=== PATIENT | male | born 1955 | race Hispanic/Latino ===

== ENCOUNTER 2017-05-06 11:52 | Inpatient (IN) | payer MEDICARE, BC ==
[2017-05-06 13:05] LABS: ALT (SGPT) 29 U/L (8-55); AST (SGOT) 22 U/L (5-34); Albumin 3.6 g/dL (3.4-4.8); Alkaline Phosphatase 80 U/L (40-150); Anion Gap 25 mmol/L (10-20); BUN (Urea Nitrogen) 91 mg/dL (8.4-25.7); Bilirubin, Total 0.7 mg/dL (0.2-1.2); CK (CPK) 204 U/L (30-200); Calc. Creatinine Clearance 0 mL/min (70-130); Calcium 9.1 mg/dL (7.8-10.44); Carbon Dioxide 21 mmol/L (23-31); Chloride 95 mmol/L (98-107); Estimated GFR-MDRD 3; Globulin 4.3 g/dL (2.4-3.5); Glucose 96 mg/dL (80-115); Potassium 3.6 mmol/L (3.5-5.1); Protein, Total 7.9 g/dL (5.8-8.1); Sodium 137 mmol/L (136-145)
[2017-05-06 13:09] LABS: CKMB 2.8 ng/mL (0-6.6); Troponin I 0.036 ng/mL (< 0.028)
--- NOTE | 2017-05-06 13:19 | ULT ---
VENOUS DOPPLER ULTRASOUND OF THE RIGHT LOWER EXTREMITY: HISTORY: Right leg pain. TECHNIQUE: Batista scale ultrasound with color flow and spectral Doppler imaging of the deep venous system of the r ight lower extremity is performed. FINDINGS: There is good flow, compression, and augmentation of the right common femoral, femoral, deep femoral, popliteal, posterior tibial, and greater saphenous veins. IMPRESSION: No evidence of deep vein thrombosis in the right lower extremity. POS: RAMONE
[2017-05-06 13:24] LABS: #Eosinphils 0.1 thou/uL (0.0-0.7); #Monocytes 0.8 thou/uL (0.11-0.59); #Neutrophils 6.3 thou/uL (1.40-6.50); %Basophils 0.5 % (0.0-1.0); %Eosinophils 1.2 % (0.0-10.0); %Lymphocytes 12.7 % (21.0-51.0); %Monocytes 9.6 % (0.0-10.0); Hemoglobin 11.8 g/dL (14.0-18.0); Mean Corpuscular HGB CONC 32.9 g/dL (32.0-36.0); Mean Corpuscular Hemoglobin 35.7 pg (27.0-31.0); Mean Platelet Volume 6.8 fL (7.4-10.4); Platelet Count 179 thou/uL (130-400); RBC Distribution Width 12.6 % (11.5-14.5); Red Blood Cell (RBC) Count 3.29 mill/uL (4.70-6.10); White Blood Cell (WBC) Count 8.2 thou/uL (4.8-10.8)
[2017-05-06 13:25] LABS: MDiff Complete? YES; Macrocytosis SLIGHT = 6-15 cells (100X) (0-5/hpf); PLT Morphology Comment Appears Adequate; Polychromasia SLIGHT = 2-3 cells (100X) (0-2/hpf)
[2017-05-06] MEDS ORDERED: Acetaminophen 325 MG TAB PO PRN ×2 (15:55→17:01)
[2017-05-06] MEDS ORDERED: Calcitriol 0.25 MCG CAP PO SCH (16:00)
[2017-05-06] MEDS ORDERED: Fentanyl 100 MCG/2 ML VIAL SLOW IVP PRN (16:18)
[2017-05-06] MEDS ORDERED: FERRIC CITRATE PO SCH (17:00)
[2017-05-06] MEDS ORDERED: Bisacodyl 5 MG TAB PO PRN (17:01)
[2017-05-06 17:49] VITALS: BMI 50.2
[2017-05-06] MEDS: Sevelamer Carbonate 800 MG TAB PO SCH (18:06)
[2017-05-06] MEDS: Lanthanum Carbonate 500 mg Tablet PO SCH (18:06)
[2017-05-06] MEDS: Piperacillin/Tazobactam 2.25 GM in Sodium Chloride 0.9% 100 ML IVPB SCH (18:55)
--- NOTE | 2017-05-06 20:54 | ULT ---
ULTRASOUND SOFT TISSUES OF THE RIGHT FORELEG: Indication: Concern for abscess involving the lateral ankle of the right ankle. Technique: Grayscale and color doppler images were obtained of the region of interest. FINDINGS: There is prominent edema seen within the soft tissues. There is a 1.7 x 1.6 cm heterogeneous collecti on within the region of interest overlying the lateral leg which may reflect complex hematoma or absc ess. There is surrounding edema within the subcutaneous tissues. IMPRESSION: Complex fluid collection within the subcutaneous tissues overlying the region of interest of the late ral right foreleg. Findings may reflect a hematoma or small abscess measuring up to 1.7 cm. If clinic ally indicated, further evaluation with an MRI examination with and without contrast may be helpful f or improved delineation. POS: DIRK
[2017-05-06] MEDS ORDERED: Sodium Chloride 0.9% 10 ML ONE (21:00)
[2017-05-06] MEDS: Docusate 100 MG CAP PO SCH (21:30)
[2017-05-06] MEDS: Famotidine/PF 20 mg/2ml Vial SLOW IVP SCH (21:31)
--- NOTE | 2017-05-06 22:50 | HP ---
CHIEF COMPLAINT: 1. Right leg cellulitis. 2. Right leg pain. HISTORY OF PRESENT ILLNESS: This is a 62-year-old morbidly obese male with a known history of end-stage renal disease, on peritoneal dialysis which he does at home every day. The patient was in his usual state of health until few days ago he started noticing worsening right lower leg extremi ty pain associated with some redness. He initially went to his primary care physician who started susan llanos on amoxicillin. As the pain was getting worse and with more swelling and increased redness, the suhas marcelo came to the ER for further evaluation. The patient was noted to have marked swelling of his ri ght lower extremity compared to the left lower extremity. Had a DVT ultrasound, which was negative. The suspicion for worsening cellulitis, the patient is being admitted. On examination, the patient was noted to have marked swelling and has very soft and tender spot on his right lower leg right abov e the lateral malleolus. Pain is 9/10 intensity and is excruciating when you press on it. He denies having any trauma prior to this. Did not shave his leg or had any penetrating injury. The patient had a previous history of abscess on the same leg on the backside and had to be drained a nd went for wound care. PAST MEDICAL HISTORY: 1. End-stage renal disease. 2. Hypothyroidism. 3. Morbid obesity. 4. Anemia of chronic disease. PAST SURGICAL HISTORY: The patient has peritoneal dialysis catheter placed. Otherwise, no other kno wn past surgical history the patient is able to tell. SOCIAL HISTORY: The patient is a nonsmoker. No history of alcohol. No history of illicit drug use. FAMILY HISTORY: No significant family history of coronary artery disease, but has a family history o f type 2 diabetes mellitus and kidney problems. REVIEW OF SYSTEMS: All 12 systems are reviewed with the patient thoroughly and found to be negative except the positives said in the HPI. The following complete review of systems was negative, unless otherwise mentioned in the HPI or below : Constitutional: Weight loss or gain, sense of well-being, ability to conduct usual activities, exerc ise tolerance. Skin/Breast: Rash, itching, changes in hair growth or loss, nail changes, breast lumps, tenderness, swelling, nipple discharge. Eyes: Vision, double vision, tearing, blind spots, pain. ENT/Mouth: Headaches (location, time of onset, duration, precipitating factors), vertigo, lightheade dness, injury. Vision, double vision, tearing, blind spots, pain, nose bleeding, colds, obstruction, discharge, dental difficulties, gingival bleeding, dentures, neck stiffness, pain, tenderness, masses in thyroid or other areas. Cardiovascular: Precordial pain, substernal distress, palpitations, syncope, dyspnea on exertion, or thopnea, nocturnal paroxysmal dyspnea, edema, cyanosis, hypertension, heart murmurs, varicosities, ph lebitis, claudication. Respiratory: Pain, shortness of breath, wheezing, stridor, cough, hemoptysis, fever or night sweats. Gastrointestinal: Poor appetite, dysphagia, indigestion, abdominal pain, heartburn, eructation, naus ea, vomiting, hematemesis, jaundice, constipation, or diarrhea, abnormal stools (kim-colored, tarry, bloody, greasy, foul smelling), flatulence, hemorrhoids, recent changes in bowel habits. Genitourinary: Urgency, frequency, dysuria, nocturia, hematuria, polyuria, oliguria, unusual (or ruben nge in) color of urine, stones, hesitancy, change in size of stream, dribbling, acute retention or in continence, libido, potency. Musculoskeletal: Pain, swelling, redness or heat of muscles or joints, limitation, of motion, muscul ar weakness, atrophy, cramps. Neurologic/Psychiatric: Convulsions, paralyses, tremor, incoordination, parasthesias, difficulties w ith memory of speech, sensory or motor disturbances, or muscular coordination (ataxia, tremor), emoti onal problems, anxiety, depression, previous psychiatric care, unusual perceptions, hallucinations. Allergy/Immunologic: Skin rash, anemia, bleeding tendency, polydipsia, polyuria, intolerance to heat or cold. HOME MEDICATIONS: 1. Amoxicillin 875 mg q.12 hours. 2. Aspirin 81 mg p.o. daily. 3. Levofloxacin 250 mg 1 tablet as directed. 4. Methoxy polyethylene glycol-epoetin beta 75 mcg per syringe. 5. Calcitriol 0.25 mcg daily. 6. Cholecalciferol 2000 units capsule vitamin D3 daily. 7. Ferric citrate 210 mg of iron tablet daily. 8. Lanthanum carbonate/ Fosrenol 1000 mg two tablets p.o. as directed. 9. Levothyroxine 200 mcg tablet daily 50 mcg tablets daily. 10. Sevelamer 3 tablets p.o. t.i.d. ALLERGIES: 1. FLUCONAZOLE. 2. HYDROCODONE and OPIOIDS and MORPHINE ANALOGS. PHYSICAL EXAMINATION: VITAL SIGNS: Blood pressure 98/60, pulse is 88, respirations 18, saturation is 98% on 2 liters. GENERAL: The patient is morbidly obese. He is seen lying in the bed supine, does not appear to be i n acute distress. HEENT: Atraumatic, normocephalic. PERRLA. Extraocular movements are intact. Oral mucosa is pink an d moist. CARDIOVASCULAR: S1 and S2 normal. No murmurs, rubs, or gallops. LUNGS: Bilateral air entry was equal. No wheezing, no crackles. ABDOMEN: Soft, nontender. No guarding, no rebound tenderness. Bowel sounds normal. MUSCULOSKELETAL: The patient has right lower extremity swelling and has a tender spot which is soft in consistency on the right above the right lateral malleolus and erythema seen around the margin. N o calf tenderness, no joint tenderness, no joint swelling. SKIN: As detailed above as erythema around the wound area. LYMPHADENOPATHY: No evidence of any lymph nodes were noted, but the patient does complain of right i nguinal area tenderness. PSYCHIATRIC: No signs of suicidal ideation. No signs of satinder. No signs of agitation. LABORATORY DATA. WBC 8.2, hemoglobin is 11.8, hematocrit 35.7, platelets are 179. Sodium is 137, po tassium 3.6, chloride is 95, BUN is 91, creatinine is 18.12. Lactic acid 2.7. Troponin 0.036. BNP is 22.9. ASSESSMENT: 1. Possible right lower extremity abscess. 2. Early sepsis. 3. End-stage renal disease, on peritoneal dialysis. 4. History of hypothyroidism. 5. Morbid obesity. PLAN: 1. Closely monitor this patient. We will get a stat ultrasound to rule out abscess. We will start the patient on aggressive IV antibiotics with Zosyn 3.375 grams q.6 hours. We will consult General Solo rgery for possible abscess drainage. 2. Patient has signs of early sepsis with elevated lactic acid at 2.7. The patient has end-stage re nal disease, on peritoneal dialysis. The patient with very high risk for volume overload for giving any IV fluids at this time. We will closely monitor and consult Nephrology Dr. Gipson to follow up with this patient. 3. The patient has end-stage renal disease, on peritoneal dialysis. We will continue with his perit stoddard dialysis while he is in the hospital. The patient has elevated BUN and creatinine markedly simon vated. 4. The patient has mild troponin elevation, most likely this could be secondary to end-stage renal d isease, poor clearance of the troponins. We will closely monitor. The patient denies having any inna st pain. 5. History of hypothyroidism. We will continue the patient on home dose of levothyroxine. 6. The patient has multiple allergies for pain medications. At this time, we will use Tylenol and w ould use fentanyl if needed for pain control. 7. DVT prophylaxis, sequential compression devices at this time. I spent 70 minutes on this patient.
[2017-05-07 05:43] LABS: #Eosinphils 0.1 thou/uL (0.0-0.7); #Lymphocytes 1.3 thou/uL (1.20-3.40); #Neutrophils 5.3 thou/uL (1.40-6.50); %Basophils 0.2 % (0.0-1.0); %Eosinophils 1.1 % (0.0-10.0); %Lymphocytes 16.4 % (21.0-51.0); %Monocytes 12.5 % (0.0-10.0); %Neutrophils 69.8 % (42.0-75.0); Hemoglobin 11.1 g/dL (14.0-18.0); Mean Corpuscular HGB CONC 32.1 g/dL (32.0-36.0); Mean Corpuscular Hemoglobin 35.8 pg (27.0-31.0); Platelet Count 169 thou/uL (130-400); RBC Distribution Width 12.8 % (11.5-14.5); White Blood Cell (WBC) Count 7.6 thou/uL (4.8-10.8)
[2017-05-07] MEDS ORDERED: Sodium Chloride 0.9% 10 ML ONE ×3 (05:56→19:34)
[2017-05-07 06:07] LABS: Anion Gap 23 mmol/L (10-20); BUN (Urea Nitrogen) 87 mg/dL (8.4-25.7); Calc. Creatinine Clearance 8 mL/min (70-130); Calcium 8.7 mg/dL (7.8-10.44); Carbon Dioxide 19 mmol/L (23-31); Chloride 97 mmol/L (98-107); Estimated GFR-MDRD 3; Glucose 101 mg/dL (80-115); Potassium 3.5 mmol/L (3.5-5.1); Sodium 135 mmol/L (136-145)
[2017-05-07] MEDS: Levothyroxine Sodium 125 MCG TAB PO SCH (06:31)
[2017-05-07] MEDS: Piperacillin/Tazobactam 2.25 GM in Sodium Chloride 0.9% 100 ML IVPB SCH ×2 (06:33→18:25)
[2017-05-07] MEDS: Docusate 100 MG CAP PO SCH ×2 (08:39→21:00)
[2017-05-07] MEDS: Lanthanum Carbonate 500 mg Tablet PO SCH ×3 (08:39→14:32)
[2017-05-07] MEDS: Sevelamer Carbonate 800 MG TAB PO SCH ×3 (08:42→14:31)
[2017-05-07] MEDS ORDERED: Non-Formulary Item 1 EACH (Levothyroxine Sodium [Tirosint] 50 MCG) PO SCH (09:00)
--- NOTE | 2017-05-07 09:33 | CON ---
DATE OF CONSULTATION: 05/07/2017 HISTORY OF PRESENT ILLNESS: Mr. Boyer is a 62-year-old male with ESRD - currently on CC PD/nocturnal peritoneal dialysis and admitted due to right leg abscess. He was empirically treated w ith p.o. antibiotics without improvement and for this reason patient was further evaluated. It was f elt that he needed IV antibiotics. We are being consulted for his maintenance peritoneal dialysis. REVIEW OF SYSTEMS: Positive for low grade fever, positive for right leg abscess. No nausea, no vomi ting, no diarrhea, no syncopal episode, no productive cough, no dysuria, no urinary frequency, occasi onal constipation. No headache, no hematochezia, no melena, no hematemesis, no abdominal pain. PAST MEDICAL HISTORY: 1. ESRD, currently on peritoneal dialysis - secondary from chronic GN. 2. History of chronic lymphedema. 3. Hypertension. 4. Hypothyroidism. 5. History of fatty liver. PAST SURGICAL HISTORY: 1. Status post cuffed hemodialysis catheter placement. 2. Status post PD catheter placement. SOCIAL HISTORY: The patient lives in [place]. 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 No childre n. No history of smoking, no alcohol intake. Status post blood transfusion. Education: Some colle [employer] courses. Originally from [place]. No IV drug use. Sedentary lifestyle. FAMILY HISTORY: No family history of ESRD. ALLERGIES:? DIFLUCAN. TRAUMA: None. IMMUNIZATIONS: Up to date. HOSPITALIZATIONS: Please see past medical history. PHYSICAL EXAMINATION: VITAL SIGNS: Blood pressure is 89/54, heart rate 58, respiratory rate 22, temperature 97.9, pulse ox imetry 95%. GENERAL: Noted to be awake, alert, supine, in mild pain, morbidly obese. SKIN: Adequate turgor. HEENT: He has pinkish conjunctivae, anicteric sclerae. NECK: No neck mass, no carotid bruits, no JVD. CHEST: No deformities. LUNGS: Clear breath sounds. No wheezing, no crackles. HEART: Normal sinus rhythm. No murmur, no gallops, no rubs. ABDOMEN: Globular, soft, nontender, no masses. EXTREMITIES: Chronic leg edema. Positive for right leg abscess. Lesion noted to be fluctuant and t stephanie. MEDICATIONS: Medications of 05/07/2017; Tylenol 650 mg q.6 p.r.n., calcitriol 0.25 mcg 5 times a wee k, vitamin D3 2000 international units every 7 days, Colace 100 mg p.o. b.i.d., fentanyl 25 mcg IV q. 2 p.r.n., Fosrenol 1000 mg p.o. t.i.d., Synthroid 250 mcg every day, Auryxia 3 tablets t.i.d. with me als, Zosyn 2.25 grams IV q.12 hours, Renvela 800 mg 3 tabs t.i.d. with meals. ASSESSMENT AND PLAN: 1. End-stage renal disease, stable. We will continue current CCPD regimen. We will use 1.5% PD herson ution due to the low blood pressure. No changes to be made with the dialysis regimen. We will jake nue 11.5 hours peritoneal dialysis - nocturnal. 2. Right leg abscess - IV antibiotics. Surgical consult has been done for possible I&D of the lesio n. 3. Secondary hyperparathyroidism. Continue calcitriol. 4. Hyperphosphatemia - currently on Renvela and Fosrenol. Continue current meds. 5. Recheck base met and CBC in a.m.
[2017-05-07] MEDS ORDERED: VANCOMYCIN IVPB PRN (10:28)
--- NOTE | 2017-05-07 11:58 | CON ---
DATE OF CONSULTATION: 05/07/2017 REQUESTING PHYSICIAN: Dr. Randolph. HISTORY OF PRESENT ILLNESS: A 62-year-old obese man with a history of chronic renal disease. The patient has a history of chronic right leg lymphedema. He presented with worsening right leg pain over the last 2-3 days, associated now with low grade fever. The patient presented to the emergency department. He was evaluated, at the time complaining of 9 out of 10 right leg pain. Workup included ultrasound of the right leg, which reveals a 2 cm subcutaneous fluid collection. At the time of my evaluation, the patient is awake and alert. Reports being hypotensive, which is unusual for him. Admits to low grade fever. Denies any chills. PAST MEDICAL HISTORY: Significant for end-stage renal disease, on renal dialysis. Other past medical history includes morbid obesity, chronic anemia, and hypothyroidism. SURGICAL HISTORY: Pertinent for peritoneal dialysis catheter placement. He also has had incision and drainage of right leg abscess in the past associated with lymphedema. SOCIAL HISTORY: The patient is and lives at home with his . He denies any cigarette smoking, ethanol or illicit drug abuse. FAMILY HISTORY: Noncontributory for this patient's age. ALLERGIES: FLUCONAZOLE, OPIOIDS. MEDICATIONS: Prehospitalization medication has been reviewed. REVIEW OF SYSTEMS: Ten point review of systems essentially unremarkable except for as stated in past medical history and chief complaint. PHYSICAL EXAMINATION: GENERAL: This reveals a 62-year-old morbidly obese man who is otherwise coherent and interactive and appears stated age. The patient is alert and oriented x3, appears to be in no significant acute distress at the time of my evaluation. VITAL SIGNS: Currently includes blood pressure 89/54, pulse 58, respiratory rate 22. Maximum temperature in the last 24 hours is 99.3 degrees Fahrenheit and oxygen saturation is 95% on room air. HEENT: Reveals normocephalic and atraumatic. He has no jugular venous distention noted. HEART: Reveals regular rate and rhythm. No murmurs or gallops auscultated. LUNGS: Clear to auscultation bilaterally. Breathing is regular and unlabored. ABDOMEN: Soft and obese. He has no tenderness to palpation. EXTREMITIES: Reveals markedly edematous right leg. Distal right leg is exquisitely tender to palpation especially with palpable flocculence in the anteromedial aspect of the distal right leg. Skin itself red around the flocculence. Otherwise, the patient has 2+ radial and pedal pulses bilaterally. PERTINENT LABORATORY FINDINGS: Includes a CBC with 7600 white blood cells, hemoglobin 11.1, hematocrit is 34.5, platelet count is 169,000. Metabolic profile: Sodium 135, potassium 3.5, chloride 97, bicarbonate 19, BUN 87, creatinine 17.89, glucose is 101. IMPRESSION: 1. Chronic right leg lymphedema. 2. Two cm lymphocele, rule out abscess given the patient's current clinical presentation. PLAN: 1. Incision and drainage of the right leg, abnormal fluid collection with cultures. 2. Both findings and plan have been discussed with the patient and his at bedside. I have advised the patient that this is likely to recur as this is a complication of his chronic lymphedema. 3. Abnormal scarring may also arise from this incision and drainage. 4. The patient indicates understanding of information given. I answered his questions. The patient has given consent for this intervention. MARY
[2017-05-07] MEDS ORDERED: Vancomycin HCl 750 MG in Sodium Chloride 0.9% 250 ML 250 ML IVPB SCH (13:00)
[2017-05-07] MEDS ORDERED: Vancomycin HCl 1.25 GM in Sodium Chloride 0.9% 250 ML 250 ML IVPB SCH (13:00)
[2017-05-07] MEDS ORDERED: Vancomycin HCl 1 GM in Premix Bag 1 BAG IVPB SCH (13:00)
[2017-05-07] MEDS ORDERED: Vancomycin HCl 500 MG in Sodium Chloride 0.9% 100 ML IVPB SCH (13:00)
[2017-05-07] MEDS ORDERED: HOLD VANCOMYCIN FOR LEVEL >20 FS SCH (13:00)
--- NOTE | 2017-05-07 14:23 | PQF ---
CLINICAL DOCUMENTATION IMPROVEMENT CLARIFICATION FORM: ICD-10 Updated PLEASE DO AN ADDENDUM TO THE PROGRESS NOTE WITH ANY DOCUMENTATION UPDATES OR ADDITIONS AND CARRY THROUGH TO DC SUMMARY. THANK YOU. DATE: 05/07/17 ATTN: DR. GRUBER Please exercise your independent, professional judgment in responding to the clarification form. Clinical indicators are provided on the bottom of this form for your review Please check appropriate box(s) to clarify if the following diagnosis has been ruled in our ruled out: "SEPSIS" [ x ] Ruled in diagnosis [ x ] Continue to treat [ ] Resolved [ ] Ruled out diagnosis [ ] Cannot rule out diagnosis [ ] Other diagnosis [ ] Unable to determine In addition, please specify: Present on Admission (POA): [ x ] Yes [ ] No [ ] Unable to determine For continuity of documentation, please document condition throughout progress notes and discharge summary. Thank You. CLINICAL INDICATORS - SIGNS / SYMPTOMS / LABS H&P 05/06: "EARLY SEPSIS" BP 89/54 RR 28 LACTIC ACID: 2.7 RISKS: RIGHT LEG CELLULITIS TREATMENT: GENERAL SURGERY CONSULT I&D IV VANCOMYCIN (ER-PRESENT) IV ZOSYN (05/06-PRESENT) BLOOD CULTURES (This form is maintained as a part of the permanent medical record) 2014 [employer]. All Rights Reserved [email or web address] Office: [phone] [facility]
--- NOTE | 2017-05-07 14:41 | PDOC.PN ---
- Subjective Encounter Start Date: 05/07/17 Encounter Start Time: 08:30 Patient is seen this morning, Alert and oriented, patient is Complaing of Severe Right leg pain, Explained Discussed with Surgeon , planned to do I&D today. - Objective Resuscitation Status: Resuscitation Status FULL:Full Resuscitation MAR Reviewed: Yes Vital Signs & Weight: Vital Signs (12 hours) Temp Pulse Resp BP Pulse Ox 05/07/17 11:58 98.5 F 56 L 24 H 105/52 L 05/07/17 08:40 97.9 F 58 L 22 H 95 05/07/17 08:00 97.9 F 58 L 22 H 89/54 L 95 I&O: 05/06/17 05/07/17 05/08/17 06:59 06:59 06:59 Intake Total 110 Output Total 0 Balance 110 Result Diagrams: 05/07/17 05:07 05/07/17 05:07 Radiology Reviewed by me: Yes Phys Exam - Physical Examination HEENT: PERRLA, moist MMs Neck: no nodes, no JVD Respiratory: no wheezing, no rales Cardiovascular: RRR, no significant murmur Gastrointestinal: soft, non-tender Musculoskeletal: edema present (Right Leg pain with severe tenderness) Neurological: non-focal, normal sensation Lymphatic: no nodes Psychiatric: normal affect, A&O x 3 Dx/Plan - Plan cont current plan of care, continue antibiotics, PT/OT, respiratory therapy, DVT proph w/heparin * . Plan: Patient Will be getting his I&D today, discussd with general surgery today, Pt i scovered with Zosyn and Vancomycin. discussed with pharmacy to Dose the vancomycin to keep Troughs 10-15. Pt has pertinoneal Dialysis everyday, Renal fucntions are same, improving with Dialysis at night. Avoid nephrotoxic meds HTn well controlled, Continue Home meds. Will continue with Omeprazole for GERD. Pain mangement with IV Fentanyl as pt has multiple allergies to Morphine analouges. DVT prophylaxis: heparin Encourgaed pt to use Lymphedema stockings or Compression bandages, discussed about it. - Discharge Day Encounter end time: 09:00 Review of Systems - Review of Systems Constitutional: fever, chills Eyes: negative: Pain, Vision Change, Conjunctivae Inflammation, Eyelid Inflammation, Redness, Other ENT: negative: Ear Pain, Ear Discharge, Nose Pain, Nose Discharge, Nose Congestion, Mouth Pain, Mouth Swelling, Throat Pain, Throat Swelling, Other Respiratory: negative: Cough, Dry, Shortness of Breath, Hemoptysis, SOB with Excertion, Pleuritic Pain, Sputum, Wheezing Cardiovascular: negative: chest pain, palpitations, orthopnea, paroxysmal nocturnal dyspnea, edema, light headedness, other Gastrointestinal: negative: Nausea, Vomiting, Abdominal Pain, Diarrhea, Constipation, Melena, Hematochezia, Other Genitourinary: negative: Dysuria, Frequency, Incontinence, Hematuria, Retention , Other Musculoskeletal: Leg Pain. negative: Neck Pain, Shoulder Pain, Arm Pain, Back Pain, Hand Pain, Foot Pain, Other Neurological: negative: Weakness, Numbness, Incoordination, Change in Speech, Confusion, Seizures, Other - Medications/Allergies Allergies/Adverse Reactions: Allergies Allergy/AdvReac Type Severity Reaction Status Date / Time fluconazole Allergy Intermediate Verified 05/06/17 17:42 hydrocodone Allergy Intermediate Verified 05/06/17 17:42 Opioids - Morphine Analogues Allergy Intermediate Verified 05/06/17 17:42 Medications: Current Medications Acetaminophen (Tylenol) 650 mg PO Q4H PRN PRN Reason: Headache/Fever or Pain Bisacodyl (Dulcolax) 10 mg PO DAILYPRN PRN PRN Reason: Constipation Calcitriol (Rocaltrol) 0.25 mcg PO .5X's/WK [facility] Cholecalciferol (Vitamin D3) 2,000 units PO Q7D@0900 [facility] Docusate Sodium (Colace) 100 mg PO BID [facility] Last Admin: 05/07/17 08:39 Dose: 100 mg Famotidine (Pepcid) 20 mg SLOW IVP QPM [facility] Last Admin: 05/06/17 21:31 Dose: 20 mg Fentanyl (Sublimaze) 25 mcg SLOW IVP Q2H PRN PRN Reason: Breakthrough Pain Piperacillin Sod/Tazobactam (Sod 2.25 gm/ Sodium Chloride) 100 mls @ 200 mls/ hr IVPB 0600,1800 [facility] Last Admin: 05/07/17 06:33 Dose: 100 mls Vancomycin HCl 1.25 gm/ Sodium (Chloride) 250 mls @ 166.667 mls/hr IVPB [place] [facility] Vancomycin HCl 1 gm/ Device 200 mls @ 200 mls/hr IVPB [place] [facility] Vancomycin HCl 750 mg/ Sodium (Chloride) 250 mls @ 250 mls/hr IVPB [place] [facility] Vancomycin HCl 500 mg/ Sodium (Chloride) 100 mls @ 100 mls/hr IVPB [place] [facility] Lanthanum Carbonate (Fosrenol) 1,000 mg PO TID-WM [facility] Last Admin: 05/07/17 14:32 Dose: 1,000 mg Levothyroxine Sodium (Synthroid) 250 mcg PO 0600 [facility] Last Admin: 05/07/17 06:31 Dose: 250 mcg Miscellaneous Medication (Pharmacy To Dose) 1 each IVPB PRN PRN PRN Reason: Pharmacy to dose (Ferric Citrate [ (Auryxia] 1 Tab)) 3 tab PO TID-WM [facility] Hold Vancomycin For (Level >20) 0 each FS .AT DIALYSIS [facility] Sevelamer Carbonate (Renvela) 2,400 mg PO TID-WM [facility] Last Admin: 05/07/17 14:31 Dose: 2,400 mg
[2017-05-07] MEDS ORDERED: Sodium Chloride 0.9% 20 ML ONE (21:05)
[2017-05-07] MEDS: Famotidine/PF 20 mg/2ml Vial SLOW IVP SCH (21:43)
--- NOTE | 2017-05-07 23:25 | PRG ---
DATE OF SERVICE: 05/07/2017 SUBJECTIVE: Merrick Boyer is a 62-year-old male who was a General Surgery consult for right lower e xtremity abscess. The patient is to be taken to the OR in a.m. for I and D. He vocalized no additio nal complaints tonight. Currently, receiving IV antibiotics. OBJECTIVE: VITAL SIGNS: Reviewed and stable. The patient is afebrile. GENERAL: The patient resting in bed in no acute distress. RESPIRATORY: Breathing is nonlabored. EXTREMITIES: Right lower extremity abscess noted. ASSESSMENT: Right lower extremity abscess. PLAN: To OR in a.m. with Dr. Smiley.
[2017-05-08] MEDS ORDERED: Sodium Chloride 0.9% 20 ML ONE (06:11)
[2017-05-08] MEDS: Piperacillin/Tazobactam 2.25 GM in Sodium Chloride 0.9% 100 ML IVPB SCH (06:31)
[2017-05-08 06:34] LABS: #Eosinphils 0.1 thou/uL (0.0-0.7); #Monocytes 0.9 thou/uL (0.11-0.59); #Neutrophils 5.7 thou/uL (1.40-6.50); %Basophils 0.3 % (0.0-1.0); %Eosinophils 1.7 % (0.0-10.0); %Lymphocytes 22.9 % (21.0-51.0); %Monocytes 10.5 % (0.0-10.0); %Neutrophils 64.6 % (42.0-75.0); Mean Corpuscular HGB CONC 33.7 g/dL (32.0-36.0); Mean Corpuscular Hemoglobin 36.4 pg (27.0-31.0); Mean Platelet Volume 6.5 fL (7.4-10.4); Platelet Count 186 thou/uL (130-400); RBC Distribution Width 12.5 % (11.5-14.5); Red Blood Cell (RBC) Count 3.02 mill/uL (4.70-6.10); White Blood Cell (WBC) Count 8.7 thou/uL (4.8-10.8)
[2017-05-08 06:46] LABS: Anion Gap 25 mmol/L (10-20); BUN (Urea Nitrogen) 85 mg/dL (8.4-25.7); Calc. Creatinine Clearance 9 mL/min (70-130); Calcium 8.6 mg/dL (7.8-10.44); Carbon Dioxide 19 mmol/L (23-31); Chloride 96 mmol/L (98-107); Estimated GFR-MDRD 3; Glucose 105 mg/dL (80-115); Potassium 3.5 mmol/L (3.5-5.1); Sodium 136 mmol/L (136-145)
[2017-05-08] MEDS: Levothyroxine Sodium 125 MCG TAB PO SCH (07:35)
[2017-05-08] MEDS ORDERED: Midazolam HCl 2 mg/2 ml Vial ONE ×2 (08:59→11:07)
[2017-05-08] MEDS ORDERED: Fentanyl 100 MCG/2 ML VIAL ONE (11:07)
[2017-05-08] MEDS ORDERED: Bupivacaine/Epinephrine 0.25% 30 ML VIAL ONE ×2 (11:10→11:11)
[2017-05-08] MEDS ORDERED: Lidocaine 2% PF 5 ML VIAL ONE (11:10)
[2017-05-08] MEDS ORDERED: Propofol 200 MG/20 ML VIAL ONE (11:49)
[2017-05-08] MEDS ORDERED: Promethazine HCl 25 MG/ML VIAL SLOW IVP PRN (12:19)
[2017-05-08] MEDS ORDERED: Promethazine HCl 25 MG/ML VIAL IM PRN (12:19)
[2017-05-08] MEDS ORDERED: Ondansetron HCl/PF 4 MG/2 ML Vial IVP PRN (12:19)
[2017-05-08] MEDS: Lanthanum Carbonate 500 mg Tablet PO SCH ×2 (13:19→13:24)
[2017-05-08] MEDS: Sevelamer Carbonate 800 MG TAB PO SCH ×2 (13:20→13:24)
[2017-05-08] MEDS: Docusate 100 MG CAP PO SCH (13:24)
[2017-05-08] MEDS ORDERED: traMADol HCl 50 MG TAB PO PRN ×2 (15:08)
[2017-05-08] MEDS ORDERED: Acetaminophen 325 MG TAB PO SCH (15:15)
--- NOTE | 2017-05-08 16:21 | OP ---
DATE OF OPERATION: 05/08/2017 PREOPERATIVE DIAGNOSIS: Right leg abscess. POSTOPERATIVE DIAGNOSIS: Right leg abscess. PROCEDURES PERFORMED: Incision and drainage of right leg abscess. SURGEON: Dr. Smiley. ANESTHESIA: Conscious sedation. INDICATIONS FOR PROCEDURE: This is a 62-year-old morbidly obese man with history of right leg lymphedema who presented with a flocculent tender distal right leg mass. Clinical and radiographic examination was consistent with distal right leg abscess. The patient was brought to the operating room for incision and drainage. DESCRIPTION OF PROCEDURE: Informed consent obtained from the patient who was brought to the operating room and placed in supine position. Following conscious anesthesia provided by Anesthesia Department, the right leg was sterilely prepped and draped in the usual fashion Crucifix incision was made above the dome of the abscess; large amount of purulent pus was evacuated. Necrotic tissues were sharply debrided using Metzenbaum scissors. The wound bed was then packed with saline saturated sterile gauze. Kerlix and Pramod was then used to wrap the distal leg. The patient tolerated the procedure without any apparent complication and was returned to the recovery room in satisfactory condition. MARY
[2017-05-08 16:45] VITALS: BP 111/56; TEMP 98.4
--- NOTE | 2017-05-08 17:22 | PRG ---
DATE OF SERVICE: 05/08/2017 SUBJECTIVE: Mr. Boyer is a 62-year-old male with ESRD, currently on peritoneal dialysis . This morning, he underwent incision and drainage of his right leg abscess. Since that time, he is doing well. He will be discharged today. He voices no new complaints. OBJECTIVE: VITAL SIGNS: Blood pressure is 111/56, heart rate 79, respiratory rate 22, temperature 98.4. GENERAL: Awake, alert, comfortable, not in distress. SKIN: Adequate turgor. HEENT: Pinkish conjuctivae. Anicteric sclera. NECK: No neck mass. No carotid bruits. No JVD. CHEST: No deformities. LUNGS: Clear breath sounds. HEART: Normal sinus rhythm. No murmur, no gallops, no rubs. ABDOMEN: Globular, soft, nontender. Positive for PD catheter. EXTREMITIES: Positive for edema. Positive for right leg dressing. Left leg positive for edema. MEDICATIONS: Of 05/08/2017 reviewed. LABORATORY: On 05/08/2017, white count 8.7, hemoglobin 11, sodium 136, potassium 2.5, chloride 96, c arbon dioxide 29, BUN 85, creatinine 17, glucose 115, calcium 8.6. ASSESSMENT AND PLAN: 1. End-stage renal disease, stable. Tolerating continuous cycling peritoneal dialysis last night. Continue current continuous cycling peritoneal dialysis regimen. No changes to be made. 2. Right leg abscess, status post incision and drainage. Doing well. Okay for discharge.
--- NOTE | 2017-05-08 22:58 | DIS ---
DATE OF ADMISSION: 05/06/2017 DATE OF DISCHARGE: 05/08/2017 ADMITTING DIAGNOSIS: Right leg abscess. DISCHARGE DIAGNOSES: Right leg abscess incision and drainage. SECONDARY DIAGNOSES: 1. Sepsis. 2. End-stage renal disease. 3. Hypothyroidism. 4. Morbid obesity. 5. Anemia of chronic disease. CONSULTANTS: Involved in the care is Dr. Morrison, General Surgery. HISTORY OF PRESENT ILLNESS AND HOSPITAL COURSE: In brief, this is a 62-year- old morbidly obese man with a known history of end-stage renal disease , on peritoneal dialysis. He presented to the ER complaining of worsening right leg pain, which initially was treated with outpatient oral antibiotic for cellulitis, but the pain was getting worse and was having worsening swelling. The patient decided to come to the ER for further evaluation. When the patient came to the ER, he had a severe pain and ultrasound was done showing an evidence of sign suspicious for abscess. General Surgery was consulted for incision and drainage, and the patient was initially started on vancomycin and Zosyn. Following this, the patient was still having worsening pain, so incision and drainage was carried out and there was serosanguineous fluid was taken and sent for cultures. The patient wanted to go home. The patient was instructed how to do wound care as his is very familiar with it. The patient was discharged home in stable condition. PHYSICAL EXAMINATION: On date of discharge, VITAL SIGNS: Blood pressure 117/68, heart rate is 76, respiration rate is 20, saturation is 96%. GENERAL: The patient is moderately built and moderately nourished, does not appears to be in acute distress. CARDIOVASCULAR: S1, S2 normal. No murmurs, rubs or gallops. LUNGS: Bilateral air entry was equal. No wheezing, no crackles. ABDOMEN: Soft, nontender, no guarding, no rebound tenderness. Bowel sounds normal. MUSCULOSKELETAL: No calf tenderness. No pedal edema, no joint tenderness, no joint swelling. SKIN: No cyanosis, no erythema, no rash, no pallor. NEUROLOGIC: Cranial nerve examination II-XII intact. No focal deficits were noted. HOME MEDICATIONS: 1. Tylenol. 2. Aspirin 81 mg. 3. Calcitriol. 4. Docusate 100 mg twice a daily. 5. Lanthanum carbonate. 6. Levofloxacin 250 mg p.o. as directed. 7. Levothyroxine. 8. Sevelamer carbonate. 9. Doxycycline 100 mg twice daily. DISCHARGE INSTRUCTIONS: 1. Continue activity as tolerated. 2. Advised to follow up with primary care physician in 1-2 weeks. 3. Advised to follow up with General Surgery has he recommended. 4. Advised activity as tolerated and avoid wetting the wound. I spent 35 minutes of this patient on day of discharge. MTDD
== END 2017-05-08 17:21 | disposition home or self-care (01) | DRG 853 ==
LOC: ERS 11:52 → ERHOLD 15:05 → 3SE 17:00
PROVIDERS: ADMIT Family Medicine; ATTEND Family Medicine
PROC: 3E1M39Z Irrigation of Peritoneal Cavity using Dialysate, Percutaneous Approach (ICD-10-PCS; 2017-05-06)
PROC: 0J9N0ZZ Drainage of Right Lower Leg Subcutaneous Tissue and Fascia, Open Approach (ICD-10-PCS; principal; 2017-05-08)
DX: A41.9 Sepsis, unspecified organism (principal); N18.6 End stage renal disease; I96 Gangrene, not elsewhere classified; N25.81 Secondary hyperparathyroidism of renal origin; L02.415 Cutaneous abscess of right lower limb; E66.01 Morbid (severe) obesity due to excess calories; E83.39 Other disorders of phosphorus metabolism; L03.115 Cellulitis of right lower limb; Z68.43 Body mass index [BMI] 50.0-59.9, adult; N03.9 Chronic nephritic syndrome with unspecified morphologic changes; I10 Essential (primary) hypertension; E03.9 Hypothyroidism, unspecified; D63.8 Anemia in other chronic diseases classified elsewhere; Z99.2 Dependence on renal dialysis; I89.0 Lymphedema, not elsewhere classified; K21.9 Gastro-esophageal reflux disease without esophagitis
CPT/HCPCS: 36415; 76999; 80048; 80053; 80202; 82550; 82553; 83605; 83880; 84484; 85025; 87040; 87070; 87077; 87186; 87205; 90945; 96365; A4216; G0257; G8978-GP-CM; G8979-GP-CK; J0131; J2001; J2250; J2543; J2704; J3010; J3370; J7050; S0028

== ENCOUNTER 2018-02-08 22:23 | Inpatient (IN) | payer MEDICARE, BC ==
[2018-02-08 23:22] LABS: #Lymphocytes 0.9 thou/uL (1.20-3.40); #Monocytes 0.8 thou/uL (0.11-0.59); #Neutrophils 12.4 thou/uL (1.40-6.50); %Basophils 0.1 % (0.0-1.0); %Eosinophils 0.3 % (0.0-10.0); %Lymphocytes 6.5 % (21.0-51.0); %Monocytes 5.6 % (0.0-10.0); %Neutrophils 87.6 % (42.0-75.0); MDiff Complete? YES; Macrocytosis SLIGHT = 6-15 cells (100X) (0-5/hpf); Mean Corpuscular HGB CONC 33.6 g/dL (32.0-36.0); Mean Corpuscular Hemoglobin 35.5 pg (27.0-31.0); Mean Platelet Volume 6.9 fL (7.4-10.4); Platelet Count 198 thou/uL (130-400); RBC Distribution Width 15.5 % (11.5-14.5); Red Blood Cell (RBC) Count 3.68 mill/uL (4.70-6.10); White Blood Cell (WBC) Count 14.1 thou/uL (4.8-10.8)
[2018-02-08 23:24] LABS: ALT (SGPT) 50 U/L (8-55); AST (SGOT) 29 U/L (5-34); Albumin 3.6 g/dL (3.4-4.8); Alkaline Phosphatase 106 U/L (40-150); Anion Gap 22 mmol/L (10-20); BUN (Urea Nitrogen) 67 mg/dL (8.4-25.7); Bilirubin, Total 0.8 mg/dL (0.2-1.2); Calc. Creatinine Clearance 0 mL/min (70-130); Calcium 9.7 mg/dL (7.8-10.44); Carbon Dioxide 18 mmol/L (23-31); Chloride 98 mmol/L (98-107); Estimated GFR-MDRD 3; Globulin 4.2 g/dL (2.4-3.5); Glucose 129 mg/dL (80-115); Potassium 3.3 mmol/L (3.5-5.1); Protein, Total 7.8 g/dL (5.8-8.1); Sodium 135 mmol/L (136-145)
[2018-02-08] MEDS ORDERED: Gentamicin 80 MG/2 ML VIAL ONE (23:30)
--- NOTE | 2018-02-08 23:41 | CT ---
CT OF THE ABDOMEN AND PELVIS 02/08/18 COMPARISON: 02/06/11 HISTORY: Abdominal pain, increased temperature, peritoneal dialysis. TECHNIQUE: Serial axial CT imaging at 5 mm intervals from lung bases through pubic symphysis without contrast. C oronal reformatted imaging obtained. FINDINGS: The lack of contrast limits assessment of the viscera, bowel, vascular structures and for lymphadenop athy. There is mild increased linear interstitial density noted within bilateral lung bases. There is no free intraperitoneal air noted. The catheter tubing curls in the pelvis, consistent with the patient's history of peritoneal dialysis. There is small volume free fluid in the pelvis, primari ly adjacent to the dialysis catheter. Limited assessment of the liver, gallbladder, spleen, pancreas, and adrenal glands is unremarkable. The kidneys are markedly atrophic. There are numerous calcifications noted within the renal hilum pallavi aterally suggesting a combination of numerous nonobstructing renal stones as well as numerous vascula r calcifications. No evidence for hydronephrosis is noted on either side. Limited assessment of the bowel demonstrates no evidence for obstruction. There is small volume free fluid in the inferior aspect of bilateral pericolic gutters. There is scattered atherosclerotic calcification of the abdominal aorta and its branches. Review of the osseous structures demonstrates degenerative change involving bilateral hips and bilate ral sacroiliac joints. There is multilevel thoracic spine and lumbar spine degenerative changes inclu ding multilevel disc space narrowing and osteophyte formation as well as multilevel vacuum disc forma tion and multifocal facet hypertrophic change. Renal calculi on the right measure up to 7-8 mm and re nal calculi on the left include a stone within the renal pelvis measuring up to 1 cm. IMPRESSION: 1. No free intraperitoneal air. 2. Numerous subcentimeter nonobstructing renal calculi bilaterally. POS: [facility]
[2018-02-08] MEDS ORDERED: Gentamicin Sulfate 80 MG in Premix Bag 1 BAG IVPB SCH (23:45)
[2018-02-09] MEDS ORDERED: Ondansetron ODT 4 MG TAB PO PRN (00:11)
[2018-02-09] MEDS ORDERED: Ondansetron HCl/PF 4 MG/2 ML Vial IVP PRN (00:11)
[2018-02-09] MEDS ORDERED: Acetaminophen 1,000 MG in Premix Bag 1 BAG IVPB PRN (00:16)
[2018-02-09 00:21] LABS: BF Color Colorless; Body Fluid Source PERITONEAL FLUID; Clarity Hazy (Clear); RBC Background Count 0.004; Tube # EDTA; WBC/NonHematic-Auto 1690 /cumm
[2018-02-09 00:32] LABS: BF RBC Count - Manual 75 /cumm
[2018-02-09] MEDS ORDERED: Vancomycin HCl 1.5 GM in Sodium Chloride 0.9% 250 ML 300 ML IVPB PRN (01:08)
[2018-02-09] MEDS ORDERED: Vancomycin HCl 1.25 GM in Sodium Chloride 0.9% 250 ML 250 ML IVPB PRN (01:09)
[2018-02-09] MEDS ORDERED: Vancomycin HCl 1 GM in Premix Bag 1 BAG IVPB PRN (01:10)
[2018-02-09] MEDS ORDERED: Vancomycin HCl 750 MG in Sodium Chloride 0.9% 250 ML 250 ML IVPB PRN (01:11)
[2018-02-09] MEDS ORDERED: HOLD VANCOMYCIN FOR LEVEL >20 FS PRN (01:12)
[2018-02-09 01:34] LABS: BF Segmented Neutrophils 90 %; Cell Count Non Hematic 10 %
[2018-02-09] MEDS ORDERED: Sodium Chloride 0.9% 500 ML IVPB SCH (02:30)
[2018-02-09 03:08] LABS: #Lymphocytes 0.9 thou/uL (1.20-3.40); #Monocytes 0.8 thou/uL (0.11-0.59); #Neutrophils 12.1 thou/uL (1.40-6.50); %Basophils 0.1 % (0.0-1.0); %Eosinophils 0.2 % (0.0-10.0); %Lymphocytes 6.4 % (21.0-51.0); %Monocytes 5.9 % (0.0-10.0); %Neutrophils 87.4 % (42.0-75.0); Hemoglobin 10.9 g/dL (14.0-18.0); Mean Corpuscular HGB CONC 33.5 g/dL (32.0-36.0); Mean Corpuscular Hemoglobin 35.4 pg (27.0-31.0); Mean Platelet Volume 6.9 fL (7.4-10.4); Platelet Count 159 thou/uL (130-400); RBC Distribution Width 15.5 % (11.5-14.5); Red Blood Cell (RBC) Count 3.07 mill/uL (4.70-6.10); White Blood Cell (WBC) Count 13.9 thou/uL (4.8-10.8)
[2018-02-09] MEDS ORDERED: Sodium Chloride 0.9% 500 ML IVPB PRN (03:30)
[2018-02-09 03:41] LABS: Lactic Acid 2.1 mmol/L (0.5-2.2)
[2018-02-09 03:44] LABS: ALT (SGPT) 39 U/L (8-55); AST (SGOT) 24 U/L (5-34); Albumin 2.9 g/dL (3.4-4.8); Alkaline Phosphatase 90 U/L (40-150); Anion Gap 17 mmol/L (10-20); BUN (Urea Nitrogen) 68 mg/dL (8.4-25.7); Bilirubin, Total 0.8 mg/dL (0.2-1.2); Calc. Creatinine Clearance 0 mL/min (70-130); Calcium 8.9 mg/dL (7.8-10.44); Carbon Dioxide 21 mmol/L (23-31); Chloride 102 mmol/L (98-107); Estimated GFR-MDRD 3; Globulin 3.4 g/dL (2.4-3.5); Glucose 117 mg/dL (80-115); Potassium 3.1 mmol/L (3.5-5.1); Protein, Total 6.3 g/dL (5.8-8.1); Sodium 137 mmol/L (136-145)
--- NOTE | 2018-02-09 03:50 | HP ---
CHIEF COMPLAINT: Abdominal pain. HISTORY OF PRESENT ILLNESS: This is a 62-year-old male with past medical history of end-stage renal disease, on peritoneal dialysis; CHF; hypothyroidism; hypertension; obesity presenting with abdominal pain, which started this morning. Per the patient, he has been doing peritoneal dialysis for years and this morning around lunchtime, the patient started feeling severe abdominal pain, which was 10/10 , localized around the umbilicus. The patient states that he did manual dialysis and the fluid was c loudy, and the patient then contacted Dr. Gipson, who is his primary flatcar whacker. Per Dr. Gipson, the pat harjeet was supposed to come to the ED to be evaluated for possible peritonitis. The patient at this po int denies any headaches, nausea, vomiting, chest pain, palpitations, shortness of breath; however, t he patient endorses 10/10 abdominal pain. REVIEW OF SYSTEMS: Positive for abdominal pain and low blood pressure, otherwise as documented in th e HPI. All other systems were reviewed and are negative. FAMILY HISTORY: Reviewed and noncontributory. PAST MEDICAL HISTORY: CHF; end-stage renal disease, on peritoneal dialysis; hypothyroidism; hyperten micaela; obesity. PAST SURGICAL HISTORY: The patient has peritoneal dialysis in place. PSYCHIATRIC HISTORY: The patient does not have any psych history. SOCIAL HISTORY: The patient denies any illicit drug use. The patient denies any ethanol abuse. The patient denies any smoking history. KNOWN ALLERGIES: The patient is allergic to DIFLUCAN, FLUCONAZOLE, HYDROCODONE, OPIOIDS, TRAMADOL. CURRENT MEDICATIONS: The patient is on Synthroid 300 mcg, aspirin 81 mg, Renvela 800 mg t.i.d. PHYSICAL EXAMINATION: VITAL SIGNS: Blood pressure is 94/44, heart rate is 94, respiratory rate of 26, temperature of 98.8, O2 saturation of 97. GENERAL APPEARANCE: The patient is lying in bed, appeared to be in a lot of pain, slightly in distre ss. Speaking in full sentences. Alert and oriented x3. HEENT: Normocephalic, atraumatic. Pupils are equally round and reactive to light. Extraocular move ments are intact. No scleral icterus. Mucous membranes are moist. NECK: Supple. No JVDs. Full range of motion. No tracheal deviation. LUNGS: Clear to auscultation bilaterally at anterior and posterior lung mejia. No wheeze, no rales , no rhonchi is appreciated. CARDIAC: The patient is tachycardic. No murmurs can be appreciated. ABDOMEN: Obese abdomen with diffuse tenderness with light palpation. Positive bowel sounds in all q uadrants. No palpable masses. There is a catheter in place at the abdomen. There is no erythema no miguel ángel. EXTREMITIES: 5/5 upper extremity strength and 5/5 lower extremity strength. Good pulses bilaterally at the upper and lower extremities. SKIN: Warm, dry, and intact. No rashes noted. There is a catheter inserted at the abdomen that can be seen. EKG shows sinus tachycardia with a rate of 101, complete right bundle branch block. EMERGENCY DEPARTMENT COURSE: The patient was given gentamicin, vancomycin, and normal saline. LABORATORY DATA: WBC is 14.1, hemoglobin is 13, hematocrit is 38.8, MCV is 106, RDW is 15.5, platele t is 198. Sodium of 135, potassium of 3.8, chloride of 98, carbon dioxide of 18, anion gap of 22. B UN is 67, creatinine is 15.51. GFR is 3. Lactic acid is 0.4, AST 29, ALT 50. Peritoneal fluid is c olorless, hazy in color; wbc is 1690; percentage of is 90. IMAGING: CT of the abdomen and pelvis showed no free intraperitoneal air, numerous subcentimeter non obstructing renal calculi bilaterally. ASSESSMENT AND PLAN: 1. This is a 62-year-old male being admitted for abdominal pain, likely due to abdominal peritonitis . At this point, the patient has been started on antibiotics, vancomycin and cefepime. We will cont inue the patient on these antibiotics. The patient sees Dr. Gipson, flatcar whacker. Therefore, we have c onsulted Dr. Gipson, flatcar whacker in terms of patient's renal issues. We will follow up with Nephrology 's recommendations. We will give the patient Tylenol IV for pain since the patient has multiple cornelia rgies to multiple pain medications. 2. Hypotension. The patient does have history of hypotension. Per the patient, he normally runs in the 80s. Dr. Gipson, who is the patient's flatcar whacker, is aware of this. Per his recommendation, the patient is supposed to receive 1 liter of fluids and the patient will undergo peritoneal dialysis in the a.m. We will follow up with the patient. We will admit the patient to the [facility] to be monitored closely. 3. Electrolyte abnormalities. We will replete patient's electrolytes. 4. End-stage renal disease, on peritoneal dialysis. The patient is said to have dialysis in the a.m . 5. History of obesity, currently stable at this time. We will continue treating the patient on his home medications. 6. History of hypothyroidism. We will start the patient on his home medications, after home medicat ions have been verified. 7. History of hypertension. Currently, the patient is hypotensive. We will monitor the patient chuckie sely. 8. Deep venous thrombosis and gastrointestinal prophylaxis. We will do heparin b.i.d. and we will m onitor the patient closely.
[2018-02-09 04:57] VITALS: BMI 46.0
[2018-02-09 05:51] LABS: HBSAg Index 0.21 S/CO (0-0.99); Hep B Surf Ag Non-Reactive S/CO (NonReactive)
[2018-02-09] MEDS: Cefepime 1 GM in Sodium Chloride 0.9% 100 ML IVPB SCH (06:08)
[2018-02-09] MEDS ORDERED: Potassium Chloride 20 MEQ TAB PO SCH (07:15)
[2018-02-09] MEDS: Heparin 5,000 UNITS/ML VIAL SC SCH ×2 (08:58→20:00)
[2018-02-09] MEDS ORDERED: [UNRECOGNIZED DRUG - REMARK] FS SCH (09:00)
[2018-02-09] MEDS ORDERED: Heparin 10,000 UNITS/ 10 ML VIAL ONE ×2 (09:00→10:00)
--- NOTE | 2018-02-09 11:32 | PDOC.PN ---
- Subjective Encounter Start Date: 02/09/18 Encounter Start Time: 11:50 Subjective: abd pain is better, no nausea, had breakfast this am -: sbp around 90 and says its normal for him -: at bedside - Objective Resuscitation Status: Resuscitation Status FULL:Full Resuscitation MAR Reviewed: Yes Vital Signs & Weight: Vital Signs (12 hours) Temp Pulse Resp BP Pulse Ox 02/09/18 08:00 97.7 F 61 22 H 114/49 L 96 02/09/18 07:55 99 02/09/18 04:06 76 20 78/42 L 100 02/09/18 02:22 86/44 L 02/09/18 02:15 99 02/09/18 02:06 82/43 L 02/09/18 02:01 78/43 L 02/09/18 01:47 82/42 L 02/09/18 01:16 90/53 L 02/09/18 00:58 100.0 F H 94 23 H 101/67 99 Weight Weight 285 lb 4.8 oz I&O: 02/08/18 02/09/18 02/10/18 06:59 06:59 06:59 Intake Total 1062 Output Total 95 Balance 967 Result Diagrams: 02/09/18 02:50 02/09/18 02:51 Phys Exam - Physical Examination HEENT: PERRLA, sclera anicteric Neck: no JVD, supple Respiratory: no wheezing, no rales Cardiovascular: RRR, no significant murmur Gastrointestinal: soft, no distention, positive bowel sounds PD cath Musculoskeletal: no edema, pulses present Neurological: non-focal, moves all 4 limbs Psychiatric: normal affect, A&O x 3 Dx/Plan (1) Peritonitis associated with peritoneal dialysis Status: Acute Qualifiers: Encounter type: subsequent encounter Qualified Code(s): T85.71XD - Infection and inflammatory reaction due to peritoneal dialysis catheter, subsequent encounter (2) ESRD (end stage renal disease) on dialysis Code(s): N18.6 - END STAGE RENAL DISEASE; Z99.2 - DEPENDENCE ON RENAL DIALYSIS Status: Chronic Comment: on PD (3) Hypotension Status: Chronic (4) Obesity Code(s): E66.9 - OBESITY, UNSPECIFIED Status: Chronic Qualifiers: Obesity classification: adult class 3 (BMI >= 40) Body mass index: BMI 45.0 -49.9 (5) Hypothyroidism Code(s): E03.9 - HYPOTHYROIDISM, UNSPECIFIED Status: Chronic Qualifiers: Hypothyroidism type: unspecified Qualified Code(s): E03.9 - Hypothyroidism , unspecified - Plan on cefepime and vanc -: peritoneal fluid gm stain was -ve -: had his dialysis overnight and ate breakfast this am, pain is easing -: to ambulate in hallway as tolerated, has chronic hypotension -: will add midodrine if he gets symptomatic, tx to telemetry * . Review of Systems - Medications/Allergies Allergies/Adverse Reactions: Allergies Allergy/AdvReac Type Severity Reaction Status Date / Time fluconazole Allergy Intermediate Verified 05/06/17 17:42 hydrocodone Allergy Intermediate Verified 05/06/17 17:42 Opioids - Morphine Analogues Allergy Intermediate Verified 05/06/17 17:42 Medications: Current Medications Acetaminophen (Tylenol) 650 mg PO Q4H PRN PRN Reason: Headache/Fever/Mild Pain (1-3) Heparin Sodium (Porcine) (Heparin) 5,000 units SC BID [facility] Last Admin: 02/09/18 08:58 Dose: 5,000 units Cefepime HCl 1 gm/ Sodium (Chloride) 100 mls @ 200 mls/hr IVPB Q48H ASIA Last Admin: 02/09/18 06:08 Dose: 100 mls Vancomycin HCl 1.5 gm/ Sodium (Chloride) 300 mls @ 200 mls/hr IVPB WILLCALL PRN PRN Reason: AFTER PD IF VANC LEVEL <= 5.0 Vancomycin HCl 1.25 gm/ Sodium (Chloride) 250 mls @ 166.667 mls/hr IVPB WILLCALL PRN PRN Reason: AFTERIF VANC LEVEL >5 AND <=10 Vancomycin HCl 1 gm/ Device 200 mls @ 200 mls/hr IVPB WILLCALL PRN PRN Reason: PD IF VANC LEVEL >10 AND <=15 Vancomycin HCl 750 mg/ Sodium (Chloride) 250 mls @ 250 mls/hr IVPB WILLCALL PRN PRN Reason: IF VANC LEVEL >15 AND <= 20 Miscellaneous Medication (Pharmacy To Dose) 0 each IVPB PRN PRN PRN Reason: VANC/CEFEPIME Pharmacy to Dose Miscellaneous Medication (Vancomycin Sliding Scale) 0 each FS .AFTER PD [facility] Hold Vancomycin For (Level >20) 0 each FS .AFTER PD PRN PRN Reason: HOLD VANCOMYCIN IF LEVEL > 20 Ondansetron HCl (Zofran Odt) 4 mg PO Q6H PRN PRN Reason: Nausea/Vomiting Ondansetron HCl (Zofran) 4 mg IVP Q6H PRN PRN Reason: Nausea/Vomiting Sevelamer Carbonate (Renvela) 1,600 mg PO TID-[facility] Sodium Chloride (Flush - Normal Saline) 10 ml IVF Q12HR PRN PRN Reason: Saline Flush Sodium Chloride (Flush - Normal Saline) 10 ml IVF PRN PRN PRN Reason: Saline Flush
[2018-02-09 11:58] LABS: #Eosinphils 0.2 thou/uL (0.0-0.7); #Lymphocytes 1.2 thou/uL (1.20-3.40); #Monocytes 0.8 thou/uL (0.11-0.59); #Neutrophils 9.9 thou/uL (1.40-6.50); %Basophils 0.2 % (0.0-1.0); %Eosinophils 1.3 % (0.0-10.0); %Lymphocytes 10.3 % (21.0-51.0); %Monocytes 6.4 % (0.0-10.0); %Neutrophils 81.8 % (42.0-75.0); Hemoglobin 12.4 g/dL (14.0-18.0); Mean Corpuscular HGB CONC 33.1 g/dL (32.0-36.0); Mean Corpuscular Hemoglobin 34.9 pg (27.0-31.0); Mean Platelet Volume 7.3 fL (7.4-10.4); Platelet Count 135 thou/uL (130-400); RBC Distribution Width 15.4 % (11.5-14.5); Red Blood Cell (RBC) Count 3.55 mill/uL (4.70-6.10); White Blood Cell (WBC) Count 12.1 thou/uL (4.8-10.8)
[2018-02-09] MEDS: Sevelamer Carbonate 800 MG TAB PO SCH ×2 (12:24→16:29)
--- NOTE | 2018-02-09 15:55 | CON ---
DATE OF CONSULTATION: 02/09/2018 HISTORY OF PRESENT ILLNESS: Mr. Boyer is a 62-year-old male with end-stage renal diseas e and currently on peritoneal dialysis and was admitted for abdominal pain. He was admitted for pres umptive diagnosis of peritonitis. His PD fluid was slightly cloudy and in addition, he has leukocyto sis on the PD fluid. He is being empirically treated with IV vancomycin and IV cefepime. We are mauro henrietta consulted for his maintenance peritoneal dialysis. The patient is undergoing peritoneal dialysis at the present time. He has received cefepime and vancomycin. His abdominal pain is a little better . We did a quick exchange with heparinized PD solution and this relieved the abdominal pain. REVIEW OF SYSTEMS: Positive for abdominal pain. Denies any fever, no nausea, no vomiting, no diarrh ea, no constipation, chronic leg edema. No hematochezia, no melena, no hematemesis, no headache, no diplopia, no sore throat, no joint pains. Positive for abdominal pain. MEDICATIONS: Cefepime 1 gram IV q.48 hours, heparin 5000 units subcu b.i.d., vancomycin, sliding sca le, Zofran 4 mg IV q.6 hours p.r.n. PAST MEDICAL HISTORY: 1. 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 2. Chronic lymphedema. 3. Hypertension. 4. Hypothyroidism. 5. History of fatty liver. PAST SURGICAL HISTORY: 1. Status post PD catheter placement. 2. Status post cuffed hemodialysis catheter placement. SOCIAL HISTORY: Patient lives in [place]. 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 No children. No hi story of smoking, no alcohol intake. Status post multiple blood transfusions. Education: Some [employer] courses. No IV drug abuse. Sedentary lifestyle. FAMILY HISTORY: No family history of end-stage renal disease. ALLERGIES: ? Diflucan. TRAUMA: None. IMMUNIZATIONS: Up to date. HOSPITALIZATIONS: Please see past medical history. PHYSICAL EXAMINATION: VITAL SIGNS: Blood pressure is 114/49, heart rate 61, respiratory rate 22, temperature 97.7, pulse o x 96%. GENERAL: Awake, alert, comfortable, obese, not in distress. SKIN: Adequate turgor. HEENT: Slightly pale conjunctivae, anicteric sclerae. NECK: No neck mass, no carotid bruits, no JVD. CHEST: No deformities. LUNGS: Clear breath sounds, no wheezing, no crackles. HEART: Normal sinus rhythm. No murmur, no gallops, no rubs. ABDOMEN: Globular, soft, nontender, no masses. EXTREMITIES: Positive for edema. NEUROLOGIC: Moving all extremities. No tremors, no asterixis. Oriented to 3 spheres. LABORATORY DATA AND IMAGING: Of 02/09/2018, white count 13.9, hemoglobin 10.9, hematocrit 32.4. Sod ium 137, potassium 3.1, chloride 102, carbon dioxide 21, BUN 68, creatinine 14.92, glucose 107, calci um 8.9, albumin is 2.9. PD fluid showed a white count of 1690. Gram stain were negative. C&S is pe nding. On 02/08/2018, CT scan of the abdomen and pelvis, no free intraperitoneal fluid, numerous non obstructing renal calculi bilaterally. ASSESSMENT AND PLAN: 1. Presumptive peritonitis - on IV cefepime and IV vancomycin. Continue current management. Awajazmyn shrestha for the C&S. He does have a suggestion of peritonitis as evidenced by elevated white count in the PD fluid. 2. End-stage renal disease. We will continue current peritoneal dialysis regimen. PD fluid removal only as tolerated. Review of the last Kt/V suggests he is adequately dialyzed with the current dial ysis regimen. 3. Hyperphosphatemia, start Renvela with this patient at 800 mg p.o. t.i.d. with meals. Recheck base met and CBC in a.m.
[2018-02-09] MEDS: Acetaminophen 325 MG TAB PO PRN ×2 (17:12→21:51)
--- NOTE | 2018-02-09 17:49 | CON ---
DATE OF CONSULTATION: 02/09/2018 CONSULTING PHYSICIAN: [facility] REASON FOR CONSULTATION: Peritonitis. HISTORY OF PRESENT ILLNESS: The patient is a 62-year-old male who presented to the hospital last nig ht with abdominal pain of 1 day induration. He is a peritoneal dialysis patient. It is assumed that he is probably having peritonitis from infection of his dialysate. He says he feels better today. He is currently undergoing an exchange of his peritoneal dialysate as talked to him. PAST MEDICAL HISTORY: 1. End-stage renal disease. 2. Hypothyroidism. 3. Hypertension. 4. Congestive heart failure. PAST SURGICAL HISTORY: Peritoneal dialysis catheter placement. SOCIAL HISTORY: Nonsmoker, does not consume alcohol. ALLERGIES: DIFLUCAN, HYDROCODONE, TRAMADOL. MEDICATIONS PRIOR TO ADMISSION: Synthroid, aspirin, Renvela. REVIEW OF SYSTEMS: Twelve point review of system is otherwise negative. PHYSICAL EXAMINATION: VITAL SIGNS: Temperature 98.3, pulse 61, respirations 20, O2 sat 98% on room air, blood pressure 101 /49. GENERAL: He is awake and alert and in no acute distress. HEENT: Unremarkable. NECK: No JVD. LUNGS: Clear. CARDIOVASCULAR: S1, S2 regular, without murmur. ABDOMEN: Distended, mild diffuse tenderness. EXTREMITIES: No edema. He has a peritoneal dialysis catheter located in the right lower quadrant of his abdomen. LABORATORY DATA: White blood cell count 12.1, hematocrit 37.5, platelet count 135. Sodium 137, pota ssium 3.1, chloride 102, CO2 of 21, BUN 60, creatinine 14.9, glucose 117. Peritoneal dialysis fluid showed a high white blood cell count, but apparently negative gram stain. Abdominal pelvic CT demons trated a nonobstructing renal calculi. ASSESSMENT: 1. Peritonitis. 2. End-stage renal disease requiring peritoneal dialysis. RECOMMENDATIONS: Vancomycin, cefepime as you are doing. He looks stable enough to where he can be t ransferred out to the floor at any time. Pulmonary will be available for help as needed.
[2018-02-09] MEDS ORDERED: Ibuprofen 200 MG TAB PO SCH (19:30)
[2018-02-10 04:38] LABS: Anion Gap 16 mmol/L (10-20); BUN (Urea Nitrogen) 59 mg/dL (8.4-25.7); Calc. Creatinine Clearance 11 mL/min (70-130); Calcium 8.6 mg/dL (7.8-10.44); Carbon Dioxide 26 mmol/L (23-31); Chloride 97 mmol/L (98-107); Estimated GFR-MDRD 4; Glucose 98 mg/dL (80-115); Sodium 136 mmol/L (136-145)
[2018-02-10 04:50] LABS: Potassium 2.8 mmol/L (3.5-5.1)
[2018-02-10] MEDS ORDERED: Potassium Chloride 20 MEQ TAB PO SCH (05:15)
[2018-02-10] MEDS: Acetaminophen 325 MG TAB PO PRN (06:03)
[2018-02-10 08:33] LABS: Vancomycin, Random 10.5 ug/mL (See Comment)
--- NOTE | 2018-02-10 09:07 | PRG ---
DATE OF SERVICE: 02/10/2018 The patient seems to be doing well, had no acute complaints. PHYSICAL EXAMINATION: VITAL SIGNS: Temperature is 97.9, pulse 50, respirations 20, O2 sat 99%, blood pressure 133/54. HEENT: Unremarkable. NECK: No JVD. LUNGS: Clear without wheezing. CARDIOVASCULAR: S1, S2 regular. ABDOMEN: Softer, nontender. EXTREMITIES: No edema. LABORATORY AND X-RAY FINDINGS: Peritoneal fluid is growing gram positive rods. His chemistry demons trates sodium 136, potassium 2.8, chloride 97, CO2 26, BUN 59, creatinine 13, platelet count 98. ASSESSMENT: 1. Peritonitis. 2. End-stage renal disease requiring peritoneal dialysis. PLAN: He is continuing antibiotics. He is stable for transfer out to the medical floor. Pulmonary will sign off. Please recall if further assistance needed.
--- NOTE | 2018-02-10 09:47 | PRG ---
DATE OF SERVICE: 02/10/2018 SUBJECTIVE: Mr. Boyer is a 62-year-old man with ESRD - on peritoneal dialysis and admit miguel ángel for peritonitis. His Gram stain shows gram positive rm - future identification pending. He is being empirically treated with vancomycin and cefepime. He is undergoing peritoneal dialysis and trinh erating said treatment. His abdominal pain is actually improved. PHYSICAL EXAMINATION: VITAL SIGNS: Blood pressure 103/54, heart rate, 97.9, respiratory rate 20, pulse ox 99%. GENERAL: Awake, alert, comfortable, not in distress SKIN: Adequate turgor. HEENT: He has pinkish conjunctivae, anicteric sclerae. NECK: No neck mass, no carotid bruits, no JVD. CHEST: No deformities. LUNGS: Clear breath sounds, no wheezing, no crackles. HEART: Normal sinus rhythm. No murmur, no gallops or rubs. ABDOMEN: Globular, soft, nontender. No masses. EXTREMITIES: Positive for edema. MEDICATIONS: 02/10/2018 - Reviewed. LABORATORY: 02/09/2018 - White count 12.1, hemoglobin 12.4. Vancomycin level is 10.5. Sodium 136, potassium 2.8, chloride 97, carbon dioxide 26, BUN 59, creatinine 13.32, glucose 898, calcium 8.6. ASSESSMENT AND PLAN: 1. Peritonitis - empiric IV cefepime and vancomycin. Awaiting final results 2. End-stage renal disease, stable. Continue current CCPD regimen, tolerating said treatment. 3. Hypokalemia, KCl 40 mEq 1 tab now. 4. Chronic hypotension; start midodrine 5 mg tab q.a.m.
[2018-02-10] MEDS ORDERED: Midodrine HCl 5 MG TAB PO SCH (10:00)
[2018-02-10] MEDS: Ibuprofen 200 MG TAB PO SCH ×3 (10:03→21:24)
[2018-02-10] MEDS: Heparin 5,000 UNITS/ML VIAL SC SCH ×2 (10:03→21:23)
[2018-02-10] MEDS: Sevelamer Carbonate 800 MG TAB PO SCH ×3 (10:03→15:09)
--- NOTE | 2018-02-10 12:52 | PDOC.PN ---
- Subjective Encounter Start Date: 02/10/18 Encounter Start Time: 12:00 Subjective: feels better -: had bm this am, no nausea, tolerating oral diet -: had PD last evening - Objective Resuscitation Status: Resuscitation Status FULL:Full Resuscitation MAR Reviewed: Yes Vital Signs & Weight: Vital Signs (12 hours) Temp Pulse Resp BP Pulse Ox 02/10/18 10:57 97.1 F L 16 87/45 L 02/10/18 08:43 99 02/10/18 07:32 97.9 F 20 103/54 L 99 02/10/18 03:52 98 F 52 L 16 104/60 100 Weight Weight 277 lb 12.8 oz I&O: 02/09/18 02/10/18 02/11/18 06:59 06:59 06:59 Intake Total 1062 1350 Output Total 95 Balance 967 1350 Result Diagrams: 02/09/18 11:46 02/10/18 03:35 Phys Exam - Physical Examination HEENT: PERRLA, moist MMs Neck: no JVD, supple Respiratory: no wheezing, no rales Cardiovascular: RRR, no significant murmur Gastrointestinal: soft, positive bowel sounds Musculoskeletal: no edema, pulses present Neurological: non-focal, moves all 4 limbs Psychiatric: normal affect, A&O x 3 Dx/Plan (1) Peritonitis associated with peritoneal dialysis Status: Acute Qualifiers: Encounter type: subsequent encounter Qualified Code(s): T85.71XD - Infection and inflammatory reaction due to peritoneal dialysis catheter, subsequent encounter (2) ESRD (end stage renal disease) on dialysis Code(s): N18.6 - END STAGE RENAL DISEASE; Z99.2 - DEPENDENCE ON RENAL DIALYSIS Status: Chronic Comment: on PD (3) Hypotension Status: Chronic (4) Obesity Code(s): E66.9 - OBESITY, UNSPECIFIED Status: Chronic Qualifiers: Obesity classification: adult class 3 (BMI >= 40) Body mass index: BMI 45.0 -49.9 (5) Hypothyroidism Code(s): E03.9 - HYPOTHYROIDISM, UNSPECIFIED Status: Chronic Qualifiers: Hypothyroidism type: unspecified Qualified Code(s): E03.9 - Hypothyroidism , unspecified - Plan is on cefepime and vanc -: culture is growing gm+ve rm, await full sensitivities and identification -: september tx to med floor -: d/w , will start midodrine -: random cortisol level from am is pending * . Per he has had prior w/u for adrenal glands and was -ve. mentions that he lost nearly 80lbs after starting PD and came off all antihtn meds. Review of Systems - Medications/Allergies Allergies/Adverse Reactions: Allergies Allergy/AdvReac Type Severity Reaction Status Date / Time fluconazole Allergy Intermediate Verified 05/06/17 17:42 hydrocodone Allergy Intermediate Verified 05/06/17 17:42 Opioids - Morphine Analogues Allergy Intermediate Verified 05/06/17 17:42 Medications: Current Medications Acetaminophen (Tylenol) 650 mg PO Q4H PRN PRN Reason: Headache/Fever/Mild Pain (1-3) Last Admin: 02/10/18 06:03 Dose: 650 mg Heparin Sodium (Porcine) (Heparin) 5,000 units SC BID [facility] Last Admin: 02/10/18 10:03 Dose: 5,000 units Cefepime HCl 1 gm/ Sodium (Chloride) 100 mls @ 200 mls/hr IVPB Q48H [facility] Last Admin: 02/09/18 06:08 Dose: 100 mls Vancomycin HCl 1.5 gm/ Sodium (Chloride) 300 mls @ 200 mls/hr IVPB WILLCALL PRN PRN Reason: AFTER PD IF VANC LEVEL <= 5.0 Vancomycin HCl 1.25 gm/ Sodium (Chloride) 250 mls @ 166.667 mls/hr IVPB WILLCALL PRN PRN Reason: AFTERIF VANC LEVEL >5 AND <=10 Vancomycin HCl 1 gm/ Device 200 mls @ 200 mls/hr IVPB WILLCALL PRN PRN Reason: PD IF VANC LEVEL >10 AND <=15 Vancomycin HCl 750 mg/ Sodium (Chloride) 250 mls @ 250 mls/hr IVPB WILLCALL PRN PRN Reason: IF VANC LEVEL >15 AND <= 20 Ibuprofen (Motrin) 400 mg PO TID [facility] Last Admin: 02/10/18 10:03 Dose: 400 mg Midodrine (Proamatine) 5 mg PO DAILY [facility] Miscellaneous Medication (Pharmacy To Dose) 0 each IVPB PRN PRN PRN Reason: VANC/CEFEPIME Pharmacy to Dose Miscellaneous Medication (Vancomycin Sliding Scale) 0 each FS .AFTER PD [facility] Hold Vancomycin For (Level >20) 0 each FS .AFTER PD PRN PRN Reason: HOLD VANCOMYCIN IF LEVEL > 20 Ondansetron HCl (Zofran Odt) 4 mg PO Q6H PRN PRN Reason: Nausea/Vomiting Ondansetron HCl (Zofran) 4 mg IVP Q6H PRN PRN Reason: Nausea/Vomiting Sevelamer Carbonate (Renvela) 1,600 mg PO TID-[facility] Last Admin: 02/10/18 10:03 Dose: 1,600 mg Sodium Chloride (Flush - Normal Saline) 10 ml IVF Q12HR PRN PRN Reason: Saline Flush Sodium Chloride (Flush - Normal Saline) 10 ml IVF PRN PRN PRN Reason: Saline Flush
[2018-02-11] MEDS: Cefepime 1 GM in Sodium Chloride 0.9% 100 ML IVPB SCH (05:17)
[2018-02-11 05:54] LABS: #Eosinphils 0.2 thou/uL (0.0-0.7); #Lymphocytes 1.2 thou/uL (1.20-3.40); #Monocytes 0.4 thou/uL (0.11-0.59); %Basophils 0.2 % (0.0-1.0); %Eosinophils 4.2 % (0.0-10.0); %Lymphocytes 20.1 % (21.0-51.0); %Neutrophils 68.5 % (42.0-75.0); Hemoglobin 12.3 g/dL (14.0-18.0); Mean Corpuscular HGB CONC 32.8 g/dL (32.0-36.0); Mean Corpuscular Hemoglobin 34.9 pg (27.0-31.0); Platelet Count 164 thou/uL (130-400); RBC Distribution Width 15.3 % (11.5-14.5); Red Blood Cell (RBC) Count 3.53 mill/uL (4.70-6.10); White Blood Cell (WBC) Count 5.8 thou/uL (4.8-10.8)
[2018-02-11 06:12] LABS: Anion Gap 16 mmol/L (10-20); BUN (Urea Nitrogen) 55 mg/dL (8.4-25.7); BUN/Creatinine Ratio 4.69; Calc. Creatinine Clearance 12 mL/min (70-130); Calcium 8.9 mg/dL (7.8-10.44); Carbon Dioxide 24 mmol/L (23-31); Chloride 96 mmol/L (98-107); Estimated GFR-MDRD 4; Glucose 98 mg/dL (80-115); Phosphorus 4.2 mg/dL (2.3-4.7); Sodium 133 mmol/L (136-145)
[2018-02-11 06:16] LABS: Potassium 2.8 mmol/L (3.5-5.1)
[2018-02-11] MEDS ORDERED: Heparin 10,000 UNITS/ 10 ML VIAL ONE ×2 (07:55→12:00)
[2018-02-11] MEDS: Sevelamer Carbonate 800 MG TAB PO SCH ×3 (08:44→17:53)
[2018-02-11] MEDS: Midodrine HCl 5 MG TAB PO SCH (08:46)
[2018-02-11] MEDS: Ibuprofen 200 MG TAB PO SCH ×3 (08:46→20:03)
[2018-02-11] MEDS: Heparin 5,000 UNITS/ML VIAL SC SCH ×2 (08:46→20:02)
--- NOTE | 2018-02-11 10:23 | PRG ---
DATE OF SERVICE: 02/11/2018 SERVICE: Renal Medicine. SUBJECTIVE: Mr. Boyer is a 62-year-old male with ESRD - on maintenance peritoneal dialy sis and admitted for peritonitis. He has been empirically treated with cefepime and vancomycin. His abdominal pain is much improved. The PD fluid culture showed a presumptive corynebacterium. My con cern is he did have a mild leukocytosis in the PD. My bias is to simply finish a course of antibioti cs targeting gram-positive cocci. No other complaints today. He is also noted to be hypokalemic, and for that reason, I have started h im on K-Dur 40 mEq once a day. The patient denies any chest pain or shortness of breath. OBJECTIVE: VITAL SIGNS: Blood pressure 103/53, heart rate 51, temperature 96.9, pulse ox 99% - room air. GENERAL EXAM: Awake, alert, obese, comfortable, not in distress SKIN: Adequate turgor. HEENT: He has pinkish conjunctivae, anicteric sclerae. NECK: No neck mass, no carotid bruits, no JVD. LUNGS: Clear breath sounds, no wheezing, no crackles. HEART: Normal sinus rhythm. No murmur, no gallops, no rubs. ABDOMEN: Globular, soft, nontender. No masses. Positive for PD catheter. EXTREMITIES: No edema, no deformities. Medications of 02/11/2018 were reviewed. LABORATORY DATA: Laboratories of 02/11/2018, white count 5.8, hemoglobin 12.3. Sodium 133, potassiu m 2.8, chloride 96, carbon dioxide 24, BUN 55, creatinine 11.7, glucose 98, calcium 8.9, phosphorus 4 .2, albumin 3.0. ASSESSMENT AND PLAN: 1. End-stage renal disease - stable. Continue current CCPD regimen. Tolerating peritoneal dialysis . 2. Peritonitis - patient receiving IV vancomycin and cefepime. I would recommend that we convert hi m to Cipro at 250 b.i.d. for the next 10 days. Doing well overall. 3. Hypokalemia. K-Dur 40 mEq 1 tab q.a.m. We will recheck base met and CBC in a.m.
[2018-02-11] MEDS ORDERED: Potassium Chloride 20 MEQ TAB PO SCH (11:30)
--- NOTE | 2018-02-11 11:39 | PQF ---
DATE: 02-11-18 ATTN : DR. JIGNA PABON Please exercise your independent, professional judgment in responding to the clarification form. Clinical indicators are provided on the bottom of this form for your review Please check appropriate box(es): [ X ] Sepsis due to: (PERITONITIS, , etc.) Due to: [ ] Device (please specify) [ ] Implant [ ] Graft [ ] Infusion [ ] Severe sepsis with acute organ dysfunction of: (Examples: ESRD, other) [ ] Localized infection without sepsis [ ] Other diagnosis [ ] Unable to determine In addition, please specify: Present on Admission (POA): [ X] Yes [ ] No [ ] Unable to determine For continuity of documentation, please document condition throughout progress notes and discharge summary. Thank You. CLINICAL INDICATORS - SIGNS / SYMPTOMS / LABS ER DX: PERITONITIS, LACTIC ACID, SEPSIS H&P: ABD PAIN LIKELY DUE TO ABDOMINAL PERITONITIS, HYPOTENSION, ELECTROLYTE ABNORMALITIES, ESRD WBC: -10-21: 14.1 10: 13.9, 12.1 02-11-18: 5.8 LACTIC ACID: 02-08-18: 3.4 TEMP: 02-09-18: 100.0 BP: ER: 73/41, 94/44 10-18: 90/53, 82/42, 78/43, 82/43, 78/42 10-18: 87/45, 92/45 RR: ER: 26, 30, 24 RISK FACTORS: ER DX: PERITONITIS, LACTIC ACID, SEPSIS H&P: ABD PAIN LIKELY DUE TO ABDOMINAL PERITONITIS , HYPOTENSION, ELECTROLYTE ABNORMALITIES, ESRD TREATMENTS: ER: GENTAMYCIN IV, VANCOMYCIN IV, IVF MAR: MAXIPIME (This form is maintained as a part of the permanent medical record) 2014 [employer]. All Rights Reserved [email or web address] Office: [phone] MARY
[2018-02-11] MEDS ORDERED: Saccharomyces boulardii 250 MG CAP PO SCH (12:15)
--- NOTE | 2018-02-11 15:00 | PDOC.PN ---
- Subjective Encounter Start Date: 02/11/18 Encounter Start Time: 14:59 Subjective: still has some abd pain and loose stools. - Objective Resuscitation Status: Resuscitation Status FULL:Full Resuscitation MAR Reviewed: Yes Vital Signs & Weight: Vital Signs (12 hours) Temp Pulse Resp BP Pulse Ox 02/11/18 11:36 96.6 F L 109/75 02/11/18 08:00 51 L 16 103/53 L 95 02/11/18 07:39 98 02/11/18 07:28 96.9 F L 51 L 103/53 L 99 02/11/18 04:00 97.0 F L 50 L 17 102/61 95 Weight Weight 275 lb I&O: 02/10/18 02/11/18 02/12/18 06:59 06:59 06:59 Intake Total 1350 1300 Output Total 350 Balance 1350 950 Result Diagrams: 02/11/18 05:33 02/11/18 05:33 Additional Labs: Microbiology 02/08/18 23:36 Peritoneal Fluid Culture - Pending Body Fluid Culture - Preliminary Presumptive Corynebacterium sp 02/08/18 22:47 Venous blood - Right Hand Blood Culture - Preliminary Specimen has been received and culture in progress. No Growth to date. 02/08/18 22:47 Venous blood - Left Arm Blood Culture - Preliminary Specimen has been received and culture in progress. No Growth to date. Phys Exam - Physical Examination Constitutional: NAD HEENT: PERRLA, moist MMs, sclera anicteric, oral pharynx no lesions Neck: no nodes, no JVD, supple, full ROM Respiratory: no wheezing, no rales, no rhonchi, clear to auscultation bilateral Cardiovascular: RRR, no significant murmur, no rub Gastrointestinal: soft, non-tender, no distention, positive bowel sounds Musculoskeletal: no edema, pulses present Neurological: non-focal, normal sensation, moves all 4 limbs Psychiatric: normal affect, A&O x 3 Skin: no rash Dx/Plan (1) Sepsis Code(s): A41.9 - SEPSIS, UNSPECIFIED ORGANISM Status: Acute (2) Peritonitis associated with peritoneal dialysis Status: Acute Qualifiers: Encounter type: subsequent encounter Qualified Code(s): T85.71XD - Infection and inflammatory reaction due to peritoneal dialysis catheter, subsequent encounter (3) Hypokalemia Code(s): E87.6 - HYPOKALEMIA Status: Acute (4) ESRD (end stage renal disease) on dialysis Code(s): N18.6 - END STAGE RENAL DISEASE; Z99.2 - DEPENDENCE ON RENAL DIALYSIS Status: Chronic Comment: on PD (5) Hypotension Status: Chronic (6) Hypothyroidism Code(s): E03.9 - HYPOTHYROIDISM, UNSPECIFIED Status: Chronic Qualifiers: Hypothyroidism type: unspecified Qualified Code(s): E03.9 - Hypothyroidism , unspecified (7) Obesity Code(s): E66.9 - OBESITY, UNSPECIFIED Status: Chronic Qualifiers: Obesity classification: adult class 3 (BMI >= 40) Body mass index: BMI 45.0 -49.9 - Plan continue antibiotics, out of bed/ambulate, DVT proph w/SCDs cont empiric IV Abx. Fluid Cx w Corynebacterium. -: clinically better and hemodynamically stable. -: replace and recheck potassium -: HD per nephrology. -: BP at baseline.am labs * . Review of Systems - Review of Systems Constitutional: weakness, malaise. negative: fever, chills, sweats, other ENT: negative: Ear Pain, Ear Discharge, Nose Pain, Nose Discharge, Nose Congestion, Mouth Pain, Mouth Swelling, Throat Pain, Throat Swelling, Other Respiratory: negative: Cough, Dry, Shortness of Breath, Hemoptysis, SOB with Excertion, Pleuritic Pain, Sputum, Wheezing Cardiovascular: negative: chest pain, palpitations, orthopnea, paroxysmal nocturnal dyspnea, edema, light headedness, other Gastrointestinal: Abdominal Pain. negative: Nausea, Vomiting, Diarrhea, Constipation, Melena, Hematochezia, Other Genitourinary: negative: Dysuria, Frequency, Incontinence, Hematuria, Retention , Other Musculoskeletal: negative: Neck Pain, Shoulder Pain, Arm Pain, Back Pain, Hand Pain, Leg Pain, Foot Pain, Other Neurological: negative: Weakness, Numbness, Incoordination, Change in Speech, Confusion, Seizures, Other - Medications/Allergies Allergies/Adverse Reactions: Allergies Allergy/AdvReac Type Severity Reaction Status Date / Time fluconazole Allergy Intermediate Verified 05/06/17 17:42 hydrocodone Allergy Intermediate Verified 05/06/17 17:42 Opioids - Morphine Analogues Allergy Intermediate Verified 05/06/17 17:42 Medications: Current Medications Acetaminophen (Tylenol) 650 mg PO Q4H PRN PRN Reason: Headache/Fever/Mild Pain (1-3) Last Admin: 02/10/18 06:03 Dose: 650 mg Heparin Sodium (Porcine) (Heparin) 5,000 units SC BID [facility] Last Admin: 02/11/18 08:46 Dose: 5,000 units Cefepime HCl 1 gm/ Sodium (Chloride) 100 mls @ 200 mls/hr IVPB Q48H [facility] Last Admin: 02/11/18 05:17 Dose: 100 mls Vancomycin HCl 1.5 gm/ Sodium (Chloride) 300 mls @ 200 mls/hr IVPB WILLCALL PRN PRN Reason: AFTER PD IF VANC LEVEL <= 5.0 Vancomycin HCl 1.25 gm/ Sodium (Chloride) 250 mls @ 166.667 mls/hr IVPB WILLCALL PRN PRN Reason: AFTERIF VANC LEVEL >5 AND <=10 Vancomycin HCl 1 gm/ Device 200 mls @ 200 mls/hr IVPB WILLCALL PRN PRN Reason: PD IF VANC LEVEL >10 AND <=15 Last Admin: 02/10/18 15:00 Dose: 200 mls Vancomycin HCl 750 mg/ Sodium (Chloride) 250 mls @ 250 mls/hr IVPB WILLCALL PRN PRN Reason: IF VANC LEVEL >15 AND <= 20 Ibuprofen (Motrin) 400 mg PO TID [facility] Last Admin: 02/11/18 14:33 Dose: 400 mg Midodrine (Proamatine) 5 mg PO DAILY [facility] Last Admin: 02/11/18 08:46 Dose: 5 mg Miscellaneous Medication (Pharmacy To Dose) 0 each IVPB PRN PRN PRN Reason: VANC/CEFEPIME Pharmacy to Dose Miscellaneous Medication (Vancomycin Sliding Scale) 0 each FS .AFTER PD [facility] Hold Vancomycin For (Level >20) 0 each FS .AFTER PD PRN PRN Reason: HOLD VANCOMYCIN IF LEVEL > 20 Ondansetron HCl (Zofran Odt) 4 mg PO Q6H PRN PRN Reason: Nausea/Vomiting Ondansetron HCl (Zofran) 4 mg IVP Q6H PRN PRN Reason: Nausea/Vomiting Potassium Chloride (K-Dur) 40 meq PO QAM-[facility] Saccharomyces Boulardii (Florastor) 250 mg PO DAILY [facility] Sevelamer Carbonate (Renvela) 1,600 mg PO TID-[facility] Last Admin: 02/11/18 11:30 Dose: 800 mg Sodium Chloride (Flush - Normal Saline) 10 ml IVF Q12HR PRN PRN Reason: Saline Flush Sodium Chloride (Flush - Normal Saline) 10 ml IVF PRN PRN PRN Reason: Saline Flush
[2018-02-11] MEDS: Acetaminophen 325 MG TAB PO PRN (20:03)
[2018-02-12 05:54] LABS: #Eosinphils 0.3 thou/uL (0.0-0.7); #Monocytes 0.4 thou/uL (0.11-0.59); #Neutrophils 3.2 thou/uL (1.40-6.50); %Basophils 0.8 % (0.0-1.0); %Eosinophils 5.8 % (0.0-10.0); %Lymphocytes 20.4 % (21.0-51.0); %Monocytes 8.1 % (0.0-10.0); %Neutrophils 64.9 % (42.0-75.0); Hemoglobin 12.3 g/dL (14.0-18.0); Mean Corpuscular HGB CONC 32.5 g/dL (32.0-36.0); Mean Corpuscular Hemoglobin 34.4 pg (27.0-31.0); Mean Platelet Volume 6.9 fL (7.4-10.4); Platelet Count 177 thou/uL (130-400); RBC Distribution Width 15.5 % (11.5-14.5); Red Blood Cell (RBC) Count 3.57 mill/uL (4.70-6.10); White Blood Cell (WBC) Count 4.9 thou/uL (4.8-10.8)
[2018-02-12 06:09] LABS: Anion Gap 15 mmol/L (10-20); BUN (Urea Nitrogen) 54 mg/dL (8.4-25.7); Calc. Creatinine Clearance 12 mL/min (70-130); Calcium 8.9 mg/dL (7.8-10.44); Carbon Dioxide 25 mmol/L (23-31); Chloride 97 mmol/L (98-107); Estimated GFR-MDRD 5; Glucose 85 mg/dL (80-115); Sodium 134 mmol/L (136-145)
[2018-02-12 06:12] LABS: Potassium 2.7 mmol/L (3.5-5.1)
[2018-02-12] MEDS: Midodrine HCl 5 MG TAB PO SCH (06:45)
[2018-02-12] MEDS: Potassium Chloride 20 MEQ TAB PO SCH (06:45)
[2018-02-12] MEDS ORDERED: Potassium Chloride 20 MEQ TAB PO SCH (07:00)
[2018-02-12] MEDS: Heparin 5,000 UNITS/ML VIAL SC SCH ×2 (07:57→20:47)
[2018-02-12] MEDS: Sevelamer Carbonate 800 MG TAB PO SCH ×3 (07:57→16:16)
[2018-02-12] MEDS: Ibuprofen 200 MG TAB PO SCH ×3 (07:57→20:47)
[2018-02-12] MEDS: Saccharomyces boulardii 250 MG CAP PO SCH (07:58)
[2018-02-12 08:55] LABS: Vancomycin, Random 16.8 ug/mL (See Comment)
--- NOTE | 2018-02-12 09:54 | PRG ---
DATE OF SERVICE: 02/12/2018 SUBJECTIVE: Mr. Boyer is a 62-year-old male with ESRD - on peritoneal dialysis and admi tted for peritonitis. Empiric antibiotics has been given. Clinically, he is improving with regard t o his peritonitis. Recommendations to shift him to p.o. antibiotic. No other complaints, no chest p ain or shortness of breath. PHYSICAL EXAMINATION: VITAL SIGNS: Blood pressure is 92/58, heart rate 47, respiratory rate 20, temperature 97.6, pulse ox 97%. GENERAL: Noted to be awake, alert, comfortable, not in distress, obese. SKIN: Adequate turgor. HEENT: He has pinkish conjunctivae, anicteric sclerae. NECK: No neck mass, no carotid bruits, no JVD. CHEST: No deformities. LUNGS: Clear breath sounds. HEART: Normal sinus rhythm. No murmur, no gallops, no rubs. ABDOMEN: Globular, soft, nontender, no masses He has a PD catheter in the abdomen. EXTREMITIES: Positive for edema, no deformities. MEDICATIONS: 02/12/2018 - Reviewed. LABORATORY DATA: 02/12/2018 - White count 4.9, hemoglobin 12.3, sodium 134, potassium 2.7, chloride 97, carbon dioxide 25, BUN 54, creatinine 11.24, glucose 85, calcium 8.9. ASSESSMENT AND PLAN: 1. Hypokalemia. Continue KCl 40 mEq once a day. We will give an extra dose of 40 mEq of K-Dur toda y. 2. Peritonitis - continue antibiotics. Consider shifting to p.o. antibiotics - ? Cipro 250 b.i.d. 3. Anemia, no indication for any Epogen today. 4. End-stage renal disease, stable. Tolerating current CCPD regimen. Continue such regimen. From a renal point of view, this patient can be discharged any time.
--- NOTE | 2018-02-12 14:44 | PDOC.PN ---
- Subjective Encounter Start Date: 02/12/18 Encounter Start Time: 14:43 Subjective: multiple small issues.c/o feeling weak but refuses PT -: no N/V/D.mild abd pain. -: no CP/SOB.care discussed w at bedside - Objective Resuscitation Status: Resuscitation Status FULL:Full Resuscitation MAR Reviewed: Yes Vital Signs & Weight: Vital Signs (12 hours) Temp Pulse Resp BP BP Pulse Ox 02/12/18 11:29 97.7 F 80 20 88/53 L 95 02/12/18 07:57 97 02/12/18 07:27 97.6 F 47 L 20 92/58 L 97 02/12/18 04:00 97.7 F 52 L 16 85/48 L 94 L Weight Weight 276 lb 8 oz I&O: 02/11/18 02/12/18 02/13/18 06:59 06:59 06:59 Intake Total 1300 120 Output Total 350 Balance 950 120 Result Diagrams: 02/12/18 04:15 02/12/18 04:15 Additional Labs: Microbiology 02/08/18 23:36 Peritoneal Fluid Culture - Pending Body Fluid Culture - Final Presumptive Corynebacterium sp 02/08/18 22:47 Venous blood - Right Hand Blood Culture - Preliminary NO GROWTH AT 48 HOURS 02/08/18 22:47 Venous blood - Left Arm Blood Culture - Preliminary NO GROWTH AT 48 HOURS Phys Exam - Physical Examination Constitutional: NAD HEENT: PERRLA, moist MMs, sclera anicteric, oral pharynx no lesions Neck: no nodes, no JVD, supple, full ROM Respiratory: no wheezing, no rales, no rhonchi, clear to auscultation bilateral Cardiovascular: RRR, no significant murmur, no rub Gastrointestinal: soft, non-tender, no distention, positive bowel sounds Musculoskeletal: no edema, pulses present Neurological: non-focal, normal sensation, moves all 4 limbs Psychiatric: normal affect, A&O x 3 Dx/Plan (1) Sepsis Code(s): A41.9 - SEPSIS, UNSPECIFIED ORGANISM Status: Acute (2) Peritonitis associated with peritoneal dialysis Status: Acute Qualifiers: Encounter type: subsequent encounter Qualified Code(s): T85.71XD - Infection and inflammatory reaction due to peritoneal dialysis catheter, subsequent encounter (3) Hypokalemia Code(s): E87.6 - HYPOKALEMIA Status: Acute (4) ESRD (end stage renal disease) on dialysis Code(s): N18.6 - END STAGE RENAL DISEASE; Z99.2 - DEPENDENCE ON RENAL DIALYSIS Status: Chronic Comment: on PD (5) Hypotension Status: Chronic (6) Hypothyroidism Code(s): E03.9 - HYPOTHYROIDISM, UNSPECIFIED Status: Chronic Qualifiers: Hypothyroidism type: unspecified Qualified Code(s): E03.9 - Hypothyroidism , unspecified (7) Obesity Code(s): E66.9 - OBESITY, UNSPECIFIED Status: Chronic Qualifiers: Obesity classification: adult class 3 (BMI >= 40) Body mass index: BMI 45.0 -49.9 - Plan continue antibiotics, PT/OT, respiratory therapy, incentive spirometry, out of bed/ambulate, DVT proph w/SCDs Cont empiric ABx. Corynebacterium form peritoneal fluid-? contaminate -: Change ABx to PO. -: replace and recheck potassium -: filiberto REAVES home tomorrow. pt refuses HH or OP rehab today -: am labs * . Review of Systems - Review of Systems Constitutional: weakness, malaise. negative: fever, chills, sweats, other ENT: negative: Ear Pain, Ear Discharge, Nose Pain, Nose Discharge, Nose Congestion, Mouth Pain, Mouth Swelling, Throat Pain, Throat Swelling, Other Respiratory: negative: Cough, Dry, Shortness of Breath, Hemoptysis, SOB with Excertion, Pleuritic Pain, Sputum, Wheezing Cardiovascular: negative: chest pain, palpitations, orthopnea, paroxysmal nocturnal dyspnea, edema, light headedness, other Gastrointestinal: Abdominal Pain. negative: Nausea, Vomiting, Diarrhea, Constipation, Melena, Hematochezia, Other Genitourinary: negative: Dysuria, Frequency, Incontinence, Hematuria, Retention , Other Musculoskeletal: negative: Neck Pain, Shoulder Pain, Arm Pain, Back Pain, Hand Pain, Leg Pain, Foot Pain, Other Neurological: negative: Weakness, Numbness, Incoordination, Change in Speech, Confusion, Seizures, Other - Medications/Allergies Allergies/Adverse Reactions: Allergies Allergy/AdvReac Type Severity Reaction Status Date / Time fluconazole Allergy Intermediate Verified 05/06/17 17:42 hydrocodone Allergy Intermediate Verified 05/06/17 17:42 Opioids - Morphine Analogues Allergy Intermediate Verified 05/06/17 17:42 Medications: Current Medications Acetaminophen (Tylenol) 650 mg PO Q4H PRN PRN Reason: Headache/Fever/Mild Pain (1-3) Last Admin: 02/11/18 20:03 Dose: 650 mg Heparin Sodium (Porcine) (Heparin) 5,000 units SC BID [facility] Last Admin: 02/12/18 07:57 Dose: 5,000 units Cefepime HCl 1 gm/ Sodium (Chloride) 100 mls @ 200 mls/hr IVPB Q48H [facility] Last Admin: 02/11/18 05:17 Dose: 100 mls Vancomycin HCl 1.5 gm/ Sodium (Chloride) 300 mls @ 200 mls/hr IVPB WILLCALL PRN PRN Reason: AFTER PD IF VANC LEVEL <= 5.0 Vancomycin HCl 1.25 gm/ Sodium (Chloride) 250 mls @ 166.667 mls/hr IVPB WILLCALL PRN PRN Reason: AFTERIF VANC LEVEL >5 AND <=10 Vancomycin HCl 1 gm/ Device 200 mls @ 200 mls/hr IVPB WILLCALL PRN PRN Reason: PD IF VANC LEVEL >10 AND <=15 Last Admin: 02/10/18 15:00 Dose: 200 mls Vancomycin HCl 750 mg/ Sodium (Chloride) 250 mls @ 250 mls/hr IVPB WILLCALL PRN PRN Reason: IF VANC LEVEL >15 AND <= 20 Last Admin: 02/12/18 09:56 Dose: 250 mls Ibuprofen (Motrin) 400 mg PO TID [facility] Last Admin: 02/12/18 07:57 Dose: 400 mg Midodrine (Proamatine) 5 mg PO DAILY [facility] Last Admin: 02/12/18 06:45 Dose: 5 mg Miscellaneous Medication (Pharmacy To Dose) 0 each IVPB PRN PRN PRN Reason: VANC/CEFEPIME Pharmacy to Dose Miscellaneous Medication (Vancomycin Sliding Scale) 0 each FS .AFTER PD [facility] Hold Vancomycin For (Level >20) 0 each FS .AFTER PD PRN PRN Reason: HOLD VANCOMYCIN IF LEVEL > 20 Ondansetron HCl (Zofran Odt) 4 mg PO Q6H PRN PRN Reason: Nausea/Vomiting Ondansetron HCl (Zofran) 4 mg IVP Q6H PRN PRN Reason: Nausea/Vomiting Potassium Chloride (K-Dur) 40 meq PO QAM-[facility] Last Admin: 02/12/18 06:45 Dose: 40 meq Saccharomyces Boulardii (Florastor) 250 mg PO DAILY [facility] Last Admin: 02/12/18 07:58 Dose: 250 mg Sevelamer Carbonate (Renvela) 1,600 mg PO TID-[facility] Last Admin: 02/12/18 12:09 Dose: 1,600 mg Sodium Chloride (Flush - Normal Saline) 10 ml IVF Q12HR PRN PRN Reason: Saline Flush Sodium Chloride (Flush - Normal Saline) 10 ml IVF PRN PRN PRN Reason: Saline Flush
[2018-02-12] MEDS: Acetaminophen 325 MG TAB PO PRN (20:47)
[2018-02-13] MEDS: Cefepime 1 GM in Sodium Chloride 0.9% 100 ML IVPB SCH (05:28)
[2018-02-13 05:32] LABS: Anion Gap 17 mmol/L (10-20); BUN (Urea Nitrogen) 49 mg/dL (8.4-25.7); Calc. Creatinine Clearance 13 mL/min (70-130); Calcium 8.9 mg/dL (7.8-10.44); Carbon Dioxide 23 mmol/L (23-31); Chloride 99 mmol/L (98-107); Estimated GFR-MDRD 5; Glucose 91 mg/dL (80-115); Potassium 3.2 mmol/L (3.5-5.1); Sodium 136 mmol/L (136-145)
[2018-02-13] MEDS: Potassium Chloride 20 MEQ TAB PO SCH (08:31)
[2018-02-13] MEDS: Sevelamer Carbonate 800 MG TAB PO SCH (08:31)
[2018-02-13] MEDS: Saccharomyces boulardii 250 MG CAP PO SCH (08:31)
[2018-02-13] MEDS: Midodrine HCl 5 MG TAB PO SCH (08:31)
[2018-02-13] MEDS: Ibuprofen 200 MG TAB PO SCH (08:31)
[2018-02-13] MEDS: Heparin 5,000 UNITS/ML VIAL SC SCH (08:32)
[2018-02-13] MEDS ORDERED: Potassium Chloride 20 MEQ TAB PO SCH (08:45)
--- NOTE | 2018-02-13 09:05 | PRG ---
DATE OF SERVICE: 02/13/2018 SUBJECTIVE: Mr. Boyer is a 62-year-old male being followed up for his maintenance martha toneal dialysis. He is doing well with the CCPD. He tolerated the peritoneal dialysis last night. He was initially admitted for peritonitis. Empiric antibiotic has been given to this patient. Consi dering for p.o. antibiotics on discharge. No other complaints. No chest pain, shortness of breath. The PD fluid grew a presumptive Corynebact erium. PHYSICAL EXAMINATION: VITAL SIGNS: Blood pressure is 92/42, heart rate 52, respiratory rate 20, temperature 97.2, pulse ox 96%. GENERAL: Awake, alert, comfortable, not in distress, morbidly obese. SKIN: Adequate turgor. HEENT: He has pinkish conjunctivae, anicteric sclerae. NECK: No neck mass, no carotid bruits, no JVD. CHEST: No deformities. LUNGS: Clear breath sounds. No wheezing, no crackles. HEART: Normal sinus rhythm. No murmur, no gallops or rubs. ABDOMEN: Globular, soft, nontender, no masses. Positive for PD catheter. EXTREMITIES: Positive for edema. MEDICATIONS: 02/13/2018 - Reviewed. LABORATORY: 02/12/2018 - White count 4.9, hemoglobin 12.3. 02/13/2018 - Sodium 136, potassium 3.2, chloride 99, carbon dioxide 23, BUN 49, creatinine 10.57. ASSESSMENT AND PLAN: 1. Mild hypokalemia. We will give extra dose of K-Dur. Continue K-Dur 40 mEq 1 tab every day. 2. End-stage renal disease, stable. Continue current CCPD regimen, tolerating said treatment. 3. Peritonitis - status post antibiotics. Consider p.o. Cipro 250 b.i.d. for a total of 2 weeks. I agree with current management. Agree with planned discharge.
[2018-02-13 09:39] VITALS: BP 89/52; TEMP 97.4
--- NOTE | 2018-02-13 22:26 | DIS ---
DATE OF ADMISSION: 02/09/2018 DATE OF DISCHARGE: 02/13/2018 DISCHARGE DISPOSITION: Home. CONDITION AT THE TIME OF DISCHARGE: Stable and improved. DISCHARGE DIAGNOSES: 1. Sepsis. 2. PD catheter associated peritonitis. 3. Abdominal pain secondary to #1. 4. Hypokalemia. 5. End-stage renal disease, on peritoneal dialysis. 6. Morbid obesity with a body mass index of 44.6. 7. Hypotension, chronic. 8. Hypothyroidism. DISCHARGE MEDICATIONS: New medications as follows, midodrine 5 mg daily, metronidazole 500 mg p.o. b .i.d., levofloxacin 250 mg p.o. daily, antibiotics totally for 7 more days, and Florastor 250 mg eduard y. Resume home medication as follows: Levothyroxine, Renvela 3 tablets p.o. daily, aspirin 81 mg da hai, Rocaltrol 0.25 as needed, ferric citrate one tablet as needed, lanthanum carbonate 2 tablets wit h meals. INHOUSE CONSULTATIONS: Nephrology, Dr. Gipson and Pulmonary Medicine, Dr. Parada. PROCEDURES DONE IN THE HOSPITAL: CT scan of the abdomen and pelvis upon presentation, which is negat juan for any free intraperitoneal air after numerous subcentimeter nonobstructing renal calculi are se en. HISTORY OF PRESENTING ILLNESS: Mr. Boyer is a 62-year-old obese male with history of end-stage r enal disease on peritoneal dialysis, presented to the emergency room with complaints of abdominal ashwin n of few hours' duration, which was 10/10 and localized around the umbilicus. He also reported cloud y peritoneal dialysate. He was admitted with a presumptive diagnosis of peritonitis on empiric antib iotics. CT scan done in the emergency room was unremarkable. He had some hypotension on presentatio n, but he reported that this is chronic for him. He was admitted with a presumptive diagnosis of sep sis due to peritonitis as well. Please see admission history and physical for further details. He h as hypokalemia on presentation with a potassium of 3.8. Please see admission history and physical fo r further details. Nephrology was consulted. HOSPITAL COURSE: Mr. Boyer was started on empiric antibiotics and blood culture, peritoneal flui d cultures were sent. Peritoneal fluid culture had Corynebacterium possibly a contaminant. Blood cu ltures were negative. He had clinical improvement over the course of his hospitalization and was con tinued on dialysis while in the hospital under the care of Dr. Gipson. He was found to be severely hypo kalemic throughout his hospitalization and required daily supplementation. With regard to his low blood pressure, he reported that he always has low blood pressure in the 80s-9 0s systolic. He was, however, started on midodrine with some improvement. We will continue that ord er by the care of Dr. Gipson. As of this morning, he has been cleared for discharge by Nephrology and Pulmonary Medicine who saw susan llanos briefly while he was admitted to [facility]. He is walking in the hallways, eating a regular diet a nd has no abdominal pain. He will be discharged on levofloxacin and metronidazole empirically. He w ill get his blood work done in 2-3 days and follow up with Dr. Gipson on Saturday of this coming week. He was seen and examined prior to discharge. PHYSICAL EXAMINATION: VITAL SIGNS: This morning, temperature 97.4, pulse of 55, respirations 20, saturating 96% on room ai r, blood pressure 89/52, in no acute distress. CHEST: Clear to auscultation bilaterally. HEART: Rate and rhythm is regular. LABORATORY EXAMINATION: CBC shows WBCs of 4.9, which was 14.1 upon presentation with a neutrophil co unt of 64% which was 87% on presentation. Potassium on the day of discharge was 3.2. The patient bazan s received 40 mEq of potassium chloride after that. Total time spent 32 minutes.
== END 2018-02-13 11:03 | disposition home or self-care (01) | DRG 871 ==
LOC: ERS 22:23 → IMCU/EMU 02-09 00:56 → T4-A 02-11 16:27
PROVIDERS: ADMIT Internal Medicine; ATTEND Internal Medicine
PROC: 5A1D70Z Performance of Urinary Filtration, Intermittent, Less than 6 Hours Per Day (ICD-10-PCS; principal; 2018-02-11)
DX: A41.9 Sepsis, unspecified organism (principal); K65.9 Peritonitis, unspecified; N18.6 End stage renal disease; I13.2 Hypertensive heart and chronic kidney disease with heart failure and with stage 5 chronic kidney disease, or end stage renal disease; E87.2 Acidosis; Z68.41 Body mass index [BMI] 40.0-44.9, adult; E87.6 Hypokalemia; I95.9 Hypotension, unspecified; E03.9 Hypothyroidism, unspecified; E66.9 Obesity, unspecified; T85.71XD Infection and inflammatory reaction due to peritoneal dialysis catheter, subsequent encounter; I50.9 Heart failure, unspecified; E87.8 Other disorders of electrolyte and fluid balance, not elsewhere classified; J44.9 Chronic obstructive pulmonary disease, unspecified; Z99.2 Dependence on renal dialysis; D63.1 Anemia in chronic kidney disease; E83.39 Other disorders of phosphorus metabolism
CPT/HCPCS: 36415; 74176; 80048; 80053; 80069; 80202; 83605; 85025; 85060; 87040; 87070; 87205; 87340; 89051; 90945; 93005; 96361; 96365; 96375; G0257; J0131; J0692; J1580; J1644; J3370; J7050

== ENCOUNTER 2018-03-07 14:07 | Inpatient (IN) | payer MEDICARE, BC ==
[2018-03-07 14:47] LABS: #Basophils 0.1 thou/uL (0.0-0.2); #Eosinphils 0.4 thou/uL (0.0-0.7); #Lymphocytes 2.3 thou/uL (1.20-3.40); #Monocytes 0.8 thou/uL (0.11-0.59); %Basophils 0.7 % (0.0-1.0); %Eosinophils 4.2 % (0.0-10.0); %Lymphocytes 21.8 % (21.0-51.0); %Monocytes 7.7 % (0.0-10.0); %Neutrophils 65.7 % (42.0-75.0); Hemoglobin 13.5 g/dL (14.0-18.0); Mean Corpuscular Hemoglobin 33.6 pg (27.0-31.0); Mean Platelet Volume 8.3 fL (7.4-10.4); Platelet Count 258 thou/uL (130-400); RBC Distribution Width 18.4 % (11.5-14.5); Red Blood Cell (RBC) Count 4.01 mill/uL (4.70-6.10); White Blood Cell (WBC) Count 10.6 thou/uL (4.8-10.8)
[2018-03-07 15:10] LABS: INR-International Normal Ratio 1.3; PTT 31.6 SEC (22.9-36.1)
[2018-03-07 15:11] LABS: CKMB 2.9 ng/mL (0-6.6); Troponin I 0.027 ng/mL (< 0.028)
--- NOTE | 2018-03-07 15:46 | RAD ---
SINGLE VIEW OF THE CHEST: Comparison: 01-05-15 History: Weakness, cough. FINDINGS: Single view of the chest shows a normal sized cardiomediastinal silhouette. There is no evidence of c onsolidation, mass, or pleural effusion. The bones are unremarkable. IMPRESSION: No evidence of acute cardiopulmonary disease. POS: CET
[2018-03-07 16:26] LABS: Albumin 3.1 g/dL (3.4-4.8)
[2018-03-07 16:28] LABS: Calcium 8.2 mg/dL (7.8-10.44); Chloride 102 mmol/L (98-107); Sodium 140 mmol/L (136-145)
[2018-03-07 16:29] LABS: Glucose 110 mg/dL (80-115); Protein, Total 6.1 g/dL (5.8-8.1)
[2018-03-07 16:31] LABS: Anion Gap 21 mmol/L (10-20); Bilirubin, Total 0.5 mg/dL (0.2-1.2); Carbon Dioxide 20 mmol/L (23-31); Potassium 2.9 mmol/L (3.5-5.1)
[2018-03-07 16:32] LABS: Alkaline Phosphatase 75 U/L (40-150); Calc. Creatinine Clearance 0 mL/min (70-130); Estimated GFR-MDRD 3
[2018-03-07 16:33] LABS: BUN (Urea Nitrogen) 44 mg/dL (8.4-25.7)
[2018-03-07 16:34] LABS: AST (SGOT) 62 U/L (5-34)
[2018-03-07 16:35] LABS: ALT (SGPT) 43 U/L (8-55)
[2018-03-07] MEDS ORDERED: Potassium Chloride 20 MEQ TAB PO SCH (17:30)
[2018-03-07] MEDS ORDERED: Ondansetron PF 4 MG/2 ML Vial IVP PRN (17:34)
[2018-03-07] MEDS ORDERED: Bisacodyl 10 MG SUPP PR PRN (17:34)
[2018-03-07] MEDS ORDERED: Acetaminophen 325 MG TAB PO PRN (17:34)
[2018-03-07] MEDS ORDERED: Ondansetron ODT 4 MG TAB PO PRN (17:34)
[2018-03-07] MEDS ORDERED: Nitroglycerin 0.4 MG TAB (25 Tab Bottle) PO PRN (17:34)
[2018-03-07] MEDS ORDERED: Vancomycin HCl 1 GM in Premix Bag 1 BAG IVPB SCH ×2 (17:45→19:15)
[2018-03-07] MEDS ORDERED: Fluticasone Propionate Nasal Spray 16 gm Bottle NASAL SCH (18:00)
[2018-03-07 18:02] VITALS: BMI 42.8
[2018-03-07] MEDS: Sodium Chloride 0.9% 1,000 ML IV SCH (18:06)
[2018-03-07] MEDS ORDERED: Vancomycin HCl 750 MG in Sodium Chloride 0.9% 250 ML 250 ML IVPB SCH (19:15)
[2018-03-07] MEDS ORDERED: HOLD VANCOMYCIN FOR LEVEL >20 FS SCH ×2 (19:15→22:00)
[2018-03-07] MEDS ORDERED: Vancomycin Sliding Scale 1 EACH FS ONE (19:15)
[2018-03-07] MEDS ORDERED: Vancomycin HCl 250 MG in Sodium Chloride 0.9% 100 ML IVPB SCH (19:15)
[2018-03-07] MEDS ORDERED: Vancomycin HCl 500 MG in Sodium Chloride 0.9% 100 ML IVPB SCH (19:15)
[2018-03-07 20:03] LABS: Lactic Acid 1.8 mmol/L (0.5-2.2)
[2018-03-07 20:24] LABS: BF Color Colorless; Body Fluid Source PERITONEAL FLUID; Clarity Clear (Clear); Tube # 1
[2018-03-07 20:25] LABS: BF RBC Count - Manual 1 /cumm; BF WBC/Nonhematics Ct. - Manua 4 /cumm
[2018-03-07] MEDS: Cefepime 1 GM in Sodium Chloride 0.9% 100 ML IVPB SCH (20:59)
[2018-03-07] MEDS: Senokot S 8.6-50 MG TAB PO SCH (21:00)
[2018-03-07] MEDS: Midodrine HCl 5 MG TAB PO SCH (21:00)
[2018-03-07] MEDS: Fluticasone Propionate Nasal Spray 16 gm Bottle NASAL SCH (21:00)
[2018-03-07] MEDS: Famotidine 20 MG TAB PO SCH (21:01)
[2018-03-07] MEDS: Heparin 5,000 UNITS/ML VIAL SC SCH (21:03)
[2018-03-07] MEDS ORDERED: Hydrocortisone 2.5%/Pramoxine 1% CRM 30 GM TUBE PR PRN (23:12)
--- NOTE | 2018-03-07 23:34 | HP ---
DATE OF ADMISSION: 03/07/2018 PRIMARY CARE PHYSICIAN: Dr. Ca. PRIMARY SEMICONDUCTOR TESTING GROUP LEADER: Dr. Gipson. CHIEF COMPLAINT: Generalized weakness. HISTORY OF PRESENT ILLNESS: The patient is a 62-year-old male with end-stage renal disease on perito franchesca dialysis, chronic hypotension on midodrine with recent peritoneal dialysis associated peritoniti s, presented to the emergency room from his PCP's office with generalized weakness. Over the past 3-4 days, patient has not been eating or drinking well. He has been generally weak and fatigued. He has cough with mild production. He also has shortness of breath on minimal exertion. He had a temperature of 100 degrees 2 days ago. While driving to Dr. Ca' office today, he had a syncopal episode in the car that was transient. The patient was evaluated by Dr. Ca and was sent to the emergency room for evaluation. In the emergency room, initial vital signs showed temperature 97.6, respirations 32, pulse rate of 95 , blood pressure of 70/45 with O2 saturation of 91% on room air. He received 3 liters of IV fluid in the emergency room. His EKG showed sinus rhythm with nonspecific ST-T wave changes. Chest x-ray wa s negative for infiltrate. Blood cultures were drawn. PAST MEDICAL HISTORY: 1. Recent hospitalization for peritoneal dialysis associated peritonitis. 2. End-stage renal disease on peritoneal dialysis. 3. Morbid obesity with BMI 42.8 with around 10-15 pound weight loss in the last month or so. 4. Chronic hypotension, on midodrine. 5. Hypothyroidism. PAST SURGICAL HISTORY: Peritoneal dialysis catheter. ALLERGIES: The patient is allergic to HYDROCODONE and other OPIOIDS and FLUCONAZOLE. CURRENT HOME MEDICATIONS: Midodrine 10 mg daily, levothyroxine 300 mcg daily, Fosrenol 1000 mg 3 rhonda es a day, ferric citrate three tablets 3 times a day, vitamin D3 as directed, calcitriol 0.25 mg eduard y, aspirin 81 mg daily, Renvela 3 tablets t.i.d., Florastor 250 mg daily. SOCIAL HISTORY: Patient currently lives at home with his family. He is FULL CODE. Denies any alcoh ol, tobacco or drug use. FAMILY HISTORY: Negative for heart disease or diabetes. REVIEW OF SYSTEMS: The following complete review of systems was negative, unless otherwise mentioned in the HPI or below: Constitutional: Weight loss or gain, ability to conduct usual activities. Skin: Rash, itching. Eyes: Double vision, pain. ENT/Mouth: Nose bleeding, neck stiffness, pain, tenderness. Cardiovascular: Palpitations, dyspnea on exertion, orthopnea. Respiratory: Shortness of breath, wheezing, cough, hemoptysis, fever or night sweats. Gastrointestinal: Poor appetite, abdominal pain, heartburn, nausea, vomiting, constipation, or diarr hea. Genitourinary: Urgency, frequency, dysuria, nocturia. Musculoskeletal: Pain, swelling. Neurologic/Psychiatric: Anxiety, depression. Allergy/Immunologic: Skin rash, bleeding tendency. PHYSICAL EXAMINATION: VITAL SIGNS: As discussed above. GENERAL: A 62-year-old male in no apparent distress. HEENT: Head is atraumatic, normocephalic. Sclerae are anicteric. Moist mucous membrane, no oral le micaela. NECK: Supple, no JVD, no carotid bruit. LUNGS: Clear to auscultation bilaterally, no wheezing, rales or rhonchi. HEART: S1, S2 present. Regular rate and rhythm. No murmur, rubs, or gallops appreciated. ABDOMEN: Soft, obese, bowel sounds present. EXTREMITIES: There is bilateral lower extremity calf tenderness with edema. SKIN: Warm and dry. LYMPH NODES: No palpable lymph nodes in the neck. PERIPHERAL VASCULAR: Radial pulses palpable bilaterally. MUSCULOSKELETAL: No joint swelling or tenderness. NEUROLOGIC: Grossly nonfocal, moves all four extremities. PSYCHIATRY: Alert, awake, oriented x3. SKIN: Warm and dry. LYMPH NODES: No palpable lymph nodes in the neck. LABORATORY DATA AND IMAGING DATA: Cortisol level 14.6, troponin negative. Potassium 2.9, lactic aci d 2.9 and repeat lactic acid 1.8. CBC showed WBC 10.6 without any left shift, hemoglobin 13.5. Radha toneal fluid was colorless with 4 WBCs. EKG by my review showed nonspecific ST-T wave changes, sinus rhythm. Chest x-ray by my review as discussed above. IMPRESSION: 1. Generalized weakness with syncope, probably secondary to hypotension. 2. Recent peritoneal dialysis associated peritonitis, completed antibiotics. 3. Morbid obesity with a BMI 42.8. 4. Chronic hypotension. 5. Hypothyroidism. 6. Chronic hypokalemia. 7. Lactic acidosis, probably secondary to hypotension. 8. Anemia secondary to renal insufficiency. PLAN: 1. The patient will be monitored in the intermediate care unit due to hypotension. We will change m idodrine to 5 mg 3 times a day. Replace potassium. Resume selected home medications. Due to some n onspecific abdominal discomfort as well as chronic constipation, we will get a KUB. Echocardiogram w ill be obtained to rule out pericardial effusion. Due to lower extremity weakness, we will also get bilateral lower extremity Doppler. A.m. labs. Nephrology consult for dialysis management. 2. Fall precautions. Plan of care was discussed with the patient in detail. He stated understanding.
[2018-03-08 04:13] LABS: #Eosinphils 0.6 thou/uL (0.0-0.7); #Lymphocytes 1.3 thou/uL (1.20-3.40); #Monocytes 0.6 thou/uL (0.11-0.59); #Neutrophils 2.7 thou/uL (1.40-6.50); %Basophils 0.4 % (0.0-1.0); %Eosinophils 11.6 % (0.0-10.0); %Lymphocytes 25.9 % (21.0-51.0); %Monocytes 10.6 % (0.0-10.0); %Neutrophils 51.4 % (42.0-75.0); Hemoglobin 11.2 g/dL (14.0-18.0); Mean Corpuscular HGB CONC 32.6 g/dL (32.0-36.0); Mean Corpuscular Hemoglobin 34.5 pg (27.0-31.0); Mean Platelet Volume 8.6 fL (7.4-10.4); Platelet Count 180 thou/uL (130-400); RBC Distribution Width 17.9 % (11.5-14.5); Red Blood Cell (RBC) Count 3.24 mill/uL (4.70-6.10); White Blood Cell (WBC) Count 5.2 thou/uL (4.8-10.8)
[2018-03-08 04:36] LABS: Anion Gap 19 mmol/L (10-20); BUN (Urea Nitrogen) 54 mg/dL (8.4-25.7); Calc. Creatinine Clearance 10 mL/min (70-130); Calcium 8.4 mg/dL (7.8-10.44); Carbon Dioxide 21 mmol/L (23-31); Chloride 102 mmol/L (98-107); Estimated GFR-MDRD 4; Glucose 98 mg/dL (80-115); Sodium 139 mmol/L (136-145)
[2018-03-08 04:40] LABS: Potassium 2.9 mmol/L (3.5-5.1)
[2018-03-08] MEDS ORDERED: Potassium Chloride 20 MEQ TAB PO SCH (05:15)
[2018-03-08] MEDS: Levothyroxine 150 MCG TAB PO SCH (05:24)
[2018-03-08] MEDS: Sodium Chloride 0.9% 1,000 ML IV SCH ×2 (05:24→17:06)
[2018-03-08] MEDS ORDERED: Magnesium 2 GM/50 ML 2 GM in Premix Bag 1 BAG IVPB SCH (06:00)
[2018-03-08] MEDS: Polyethylene Glycol 3350 17 GM Packet PO SCH (07:50)
[2018-03-08] MEDS: Senokot S 8.6-50 MG TAB PO SCH ×2 (07:51→20:16)
[2018-03-08] MEDS: Calcitriol 0.25 MCG CAP PO SCH (07:51)
[2018-03-08] MEDS: Heparin 5,000 UNITS/ML VIAL SC SCH ×3 (07:52→20:12)
[2018-03-08] MEDS: Loratadine 10 MG TAB PO SCH (07:52)
[2018-03-08] MEDS ORDERED: Diabetic Tussin 200 MG/10 ML UDCUP PO PRN (08:18)
[2018-03-08] MEDS ORDERED: Eucerin (Mineral Oil/Petrolatum,White) 30 gm Jar TOP PRN (08:18)
[2018-03-08] MEDS ORDERED: Sodium Chloride 0.65% Nasal 44 ML BOT EA NARE PRN (08:18)
[2018-03-08] MEDS ORDERED: Loperamide HCl 2 MG CAP PO PRN (08:18)
[2018-03-08] MEDS ORDERED: Calcium Carbonate 500 MG ChewTAB PO PRN (08:18)
[2018-03-08] MEDS ORDERED: Artificial Tears 18 DROP/0.9 ML EA EYE PRN (08:18)
[2018-03-08] MEDS ORDERED: Zolpidem Tartrate 5 MG TAB PO PRN (08:18)
[2018-03-08] MEDS ORDERED: Cepastat Lozenges 1 LOZ PO PRN (08:18)
[2018-03-08] MEDS: Saccharomyces boulardii 250 MG CAP PO SCH (08:38)
[2018-03-08] MEDS: Midodrine HCl 5 MG TAB PO SCH ×3 (08:40→20:11)
[2018-03-08] MEDS: Cyanocobalamin (Vitamin B-12) 1,000 MCG TAB PO SCH (08:40)
[2018-03-08] MEDS: Folic Acid 1 MG TAB PO SCH (08:40)
[2018-03-08] MEDS: Nystatin Powder 15 GM BOT TOP SCH ×2 (08:43→20:13)
[2018-03-08] MEDS ORDERED: Saccharomyces boulardii 250 MG CAP PO SCH (09:00)
[2018-03-08] MEDS ORDERED: Sevelamer Carbonate 800 MG TAB PO SCH (09:00)
[2018-03-08] MEDS ORDERED: Vancomycin HCl 1.25 GM in Sodium Chloride 0.9% 250 ML 250 ML IVPB SCH (10:30)
[2018-03-08] MEDS ORDERED: Vancomycin HCl 1 GM in Premix Bag 1 BAG IVPB SCH (10:30)
[2018-03-08] MEDS ORDERED: Vancomycin HCl 750 MG in Sodium Chloride 0.9% 250 ML 250 ML IVPB SCH (10:30)
[2018-03-08] MEDS ORDERED: Vancomycin HCl 1.5 GM in Sodium Chloride 0.9% 250 ML 300 ML IVPB SCH (10:30)
--- NOTE | 2018-03-08 11:21 | PDOC.PN ---
- Subjective Encounter Start Date: 03/08/18 Encounter Start Time: 08:45 -: old records requested/rev Patient seen and examined. No overnight events pt is very weak, his bp is low but he does not feel any dizziness immediately but after while he feels dizzi - Objective Resuscitation Status: Resuscitation Status FULL:Full Resuscitation MAR Reviewed: Yes Vital Signs & Weight: Vital Signs (12 hours) Temp Pulse Resp BP BP BP Pulse Ox 03/08/18 11:11 97.9 F 57 L 16 80/41 L 96 03/08/18 08:01 99 03/08/18 07:49 79/51 L 64/27 L 76/48 L 03/08/18 07:28 96.9 F L 54 L 20 85/47 L 100 03/08/18 07:08 96 03/08/18 04:00 98.1 F 59 L 19 90/47 L 96 03/08/18 00:00 98.8 F 65 17 79/47 L 96 Weight Weight 267 lb I&O: 03/07/18 03/08/18 03/09/18 06:59 06:59 05:59 Intake Total 1700 360 Balance 1700 360 Result Diagrams: 03/08/18 03:36 03/08/18 03:36 EKG Reviewed by me: Yes (nsr) Phys Exam - Physical Examination Constitutional: NAD HEENT: PERRLA, moist MMs, sclera anicteric Neck: no JVD, supple Respiratory: no wheezing, no rales, no rhonchi Cardiovascular: RRR, no significant murmur, no rub Gastrointestinal: soft, non-tender, no distention, positive bowel sounds Musculoskeletal: no edema, pulses present Neurological: non-focal, normal sensation Lymphatic: no nodes Psychiatric: normal affect Skin: no rash, normal turgor Dx/Plan (1) Weakness generalized Code(s): R53.1 - WEAKNESS Status: Acute (2) Hypokalemia Code(s): E87.6 - HYPOKALEMIA Status: Acute (3) ESRD on peritoneal dialysis Code(s): N18.6 - END STAGE RENAL DISEASE; Z99.2 - DEPENDENCE ON RENAL DIALYSIS Status: Chronic (4) Hypotension Status: Chronic (5) Hypothyroidism Code(s): E03.9 - HYPOTHYROIDISM, UNSPECIFIED Status: Chronic Qualifiers: Hypothyroidism type: unspecified Qualified Code(s): E03.9 - Hypothyroidism , unspecified (6) Macrocytic anemia Code(s): D53.9 - NUTRITIONAL ANEMIA, UNSPECIFIED Status: Chronic - Plan cont current plan of care, plan discussed w/ family, PT/OT * I think main issue here is his physical weakness, for that he needs more rehabilitation and therapy, he does not have any focal deficits * doubt he has any infection, he is on empiric vancomycin and cefepime, will follow culture and if negative, will DC antibiotics * nephrology and pulmonary on case * medication reviewed as below * symptomatic treatment * discussed with family. * will check CK, phos, TSH level Review of Systems - Review of Systems Eyes: negative: Pain, Vision Change, Conjunctivae Inflammation, Eyelid Inflammation, Redness, Other ENT: negative: Ear Pain, Ear Discharge, Nose Pain, Nose Discharge, Nose Congestion, Mouth Pain, Mouth Swelling, Throat Pain, Throat Swelling, Other Respiratory: negative: Cough, Dry, Shortness of Breath, Hemoptysis, SOB with Excertion, Pleuritic Pain, Sputum, Wheezing Cardiovascular: negative: chest pain, palpitations, orthopnea, paroxysmal nocturnal dyspnea, edema, light headedness, other Gastrointestinal: negative: Nausea, Vomiting, Abdominal Pain, Diarrhea, Constipation, Melena, Hematochezia, Other Genitourinary: negative: Dysuria, Frequency, Incontinence, Hematuria, Retention , Other Musculoskeletal: negative: Neck Pain, Shoulder Pain, Arm Pain, Back Pain, Hand Pain, Leg Pain, Foot Pain, Other Skin: negative: Rash, Lesions, Lawrence, Bruising, Other Neurological: Weakness. negative: Numbness, Incoordination, Change in Speech, Confusion, Seizures, Other - Medications/Allergies Allergies/Adverse Reactions: Allergies Allergy/AdvReac Type Severity Reaction Status Date / Time fluconazole Allergy Intermediate Verified 05/06/17 17:42 hydrocodone Allergy Intermediate Verified 05/06/17 17:42 Opioids - Morphine Analogues Allergy Intermediate Verified 05/06/17 17:42 Medications: Current Medications Acetaminophen (Tylenol) 650 mg PO Q4H PRN PRN Reason: Headache/Fever/Mild Pain (1-3) Artificial Tears (Tears Naturale) 2 drop EA EYE PRN PRN PRN Reason: Dry Eyes Aspirin (Aspirin Chewable) 81 mg PO DAILY [facility] Last Admin: 03/08/18 07:52 Dose: 81 mg Bisacodyl (Dulcolax) 10 mg GA DAILYPRN PRN PRN Reason: Constipation Calcitriol (Rocaltrol) 0.25 mcg PO DAILY [facility] Last Admin: 03/08/18 07:51 Dose: 0.25 mcg Calcium Carbonate (Tums) 1,000 mg PO Q4H PRN PRN Reason: Heartburn or Indigestion Cyanocobalamin (Vitamin B-12) 1,000 mcg PO DAILY [facility] Last Admin: 03/08/18 08:40 Dose: 1,000 mcg Famotidine (Pepcid) 20 mg PO 2100 [facility] Last Admin: 03/07/18 21:01 Dose: 20 mg Fluticasone Propionate (Flonase Nasal [place]) 0 gm NASAL 2100 [facility] Last Admin: 03/07/18 21:00 Dose: 2 spr Folic Acid (Folvite) 1 mg PO DAILY [facility] Last Admin: 03/08/18 08:40 Dose: 1 mg Guaifenesin (Robitussin Sf) 200 mg PO Q4H PRN PRN Reason: Cough Heparin Sodium (Porcine) (Heparin) 5,000 units SC TID [facility] Last Admin: 03/08/18 07:52 Dose: 5,000 units Hydrocortisone/Pramoxine (Analpram Hc) 0 gm GA TIDPRN PRN PRN Reason: Hemorrhoids Sodium Chloride (Normal Saline 0.9%) 1,000 mls @ 100 mls/hr IV .Q10H [facility] Last Admin: 03/08/18 05:24 Dose: 1,000 mls Cefepime HCl 1 gm/ Sodium (Chloride) 100 mls @ 200 mls/hr IVPB 2000 [facility] Last Admin: 03/07/18 20:59 Dose: 100 mls Vancomycin HCl 1.5 gm/ Sodium (Chloride) 300 mls @ 200 mls/hr IVPB WILLCALL [facility] Vancomycin HCl 1.25 gm/ Sodium (Chloride) 250 mls @ 166.667 mls/hr IVPB [facility] Vancomycin HCl 1 gm/ Device 200 mls @ 200 mls/hr IVPB [facility] Vancomycin HCl 750 mg/ Sodium (Chloride) 250 mls @ 250 mls/hr IVPB WILLCALL [facility] Lanthanum Carbonate (Fosrenol) 500 mg PO TID-[facility] Last Admin: 03/08/18 11:25 Dose: 500 mg Levothyroxine Sodium (Synthroid) 300 mcg PO 0600 [facility] Last Admin: 03/08/18 05:24 Dose: 300 mcg Loperamide HCl (Imodium) 2 mg PO PRN PRN PRN Reason: Diarrhea/Loose Stools Loratadine (Claritin) 10 mg PO DAILY [facility] Last Admin: 03/08/18 07:52 Dose: 10 mg Midodrine (Proamatine) 5 mg PO TID [facility] Last Admin: 03/08/18 08:40 Dose: 5 mg Mineral Oil/White Petrolatum (Eucerin Cream) 0 gm TOP BIDPRN PRN PRN Reason: Dry Skin Miscellaneous Medication (Pharmacy To Dose) 1 each IVPB ONE PRN PRN Reason: Pharmacy to dose Stop: 04/06/18 17:41 Nitroglycerin (Nitrostat) 0.4 mg PO Q5MIN PRN PRN Reason: Chest Pain Hold Vancomycin For (Level >20) 0 each FS .ASDIRECTED [facility] Nystatin (Mycostatin Powder) 1 gm TOP BID [facility] Last Admin: 03/08/18 08:43 Dose: Not Given Ondansetron HCl (Zofran Odt) 4 mg PO Q6H PRN PRN Reason: Nausea/Vomiting Ondansetron HCl (Zofran) 4 mg IVP Q6H PRN PRN Reason: Nausea/Vomiting Pneumococcal Polyvalent Vaccine (Pneumovax 23) 0.5 ml IM .ONCE ONE Stop: 03/09/18 09:01 Polyethylene Glycol (Miralax) 17 gm PO DAILY [facility] Last Admin: 03/08/18 07:50 Dose: 17 gm Potassium Chloride (K-Dur) 40 meq [facility] Saccharomyces Boulardii (Florastor) 250 mg PO DAILY [facility] Last Admin: 03/08/18 08:38 Dose: Not Given Senna/Docusate Sodium (Senokot S) 2 tab PO BID [facility] Last Admin: 03/08/18 07:51 Dose: 2 tab Sevelamer Carbonate (Renvela) 2,400 mg PO TID-[facility] Last Admin: 03/08/18 11:25 Dose: 2,400 mg Sodium Chloride ([place] Nasal [place] 0.65%) 0 ml EA NARE QIDPRN PRN PRN Reason: Nasal Congestion Throat Lozenges (Cepastat Lozenges) 1 mary ellen PO Q2H PRN PRN Reason: Sore Throat Zolpidem Tartrate (Ambien) 5 mg PO HSPRN PRN PRN Reason: Insomnia
[2018-03-08] MEDS: Sevelamer Carbonate 800 MG TAB PO SCH ×2 (11:25→17:06)
[2018-03-08] MEDS: Lanthanum Carbonate 500 mg Tablet PO SCH ×2 (11:25→17:06)
[2018-03-08] MEDS ORDERED: LANTHANUM CARBONATE PO SCH (12:00)
--- NOTE | 2018-03-08 12:03 | CON ---
DATE OF CONSULTATION: 03/08/2018 HISTORY OF PRESENT ILLNESS: Mr. Boyer is a 62-year-old male with ESRD -- currently on p eritoneal dialysis and was admitted due to hypotension. The patient has been having decreased p.o. i ntake, has been having diarrhea. He was seen by his PCP and at that time his blood pressure at offic e was noted in the 50 systolic. He was feeling tired and weak. We are now being consulted for his [facility] peritoneal dialysis. I did dialyze the patient last night. He did well with the dialysis . We are using a 1.5% PD solution to minimize ultrafiltration due to the weight loss and hypotension . REVIEW OF SYSTEMS: Positive for generalized malaise. Positive for diarrhea, no nausea, no vomiting. Decreased appetite, no syncopal episode, no fever or chills, no productive cough, no abdominal pain , no hematochezia, no melena, no hematemesis, no dysuria, no headache, no chest pain, no shortness of breath. MEDICATIONS: Aspirin 81 mg every day, calcitriol 0.25 mcg tab daily, cefepime 1 gram IV daily, Pepci d 20 mg every day, Folvite 1 mg daily, Fosrenol 500 mg t.i.d. with meals, loratadine 10 mg daily p.r. n., midodrine 5 mg p.o. t.i.d., Zofran p.r.n., normal saline at 100 mL per hour, vancomycin. PAST MEDICAL HISTORY: 1. Recently status post peritonitis -- status post treatment. 2. 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 3. Chronic lymphedema. 4. Hypertension. 5. Hypothyroidism. 6. History of fatty liver. PAST SURGICAL HISTORY: 1. Status post cuffed hemodialysis catheter placement. 2. Status post PD catheter placement. 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 No children. No hi story of smoking, no alcohol. Sedentary lifestyle. No IV drug abuse. Education: Some college cour ses. Status post blood transfusion. FAMILY HISTORY: No family history of ESRD. ALLERGIES: ?Diflucan. TRAUMA: None. IMMUNIZATIONS: Up to date. HOSPITALIZATIONS: Please see past medical history. PHYSICAL EXAMINATION: VITAL SIGNS: Blood pressure is 80/40 with a heart rate of 70, respiratory rate 12. GENERAL: Awake, alert, supine, comfortable, morbidly obese. SKIN: Adequate turgor. HEENT: Slightly pale conjunctivae, anicteric sclerae. NECK: No neck mass, no JVD, no carotid bruits. LUNGS: Clear breath sounds, no wheezing, no crackles. HEART: Normal sinus rhythm. No murmur, no gallops, no rubs. ABDOMEN: Globular, soft, nontender, no masses. Positive for PD catheter. EXTREMITIES: +4 edema. NEUROLOGIC: Oriented to 3 spheres. Moving all extremities. No tremors, no asterixis. LABORATORY: Of 03/08/2018: White count 5.2, hemoglobin 11.2, hematocrit 34.4. Sodium 139, potassiu m 2.9, chloride 102, carbon dioxide 21, BUN 54, creatinine 13.49, calcium 8.4, white count 5.2, hemog lobin 11.2. 03/08/2018 KUB currently pending. 03/07/2018 chest x-ray shows no evidence of acute cardiopulmonary disease. ASSESSMENT AND PLAN: 1. End-stage renal disease, stable. We will continue current CCPD regimen. We are using 1.5% PD so lution to minimize ultrafiltration due to the hypotension. 2. Hypotension -- secondary to volume depletion. Continue normal saline 100 mL per hour. 3. Anemia -- currently most recent hemoglobin 11.2. No indication for any Epogen at the present rhonda e. 4. Hypokalemia, p.r.n. correction. We will maintain this patient on KCl 40 mEq tab once a day since he does have a history of chronic hypokalemia.
[2018-03-08 12:46] LABS: Phosphorus 6.4 mg/dL (2.3-4.7)
--- NOTE | 2018-03-08 12:52 | RAD ---
KUB AND UPRIGHT: HISTORY: Abdominal pain and constipation. FINDINGS: The bowel gas pattern appears nonobstructed. There is what appears to be a dialysis catheter present within the pelvis. No free air or radiopaque calculi. There are arthritis changes of the spine. IMPRESSION: No acute findings. POS: RAMONE
--- NOTE | 2018-03-08 14:02 | ULT ---
BILATERAL LOWER EXTREMITY VENOUS DUPLEX EXAM: HISTORY: Lower leg pain. Edema. Real-time color Doppler evaluation of the right and left lower extremities was performed from groin t o calf. This includes evaluation of the common femoral, superficial, and profunda femoral, saphenous , popliteal, and posterior tibial veins. His shows patent deep venous systems bilaterally. There is normal compressibility and augmentation. There is no evidence of DVT. IMPRESSION: No evidence of deep vein thrombosis of either lower extremity. POS: DIRK
[2018-03-08] MEDS: Cefepime 1 GM in Sodium Chloride 0.9% 100 ML IVPB SCH (20:09)
[2018-03-08] MEDS: Fluticasone Propionate Nasal Spray 16 gm Bottle NASAL SCH (20:11)
[2018-03-08] MEDS: Famotidine 20 MG TAB PO SCH (20:11)
[2018-03-09] MEDS: Sodium Chloride 0.9% 1,000 ML IV SCH (04:14)
[2018-03-09] MEDS: Levothyroxine 150 MCG TAB PO SCH (06:00)
[2018-03-09 08:33] LABS: #Eosinphils 0.4 thou/uL (0.0-0.7); #Lymphocytes 1.2 thou/uL (1.20-3.40); #Monocytes 0.4 thou/uL (0.11-0.59); #Neutrophils 2.6 thou/uL (1.40-6.50); %Basophils 0.4 % (0.0-1.0); %Eosinophils 7.8 % (0.0-10.0); %Lymphocytes 26.6 % (21.0-51.0); %Monocytes 9.6 % (0.0-10.0); %Neutrophils 55.6 % (42.0-75.0); Hemoglobin 11.6 g/dL (14.0-18.0); Mean Corpuscular HGB CONC 33.4 g/dL (32.0-36.0); Mean Corpuscular Hemoglobin 35.6 pg (27.0-31.0); Mean Platelet Volume 7.2 fL (7.4-10.4); Platelet Count 199 thou/uL (130-400); RBC Distribution Width 18.1 % (11.5-14.5); Red Blood Cell (RBC) Count 3.26 mill/uL (4.70-6.10); White Blood Cell (WBC) Count 4.6 thou/uL (4.8-10.8)
[2018-03-09 08:44] LABS: ALT (SGPT) 45 U/L (8-55); AST (SGOT) 58 U/L (5-34); Albumin 3.2 g/dL (3.4-4.8); Alkaline Phosphatase 64 U/L (40-150); Anion Gap 19 mmol/L (10-20); BUN (Urea Nitrogen) 48 mg/dL (8.4-25.7); Bilirubin, Total 0.4 mg/dL (0.2-1.2); Calc. Creatinine Clearance 10 mL/min (70-130); Calcium 8.9 mg/dL (7.8-10.44); Carbon Dioxide 19 mmol/L (23-31); Chloride 106 mmol/L (98-107); Estimated GFR-MDRD 4; Globulin 3.6 g/dL (2.4-3.5); Glucose 99 mg/dL (80-115); Potassium 3.2 mmol/L (3.5-5.1); Protein, Total 6.8 g/dL (5.8-8.1); Sodium 141 mmol/L (136-145)
[2018-03-09] MEDS: Potassium Chloride 20 MEQ TAB PO SCH (09:25)
[2018-03-09] MEDS: Calcitriol 0.25 MCG CAP PO SCH (09:25)
--- NOTE | 2018-03-09 09:25 | PRG ---
DATE OF SERVICE: 03/09/2018 SERVICE: Renal Medicine. SUBJECTIVE: Mr. Boyer is a 62-year-old male with known history of end-stage renal disea se and was admitted for hypotension. He was felt to be volume depleted. He has been having diarrhea for the last few days. He was also noted to be hypokalemic and currently on potassium supplementati on. He feels better. Blood pressure slowly improved with IV hydration. No complaints of chest pain or shortness of breath. PHYSICAL EXAMINATION: VITAL SIGNS: Blood pressure is 85/52, heart rate 73, respiratory rate 18, temperature 98.1, pulse ox 93%. GENERAL: Noted to be awake, alert, comfortable, not in distress. SKIN: Adequate turgor. HEENT: Pinkish conjunctivae, anicteric sclerae. NECK: No neck mass, no carotid bruits, no JVD. CHEST: No deformities. LUNGS: Clear breath sounds. No wheezing, no crackles. HEART: Normal sinus rhythm. No murmur, no gallops or rubs. ABDOMEN: Globular, soft, nontender, no masses. Positive for PD catheter. EXTREMITIES: Trace edema. MEDICATIONS: Of 03/09/2018 was reviewed. LABORATORY DATA: Of 03/09/2018, sodium 141, potassium 3.2, chloride 106, carbon dioxide 19, BUN 48, creatinine 12.78, calcium is 8.9, AST 58, ALT 45, albumin 3.2. White count 4.6, hemoglobin 11.6. IMAGING: Cardiac echo showed an EF of 55%-60% - left atrium is mildly dilated. ASSESSMENT AND PLAN: 1. Hypotension secondary to volume depletion. Continue gentle volume repletion. Adjust normal sali ne from 100 mL per hour to 75 mL per hour. He is tolerating said IV hydration. 2. End-stage renal disease, stable. We will continue current peritoneal dialysis. We are using 1.5 % PD solution to minimize fluid removal. Please note, the patient is also on midodrine for blood pre ssure support. Overall, agree with current management.
[2018-03-09] MEDS: Folic Acid 1 MG TAB PO SCH (09:26)
[2018-03-09] MEDS: Sevelamer Carbonate 800 MG TAB PO SCH ×4 (09:26→17:09)
[2018-03-09] MEDS: Cyanocobalamin (Vitamin B-12) 1,000 MCG TAB PO SCH (09:27)
[2018-03-09] MEDS: Loratadine 10 MG TAB PO SCH (09:27)
[2018-03-09] MEDS: Saccharomyces boulardii 250 MG CAP PO SCH (09:28)
[2018-03-09] MEDS: Senokot S 8.6-50 MG TAB PO SCH ×2 (09:28→20:12)
[2018-03-09] MEDS: Lanthanum Carbonate 500 mg Tablet PO SCH ×4 (09:29→17:10)
[2018-03-09] MEDS: Heparin 5,000 UNITS/ML VIAL SC SCH ×3 (09:30→20:13)
[2018-03-09] MEDS: Polyethylene Glycol 3350 17 GM Packet PO SCH (09:30)
[2018-03-09] MEDS: Nystatin Powder 15 GM BOT TOP SCH ×2 (09:34→20:09)
--- NOTE | 2018-03-09 10:40 | PDOC.PN ---
- Subjective Encounter Start Date: 03/09/18 Encounter Start Time: 08:45 Patient seen and examined. No new complaints. No overnight events - Objective Resuscitation Status: Resuscitation Status FULL:Full Resuscitation MAR Reviewed: Yes Vital Signs & Weight: Vital Signs (12 hours) Temp Pulse Resp BP BP Pulse Ox 03/09/18 07:35 93 L 03/09/18 07:31 98.1 F 73 18 85/52 L 93 L 03/09/18 03:50 97.4 F L 60 19 115/45 L 97 03/09/18 00:00 98.2 F 62 15 80/44 L 96 Weight Weight 267 lb I&O: 03/08/18 03/09/18 03/10/18 07:59 06:59 06:59 Intake Total Balance Result Diagrams: 03/09/18 08:12 03/09/18 08:12 Radiology Reviewed by me: Yes (echo normal) EKG Reviewed by me: Yes (nsr) Phys Exam - Physical Examination Constitutional: NAD HEENT: PERRLA, moist MMs, sclera anicteric Neck: no JVD, supple Respiratory: no wheezing, no rales, no rhonchi Cardiovascular: RRR, no significant murmur, no rub Gastrointestinal: soft, non-tender, no distention, positive bowel sounds PD catheter+ Musculoskeletal: no edema, pulses present Neurological: non-focal, normal sensation Lymphatic: no nodes Psychiatric: normal affect, A&O x 3 Skin: no rash, normal turgor Dx/Plan (1) Weakness generalized Code(s): R53.1 - WEAKNESS Status: Acute (2) Hypokalemia Code(s): E87.6 - HYPOKALEMIA Status: Acute (3) ESRD on peritoneal dialysis Code(s): N18.6 - END STAGE RENAL DISEASE; Z99.2 - DEPENDENCE ON RENAL DIALYSIS Status: Chronic (4) Hypotension Status: Chronic (5) Hypothyroidism Code(s): E03.9 - HYPOTHYROIDISM, UNSPECIFIED Status: Chronic Qualifiers: Hypothyroidism type: unspecified Qualified Code(s): E03.9 - Hypothyroidism , unspecified (6) Macrocytic anemia Code(s): D53.9 - NUTRITIONAL ANEMIA, UNSPECIFIED Status: Chronic - Plan cont current plan of care, plan discussed w/ family, PT/OT * DC IV amtibiotics * reduce IVF * he is baseline * he will benefit from rehab placement if pt agrees * medication reviewed as below * symptomatic treatment * discussed with * replace potassium. Review of Systems - Review of Systems ENT: negative: Ear Pain, Ear Discharge, Nose Pain, Nose Discharge, Nose Congestion, Mouth Pain, Mouth Swelling, Throat Pain, Throat Swelling, Other Respiratory: negative: Cough, Dry, Shortness of Breath, Hemoptysis, SOB with Excertion, Pleuritic Pain, Sputum, Wheezing Cardiovascular: negative: chest pain, palpitations, orthopnea, paroxysmal nocturnal dyspnea, edema, light headedness, other Gastrointestinal: negative: Nausea, Vomiting, Abdominal Pain, Diarrhea, Constipation, Melena, Hematochezia, Other Genitourinary: negative: Dysuria, Frequency, Incontinence, Hematuria, Retention , Other Musculoskeletal: negative: Neck Pain, Shoulder Pain, Arm Pain, Back Pain, Hand Pain, Leg Pain, Foot Pain, Other Skin: negative: Rash, Lesions, Lawrence, Bruising, Other - Medications/Allergies Allergies/Adverse Reactions: Allergies Allergy/AdvReac Type Severity Reaction Status Date / Time fluconazole Allergy Intermediate Verified 05/06/17 17:42 hydrocodone Allergy Intermediate Verified 05/06/17 17:42 Opioids - Morphine Analogues Allergy Intermediate Verified 05/06/17 17:42 Medications: Current Medications Acetaminophen (Tylenol) 650 mg PO Q4H PRN PRN Reason: Headache/Fever/Mild Pain (1-3) Artificial Tears (Tears Naturale) 2 drop EA EYE PRN PRN PRN Reason: Dry Eyes Aspirin (Aspirin Chewable) 81 mg PO DAILY [facility] Last Admin: 03/09/18 09:29 Dose: 81 mg Bisacodyl (Dulcolax) 10 mg NM DAILYPRN PRN PRN Reason: Constipation Calcitriol (Rocaltrol) 0.25 mcg PO DAILY [facility] Last Admin: 03/09/18 09:25 Dose: 0.25 mcg Calcium Carbonate (Tums) 1,000 mg PO Q4H PRN PRN Reason: Heartburn or Indigestion Cyanocobalamin (Vitamin B-12) 1,000 mcg PO DAILY [facility] Last Admin: 03/09/18 09:27 Dose: 1,000 mcg Famotidine (Pepcid) 20 mg PO 2100 [facility] Last Admin: 03/08/18 20:11 Dose: 20 mg Fluticasone Propionate (Flonase Nasal [place]) 0 gm NASAL 2100 [facility] Last Admin: 03/08/18 20:11 Dose: 2 spr Folic Acid (Folvite) 1 mg PO DAILY [facility] Last Admin: 03/09/18 09:26 Dose: 1 mg Guaifenesin (Robitussin Sf) 200 mg PO Q4H PRN PRN Reason: Cough Heparin Sodium (Porcine) (Heparin) 5,000 units SC TID [facility] Last Admin: 03/09/18 09:30 Dose: 5,000 units Hydrocortisone/Pramoxine (Analpram Hc) 0 gm NM TIDPRN PRN PRN Reason: Hemorrhoids Lanthanum Carbonate (Fosrenol) 500 mg PO TID-[facility] Last Admin: 03/09/18 09:29 Dose: 500 mg Levothyroxine Sodium (Synthroid) 300 mcg PO 0600 [facility] Last Admin: 03/09/18 06:00 Dose: 300 mcg Loperamide HCl (Imodium) 2 mg PO PRN PRN PRN Reason: Diarrhea/Loose Stools Loratadine (Claritin) 10 mg PO DAILY [facility] Last Admin: 03/09/18 09:27 Dose: 10 mg Midodrine (Proamatine) 5 mg PO TID [facility] Last Admin: 03/08/18 20:11 Dose: 5 mg Mineral Oil/White Petrolatum (Eucerin Cream) 0 gm TOP BIDPRN PRN PRN Reason: Dry Skin Nitroglycerin (Nitrostat) 0.4 mg PO Q5MIN PRN PRN Reason: Chest Pain Hold Vancomycin For (Level >20) 0 each FS .ASDIRECTED [facility] Nystatin (Mycostatin Powder) 1 gm TOP BID [facility] Last Admin: 03/09/18 09:34 Dose: 1 applic Ondansetron HCl (Zofran Odt) 4 mg PO Q6H PRN PRN Reason: Nausea/Vomiting Ondansetron HCl (Zofran) 4 mg IVP Q6H PRN PRN Reason: Nausea/Vomiting Polyethylene Glycol (Miralax) 17 gm PO DAILY [facility] Last Admin: 03/09/18 09:30 Dose: 17 gm Potassium Chloride (K-Dur) 40 meq PO QAM-[facility] Last Admin: 03/09/18 09:25 Dose: 40 meq Saccharomyces Boulardii (Florastor) 250 mg PO DAILY [facility] Last Admin: 03/09/18 09:28 Dose: 250 mg Senna/Docusate Sodium (Senokot S) 2 tab PO BID [facility] Last Admin: 03/09/18 09:28 Dose: 2 tab Sevelamer Carbonate (Renvela) 2,400 mg PO TID-WM [facility] Last Admin: 03/09/18 09:26 Dose: 2,400 mg Sodium Chloride ([place] Nasal [place] 0.65%) 0 ml EA NARE QIDPRN PRN PRN Reason: Nasal Congestion Sodium Chloride (Flush - Normal Saline) 10 ml IVF Q12HR [facility] Last Admin: 03/09/18 09:30 Dose: 10 ml Sodium Chloride (Flush - Normal Saline) 10 ml IVF PRN PRN PRN Reason: Saline Flush Throat Lozenges (Cepastat Lozenges) 1 mary ellen PO Q2H PRN PRN Reason: Sore Throat Zolpidem Tartrate (Ambien) 5 mg PO HSPRN PRN PRN Reason: Insomnia
[2018-03-09] MEDS: Midodrine HCl 5 MG TAB PO SCH ×3 (14:43→20:07)
[2018-03-09] MEDS: Famotidine 20 MG TAB PO SCH (20:08)
[2018-03-09] MEDS: Fluticasone Propionate Nasal Spray 16 gm Bottle NASAL SCH (20:08)
[2018-03-10] MEDS: Levothyroxine 150 MCG TAB PO SCH (06:18)
[2018-03-10] MEDS: Loratadine 10 MG TAB PO SCH (09:25)
[2018-03-10] MEDS: Saccharomyces boulardii 250 MG CAP PO SCH (09:25)
[2018-03-10] MEDS: Heparin 5,000 UNITS/ML VIAL SC SCH ×3 (09:25→21:04)
[2018-03-10] MEDS: Folic Acid 1 MG TAB PO SCH (09:25)
[2018-03-10] MEDS: Potassium Chloride 20 MEQ TAB PO SCH (09:25)
[2018-03-10] MEDS: Calcitriol 0.25 MCG CAP PO SCH (09:26)
[2018-03-10] MEDS: Senokot S 8.6-50 MG TAB PO SCH ×2 (09:26→21:04)
[2018-03-10] MEDS: Polyethylene Glycol 3350 17 GM Packet PO SCH (09:26)
[2018-03-10] MEDS: Midodrine HCl 5 MG TAB PO SCH ×3 (09:26→21:04)
[2018-03-10] MEDS: Cyanocobalamin (Vitamin B-12) 1,000 MCG TAB PO SCH (09:26)
[2018-03-10] MEDS: Sevelamer Carbonate 800 MG TAB PO SCH ×3 (09:27→16:09)
[2018-03-10] MEDS: Nystatin Powder 15 GM BOT TOP SCH ×2 (09:27→21:05)
[2018-03-10] MEDS: Lanthanum Carbonate 500 mg Tablet PO SCH ×3 (09:27→16:09)
--- NOTE | 2018-03-10 09:50 | PDOC.PN ---
- Subjective Encounter Start Date: 03/10/18 Encounter Start Time: 08:30 Patient seen and examined. No new complaints. No overnight events pt's BP runs low - Objective Resuscitation Status: Resuscitation Status FULL:Full Resuscitation MAR Reviewed: Yes Vital Signs & Weight: Vital Signs (12 hours) Temp Pulse Resp BP BP BP Pulse Ox 03/10/18 08:53 67/42 L 70/42 L 03/10/18 07:47 96 03/10/18 04:00 97.5 F L 66 20 84/51 L 94 L 03/10/18 00:00 98 F 83 17 97/59 L 98 Weight Weight 266 lb 8 oz I&O: 03/09/18 03/10/18 03/11/18 06:59 06:59 06:59 Intake Total 2520 Balance 2520 Result Diagrams: 03/09/18 08:12 03/09/18 08:12 EKG Reviewed by me: Yes (nsr) Phys Exam - Physical Examination Constitutional: NAD HEENT: PERRLA, moist MMs, sclera anicteric Neck: no JVD, supple Respiratory: no wheezing, no rales, no rhonchi Cardiovascular: RRR, no significant murmur, no rub Gastrointestinal: soft, non-tender, no distention, positive bowel sounds obesity+, PD catheter+ Musculoskeletal: no edema, pulses present chronic skin changes leg Neurological: non-focal, normal sensation, moves all 4 limbs Lymphatic: no nodes Psychiatric: normal affect, A&O x 3 Skin: no rash, normal turgor Dx/Plan (1) Weakness generalized Code(s): R53.1 - WEAKNESS Status: Acute (2) Hypokalemia Code(s): E87.6 - HYPOKALEMIA Status: Acute (3) ESRD on peritoneal dialysis Code(s): N18.6 - END STAGE RENAL DISEASE; Z99.2 - DEPENDENCE ON RENAL DIALYSIS Status: Chronic (4) Hypotension Status: Chronic (5) Hypothyroidism Code(s): E03.9 - HYPOTHYROIDISM, UNSPECIFIED Status: Chronic Qualifiers: Hypothyroidism type: unspecified Qualified Code(s): E03.9 - Hypothyroidism , unspecified (6) Macrocytic anemia Code(s): D53.9 - NUTRITIONAL ANEMIA, UNSPECIFIED Status: Chronic - Plan cont current plan of care, PT/OT, social work assistant * rehab screen * transfer to tele * continue PT/OT * medication reviewed as below * symptomatic treatment. * continue PD as per nephrology Review of Systems - Review of Systems ENT: negative: Ear Pain, Ear Discharge, Nose Pain, Nose Discharge, Nose Congestion, Mouth Pain, Mouth Swelling, Throat Pain, Throat Swelling, Other Respiratory: negative: Cough, Dry, Shortness of Breath, Hemoptysis, SOB with Excertion, Pleuritic Pain, Sputum, Wheezing Cardiovascular: negative: chest pain, palpitations, orthopnea, paroxysmal nocturnal dyspnea, edema, light headedness, other Gastrointestinal: negative: Nausea, Vomiting, Abdominal Pain, Diarrhea, Constipation, Melena, Hematochezia, Other Genitourinary: negative: Dysuria, Frequency, Incontinence, Hematuria, Retention , Other Musculoskeletal: negative: Neck Pain, Shoulder Pain, Arm Pain, Back Pain, Hand Pain, Leg Pain, Foot Pain, Other Skin: negative: Rash, Lesions, Lawrence, Bruising, Other - Medications/Allergies Allergies/Adverse Reactions: Allergies Allergy/AdvReac Type Severity Reaction Status Date / Time fluconazole Allergy Intermediate Verified 05/06/17 17:42 hydrocodone Allergy Intermediate Verified 05/06/17 17:42 Opioids - Morphine Analogues Allergy Intermediate Verified 05/06/17 17:42 Medications: Current Medications Acetaminophen (Tylenol) 650 mg PO Q4H PRN PRN Reason: Headache/Fever/Mild Pain (1-3) Artificial Tears (Tears Naturale) 2 drop EA EYE PRN PRN PRN Reason: Dry Eyes Aspirin (Aspirin Chewable) 81 mg PO DAILY [facility] Last Admin: 03/10/18 09:25 Dose: 81 mg Bisacodyl (Dulcolax) 10 mg MD DAILYPRN PRN PRN Reason: Constipation Calcitriol (Rocaltrol) 0.25 mcg PO DAILY [facility] Last Admin: 03/10/18 09:26 Dose: 0.25 mcg Calcium Carbonate (Tums) 1,000 mg PO Q4H PRN PRN Reason: Heartburn or Indigestion Cyanocobalamin (Vitamin B-12) 1,000 mcg PO DAILY [facility] Last Admin: 03/10/18 09:26 Dose: 1,000 mcg Famotidine (Pepcid) 20 mg PO 2100 [facility] Last Admin: 03/09/18 20:08 Dose: 20 mg Fluticasone Propionate (Flonase Nasal [place]) 0 gm NASAL 2100 [facility] Last Admin: 03/09/18 20:08 Dose: 2 spr Folic Acid (Folvite) 1 mg PO DAILY [facility] Last Admin: 03/10/18 09:25 Dose: 1 mg Guaifenesin (Robitussin Sf) 200 mg PO Q4H PRN PRN Reason: Cough Last Admin: 03/09/18 20:09 Dose: 200 mg Heparin Sodium (Porcine) (Heparin) 5,000 units SC TID [facility] Last Admin: 03/10/18 09:25 Dose: 5,000 units Hydrocortisone/Pramoxine (Analpram Hc) 0 gm MD TIDPRN PRN PRN Reason: Hemorrhoids Last Admin: 03/09/18 20:10 Dose: 1 applic Lanthanum Carbonate (Fosrenol) 500 mg PO TID-[facility] Last Admin: 03/10/18 09:27 Dose: 500 mg Levothyroxine Sodium (Synthroid) 300 mcg PO 0600 [facility] Last Admin: 03/10/18 06:18 Dose: 300 mcg Loperamide HCl (Imodium) 2 mg PO PRN PRN PRN Reason: Diarrhea/Loose Stools Loratadine (Claritin) 10 mg PO DAILY [facility] Last Admin: 03/10/18 09:25 Dose: 10 mg Midodrine (Proamatine) 5 mg PO TID [facility] Last Admin: 03/10/18 09:26 Dose: 5 mg Mineral Oil/White Petrolatum (Eucerin Cream) 0 gm TOP BIDPRN PRN PRN Reason: Dry Skin Nitroglycerin (Nitrostat) 0.4 mg PO Q5MIN PRN PRN Reason: Chest Pain Hold Vancomycin For (Level >20) 0 each FS .ASDIRECTED [facility] Nystatin (Mycostatin Powder) 1 gm TOP BID [facility] Last Admin: 03/10/18 09:27 Dose: 1 applic Ondansetron HCl (Zofran Odt) 4 mg PO Q6H PRN PRN Reason: Nausea/Vomiting Ondansetron HCl (Zofran) 4 mg IVP Q6H PRN PRN Reason: Nausea/Vomiting Polyethylene Glycol (Miralax) 17 gm PO DAILY [facility] Last Admin: 03/10/18 09:26 Dose: 17 gm Potassium Chloride (K-Dur) 40 meq PO QAM-[facility] Last Admin: 03/10/18 09:25 Dose: 40 meq Saccharomyces Boulardii (Florastor) 250 mg PO DAILY [facility] Last Admin: 03/10/18 09:25 Dose: 250 mg Senna/Docusate Sodium (Senokot S) 2 tab PO BID [facility] Last Admin: 03/10/18 09:26 Dose: 2 tab Sevelamer Carbonate (Renvela) 2,400 mg PO TID-WM [facility] Last Admin: 03/10/18 09:27 Dose: 2,400 mg Sodium Chloride ([place] Nasal [place] 0.65%) 0 ml EA NARE QIDPRN PRN PRN Reason: Nasal Congestion Sodium Chloride (Flush - Normal Saline) 10 ml IVF Q12HR [facility] Last Admin: 03/10/18 09:31 Dose: 10 ml Sodium Chloride (Flush - Normal Saline) 10 ml IVF PRN PRN PRN Reason: Saline Flush Throat Lozenges (Cepastat Lozenges) 1 mary ellen PO Q2H PRN PRN Reason: Sore Throat Zolpidem Tartrate (Ambien) 5 mg PO HSPRN PRN PRN Reason: Insomnia
--- NOTE | 2018-03-10 10:37 | PRG ---
DATE OF SERVICE: 03/10/2018 SUBJECTIVE: Mr. Boyer is a 62-year-old male with ESRD and being followed up by the [facility] for his maintenance peritoneal dialysis, doing well with the dialysis. He was initially ad mitted for hypertension. . He is also on midodrine support at the present time. We are using 1.5% PD solution to minimize ultrafiltration. No other complaints today. OBJECTIVE: VITAL SIGNS: Blood pressure 84/51, heart rate 68, respiratory rate 20, temperature 97.5, pulse ox 94 %. GENERAL: Awake, sitting comfortable, obese, not in distress. SKIN: Adequate turgor. HEENT: He has pinkish conjunctivae, anicteric sclerae. NECK: No neck mass, no carotid bruits, no JVD. CHEST: No deformities. LUNGS: Clear breath sounds. HEART: Normal sinus rhythm. No murmur, no gallops, no rubs. ABDOMEN: Globular, soft, nontender, no masses. EXTREMITIES: Trace edema, no deformities. MEDICATIONS: Medications of 03/10/2018 was reviewed. LABORATORY DATA: Laboratories of 03/09/2018, sodium 141, potassium 3.2, chloride 106, carbon dioxide 19, BUN 48, creatinine 12.78, calcium 8.9, AST 58, ALT 45. White count 4.6, hemoglobin 11.6. ASSESSMENT AND PLAN: 1. End-stage renal disease, stable. Continuing 1.5% PD solution to minimize ultrafiltration. Elif nue current CCPD regimen. 2. Hypokalemia, on potassium replacement. Recheck base met tomorrow. 3. Hypertension, improved. Continue midodrine. Continue minimal fluid removal with peritoneal dial ysis. Recheck base met and CBC in a.m.
[2018-03-10] MEDS: Famotidine 20 MG TAB PO SCH (21:04)
[2018-03-10] MEDS: Fluticasone Propionate Nasal Spray 16 gm Bottle NASAL SCH (21:05)
[2018-03-11] MEDS: Levothyroxine 150 MCG TAB PO SCH (05:52)
[2018-03-11 07:29] VITALS: TEMP 97.7
--- NOTE | 2018-03-11 09:15 | PRG ---
DATE OF SERVICE: 03/11/2018 SUBJECTIVE: Mr. Boyer is a 62-year-old male with a history of end-stage renal disease o n peritoneal dialysis. He was initially admitted for hypotension from volume depletion. He is still having some difficulty in full ambulation. A consideration for rehab placement is being made. Bloo d pressure is slightly improved. No complaints of chest pain or shortness of breath. Diarrhea is al so improving. OBJECTIVE: VITAL SIGNS: Blood pressure is 86/58, heart rate 70, respiratory rate 16, temperature 97.7, pulse ox 96%. GENERAL: Noted to be awake, alert, comfortable, not in distress. SKIN: Adequate turgor. HEENT: He has pinkish conjunctivae, anicteric sclerae. NECK: No neck mass, no carotid bruits, no JVD. CHEST: No deformities. LUNGS: Clear breath sounds. No wheezing, no crackles. HEART: Normal sinus rhythm. No murmur, no gallops or rubs. ABDOMEN: Globular, soft, nontender, no masses. EXTREMITIES: Trace edema. MEDICATIONS: 03/11/2018 - Reviewed. LABORATORY: 03/09/2018 - Sodium 141, potassium 3.2, chloride 106, carbon dioxide 19, BUN 48, creatin ine 12.7, AST 58, ALT 45, albumin 3.2. Hemoglobin 11.6. ASSESSMENT AND PLAN: 1. End-stage renal disease, stable. We will continue current CCPD regimen, tolerating said treatmen t. We are only using 1.5% PD solution due to the relatively lower blood pressure. Continue supporti ve care. No indication for any conversion to hemodialysis. 2. Hypotension, chronic nature, stable. He is currently on midodrine 5 mg p.o. t.i.d. 3. Diarrhea, improving. Recheck base met and CBC in a.m.
[2018-03-11] MEDS: Potassium Chloride 20 MEQ TAB PO SCH (09:47)
[2018-03-11] MEDS: Sevelamer Carbonate 800 MG TAB PO SCH ×2 (09:48→12:08)
[2018-03-11] MEDS: Senokot S 8.6-50 MG TAB PO SCH (09:48)
[2018-03-11] MEDS: Lanthanum Carbonate 500 mg Tablet PO SCH ×2 (09:49→12:07)
[2018-03-11] MEDS: Loratadine 10 MG TAB PO SCH (09:49)
[2018-03-11] MEDS: Calcitriol 0.25 MCG CAP PO SCH (09:49)
[2018-03-11] MEDS: Midodrine HCl 5 MG TAB PO SCH ×2 (09:49→14:48)
[2018-03-11] MEDS: Heparin 5,000 UNITS/ML VIAL SC SCH ×2 (09:50→14:48)
[2018-03-11] MEDS: Folic Acid 1 MG TAB PO SCH (09:50)
[2018-03-11] MEDS: Saccharomyces boulardii 250 MG CAP PO SCH (09:50)
[2018-03-11] MEDS: Cyanocobalamin (Vitamin B-12) 1,000 MCG TAB PO SCH (09:50)
[2018-03-11] MEDS: Nystatin Powder 15 GM BOT TOP SCH (09:51)
[2018-03-11] MEDS: Polyethylene Glycol 3350 17 GM Packet PO SCH (09:51)
--- NOTE | 2018-03-11 10:02 | PDOC.PN ---
- Subjective Encounter Start Date: 03/11/18 Encounter Start Time: 09:00 Patient seen and examined. No new complaints. No overnight events - Objective Resuscitation Status: Resuscitation Status FULL:Full Resuscitation MAR Reviewed: Yes Vital Signs & Weight: Vital Signs (12 hours) Temp Pulse Resp BP Pulse Ox 03/11/18 08:00 96 03/11/18 07:28 97.7 F 70 16 86/58 L 96 03/11/18 04:00 98.2 F 67 16 85/50 L 96 03/11/18 00:00 98.6 F 68 15 91/56 L 96 Weight Weight 266 lb 8 oz I&O: 03/10/18 03/11/18 03/12/18 06:59 06:59 06:59 Intake Total 2520 720 Output Total 975 Balance 2520 -255 Result Diagrams: 03/09/18 08:12 03/09/18 08:12 EKG Reviewed by me: Yes (nsr) Phys Exam - Physical Examination Constitutional: NAD HEENT: PERRLA, moist MMs, sclera anicteric Neck: no JVD, supple Respiratory: no wheezing, no rales, no rhonchi Cardiovascular: RRR, no significant murmur, no rub Gastrointestinal: soft, non-tender, no distention, positive bowel sounds PD catheter+ Musculoskeletal: no edema, pulses present chronic skin changes Neurological: non-focal, normal sensation, moves all 4 limbs Psychiatric: normal affect, A&O x 3 Skin: no rash, normal turgor Dx/Plan (1) Weakness generalized Code(s): R53.1 - WEAKNESS Status: Acute (2) Hypokalemia Code(s): E87.6 - HYPOKALEMIA Status: Acute (3) ESRD on peritoneal dialysis Code(s): N18.6 - END STAGE RENAL DISEASE; Z99.2 - DEPENDENCE ON RENAL DIALYSIS Status: Chronic (4) Hypotension Status: Chronic (5) Hypothyroidism Code(s): E03.9 - HYPOTHYROIDISM, UNSPECIFIED Status: Chronic Qualifiers: Hypothyroidism type: unspecified Qualified Code(s): E03.9 - Hypothyroidism , unspecified (6) Macrocytic anemia Code(s): D53.9 - NUTRITIONAL ANEMIA, UNSPECIFIED Status: Chronic - Plan cont current plan of care, PT/OT, social welfare administrator * medication reviewed as below * symptomatic treatment * case picker to arrange rehab vs snu * PD as per nephrology. Review of Systems - Review of Systems Constitutional: weakness. negative: fever, chills, sweats, malaise, other ENT: negative: Ear Pain, Ear Discharge, Nose Pain, Nose Discharge, Nose Congestion, Mouth Pain, Mouth Swelling, Throat Pain, Throat Swelling, Other Respiratory: negative: Cough, Dry, Shortness of Breath, Hemoptysis, SOB with Excertion, Pleuritic Pain, Sputum, Wheezing Cardiovascular: negative: chest pain, palpitations, orthopnea, paroxysmal nocturnal dyspnea, edema, light headedness, other Genitourinary: negative: Dysuria, Frequency, Incontinence, Hematuria, Retention , Other Musculoskeletal: negative: Neck Pain, Shoulder Pain, Arm Pain, Back Pain, Hand Pain, Leg Pain, Foot Pain, Other - Medications/Allergies Allergies/Adverse Reactions: Allergies Allergy/AdvReac Type Severity Reaction Status Date / Time fluconazole Allergy Intermediate Verified 05/06/17 17:42 hydrocodone Allergy Intermediate Verified 05/06/17 17:42 Opioids - Morphine Analogues Allergy Intermediate Verified 05/06/17 17:42 Medications: Current Medications Acetaminophen (Tylenol) 650 mg PO Q4H PRN PRN Reason: Headache/Fever/Mild Pain (1-3) Artificial Tears (Tears Naturale) 2 drop EA EYE PRN PRN PRN Reason: Dry Eyes Aspirin (Aspirin Chewable) 81 mg PO DAILY [facility] Last Admin: 03/11/18 09:50 Dose: 81 mg Bisacodyl (Dulcolax) [address] DAILYPRN PRN PRN Reason: Constipation Calcitriol (Rocaltrol) 0.25 mcg PO DAILY [facility] Last Admin: 03/11/18 09:49 Dose: 0.25 mcg Calcium Carbonate (Tums) 1,000 mg PO Q4H PRN PRN Reason: Heartburn or Indigestion Cyanocobalamin (Vitamin B-12) 1,000 mcg PO DAILY [facility] Last Admin: 03/11/18 09:50 Dose: 1,000 mcg Famotidine (Pepcid) 20 mg PO 2100 [facility] Last Admin: 03/10/18 21:04 Dose: 20 mg Fluticasone Propionate (Flonase Nasal [place]) 0 gm NASAL 2100 [facility] Last Admin: 03/10/18 21:05 Dose: 1 spr Folic Acid (Folvite) 1 mg PO DAILY [facility] Last Admin: 03/11/18 09:50 Dose: 1 mg Guaifenesin (Robitussin Sf) 200 mg PO Q4H PRN PRN Reason: Cough Last Admin: 03/09/18 20:09 Dose: 200 mg Heparin Sodium (Porcine) (Heparin) 5,000 units SC TID [facility] Last Admin: 03/11/18 09:50 Dose: 5,000 units Hydrocortisone/Pramoxine (Analpram Hc) [address] TIDPRN PRN PRN Reason: Hemorrhoids Last Admin: 03/09/18 20:10 Dose: 1 applic Lanthanum Carbonate (Fosrenol) 500 mg PO TID-[facility] Last Admin: 03/11/18 09:49 Dose: 500 mg Levothyroxine Sodium (Synthroid) 300 mcg PO 0600 [facility] Last Admin: 03/11/18 05:52 Dose: 300 mcg Loperamide HCl (Imodium) 2 mg PO PRN PRN PRN Reason: Diarrhea/Loose Stools Loratadine (Claritin) 10 mg PO DAILY [facility] Last Admin: 03/11/18 09:49 Dose: 10 mg Midodrine (Proamatine) 5 mg PO TID [facility] Last Admin: 03/11/18 09:49 Dose: 5 mg Mineral Oil/White Petrolatum (Eucerin Cream) 0 gm TOP BIDPRN PRN PRN Reason: Dry Skin Nitroglycerin (Nitrostat) 0.4 mg PO Q5MIN PRN PRN Reason: Chest Pain Hold Vancomycin For (Level >20) 0 each FS .ASDIRECTED [facility] Nystatin (Mycostatin Powder) 1 gm TOP BID [facility] Last Admin: 03/11/18 09:51 Dose: Not Given Ondansetron HCl (Zofran Odt) 4 mg PO Q6H PRN PRN Reason: Nausea/Vomiting Ondansetron HCl (Zofran) 4 mg IVP Q6H PRN PRN Reason: Nausea/Vomiting Polyethylene Glycol (Miralax) 17 gm PO DAILY [facility] Last Admin: 03/11/18 09:51 Dose: 17 gm Potassium Chloride (K-Dur) 40 meq PO QAM-[facility] Last Admin: 03/11/18 09:47 Dose: 40 meq Saccharomyces Boulardii (Florastor) 250 mg PO DAILY [facility] Last Admin: 03/11/18 09:50 Dose: 250 mg Senna/Docusate Sodium (Senokot S) 2 tab PO BID [facility] Last Admin: 03/11/18 09:48 Dose: 2 tab Sevelamer Carbonate (Renvela) 2,400 mg PO TID-WM [facility] Last Admin: 03/11/18 09:48 Dose: 2,400 mg Sodium Chloride ([place] Nasal [place] 0.65%) 0 ml EA NARE QIDPRN PRN PRN Reason: Nasal Congestion Sodium Chloride (Flush - Normal Saline) 10 ml IVF Q12HR [facility] Last Admin: 03/11/18 09:52 Dose: 10 ml Sodium Chloride (Flush - Normal Saline) 10 ml IVF PRN PRN PRN Reason: Saline Flush Throat Lozenges (Cepastat Lozenges) 1 mary ellen PO Q2H PRN PRN Reason: Sore Throat Zolpidem Tartrate (Ambien) 5 mg PO HSPRN PRN PRN Reason: Insomnia
[2018-03-11 11:42] VITALS: BP 98/49
--- NOTE | 2018-03-11 15:05 | DIS ---
DATE OF ADMISSION: 03/07/2018 DATE OF DISCHARGE: 03/11/2018 PRIMARY CARE PHYSICIAN: Antonio Ca M.D. DISCHARGE DISPOSITION: Inpatient rehabilitation. PRIMARY DISCHARGE DIAGNOSES: Hypokalemia and generalized weakness. SECONDARY DISCHARGE DIAGNOSES: Macrocytic anemia, hypothyroidism, chronic hypotension, end-stage marielle al disease on peritoneal dialysis, morbid obesity with BMI 43, anemia of renal disease, secondary hyp erparathyroidism of renal origin. PRIMARY PROCEDURE/OPERATION: Peritoneal dialysis. RADIOLOGICAL INVESTIGATION: Chest x-ray was normal. Ultrasound was negative for any DVT. Abdomen x -ray was unremarkable. Echocardiography showed normal EF. DISCHARGE MEDICATIONS: Aspirin 81 mg p.o. daily, Rocaltrol 0.25 mcg p.o. daily, vitamin D3 2000 unit s p.o. daily, ferric citrate 3 tablets t.i.d., Fosrenol 1000 mg t.i.d., levothyroxine 300 mcg p.o. da hai, midodrine 5 mg t.i.d., Renvela 3 tablets t.i.d., Florastor 250 mg p.o. daily, vitamin B12 1000 m cg p.o. daily, folic acid 1 mg p.o. daily, Pepcid 20 mg p.o. daily. CONTRAINDICATIONS: None. CODE STATUS: Full code. INPATIENT CONSULTANTS: Dr. Gipson was following while in hospital. ALLERGIES: FLUCONAZOLE and HYDROCODONE. DISCHARGE PLAN: Post hospital, the patient is discharged to inpatient rehabilitation. SIGNIFICANT LABORATORY DATA: WBC 4.6, hemoglobin 11.6, platelet of 199,000. INR 1.3. Sodium 141, p otassium 3.2, BUN 48, creatinine 12.78, phosphorus 6.4, AST 58, ALT 45, albumin 3.2. Cortisol 14.60. Peritoneal fluid negative for any infection. Blood culture and peritoneal fluid negative. DISCHARGE PLAN: Post hospital, the patient discharged to inpatient rehabilitation. Subsequently, e patient will follow up with primary care physician. HOSPITAL COURSE: A 62-year-old male who was admitted by Dr. Jamal Mariee. Please see his H and P for further detail. This patient was recently admitted for peritonitis related with peritoneal dialysis , which he successfully treated. This time, the patient was admitted for hypotension and generalized weakness. The patient was started on empiric antibiotic therapy, but this time peritoneal fluid was negative for any infection. Within couple of days, we discontinued antibiotic therapy. He had hypo kalemia, which was replaced. He had macrocytosis and that is why folic acid and vitamin B12 therapy was started. The patient was physically weak and that is why he was [facility], which was arranged with help of manager case. This patient has chronic hypotension, but the patient is remaining mostly asymptomatic. The patient is seen and examined at bedside today. While in hospital, he was given IV fluid. Review of systems reviewed with him and negative. Please see my progress note from today for further [employer] work for discharge done. Discharge medication reconciliation done. Total time spent on discharge day, 31 minutes.
--- NOTE | 2018-03-13 16:19 | PQF ---
YRUIY WASHBURN MALIK MD [id number] [facility]- [id number] CLINICAL DOCUMENTATION CLARIFICATION FORM: POST DISCHARGE Addendum to original discharge summary date: ____ Late entry note date: __ DATE: 03/13/18 ATTN: Please exercise your independent, professional judgment in responding to the clarification form. Clinical indicators are provided on the bottom of this form for your review Please check appropriate box(s): [ x ] Hypotension [ ] Iatrogenic Hypotension [ ] Orthostatic Hypotension [ ] Hypotension due to dehydration [ ] Hypotension due to medication [ ] Hypotension due to hemodialysis [ ] Other diagnosis [ ] Unable to determine In addition, please specify: Present on Admission (POA): [x ] Yes [ ] No [ ] Unable to determine For continuity of documentation, please document condition throughout progress notes and discharge summary. Thank You. CLINICAL INDICATORS - SIGNS / SYMPTOMS / LABS Dizziness / diaphoresis /syncope Weakness RISK FACTORS Hypokalemia ESRD TREATMENTS: Monitoring of B/P IV Fluids (This form is maintained as a part of the permanent medical record) 2014 [employer]. All Rights Reserved [email or web address] [email or web address] [phone] MTDDebbie
== END 2018-03-11 16:18 | DRG 314 ==
LOC: ERS 14:07 → IMCU/EMU 16:28
PROVIDERS: ADMIT Internal Medicine; ATTEND Internal Medicine
DX: I95.9 Hypotension, unspecified (principal); N18.6 End stage renal disease; Z68.41 Body mass index [BMI] 40.0-44.9, adult; I12.0 Hypertensive chronic kidney disease with stage 5 chronic kidney disease or end stage renal disease; E87.2 Acidosis; E86.9 Volume depletion, unspecified; I95.3 Hypotension of hemodialysis; E87.6 Hypokalemia; Z99.2 Dependence on renal dialysis; E03.9 Hypothyroidism, unspecified; E66.01 Morbid (severe) obesity due to excess calories; Z88.5 Allergy status to narcotic agent; Z88.8 Allergy status to other drugs, medicaments and biological substances; Z79.899 Other long term (current) drug therapy; Z79.82 Long term (current) use of aspirin; D63.1 Anemia in chronic kidney disease; R19.7 Diarrhea, unspecified
CPT/HCPCS: 36415; 71045; 74019; 80048; 80053; 80202; 82533; 82550; 82553; 83519; 83605; 83735; 84100; 84484; 85025; 85610; 85730; 86850; 86900; 86901; 86922; 87040; 87070; 87205; 89051; 90945; 93005; 93306; 93970; 94760; 96360; 96361; G0257; G8978-GP-CJ; G8979-GP-CI; G8987-GO-CJ; G8988-GO-CH; J0692; J1644; J3370; J7050

== ENCOUNTER 2018-03-30 15:00 | Inpatient (IN) | payer MEDICARE, BC ==
[2018-03-30 15:52] LABS: Troponin I 0.019 ng/mL (< 0.028)
[2018-03-30] MEDS ORDERED: Piperacillin/Tazobactam 3.375 GM VIAL ONE (16:18)
[2018-03-30] MEDS ORDERED: Acetaminophen 325 MG TAB PO PRN (18:15)
[2018-03-30] MEDS ORDERED: Guaifenesin DM 100-10/5 ML UDCUP PO PRN (18:43)
[2018-03-30 19:03] LABS: Troponin I 0.013 ng/mL (< 0.028)
--- NOTE | 2018-03-30 19:04 | HP ---
PRIMARY CARE PHYSICIAN: Dr. Dumont. CHIEF COMPLAINT: Difficulty breathing. HISTORY OF PRESENT ILLNESS: This is a 62-year-old male with end-stage renal disease on peritoneal dialysis, hypotension, history of peritonitis last month, morbid obesity, hypothyroidism, who presents to the emergency room in [place] with the complaint of difficulty breathing. The patient reports onset around 2 months ago with coughing. States that it was a dry cough. It has since progressed with a change to a productive cough the beginning of this month and over the past few days it is associated with chest pain and back pain. He reports coughing to the point of having difficulty breathing that has not resolved. He states the onset is with a Pneumovax back in January, denies any prior history of cough, denies any precipitants or relieving factors. He has not tried any medication nor has he sought evaluation of this other than his last hospitalization here at the beginning of the month for generalized weakness and hypokalemia. In the emergency room in [place], patient's presentation was concerning for STEMI, he was transferred to the hospital here where that was ruled out both by EKG evaluation with Dr. Gasca in the emergency room as well as 2 negative troponins. In the emergency room here, patient received Zosyn 3.375 g IV and hospitalist called for admission. In [place], patient received 2 liters of normal saline IV and 324 mg of aspirin. REVIEW OF SYSTEMS: Positive for diarrhea over the past 2 days, 1-3 episodes of explosive liquid diarrhea that he reports was nonbloody, fevers that has been ongoing for a few weeks at night to a temperature of 101, cough that is productive of white or light green mucus. Negative for any change in his peritoneal dialysate, nausea, vomiting or abdominal pain. All remaining review of systems is reviewed and negative. PAST MEDICAL HISTORY: 1. End-stage renal disease on peritoneal dialysis. 2. Chronic hypotension. 3. Hospitalization in February for peritonitis and March 2018 for generalized weakness. 4. Morbid obesity. 5. Hypothyroidism. 6. Chronic anemia secondary to end-stage renal disease. 7. Secondary hyperparathyroidism. PAST SURGICAL HISTORY: Peritoneal dialysis catheter. ALLERGIES: CODEINE, FLUCONAZOLE, HYDROCODONE, MORPHINE, TRAMADOL. FAMILY HISTORY: Negative for heart disease or diabetes. SOCIAL HISTORY: The patient lives with his , Maday, phone number [phone]. He denies any alcohol, denies history of tobacco use, denies drug use. He is a FULL CODE. CURRENT MEDICATIONS: Reconciled with the patient's . 1. Aspirin 81 mg daily. 2. Calcitriol 0.25 mcg daily. 3. Vitamin D3 2000 units weekly. 4. Fosrenol 1000 mg t.i.d. with meals, holding it if he is not eating. 5. Levothyroxine 300 mcg daily. 6. Midodrine 10 mg daily. 7. Renvela 3 tablets 3 times daily with meals, holding if he does not have a meal. 8. Vitamin B12 1000 mcg daily. 9. Sensipar 30 mg daily. 10. Auryxia 3 tablets t.i.d. with meal. PHYSICAL EXAMINATION: VITAL SIGNS: Blood pressure 76/42, pulse 86, respirations 22, temperature 98.2 , sats 100% on 4 liters nasal cannula. GENERAL: Awake, alert, responsive. Appears uncomfortable, but not in apparent distress. HEENT: His oral mucosa is pink and moist. Pupils are equal and round. NECK: Supple, nontender. LYMPHATICS: No palpable cervical or supraclavicular lymphadenopathy. LUNGS: Bibasilar rales. Good air movement, no audible wheezing or rhonchi. HEART: Normal S1, S2, regular rate and rhythm, no audible murmurs. ABDOMEN: Soft with present bowel sounds. Nontender and nondistended. EXTREMITIES: He has hyperpigmentation of his lower extremities bilateral, trace pitting edema bilateral. SKIN: Hyperpigmented in his lower extremities, which appears chronic in nature. NEUROLOGIC: Moves arms and legs equally. No focal deficits. PSYCHIATRIC: Euthymic, alert and oriented x4. LABORATORY DATA: Reviewed today. 1. CBC; 14.8, 11.6, 35.6 with platelets of 260. 2. Chemistry: 139, 3.9, 95, 19, 51, 14 with a glucose of 118. 3. Calcium is 9.9, total bilirubin 0.6, AST 34, ALT 27, alkaline phosphatase 79. 4. Troponin is 0.019 and 0.023. IMAGING DATA: Chest x-ray is personally reviewed, which shows bilateral vascular congestion with patchy interstitial and alveolar nodular parenchymal changes primarily in the right lung, evidence for asymmetric pulmonary edema or possibly developing right apical pneumonia or pneumonitis which is new compared to 03/07/2018. No confluent lobar pneumonia or atherosclerosis of the aorta. EKG from [place] shows a rate of 94, a right axis deviation, a prolonged QTC of [address] elevation in V4, V5, EKG at 15:02 here shows a right axis deviation, a QT interval of 553, QTC with nonspecific T and ST wave changes , and a right bundle branch appearance. IMPRESSION: 1. Cough, chest pain with EKG changes, and presentation consistent with pulmonary edema. 2. Possible pneumonia. 3. End-stage renal disease on peritoneal dialysis. 4. Diarrhea. 5. Chronic hypotension, currently at baseline and asymptomatic. 6. Prolonged QT interval. 7. Hypothyroidism. 8. Chronic anemia of end-stage renal disease. 9. Secondary hyperparathyroidism. 10. Morbid obesity. PLAN: 1. Admission to the hospital. 2. Evaluate cough with sputum cultures, treat with inhaled budesonide, p.r.n. nebs, and we will request Pulmonology consultation. Reviewed with pharmacist and claudia dm can be used in dialysis patients. 3. Consult Nephrology to arrange peritoneal dialysis, discussed the delicate balance with removal of fluid as well as patient's chronically low blood pressure, which may be the source of his cough and shortness of breath ( pulmonary edema). 4. Continuing antibiotics with renal dosing of the Zosyn. 5. We will evaluate the diarrhea with stool culture, C. difficile testing and start Florastor. 6. Continuing his home medications with option of holding his renal medications if he is either not eating much or not eating. We will also request a dietary consultation. 7. Discussed diet with Dr. Gipson and we will write for a regular diet due to the patient's low appetite. 8. Continuing the low dose aspirin that he is currently on. Echocardiogram was obtained earlier this month. We will hold on repeating that for the EKG changes. We will request Cardiology consultation given the EKG changes between facilities and check a final troponin. 9. Hold medications that can prolong the QT interval. 10. Physical therapy evaluation. 11. Deep venous DVT prophylaxis with heparin. 12. Gastrointestinal prophylaxis not indicated. 13. Code status is FULL and surrogate decision maker is the patient's , Maday with her phone number listed above. 14. The patient is at high risk given age, comorbidities, and current presentation. 15. I reviewed the plan of care with the patient and his . No questions or further needs at end of evaluation. MTDD
[2018-03-30 20:01] LABS: Lactic Acid 2.1 mmol/L (0.5-2.2)
[2018-03-30] MEDS: Heparin 5,000 UNITS/ML VIAL SC SCH (20:34)
[2018-03-30 21:34] LABS: Troponin I 0.021 ng/mL (< 0.028)
--- NOTE | 2018-03-30 21:35 | CON ---
INDICATION FOR CONSULTATION: A 62-year-old patient with abnormal EKG changes complaining of chest di scomfort. We were asked to see him. He is transferred from [place] on the assumption the patie nt was having an acute myocardial infarction. HISTORY OF PRESENT ILLNESS: This very unfortunate 62-year-old gentleman, who has been on peritoneal dialysis for quite some time now and has been having difficulty breathing. He said he has pain when he coughs. He describes being pain on the right side. He does not have the pain, otherwise only whe n he coughs he has pain. This has been ongoing for 2-3 weeks. He was seen in the emergency room in [place]. EKG was obtained and was found to have a right bundle branch block with some nonspecif ic ST segment changes, was felt to be having an anterior myocardial infarction. Previous EKGs have s hown a right bundle branch block, which is intermittent. He has always had a right bundle. He has a lso did admit to one episode of syncope when he was coughing about 3 weeks ago. He was in the hospit al at that time, was evaluated. There was no cardiac workup that I can determine. He has had no pre vious stress test. He has had an echocardiogram performed, I believe that showed a normal ejection f raction according to Dr. Gipson. As we spoke with this patient, he does have peripheral vascular diseas e, and at this time, the blood pressure is very difficult to obtain and he says normally his blood pr essures in the 70s at home systolic and he denies any symptoms. If he gets too low 70s, when gets in to the 60 mmHg range, then he said he does notice some bright lights or feels kind of lightheaded, bu t at this time he did not have those issues today and blood pressure is still in the 70s-80s systolic ally. It sometimes drops down the 60s. His heart rate is in the 70s and 80s. At this time, he is c omfortable. He denies any chest pain except when he coughs. PAST MEDICAL HISTORY: History of end-stage renal disease. He is on peritoneal dialysis. He used to have hypertension, now has hypotension, uncertain whether or not this is a true blood pressure readi ng or not due to his history of vascular disease. We will discuss this with Dr. Gipson. SOCIAL HISTORY: He is . He has no children. He has no alcohol or tobacco abuse. Occupation : He is not working. 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 MEDICATIONS: Include levothyroxine, aspirin, vitamin D3, calcitriol, Auryxia, Renvela. He is on lac tulose, potassium, Sensipar and B12. REVIEW OF SYSTEMS: A 12-point review of systems, he complains of shortness of breath and he has had occasional diarrhea. He has syncope x1. He has history of peritonitis in the past. Otherwise, the 12-point review of systems is unremarkable. PHYSICAL EXAMINATION: GENERAL: Reveals a morbidly obese gentleman, who is in no acute distress at this time. He is very comfortable. VITAL SIGNS: Blood pressure 71/41, heart rate is 80 and shows a sinus rhythm. HEENT: Shows head to be normocephalic and atraumatic. Carotid pulses are present. I did not hear a ny bruits. CHEST: Clear to auscultation. There were no rales, rhonchi or wheezing noted. HEART: Heart sounds are distant. He has a normal S1, S2. I did not hear an S3 nor an S4. There we re no significant murmurs, heaves, thrills, bruits or rubs. ABDOMEN: Shows morbid obesity with positive bowel sounds. No organomegaly or masses were noted. Fe moral pulses are difficult to palpate due to a large pannus, but he does have a left femoral pulse, w hich is easily palpable, the left pulse is palpable. I cannot palpate a right pedal pulse, but on th e left side, he did have a dorsalis pedis pulse present. SKIN: Warm and dry at this time. He has evidence of chronic edema, but this time, he only has minim al lower extremity edema. LABORATORY DATA: EKG shows a right bundle branch block with nonspecific ST segment changes. Cardiac enzymes are negative. His troponin I was 0.023 with an MB of 1.7. Hemoglobin 11.6, WBC of 14.8. P otassium of 3.9, his creatinine is 14.03, BUN is 51, and blood sugars of 118. IMPRESSION: 1. Elderly gentleman with end-stage renal disease, who presented with chest discomfort after coughin g. This has been ongoing pain for the last 2-3 weeks and associated only with coughing. When he is at rest, he does not have any pain. His cardiac enzymes are negative and I suspect this is musculosk eletal pain. 2. Abnormal electrocardiogram. He does have EKG changes with a right bundle branch block which has been intermittent. We will continue to follow this. I would suggest that we continue to monitor his cardiac enzymes and eventually he may need to undergo some type of stress testing should he develop actually more significant EKG changes or have positive enzymes, so we could consider cardiac cathete rization in this gentleman. 3. End-stage renal disease. He will continue his peritoneal dialysis, will need to discuss with Dr. Gipson as to whether or not he should proceed with inpatient hemodialysis, this might actually improve his shortness of breath. 4. Hypertension, which has now become hypotensive, whether or not this is just due to his overall en d-stage renal disease or whether or not this is due to vascular problems, we were unable to give the correct blood pressure, is unclear. 5. History of peripheral vascular disease. I do not know if he had any workup in the past, but seng rodriguez we proceed with IV contrast, then we have to ask Dr. Gipson for his opinion whether or not he would n eed to have some perhaps extraperitoneal dialysis or hemodialysis on a short term basis. At this rhonda e, overall cardiac status despite the hypotension appears to be stable. The patient is asymptomatic with the hypotension and cardiac enzymes are negative.
--- NOTE | 2018-03-30 23:03 | PRG ---
DATE OF SERVICE: 03/30/2018 Renal Medicine Merrick Boyer was admitted due to some degree of shortness of breath. He also had persistent cough has causing him to have some musculoskeletal pain/chest pain. He has been using simple 1.5% PD solution and and minimal ultrafiltration with him. We are consulted for his peritoneal dialysis. Please note he is on nocturnal CCPD. His current peritoneal dialysis regimen is about 11 hours per night, using 2.7 L fill volume, using 1.5%. Due to the possibility of volume overload , we will be using a 2.5% PD solution alternating with 1.5%. No other complaints. PHYSICAL EXAMINATION: VITAL SIGNS: Blood pressure is noted at 80/50 with a heart rate of 75, respiratory rate 18, temperature 97.7, pulse ox is 96%. GENERAL: Noted to be awake, alert, supine, comfortable, morbidly obese. SKIN: Adequate turgor. HEENT: Pinkish conjunctivae, anicteric sclerae. NECK: No neck mass, no carotid bruits, no JVD. CHEST: No deformities. LUNGS: Decreased breath sounds. No wheezing. HEART: Normal sinus rhythm. No murmur, no gallops or rubs. ABDOMEN: Globular, soft, nontender, no masses. Positive for PD catheter. EXTREMITIES: Positive for edema. MEDICATIONS: Of 03/30/2018 was reviewed. LABORATORY DATA: Of 03/30/2018 white count 14.8, hemoglobin 11.6. Sodium 139, potassium 3.9, chloride 95, carbon dioxide 19, BUN 51, creatinine 14.03, glucose 118, calcium 9.9, AST 34, ALT 27. BNP is 44.1. Troponin I is 0.019. Of 03/30/2018, chest x-ray shows increased lung marking -- there may be an asymmetrical pulmonary edema or possibly developing right lung atypical pneumonia. ASSESSMENT AND PLAN: 1. Cough -- consider the possibility of developing pneumonia, on empiric IV antibiotics. We will also try to remove some fluid off him by using a 2.5% PD solution. 2. End-stage renal disease. We will continue current peritoneal dialysis regimen he does have at home except I will be changing the PD fluid to 1.5% PD solution alternating with 2.5% PD solution to enhance fluid removal. 3. Shortness of breath -- mild congestive heart failure, rule out pneumonia. Agree with current management. MTDD
[2018-03-30] MEDS: Piperacillin/Tazobactam 2.25 GM in Sodium Chloride 0.9% 100 ML IVPB SCH (23:53)
[2018-03-31] MEDS: Budesonide 0.5 MG/2 ML NEB INH SCH ×3 (00:08→20:41)
[2018-03-31 05:14] LABS: Anion Gap 22 mmol/L (10-20); BUN (Urea Nitrogen) 57 mg/dL (8.4-25.7); Calc. Creatinine Clearance 9 mL/min (70-130); Calcium 9.3 mg/dL (7.8-10.44); Carbon Dioxide 22 mmol/L (23-31); Chloride 99 mmol/L (98-107); Estimated GFR-MDRD 4; Glucose 89 mg/dL (80-115); Potassium 3.6 mmol/L (3.5-5.1); Sodium 139 mmol/L (136-145)
[2018-03-31] MEDS: Levothyroxine 150 MCG TAB PO SCH (05:24)
[2018-03-31 05:39] LABS: #Basophils 0.1 thou/uL (0.0-0.2); #Eosinphils 0.7 thou/uL (0.0-0.7); #Lymphocytes 1.7 thou/uL (1.20-3.40); #Monocytes 0.8 thou/uL (0.11-0.59); #Neutrophils 5.4 thou/uL (1.40-6.50); %Basophils 0.8 % (0.0-1.0); %Eosinophils 8.2 % (0.0-10.0); %Monocytes 8.8 % (0.0-10.0); %Neutrophils 62.2 % (42.0-75.0); Anisocytosis SLIGHT = 6-15 cells (100X) (0-5/hpf); Hemoglobin 10.7 g/dL (14.0-18.0); MDiff Complete? YES; Mean Corpuscular HGB CONC 32.3 g/dL (32.0-36.0); Mean Corpuscular Hemoglobin 35.1 pg (27.0-31.0); Mean Platelet Volume 7.5 fL (7.4-10.4); Platelet Count 234 thou/uL (130-400); Polychromasia SLIGHT = 2-3 cells (100X) (0-2/hpf); RBC Distribution Width 18.1 % (11.5-14.5); Red Blood Cell (RBC) Count 3.05 mill/uL (4.70-6.10); White Blood Cell (WBC) Count 8.7 thou/uL (4.8-10.8)
[2018-03-31] MEDS: Lanthanum Carbonate 500 mg Tablet PO SCH ×3 (08:29→17:53)
[2018-03-31] MEDS: Midodrine HCl 5 MG TAB PO SCH (08:29)
[2018-03-31] MEDS: Heparin 5,000 UNITS/ML VIAL SC SCH ×3 (08:30→21:25)
[2018-03-31] MEDS: Calcitriol 0.25 MCG CAP PO SCH (08:31)
[2018-03-31] MEDS: Cinacalcet HCl 30 MG TAB PO SCH (08:31)
[2018-03-31] MEDS: Sevelamer Carbonate 800 MG TAB PO SCH ×3 (08:31→17:56)
[2018-03-31] MEDS: Aspirin 81 mg Enteric Coated Tablet PO SCH (08:31)
[2018-03-31] MEDS: Saccharomyces boulardii 250 MG CAP PO SCH (08:31)
[2018-03-31] MEDS: Piperacillin/Tazobactam 2.25 GM in Sodium Chloride 0.9% 100 ML IVPB SCH (08:32)
[2018-03-31] MEDS ORDERED: Epoetin (ESRD) 20,000 UNITS/ML SC SCH (09:15)
--- NOTE | 2018-03-31 09:20 | PRG ---
DATE OF SERVICE: 03/31/2018 SUBJECTIVE: Mr. Boyer is a 62-year-old male with known history of ESRD, currently on pe ritoneal dialysis. He was initially admitted for cough and difficulty breathing. We started him on CCPD using a 2.5% peritoneal dialysis solution to enhance ultrafiltration. He has also been empirically treated with IV antibiotics for possible bronchitis/pneumonia. No other complaints today. PHYSICAL EXAMINATION: VITAL SIGNS: Blood pressure is 74/39, heart rate 66, respiratory rate 20, temperature 97.7, pulse ox 92%. GENERAL: Noted to be awake, supine, comfortable, morbidly obese. SKIN: Adequate turgor. HEENT: He has slightly pale conjunctivae, anicteric sclerae. NECK: No neck mass, no carotid bruits, no JVD. CHEST: No deformities. LUNGS: Decreased breath sounds. HEART: Normal sinus rhythm. No murmur, no gallops, no rubs. ABDOMEN: Globular, soft, nontender, no masses. Positive for PD catheter. EXTREMITIES: Positive edema. MEDICATIONS: 03/31/2018 - Reviewed. LABORATORY DATA: 03/31/2018 - White count 8.7, hemoglobin 10.7, sodium 139, potassium 3.6, chloride 99, carbon dioxide 22, BUN 57, creatinine 13.7, glucose 89, calcium 9.3, troponin I 0.021. ASSESSMENT AND PLAN: 1. End-stage renal disease, stable. We will continue current CCPD regimen. Using a 2.5% peritoneal dialysis solution to enhance ultrafiltration. He is tolerating the said fluid removal. 2. Chronic hypotension. Continue supportive care. My suggestion is to continue the patient's midod rine at 10 mg tab daily. 3. Anemia. Start Epogen 7500 units subcu every week. 4. Shortness of breath, clinically improved on DuoNeb.
--- NOTE | 2018-03-31 10:14 | CON ---
DATE OF CONSULTATION: 03/31/2018 CONSULTING PHYSICIAN: Hospitalist group. REASON FOR CONSULTATION: Cough. HISTORY OF PRESENT ILLNESS: The patient is a 62-year-old male, who has been seen by Dr. Jiang in our group in the past. I also saw him on one occasion. He was brought into the hospital yesterday with a several-day history of cough, congestion, and increasing shortness of breath. It was initially tho ught he could have an [place]. He was transferred here. He tells me he has been having fever, particular ly at night up to 101. He has been coughing up whitish-colored sputum. He has had some chest pain b oth in the front along the sternum and in the back. He says he has had peritonitis in the past, but this current episode does not feel like peritonitis. PAST MEDICAL HISTORY: 1. End-stage renal disease, requiring peritoneal dialysis. 2. Chronic hypotension. 3. Obesity. 4. Hypothyroidism. 5. Anemia, secondary to renal disease. 6. Secondary hyperparathyroidism. PAST SURGICAL HISTORY: PD catheter placement. ALLERGIES: CODEINE, FLUCONAZOLE, HYDROCODONE, MORPHINE, TRAMADOL. FAMILY MEDICAL HISTORY: Unremarkable. SOCIAL HISTORY: Nonsmoker. Does not consume alcohol. MEDICATIONS PRIOR TO ADMISSION: Aspirin, calcitriol, vitamin D3, Fosrenol, levothyroxine, midodrine, Renvela, vitamin B12, Sensipar and Auryxia. REVIEW OF SYSTEMS: Otherwise, negative. PHYSICAL EXAMINATION: VITAL SIGNS: Temperature 97.7, pulse 66, respirations 20, O2 sat 92% on 5 liters, blood pressure 74/ 39. GENERAL: He is a morbidly obese male, who does not appear to be in any acute distress. HEENT: Unremarkable. NECK: No JVD. LUNGS: He has inspiratory crackles at base bilaterally. CARDIOVASCULAR: S1 and S2 regular. ABDOMEN: Obese, nontender to palpation. EXTREMITIES: No clubbing, cyanosis, or edema. LABORATORY DATA: Sodium 139, potassium 3.6, chloride 99, CO2 of 22, BUN 57, creatinine 13, glucose 8 9. White blood cell count 8.7, hematocrit 33.2, platelet count 234. His chest x-ray shows diffuse f ine interstitial changes bilaterally. ASSESSMENT: 1. Possible pneumonia - patient gives a history of febrile illness with cough and white sputum being produced. 2. End-stage renal disease, requiring peritoneal dialysis. RECOMMENDATIONS: Agree with antibiotics. Additionally, I would add steroids and continue with his n ebulization treatments. I will follow with you.
[2018-03-31 12:17] VITALS: BMI 42.5
--- NOTE | 2018-03-31 13:09 | PDOC.PN ---
- Subjective Encounter Start Date: 03/31/18 Encounter Start Time: 10:10 -: old records requested/rev Pt seen and examined, chart reviewed in its entirety, this is my first visit with this patient Follow up for volume overload, possible PNA, ESRD on PD, SOB No F/C, no N/V/D/C, no CP , some SOB, but improved. asking about going home. discussed with Dr Parada, marinaay with discharge, but them BCX positive for strep species All systems reviewed and neg except as above - Objective Resuscitation Status: Resuscitation Status FULL:Full Resuscitation MAR Reviewed: Yes Vital Signs & Weight: Vital Signs (12 hours) Temp Pulse Resp BP Pulse Ox 03/31/18 11:20 97.8 F 62 20 86/48 L 99 03/31/18 07:48 97.7 F 66 20 74/39 L 92 L 03/31/18 07:18 95 03/31/18 07:17 63 20 03/31/18 04:00 97.7 F 76 19 74/36 L 93 L Weight Admit Weight 257 lb 1.6 oz Weight 255 lb 4.8 oz I&O: 03/30/18 03/31/18 04/01/18 06:59 06:59 06:59 Intake Total 660 Balance 660 Result Diagrams: 03/31/18 04:14 03/31/18 04:14 Radiology Reviewed by me: Yes EKG Reviewed by me: Yes Phys Exam - Physical Examination Constitutional: NAD HEENT: PERRLA, moist MMs, sclera anicteric, oral pharynx no lesions Neck: no nodes, no JVD, supple, full ROM Respiratory: no wheezing, no rales, no rhonchi, clear to auscultation bilateral Cardiovascular: RRR, no significant murmur, no rub Gastrointestinal: soft, non-tender, no distention, positive bowel sounds Musculoskeletal: no edema, pulses present Neurological: non-focal, normal sensation, moves all 4 limbs Lymphatic: no nodes Psychiatric: normal affect, A&O x 3 Skin: no rash, normal turgor, cap refill <2 seconds Dx/Plan (1) Volume overload Code(s): E87.70 - FLUID OVERLOAD, UNSPECIFIED Status: Acute Qualifiers: Hypervolemia type: other Qualified Code(s): E87.79 - Other fluid overload (2) CAP (community acquired pneumonia) Code(s): J18.9 - PNEUMONIA, UNSPECIFIED ORGANISM Status: Acute Qualifiers: Laterality: unspecified laterality Qualified Code(s): J18.9 - Pneumonia, unspecified organism (3) ESRD on peritoneal dialysis Code(s): N18.6 - END STAGE RENAL DISEASE; Z99.2 - DEPENDENCE ON RENAL DIALYSIS Status: Chronic (4) Hypotension Status: Chronic Qualifiers: Hypotension type: hypotension due to hypovolemia Qualified Code(s): I95.89 - Other hypotension; E86.1 - Hypovolemia Comment: related to PD (5) Hypothyroidism Code(s): E03.9 - HYPOTHYROIDISM, UNSPECIFIED Status: Chronic Qualifiers: Hypothyroidism type: unspecified (6) Weakness generalized Code(s): R53.1 - WEAKNESS Status: Acute - Plan cont current plan of care, continue antibiotics, PT/OT, out of bed/ambulate * . follow up on cultures and renal recommendations
--- NOTE | 2018-03-31 16:20 | PDOC.CTH ---
Cardiology Progress Note - Subjective No new events overnight. No chest pain or SOB.cardiac status is stable. - Objective Vital Signs Temp Pulse Pulse Resp BP BP BP 03/31/18 15:45 97.7 F 72 19 03/31/18 11:20 97.8 F 62 20 03/31/18 10:31 65 97/35 L 62/45 L 86/48 L 03/31/18 08:00 03/31/18 07:48 97.7 F 66 20 03/31/18 07:18 03/31/18 07:17 63 20 BP Pulse Ox Pulse Ox 03/31/18 15:45 86/35 L 94 L 03/31/18 11:20 86/48 L 99 03/31/18 10:31 100 03/31/18 08:00 92 L 03/31/18 07:48 74/39 L 92 L 03/31/18 07:18 95 03/31/18 07:17 Admit Weight 257 lb 1.6 oz Weight 255 lb 4.8 oz 03/30/18 03/31/18 04/01/18 06:59 06:59 06:59 Intake Total 660 Balance 660 - Physical Examination General/Neuro: alert & oriented x3 Neck: no JVD present Lungs: CTA Heart: RRR Abdomen: NT/ND, soft - Labs Result Diagrams: 03/31/18 04:14 03/31/18 04:14 Troponin/CKMB Troponin I 0.021 ng/mL (< 0.028) 03/30/18 20:59 - Assessment/Plan 1. Non-cardiac chest pain. This is likely due to his coughing.CIE's negative. Suggest stress testing at some point.Could be done as an outpt. 2. ESRD- on peritoneal dialysis. 3. Hypotension. Intravascular vol. depletion. 4. IVCD. stable. 5. PVDz. 6. Infective process-bronchitis.
[2018-04-01] MEDS: Levothyroxine 150 MCG TAB PO SCH (05:41)
[2018-04-01] MEDS: Budesonide 0.5 MG/2 ML NEB INH SCH ×2 (07:19→18:55)
[2018-04-01] MEDS: Lanthanum Carbonate 500 mg Tablet PO SCH ×3 (08:58→17:39)
[2018-04-01] MEDS: Cinacalcet HCl 30 MG TAB PO SCH (08:58)
[2018-04-01] MEDS: Sevelamer Carbonate 800 MG TAB PO SCH ×3 (08:58→17:38)
[2018-04-01] MEDS: Calcitriol 0.25 MCG CAP PO SCH (08:59)
[2018-04-01] MEDS: Doxycycline 100 MG CAP PO SCH ×2 (08:59→20:44)
[2018-04-01] MEDS: Aspirin 81 mg Enteric Coated Tablet PO SCH (08:59)
[2018-04-01] MEDS: Heparin 5,000 UNITS/ML VIAL SC SCH ×3 (08:59→20:44)
[2018-04-01] MEDS: Midodrine HCl 5 MG TAB PO SCH (09:00)
[2018-04-01] MEDS: Saccharomyces boulardii 250 MG CAP PO SCH (09:00)
--- NOTE | 2018-04-01 09:07 | PRG ---
DATE OF SERVICE: 04/01/2018 Merrick Boyer is a 62-year-old morbidly obese gentleman with chronic renal failure who presented wit h cough and chest pain. X-ray shows increased interstitial markings in the entire right lung consist ent with fluid overload. This morning his coughing is still persistent. His blood culture is growin g Streptococcus species. I do not see any sputum growth at this stage, though he did have moderate g isaura positive cocci in pairs and clusters. PHYSICAL EXAMINATION: VITAL SIGNS: Blood pressure is 90/60, sats 98 on 2 liters, respirations 15, temperature 97. CHEST: No wheezing or crackles. CARDIAC: Normal S1, normal S2, no gallops. ABDOMEN: Soft, no masses. IMPRESSION: 1. Cough, bronchitis. 2. Renal failure. 3. Coronary artery disease. 4. Morbid obesity. PLAN: Continue steroids, switch over to oral prednisone tomorrow. Empiric antibiotics, nebs treatme nt and supportive care. I will follow.
--- NOTE | 2018-04-01 10:54 | PDOC.CTH ---
Cardiology Progress Note - Subjective Pt. seen and eval. no new overnight events. No chest pain. - Objective Vital Signs Temp Pulse Resp BP Pulse Ox 04/01/18 08:00 95 04/01/18 07:52 96.7 F L 90 18 85/52 L 98 04/01/18 07:19 93 16 97 04/01/18 04:00 97.4 F L 79 22 H 94/51 L 95 04/01/18 00:00 97.8 F 104 H 24 H 85/50 L 95 Admit Weight 257 lb 1.6 oz Weight 255 lb 4.8 oz 03/31/18 04/01/18 04/02/18 06:59 06:59 06:59 Intake Total 660 1610 Output Total 0 Balance 660 1610 - Physical Examination General/Neuro: alert & oriented x3 Neck: no JVD present Lungs: CTA Heart: RRR Abdomen: NT/ND - Labs Result Diagrams: 03/31/18 04:14 03/31/18 04:14 Troponin/CKMB Troponin I 0.021 ng/mL (< 0.028) 03/30/18 20:59 - Assessment/Plan 1. Non-cardiac chest pain. This is likely due to his coughing.CIE's negative. Suggest stress testing at some point.Could be done as an outpt. 2. ESRD- on peritoneal dialysis. 3. Hypotension. Intravascular vol. depletion. 4. IVCD. stable. 5. PVDz. 6. Infective process-bronchitis. Echo: nl. EF. Tace MR,TR, I/III diastolic dysfunction. Mild AV sclerosis. cardiac status is stable. I will sign off.
--- NOTE | 2018-04-01 11:36 | PRG ---
DATE OF SERVICE: 04/01/2018 SUBJECTIVE: Mr. Boyer is a 62-year-old male with a known history of end-stage renal dis ease who was admitted for mild shortness of breath. He was treated with increased fluid removal with the peritoneal dialysis. He is also being treated with empiric antibiotics. His shortness of breat h is slightly improved. No new complaints today. We did a peritoneal dialysis last night with ultra filtration of . He has some fibrinous PD fluid. We will add heparin if needed. No other compl aints. PHYSICAL EXAMINATION: VITAL SIGNS: Blood pressure 85/52, heart rate 90, respiratory rate 18, temperature 96.7, pulse ox 98 %. GENERAL: Awake, sitting comfortable, obese, not in distress. SKIN: Adequate turgor. HEENT: Slightly pale conjunctivae, anicteric sclerae. NECK: No neck mass, no carotid bruits, no JVD. CHEST: No deformities. LUNGS: Decreased breath sounds, no wheezing. HEART: Normal sinus rhythm. No murmur, no gallops or rubs. ABDOMEN: Globular, soft, nontender. Positive for PD catheter. EXTREMITIES: Trace edema. MEDICATIONS: Of 04/01/2018 was reviewed. LABORATORY DATA: Of 03/31/2018, white count 8.7, hemoglobin 10.7, sodium 139, potassium 3.6, chlorid e 99, carbon dioxide 22, BUN 37, creatinine 13.7, calcium 9.3, glucose 89, troponin I 0.021. ASSESSMENT AND PLAN: 1. Mild shortness of breath - consider possibility of bronchitis/mild congestive heart failure. Con tinue IV antibiotics. Continue fluid removal with peritoneal dialysis. 2. Anemia, on weekly Epogen. 3. End-stage renal disease, stable. We will continue current CCPD regimen. We were using alternati ng 2.5% PD solution with a 1.5% PD solution. No changes will be made with the current peritoneal tone lysis regimen.
--- NOTE | 2018-04-01 14:36 | PDOC.PN ---
- Subjective Encounter Start Date: 04/01/18 Encounter Start Time: 10:00 follow up for SOB, PNA, hypotension No F/C, no N/V/d/C, no CP, no SOB, no cough or sputum breathing stable All systems reviewed and neg x as above - Objective 04/01/18 11:58 Resuscitation Status Routine Resuscitation Status: FULL: Full Resuscitation MAR Reviewed: Yes Vital Signs & Weight: Vital Signs (12 hours) Temp Pulse Pulse Pulse Pulse Pulse Resp 04/01/18 14:13 87 16 04/01/18 12:00 97.0 F L 97 04/01/18 09:54 95 88 96 100 04/01/18 08:00 04/01/18 07:52 96.7 F L 90 18 04/01/18 07:19 93 16 04/01/18 04:00 97.4 F L 79 22 H BP BP BP BP BP BP Pulse Ox 04/01/18 14:13 96 04/01/18 12:00 93/55 L 99 04/01/18 09:54 107/63 77/42 L 96/51 L 78/65 L 04/01/18 08:00 95 04/01/18 07:52 85/52 L 98 04/01/18 07:19 97 04/01/18 04:00 94/51 L 95 Pulse Ox Pulse Ox Pulse Ox Pulse Ox 04/01/18 14:13 04/01/18 12:00 04/01/18 09:54 93 L 93 L 96 100 04/01/18 08:00 04/01/18 07:52 04/01/18 07:19 04/01/18 04:00 Weight Admit Weight 257 lb 1.6 oz Weight 255 lb 4.8 oz I&O: 03/31/18 04/01/18 04/02/18 06:59 06:59 06:59 Intake Total 660 1610 Output Total 0 Balance 660 1610 Result Diagrams: 04/02/18 04:44 04/02/18 04:44 Phys Exam - Physical Examination Constitutional: NAD HEENT: PERRLA, moist MMs, sclera anicteric, oral pharynx no lesions Neck: no nodes, no JVD, supple, full ROM Cardiovascular: RRR, no significant murmur Gastrointestinal: non-tender, positive bowel sounds Musculoskeletal: edema present Neurological: non-focal, normal sensation, moves all 4 limbs Lymphatic: no nodes Psychiatric: normal affect, A&O x 3 Skin: no rash, normal turgor, cap refill <2 seconds Dx/Plan (1) Volume overload Code(s): E87.70 - FLUID OVERLOAD, UNSPECIFIED Status: Acute Qualifiers: Hypervolemia type: other Qualified Code(s): E87.79 - Other fluid overload (2) CAP (community acquired pneumonia) Code(s): J18.9 - PNEUMONIA, UNSPECIFIED ORGANISM Status: Acute Qualifiers: Laterality: unspecified laterality Qualified Code(s): J18.9 - Pneumonia, unspecified organism (3) ESRD on peritoneal dialysis Code(s): N18.6 - END STAGE RENAL DISEASE; Z99.2 - DEPENDENCE ON RENAL DIALYSIS Status: Chronic (4) Hypotension Status: Chronic Qualifiers: Hypotension type: hypotension due to hypovolemia Qualified Code(s): I95.89 - Other hypotension; E86.1 - Hypovolemia Comment: related to PD (5) Hypothyroidism Code(s): E03.9 - HYPOTHYROIDISM, UNSPECIFIED Status: Chronic Qualifiers: Hypothyroidism type: unspecified Qualified Code(s): E03.9 - Hypothyroidism , unspecified (6) Weakness generalized Code(s): R53.1 - WEAKNESS Status: Acute - Plan * .
[2018-04-02 05:24] LABS: Anion Gap 25 mmol/L (10-20); BUN (Urea Nitrogen) 63 mg/dL (8.4-25.7); Calc. Creatinine Clearance 9 mL/min (70-130); Calcium 9.9 mg/dL (7.8-10.44); Carbon Dioxide 19 mmol/L (23-31); Chloride 97 mmol/L (98-107); Estimated GFR-MDRD 4; Glucose 190 mg/dL (80-115); Potassium 4.1 mmol/L (3.5-5.1); Sodium 137 mmol/L (136-145)
[2018-04-02] MEDS: Levothyroxine 150 MCG TAB PO SCH (05:49)
[2018-04-02 05:50] LABS: Band 10 % (5-11); Hemoglobin 11.3 g/dL (14.0-18.0); Lymphocytes 3 % (21-51); MDiff Complete? YES; Mean Corpuscular HGB CONC 33.3 g/dL (32.0-36.0); Mean Corpuscular Hemoglobin 36.1 pg (27.0-31.0); Mean Platelet Volume 7.9 fL (7.4-10.4); Monocytes 2 % (0-10); Neutrophil 85 % (42-75); Platelet Count 273 thou/uL (130-400); RBC Distribution Width 18.9 % (11.5-14.5); Red Blood Cell (RBC) Count 3.12 mill/uL (4.70-6.10); White Blood Cell (WBC) Count 18.8 thou/uL (4.8-10.8)
[2018-04-02] MEDS: Budesonide 0.5 MG/2 ML NEB INH SCH ×2 (06:25→19:01)
[2018-04-02] MEDS: Saccharomyces boulardii 250 MG CAP PO SCH (09:59)
[2018-04-02] MEDS: Aspirin 81 mg Enteric Coated Tablet PO SCH (09:59)
[2018-04-02] MEDS: Cinacalcet HCl 30 MG TAB PO SCH (09:59)
[2018-04-02] MEDS: Heparin 5,000 UNITS/ML VIAL SC SCH ×3 (09:59→20:41)
[2018-04-02] MEDS: Calcitriol 0.25 MCG CAP PO SCH (09:59)
[2018-04-02] MEDS: Sevelamer Carbonate 800 MG TAB PO SCH ×3 (10:00→16:58)
[2018-04-02] MEDS: Midodrine HCl 5 MG TAB PO SCH (10:00)
[2018-04-02] MEDS: Lanthanum Carbonate 500 mg Tablet PO SCH ×3 (10:00→16:57)
--- NOTE | 2018-04-02 11:35 | PRG ---
DATE OF SERVICE: 04/02/2018 SUBJECTIVE: A 62-year-old gentleman, this morning awake, alert, and responsive , in no distress. OBJECTIVE: VITAL SIGNS: Saturations are 96% on 2 L, respiratory rate 22, temperature 97, blood pressure 91/60. CHEST: Decreased breath sounds. No wheezing. CARDIAC: Normal S1 and S2. No gallops. LABORATORY DATA: Creatinine 13, BUN is 63. White count 18,000, H and H 11 and 33, platelet count is normal. IMPRESSION: 1. Renal failure. 2. Possibly pneumonia. PLAN: He is on adequate antibiotic. Switch him over to oral prednisone. DISPOSITION: As per the primary care physician. Job ID: [id number] MTDD
--- NOTE | 2018-04-02 11:41 | PRG ---
DATE OF SERVICE: 04/02/2018 SUBJECTIVE: Mr. Boyer is a 62-year-old male with ESRD, currently on peritoneal dialysis. Mr. Boyer is currently feeling better this morning. He was admitted due to ? of shortness of breath. His dialysis was adjusted. He was also empirically treated with IV antibiotics for bronchitis. This morning, his shortness of breath is much improved, no other complaints. OBJECTIVE: VITAL SIGNS: Blood pressure is noted at 91/60, respiratory rate is 22, heart rate is 95, and pulse ox is 96%. GENERAL: Awake, sitting comfortable, morbidly obese. Not in distress. SKIN: Adequate turgor. HEENT: He has pinkish conjunctivae. Anicteric sclera. NECK: No neck mass. No carotid bruits. No JVD. CHEST: No deformities. LUNGS: Decreased breath sounds. No wheezing. HEART: Normal sinus rhythm. No murmur. No gallops. No rubs. ABDOMEN: Globular. Soft and nontender. No masses. Positive for PD catheter. EXTREMITIES: Trace edema. MEDICATIONS: Medications of 04/02/2018, was reviewed. LABORATORY DATA: Laboratories of 04/02/2018, white count 18.8 and hemoglobin 11.3. Sodium 137, potassium 4.1, chloride 97, carbon dioxide 19, BUN 63, creatinine 13.5, glucose 190, and calcium 9.9. ASSESSMENT AND PLAN: 1. End-stage renal disease, stable. Tolerating current peritoneal dialysis. No changes will be made with his current dialysis regimen. Please note, he is receiving alternating 2.5% PD solution with 1.5% PD solution. Overall, agree with current management. 2. Acute bronchitis, have been currently on Levaquin, have been adjusted renally. Overall agree with current management. Job ID: [id number]
[2018-04-03] MEDS: Levothyroxine 150 MCG TAB PO SCH (06:31)
[2018-04-03] MEDS: Budesonide 0.5 MG/2 ML NEB INH SCH (08:00)
[2018-04-03] MEDS ORDERED: predniSONE 20 MG TAB PO SCH (08:00)
[2018-04-03] MEDS: Sevelamer Carbonate 800 MG TAB PO SCH (08:07)
[2018-04-03] MEDS: Calcitriol 0.25 MCG CAP PO SCH (08:08)
[2018-04-03] MEDS: Aspirin 81 mg Enteric Coated Tablet PO SCH (08:08)
[2018-04-03] MEDS: Saccharomyces boulardii 250 MG CAP PO SCH (08:09)
[2018-04-03] MEDS: Cinacalcet HCl 30 MG TAB PO SCH (08:09)
[2018-04-03] MEDS: Heparin 5,000 UNITS/ML VIAL SC SCH (08:10)
[2018-04-03] MEDS: Lanthanum Carbonate 500 mg Tablet PO SCH (08:11)
[2018-04-03] MEDS: Midodrine HCl 5 MG TAB PO SCH (09:23)
--- NOTE | 2018-04-03 11:05 | PRG ---
DATE OF SERVICE: 04/03/2018 SUBJECTIVE: Mr. Boyer is a 63-year-old male with ESRD and followed by [facility] for his maintenance peritoneal dialysis. He was also admitted for a presumed acute bronchitis. He is tolerating his peritoneal dialysis. Blood pressure resolving. His shortness of breath is actually much improved. No other complaints today. He is feeling better. OBJECTIVE: VITAL SIGNS: Blood pressure is 91/41, heart rate 65, respiratory rate 18, temperature 97, and pulse ox 93% on room air. GENERAL: Awake, alert, comfortable, sitting, not in distress, morbidly obese. SKIN: Adequate turgor. HEENT: Pinkish conjunctivae. Anicteric sclera. NECK: No neck mass. No carotid bruits. No JVD. CHEST: No deformities. LUNGS: Decreased breath sounds. HEART: Normal sinus rhythm. No murmur. No gallops. No rubs. ABDOMEN: Globular. Soft and nontender. No masses. EXTREMITIES: Trace edema. DIAGNOSTIC STUDIES: April 01, 2018, cardiac echo showed EF of 60% to 65%. MEDICATIONS: Medications of April 03, 2018, was reviewed. LABORATORY DATA: Laboratories of April 02, 2018, showed a white count 18.8 and hemoglobin 11.3. Sodium 137, potassium 4.1, chloride 97, carbon dioxide 19, BUN 63, creatinine 13.52, glucose 190, and calcium 9.9. ASSESSMENT AND PLAN: 1. End-stage renal disease, stable, tolerating current CCPD regimen, no changes will be made with current peritoneal dialysis regimen. Please note, it is an alternating 1.5/2.5% PD solution. He is tolerating said treatment, ultrafiltration is adequate. 2. Acute bronchitis, again currently on antibiotics. 3. Chronic hypotension. Continue midodrine. Job ID: [id number]
[2018-04-03 11:18] VITALS: BP 96/46; TEMP 97.5
--- NOTE | 2018-04-04 12:40 | DIS ---
DATE OF ADMISSION: 03/30/2018 DATE OF DISCHARGE: 04/03/2018 PRIMARY CARE PHYSICIAN: Dr. Antonio Ca. DISCHARGE DIAGNOSES: 1. Volume overload. 2. Community-acquired pneumonia. 3. End-stage renal disease, on peritoneal dialysis. 4. Hypotension secondary related to peritoneal dialysis. 5. Hypothyroidism. 6. Generalized weakness. CONSULTATIONS: 1. Dr. Vikash Gipson with Nephrology. 2. Pulmonary Critical Care, Dr. Tuan Parada. 3. Cardiology, Dr. Abdi Gasca. PROCEDURES: Echocardiogram on 04/01/2018, which showed EF of 60% to 65%, diastolic dysfunction, and fairly normal valves. HISTORY AND PHYSICAL: Mr. Boyer is a 63-year-old gentleman who presented to the emergency department on day of admission, 03/30/2018 with complaints of difficulty breathing. He is on known peritoneal dialysis and was found to be volume overloaded. We were subsequently called for admission. HOSPITAL COURSE: The patient was seen and examined by Dr. Piper Mcqueen. The patient was found to have some respiratory symptoms consistent with cough and phlegm production, so cultures were obtained. Nephrology was consulted for peritoneal dialysis and the patient was renally dosed with Zosyn. The diarrhea had been going on for a few days that he presented with and subsequently C diff was sent, and the patient was started on Florastor. No other current complaints. Overnight 03/30 to 03/31, the patient was improving. I took the case over. He was seen by Dr. Tuan Parada due to being in the IMCU. Blood cultures returned positive for strep species, so discharge was initially held and the patient was feeling better overall. On 04/01/2018, echocardiogram was done with the above findings. The patient continued to feel better, was asking about going home, and the breathing was stable and he had no more episodes of hypotension. His blood culture was positive for Alpha strep, non pneumococcus, he was continued on levofloxacin and was otherwise stable for discharge. On 04/03, cultures were finalized. He was transitioned to p.o. levofloxacin q.48 hours and was discharged home in stable condition. PHYSICAL EXAMINATION: The patient was seen and examined on the day of discharge. Discharge plan and disposition were discussed with the patient and family [id number] at the bedside. DISCHARGE MEDICATIONS: Please see medicine reconciliation sheet. New medications include budesonide nebulizer treatments, DuoNeb q.6 hours, and the antibiotic. FOLLOWUP APPOINTMENTS: 1. Primary care physician within a week. 2. Nephrology as scheduled. DISCHARGE ACTIVITY: Per cardiopulmonary limits. DISCHARGE DIET: Heart-healthy diabetic diet recommended. DISCHARGE CONDITION: Stable. DISPOSITION: Discharged home via private vehicle for outpatient peritoneal dialysis. Job ID: [id number] MTDD
== END 2018-04-03 13:00 | disposition home or self-care (01) | DRG 193 ==
LOC: ERS 15:00 → IMCU/EMU 17:38
PROVIDERS: ADMIT Family Medicine; ATTEND Family Medicine
DX: J18.9 Pneumonia, unspecified organism (principal); N18.6 End stage renal disease; Z68.41 Body mass index [BMI] 40.0-44.9, adult; N25.81 Secondary hyperparathyroidism of renal origin; R07.89 Other chest pain; Z99.2 Dependence on renal dialysis; I73.9 Peripheral vascular disease, unspecified; E66.01 Morbid (severe) obesity due to excess calories; E03.9 Hypothyroidism, unspecified; D63.1 Anemia in chronic kidney disease; Z88.6 Allergy status to analgesic agent; Z79.82 Long term (current) use of aspirin; Z79.899 Other long term (current) drug therapy; Z79.890 Hormone replacement therapy; Z79.01 Long term (current) use of anticoagulants; Z79.84 Long term (current) use of oral hypoglycemic drugs; R19.7 Diarrhea, unspecified; I45.10 Unspecified right bundle-branch block; J20.9 Acute bronchitis, unspecified; I50.9 Heart failure, unspecified; I25.10 Atherosclerotic heart disease of native coronary artery without angina pectoris; E87.79 Other fluid overload; I95.89 Other hypotension; E86.1 Hypovolemia; I95.3 Hypotension of hemodialysis
CPT/HCPCS: 36415; 80048; 83605; 83630; 85025; 86850; 86900; 86901; 86922; 87040; 87045; 87046; 87070; 87149; 87205; 87324; 87449; 87899; 90945; 93005; 93306; 94640; 96365; G0257; G8978-GP-CK; G8979-GP-CI; J1644; J2543; J2920; J7050; J7506; J7620; J7626; Q4081

== ENCOUNTER 2018-04-13 11:53 | Inpatient (IN) | payer MEDICARE, BC ==
[2018-04-13] MEDS ORDERED: Acetaminophen 500 MG TAB ONE ×2 (12:44→13:03)
[2018-04-13 13:06] LABS: #Basophils 0.1 thou/uL (0.0-0.2); #Eosinphils 0.5 thou/uL (0.0-0.7); #Lymphocytes 3.4 thou/uL (1.20-3.40); #Monocytes 0.8 thou/uL (0.11-0.59); #Neutrophils 11.1 thou/uL (1.40-6.50); %Basophils 0.5 % (0.0-1.0); %Lymphocytes 21.5 % (21.0-51.0); %Monocytes 5.1 % (0.0-10.0); Hemoglobin 14.9 g/dL (14.0-18.0); Mean Corpuscular HGB CONC 32.6 g/dL (32.0-36.0); Mean Corpuscular Hemoglobin 35.4 pg (27.0-31.0); Mean Platelet Volume 8.5 fL (7.4-10.4); Platelet Count 199 thou/uL (130-400); RBC Distribution Width 17.6 % (11.5-14.5); Red Blood Cell (RBC) Count 4.22 mill/uL (4.70-6.10); White Blood Cell (WBC) Count 15.9 thou/uL (4.8-10.8)
[2018-04-13 13:26] LABS: ALT (SGPT) 33 U/L (8-55); AST (SGOT) 23 U/L (5-34); Albumin 3.5 g/dL (3.4-4.8); Alkaline Phosphatase 88 U/L (40-150); Anion Gap 29 mmol/L (10-20); BUN (Urea Nitrogen) 75 mg/dL (8.4-25.7); Bilirubin, Total 0.5 mg/dL (0.2-1.2); Calc. Creatinine Clearance 0 mL/min (70-130); Calcium 9.4 mg/dL (7.8-10.44); Carbon Dioxide 16 mmol/L (23-31); Chloride 94 mmol/L (98-107); Estimated GFR-MDRD 3; Globulin 3.7 g/dL (2.4-3.5); Glucose 164 mg/dL (80-115); Protein, Total 7.2 g/dL (5.8-8.1); Sodium 136 mmol/L (136-145)
[2018-04-13] MEDS ORDERED: Iopamidol 370 76% 50 ML VIAL FS ONE (13:41)
--- NOTE | 2018-04-13 13:49 | RAD ---
PORTABLE CHEST: DATE: 04/13/2018. PROVIDED CLINICAL HISTORY: Altered mental status. FINDINGS: Comparison 03/30/2018. The cardiac silhouette is within normal limits for portable technique. Vascu lar calcification involving the aortic arch is again noted. Prominence of the pulmonary interstitium appears similar to less conspicuous than on the prior study. There is no focal consolidation or pne umothorax apparent. No evidence for pleural fluid. IMPRESSION: No definite evidence for an acute cardiopulmonary process. POS: [facility]
[2018-04-13] MEDS ORDERED: Potassium Chloride 20 MEQ TAB ONE ×2 (14:18→14:36)
[2018-04-13 14:24] LABS: Lactic Acid 6.5 mmol/L (0.5-2.2)
[2018-04-13] MEDS ORDERED: Piperacillin/Tazobactam 4.5 GM VIAL ONE (14:36)
--- NOTE | 2018-04-13 14:45 | CT ---
CT BRAIN: DATE: 04/13/2018. PROVIDED CLINICAL HISTORY: Headache. FINDINGS: No comparisons. The ventricular system is normal in size and morphology. There is no evidence for i ntracranial hemorrhage or mass effect. There is focal loss of morin-white differentiation and sulcal effacement in the left occipital region, compatible with recent infarction. Chronic microvascular wh ite matter ischemic changes are also seen. The extracranial soft tissues and osseous structures demo nstrate an unremarkable CT appearance. 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 No evidence for intracranial hemor rhage. POS: [facility]
--- NOTE | 2018-04-13 14:47 | CT ---
CT CERVICAL SPINE: DATE: 04/13/2018. PROVIDED CLINICAL HISTORY: Neck pain status post fall. FINDINGS: There is no evidence for fracture or traumatic subluxation. Advanced cervical degenerative changes a re seen. NO prevertebral soft tissue swelling apparent. Vascular calcifications are noted. The vis ualized lung apices are free of significant opacity. IMPRESSION: No evidence for a fracture or traumatic subluxation. POS: [facility]
--- NOTE | 2018-04-13 15:24 | CT ---
CT OF THE ABDOMEN AND PELVIS: DATE: 04/13/2018. PROVIDED CLINICAL HISTORY: Abdominal pain and diarrhea. FINDINGS: Comparison 02/08/2018. Visualized lung bases demonstrate nonspecific multifocal patchy ground-glass o pacity. The solid abdominal organs are suboptimally evaluated in the absence of IV contrast material. Vascul ar calcifications are seen. The kidneys appear diminutive. The solid abdominal organs demonstrate a n otherwise unremarkable unenhanced CT appearance. There is free intraperitoneal fluid noted with a peritoneal dialysis catheter coiled in the pelvis. No evidence for bowel obstruction. There is focal fat stranding seen in the right upper quadrant adj acent to the hepatic flexure. There is questioned mural thickening involving the colon in this regio n. No additional fat stranding is evident. No evidence for pneumoperitoneum. The osseous structures demonstrate no concerning lytic or blastic lesions. Degenerative changes are seen involving the spine. IMPRESSION: Focal fat stranding in the right upper quadrant adjacent to questionable thickening involving the hep atic flexure. This may reflect changes of colitis. POS: [facility]
[2018-04-13 16:27] LABS: Troponin I 0.034 ng/mL (< 0.028)
[2018-04-13] MEDS ORDERED: Vancomycin HCl 25 MG/ML Oral PO SCH ×2 (18:00→21:00)
[2018-04-13 19:33] LABS: Troponin I 0.018 ng/mL (< 0.028)
[2018-04-13] MEDS ORDERED: hydrALAZINE 20 MG/ML VIAL SLOW IVP PRN (19:44)
[2018-04-13] MEDS ORDERED: Diabetic Tussin 200 MG/10 ML UDCUP PO PRN (19:44)
[2018-04-13] MEDS ORDERED: cloNIDine 0.1 MG TAB PO PRN (19:44)
[2018-04-13] MEDS ORDERED: Benzonatate 100 MG CAP PO PRN (19:44)
[2018-04-13] MEDS ORDERED: Acetaminophen 500 MG TAB PO PRN (19:44)
[2018-04-13] MEDS ORDERED: Nitroglycerin 0.4 MG TAB (25 Tab Bottle) SL PRN (19:44)
[2018-04-13] MEDS ORDERED: Senokot S 8.6-50 MG TAB PO PRN (19:44)
[2018-04-13] MEDS ORDERED: Bisacodyl 5 MG TAB PO PRN (19:44)
[2018-04-13] MEDS ORDERED: Ondansetron PF 4 MG/2 ML Vial IVP PRN (19:44)
[2018-04-13] MEDS ORDERED: Sodium Chloride 0.9% 1,000 ML IV SCH ×2 (21:00→22:00)
[2018-04-13] MEDS: Heparin 5,000 UNITS/ML VIAL SC SCH (21:54)
[2018-04-13] MEDS ORDERED: Potassium Chloride 40 MEQ in Premix Bag 1 BAG IVPB SCH (22:30)
--- NOTE | 2018-04-13 22:46 | PDOC.EVN ---
Event Note - Event Note Event Note: H and P dictated. Patient's BP is still very low, but his baseline during past two admissions here was SBP in the 70's. I initially avoided aggressive hydration because he does not make urine and PD dependent. In the ED, BP was variable with SBP from 60-150. SBP has been in the 50's since admission. Discussed with nurse. Dr. Chester recommended transfer to ICU for pressors, but Dr. Ramirez has recommended additional fluids first. Per her report, he is more awake and alert than he was before the liter of fluids. His most recent SBP is 70's. His repeat Lactic Acid did not get done as ordered and was re- ordered late. It is still 6.1. Dr. Ramirez had recommended a second liter if BP did not improve. Although the BP is closer to his baseline, it is still low. I asked to go ahead and give the second liter over a couple of hours and I will add some maintenance fluids. I will also add some Vanc IV to broaden the coverage. His po Vanc was DC'd in light of the negative C diff. I am also adding some Hydrocortisone as he was recently on Prednisone and stopped it a few days ago.
[2018-04-13] MEDS ORDERED: Vancomycin HCl 1 GM in Premix Bag 1 BAG IVPB SCH (23:00)
[2018-04-13] MEDS: Hydrocortisone Sod Succ/PF 100 mg/2 ml Vial IVP SCH (23:36)
[2018-04-13] MEDS ORDERED: Potassium Chloride 40 MEQ in Sodium Chloride 0.9% 250 ML 250 ML IVPB SCH (23:45)
[2018-04-14] MEDS: Sodium Chloride 0.9% 1,000 ML IV SCH ×3 (01:29→15:49)
[2018-04-14 02:18] LABS: #Eosinphils 0.3 thou/uL (0.0-0.7); #Lymphocytes 1.1 thou/uL (1.20-3.40); #Monocytes 0.7 thou/uL (0.11-0.59); #Neutrophils 9.8 thou/uL (1.40-6.50); %Basophils 0.2 % (0.0-1.0); %Eosinophils 2.6 % (0.0-10.0); %Lymphocytes 9.1 % (21.0-51.0); %Neutrophils 82.1 % (42.0-75.0); Hemoglobin 12.7 g/dL (14.0-18.0); Mean Corpuscular HGB CONC 33.7 g/dL (32.0-36.0); Mean Corpuscular Hemoglobin 36.6 pg (27.0-31.0); Mean Platelet Volume 8.1 fL (7.4-10.4); Platelet Count 154 thou/uL (130-400); RBC Distribution Width 17.4 % (11.5-14.5); Red Blood Cell (RBC) Count 3.46 mill/uL (4.70-6.10); White Blood Cell (WBC) Count 11.9 thou/uL (4.8-10.8)
[2018-04-14 02:37] LABS: Lactic Acid 2.2 mmol/L (0.5-2.2)
[2018-04-14] MEDS: Piperacillin/Tazobactam 2.25 GM in Sodium Chloride 0.9% 100 ML IVPB SCH ×2 (04:00→15:49)
--- NOTE | 2018-04-14 04:07 | HP ---
CHIEF COMPLAINT: Abdominal pain and diarrhea. HISTORY OF PRESENT ILLNESS: This patient is a 63-year-old male who has end-stage renal disease and is on peritoneal dialysis. He has been doing well on this for 6 years. The patient was admitted to the hospital in February with peritonitis and was admitted again just recently with evidence of bronchitis. He was treated with Levaquin and steroids and was discharged home. Since he got home, he continued to grow weaker and stopped eating as much. He stopped the Levaquin and prednisone 4 days ago. The subsequent day, he became increasingly weak, developed significant diarrhea, and had a bit of a frontal headache. This continued 2 days ago which was Saturday, and that night, the patient became so weak that he actually fell down to his knees when standing. He did not have any head injury that he was aware of, but he did have some associated frontal headache. Yesterday, the patient became even more weak and had more frequent diarrhea and realized he needed to present to the hospital with that. The patient reports he has been having some generalized cramping abdominal pain, nothing sharp. Also of note, the patient's reported the patient has severe problems with his blood pressure. It is very sporadic, drops very low at times. She has noticed him over the last several days having increasing episodes in which he becomes less responsive, is near syncopal and has some jerking sensation in his arms. He has some pain in his neck when he starts having the drops in his blood pressure and report these episodes were present previously, only not quite as severe. REVIEW OF SYSTEMS: The patient's appetite is poor. He has had no fevers or chills. He has no urine output since starting on the hemodialysis. He also reports some chronic discomfort in both lower extremities in the ankle and landry area. All other systems were reviewed and all pertinent positives and negatives mentioned in the history of present illness. PAST MEDICAL HISTORY: 1. End-stage renal disease, on peritoneal dialysis. 2. Severe autonomic dysfunction with orthostatic hypotension, morbid obesity, hypothyroidism, chronic anemia secondary to renal disease. 3. Secondary hyperparathyroidism. 4. Recent history of peritonitis. PAST SURGICAL HISTORY: Dialysis catheter placement. FAMILY HISTORY: Negative for heart disease and diabetes. SOCIAL HISTORY: The patient lives with his , Maday. He has no history of alcohol, tobacco, or drug use. He is full code and his , Maday, would be his surrogate decision maker. Her phone #[phone]. ALLERGIES: 1. CODEINE. 2. FLUCONAZOLE. 3. HYDROCODONE. 4. MORPHINE. 5. TRAMADOL. CURRENT MEDICATIONS: 1. Aspirin 81 mg daily. 2. Calcitriol 0.25 mcg daily. 3. Vitamin D3 2000 units every week. 4. Fosrenol 1000 mg p.o. t.i.d. with meals. 5. Levothyroxine 300 mcg daily. 6. Midodrine 10 mg daily. 7. Renvela 3 tablets 3 times a day with meals. 8. B12 1000 mcg daily. 9. Sensipar 30 mg daily. 10. Auryxia 3 tablets t.i.d. with meals. 11. Again, he recently discontinued the Levaquin and prednisone. PHYSICAL EXAMINATION: VITAL SIGNS: Temperature 97.4, pulse 88, respirations 18, O2 saturation 95% on 2 L nasal cannula, BP 59/49 up to 64/43. GENERAL APPEARANCE: Age-appropriate male. He is in no distress. He is awake and alert. He does appear to feel generally uncomfortable. HEENT: PERRL. No OP lesions. NECK: Supple and symmetric. He has no nuchal rigidity. HEART: Regular rate and rhythm without murmurs, gallops, or rubs. LUNGS: Clear to auscultation bilaterally with good chest wall expansion and air exchange. ABDOMEN: Soft, mildly diffusely tender, slightly more in the upper abdomen. Bowel sounds are present. Peritoneal dialysis catheter appears healthy. EXTREMITIES: Some chronic stasis dermatitis of both lower extremities with some mild tenderness to palpation, but no erythema or warmth. LABORATORY DATA: White count 15.9, hemoglobin 14.9, MCV 109, platelets 199. Sodium 136, potassium 3.0, chloride 94, CO2 of 16, BUN 75, creatinine 15.3, glucose 164, lactic acid 6.5, calcium 9.4, magnesium 1.8, AST 23, ALT is 33, alkaline phosphatase 88. Troponin 0.025. BNP 42. Albumin 3.5. Chest x-ray shows no active disease. CT of the brain shows findings compatible with recent left WOUND CARE TECHNICIAN distribution infarction. CT abdomen and pelvis shows focal fat stranding in the right upper quadrant adjacent to questionable thickening involving the hepatic flexure, potentially consistent with colitis. CT of the cervical spine is negative. IMPRESSION AND PLAN: 1. Abdominal pain. The patient appears to have some evidence of colitis on his CT scan. He has been on a fair amount of antibiotics and steroids. Certainly, very high risk for Clostridium difficile colitis. We will order Clostridium difficile stool studies and go ahead and empirically start him on vancomycin orally. We will also cover with Zosyn for colitis. We will need to send peritoneal fluid for analysis for possible peritonitis as well. Certainly concerning for infectious etiology. Given his white count and the lactic acid level, a time checker was obtaining repeat troponin as the followup lactic acid as well. 2. Possible recent cerebrovascular accident. The patient does not demonstrate significant symptoms associated with this. He has severe orthostasis, which is not responding well to the midodrine and I suspect that some hypotension causing hypoperfusion resulted in this cerebrovascular accident. We will consult Neurology and also see if Nephrology is going to give any further input as far as his orthostasis. 3. End-stage renal disease, on peritoneal dialysis. Consulted Nephrology to discuss with Dr. Gipson and Dr. Hewitt to help us continue with the dialysis. 4. Hypokalemia. The patient received a small dose of oral potassium in the emergency department and will need additional dosing. 5. The patient was recently on steroids, although it does not appears it was an extended period of time. We will go ahead and give him some hydrocortisone to see if his blood pressure may respond to that. Job ID: [id number]
[2018-04-14 04:43] LABS: Anion Gap 23 mmol/L (10-20); BUN (Urea Nitrogen) 74 mg/dL (8.4-25.7); Calc. Creatinine Clearance 8 mL/min (70-130); Calcium 8.4 mg/dL (7.8-10.44); Carbon Dioxide 19 mmol/L (23-31); Chloride 101 mmol/L (98-107); Estimated GFR-MDRD 3; Glucose 102 mg/dL (80-115); Potassium 3.3 mmol/L (3.5-5.1); Sodium 140 mmol/L (136-145)
[2018-04-14] MEDS: Hydrocortisone Sod Succ/PF 100 mg/2 ml Vial IVP SCH ×2 (05:33→15:46)
[2018-04-14 05:34] LABS: BF Color Yellow; BF RBC Count - Manual 1 /cumm; BF WBC/Nonhematics Ct. - Manua 4 /cumm; Body Fluid Source Dialysate Fluid; Clarity Clear (Clear); Tube # EDTA
[2018-04-14] MEDS: Heparin 5,000 UNITS/ML VIAL SC SCH ×3 (09:40→21:03)
--- NOTE | 2018-04-14 18:10 | ULT ---
CAROTID DOPPLER ULTRASOUND: HISTORY: CVA. Severe orthostasis. COMPARISON: None. TECHNIQUE: Real-time morin-scale color Doppler and spectral analysis of the extracranial carotid and vertebral ar teries was performed. FINDINGS: No elevated peak systolic velocities within the internal carotid arteries. Antegrade flow of both ve rtebral arteries. The right ICA/CCA ratio is 1.18, and the left ICA/CCA ratio is 0.73. IMPRESSION: No hemodynamically significant stenosis. POS: [facility]
--- NOTE | 2018-04-14 20:40 | PDOC.PN ---
- Subjective Encounter Start Date: 04/14/18 Encounter Start Time: 09:45 Feeling better in general. Less abdominal discomfort. No SOB. - Objective Resuscitation Status - Order Detail: 04/13/18 16:30 Resuscitation Status Routine Resuscitation Status: FULL: Full Resuscitation Discussed with: Patient and his Vital Signs & Weight: Vital Signs (12 hours) Temp Pulse Pulse Resp BP BP Pulse Ox 04/14/18 19:51 97.8 F 86 27 H 81/49 L 90 L 04/14/18 16:00 98.1 F 80 20 70/42 L 97 04/14/18 13:53 55 L 74/46 L 04/14/18 12:00 97.8 F 86 20 76/48 L 98 Weight Admit Weight 245 lb Weight 245 lb I&O: 04/13/18 04/14/18 04/15/18 06:59 06:59 06:59 Intake Total 3447.5 2440 Balance 3447.5 2440 Result Diagrams: 04/14/18 02:09 04/14/18 02:09 Phys Exam - Physical Examination Constitutional: NAD Looks much better. Respiratory: no wheezing, no rales, no rhonchi Cardiovascular: RRR, no significant murmur Gastrointestinal: soft, non-tender, no distention, positive bowel sounds Chronic stasis dermatitis both calves. Neurological: non-focal Psychiatric: normal affect, A&O x 3 Dx/Plan (1) Colitis Code(s): K52.9 - NONINFECTIVE GASTROENTERITIS AND COLITIS, UNSPECIFIED Status : Acute Comment: Evidence of Colitis on CT abd. Has loose stools and abd cramping. C diff negative. Continue Zosyn. (2) CVA (cerebral vascular accident) Code(s): I63.9 - CEREBRAL INFARCTION, UNSPECIFIED Status: Acute Comment: This was an incidental finding. He has severe orthostasis which is profoundly symptomatic. Suspect he infarcted with one of the severe drops in pressure. Neuro consult pending. Carotid dopplers, PT, OT. (3) ESRD on peritoneal dialysis Code(s): N18.6 - END STAGE RENAL DISEASE; Z99.2 - DEPENDENCE ON RENAL DIALYSIS Status: Chronic Comment: Nephrology consulted. Continue PD. (4) Hypotension Status: Chronic Qualifiers: Hypotension type: hypotension due to hypovolemia Qualified Code(s): I95.89 - Other hypotension; E86.1 - Hypovolemia Comment: Baseline BP has been 70's systolic over past two admissions over past two months. On midodrine. May be possible to give more. He understands the need to avoid dehydration. Was in the 50's last night. Back to baseline with fluids. (5) Sepsis Code(s): A41.9 - SEPSIS, UNSPECIFIED ORGANISM Status: Acute Comment: Source of infection appears to be colitis. His chronic hypotension makes the diagnosis challenging. He did have lactic acidosis that is now resolved. Continue Zosyn. Required some fluids, but cautious given his dialysis situation. - Plan * Continue abx today. PD tonight. Neuro consult pending. * May be able to move to neuro floor tomorrow if BP acceptable..
[2018-04-14] MEDS: Famotidine 20 MG TAB PO SCH (21:03)
[2018-04-14] MEDS: Midodrine HCl 5 MG TAB PO SCH (21:03)
--- NOTE | 2018-04-14 22:15 | PRG ---
DATE OF SERVICE: 04/14/2018 SUBJECTIVE: The patient is seen and examined with no new complaint. OBJECTIVE: VITAL SIGNS: Noted with the following vital signs; afebrile, temperature 98.1; pulse 80; respiratory rate of 20, O2 saturations 97%, and blood pressure 74/46 to 81/49. HEENT: Unremarkable. CARDIOVASCULAR SYSTEM: First and second heart sounds were heard. RESPIRATORY SYSTEM: Clear to auscultation. DIGESTIVE SYSTEM: Revealed an obese abdomen. EXTREMITIES: No peripheral edema. SKIN EXAMINATION: No new gross rash. LYMPHATICS: No peripheral lymphadenopathy. LABORATORY INVESTIGATION: Showed a white count of 11,900. Chemistry showed a potassium of 3.3, BUN of 74, creatinine of 14.62, and lactic acid of 6.0. IMPRESSION: 1. Labile hemodynamics. The patient does run very low as an operation and this has been a chronic problem, not new. In any case, the patient is on midodrine. 2. End-stage renal disease, on peritoneal dialysis. 3. Hypokalemia. PLAN: 1. Discontinue IV fluids. 2. Resume midodrine and increase the dose to 10 mg b.i.d. with a dose to be administered now. 3. The patient to resume peritoneal dialysis treatment with a lower dialysis concentration 1.5%. 4. The patient likely to benefit from pressure stockings as I do believe that this patient does have significant autonomic neuropathy. 5. Further management to be dependent on the clinical course. Job ID: [id number]
[2018-04-15] MEDS: Hydrocortisone Sod Succ/PF 100 mg/2 ml Vial IVP SCH ×4 (00:26→22:47)
[2018-04-15] MEDS: Piperacillin/Tazobactam 2.25 GM in Sodium Chloride 0.9% 100 ML IVPB SCH ×2 (03:39→15:00)
[2018-04-15] MEDS: Budesonide 0.5 MG/2 ML NEB NEB SCH ×2 (07:01→19:31)
[2018-04-15] MEDS: Midodrine HCl 5 MG TAB PO SCH ×2 (08:51→21:32)
[2018-04-15] MEDS: Heparin 5,000 UNITS/ML VIAL SC SCH ×2 (08:52→21:32)
[2018-04-15] MEDS: Calcitriol 0.25 MCG CAP PO SCH (08:52)
[2018-04-15] MEDS: Levothyroxine Sodium 100 MCG TAB PO SCH (08:52)
[2018-04-15] MEDS: Saccharomyces boulardii 250 MG CAP PO SCH (08:53)
[2018-04-15] MEDS: Sevelamer Carbonate 800 MG TAB PO SCH ×3 (08:53→17:40)
[2018-04-15] MEDS: Potassium Chloride 10 MEQ TAB PO SCH (08:53)
[2018-04-15] MEDS: Cyanocobalamin (Vitamin B-12) 1,000 MCG TAB PO SCH (08:54)
[2018-04-15] MEDS: Folic Acid 1 MG TAB PO SCH (08:54)
--- NOTE | 2018-04-15 14:52 | PQF ---
CLINICAL DOCUMENTATION IMPROVEMENT CLARIFICATION FORM: ICD-10 Updated PLEASE DO AN ADDENDUM TO THE PROGRESS NOTE WITH ANY DOCUMENTATION UPDATES OR ADDITIONS AND CARRY THROUGH TO DC SUMMARY. THANK YOU. DATE: 04/15/18 ATTN: DR. LOCO Please exercise your independent, professional judgment in responding to the clarification form. Clinical indicators are provided on the bottom of this form for your review Please check appropriate box(es): [ x ] Sepsis due to: (Pna, UTI, gangrenous gall bladder, etc.) Colitis Due to: [ ] Device (please specify) [ ] Implant [ ] Graft [ ] Infusion [ ] SIRS due to non-infectious process (please specify etiology) [ ] with organ dysfunction [ ] without organ dysfunction [ ] Severe sepsis with acute organ dysfunction of: (Examples: respiratory failure, encephalopathy, acute kidney failure, other) [ ] Septic Shock [ ] Localized infection without sepsis [ ] Other diagnosis [ ] Unable to determine In addition, please specify: Present on Admission (POA): [ x ] Yes [ ] No [ ] Unable to determine For continuity of documentation, please document condition throughout progress notes and discharge summary. Thank You. CLINICAL INDICATORS - SIGNS / SYMPTOMS / LABS BP 60/33 PULSE 120 (04/13) WBC 15.9 LACTIC ACID 6.5 RISKS: COLITIS RECENT BRONCHITIS PD CATHETER TREATMENT: STOOL, URINE AND PERITONEAL CULTURES SERIAL LABS IV FLUIDS (ER) IV ZOSYN (ER-PRESENT) [employer] Winform Viewer(This form is maintained as a part of the permanent medical record) 2014 [employer]. All Rights Reserved [email or web address] Office: [phone] [facility]
--- NOTE | 2018-04-15 20:31 | PDOC.PN ---
- Subjective Encounter Start Date: 04/15/18 Encounter Start Time: 10:20 Feeling better in general. Has some questions about all of the sequence of events. - Objective Resuscitation Status - Order Detail: 04/13/18 16:30 Resuscitation Status Routine Resuscitation Status: FULL: Full Resuscitation Discussed with: Patient and his Vital Signs & Weight: Vital Signs (12 hours) Temp Pulse Resp BP BP BP BP 04/15/18 19:49 97.9 F 75 24 H 81/47 L 04/15/18 19:31 64 16 04/15/18 15:05 97.3 F L 92/45 L 04/15/18 13:38 77/25 L 63/41 L 04/15/18 13:15 70 18 04/15/18 11:41 97.4 F L 64 20 101/49 L 04/15/18 11:26 80/62 L 86/57 L 83/58 L Pulse Ox 04/15/18 19:49 95 04/15/18 19:31 94 L 04/15/18 15:05 04/15/18 13:38 04/15/18 13:15 04/15/18 11:41 04/15/18 11:26 Weight Admit Weight 245 lb Weight 248 lb I&O: 04/14/18 04/15/18 04/16/18 06:59 06:59 06:59 Intake Total 3447.5 2960 1491 Output Total 825 Balance 3447.5 2960 666 Result Diagrams: 04/14/18 02:09 04/14/18 02:09 Phys Exam - Physical Examination Constitutional: NAD Respiratory: no wheezing, no rales Cardiovascular: RRR, no significant murmur Gastrointestinal: soft, non-tender, no distention Musculoskeletal: no edema Chronic stasis dermatitis. Psychiatric: normal affect, A&O x 3 Dx/Plan (1) Colitis Code(s): K52.9 - NONINFECTIVE GASTROENTERITIS AND COLITIS, UNSPECIFIED Status : Acute Comment: Evidence of Colitis on CT abd. Has loose stools and abd cramping. C diff negative. Continue Zosyn. Improved. (2) CVA (cerebral vascular accident) Code(s): I63.9 - CEREBRAL INFARCTION, UNSPECIFIED Status: Acute Comment: This was an incidental finding. He has severe orthostasis which is profoundly symptomatic. Suspect he infarcted with one of the severe drops in pressure. Neuro consult pending. Carotid dopplers negative, PT, OT. (3) ESRD on peritoneal dialysis Code(s): N18.6 - END STAGE RENAL DISEASE; Z99.2 - DEPENDENCE ON RENAL DIALYSIS Status: Chronic Comment: Nephrology consulted. Continue PD. (4) Hypotension Status: Chronic Qualifiers: Hypotension type: hypotension due to hypovolemia Qualified Code(s): I95.89 - Other hypotension; E86.1 - Hypovolemia Comment: Baseline BP has been 70's systolic over past two admissions over past two months. On midodrine. Nephrology stopped fluids and increased the midodrine to bid. Improved overall. (5) Sepsis Code(s): A41.9 - SEPSIS, UNSPECIFIED ORGANISM Status: Acute Comment: Source of infection appears to be colitis. His chronic hypotension makes the diagnosis challenging. He did have lactic acidosis that is now resolved. Continue Zosyn. Required some fluids, but cautious given his dialysis situation. - Plan * Neuro eval. Increase activity now that his BP is improved and he has had PD last night. Can likely move out to Stroke floor after seen by Dr. Conteh. * Once eval'd by neuro, can be DC'd on oral abx.
[2018-04-15] MEDS: Famotidine 20 MG TAB PO SCH (21:32)
--- NOTE | 2018-04-15 21:43 | PRG ---
DATE OF SERVICE: 04/15/2018 SUBJECTIVE: The patient is seen and examined, seems to be doing okay. OBJECTIVE: VITAL SIGNS: Noted with the following vital signs; afebrile, temperature 97.3, pulse 64, respiratory rate 16, O2 saturation 94%, blood pressure 92/45 to 63/41. HEENT EXAMINATION: Unremarkable. CARDIOVASCULAR SYSTEM: First and second heart sounds were heard. RESPIRATORY SYSTEM: Clear to auscultation. DIGESTIVE SYSTEM: Revealed a benign abdomen. EXTREMITIES: No peripheral edema. SKIN EXAMINATION: No new gross rash. LYMPHATICS: No peripheral lymphadenopathy. IMPRESSION: 1. End-stage renal disease, peritoneal dialysis dependent. 2. Labile hemodynamics likely in the context of significant autonomic neuropathy. I doubt that this has anything to do with infection. 3. Obesity. PLAN: 1. We will continue the patient with peritoneal dialysis. 2. The patient is to continue with midodrine. 3. Further management will be dependent on the clinical course. Job ID: [id number]
--- NOTE | 2018-04-16 00:33 | CON ---
DATE OF CONSULTATION: 04/15/2018 TYPE OF REPORT: Neurology consultation. CONSULTING PHYSICIAN: Hospitalist service. IMPRESSION: 1. Possible basilar transient ischemic attack versus stroke. 2. Chronic hypotension. 3. End-stage renal disease. PLAN: 1. MRI of the brain without contrast. 2. Continue aspirin. 3. Consider advancing stroke prevention plan depending on the findings. HISTORY OF PRESENT ILLNESS: Mr. Boyer is a 63-year-old man who was at home when he developed new onset of symptoms. He first experienced a headache which was followed by fairly extreme dizziness. He was dizzy to the point that he had trouble even sitting in a stable fashion. His helped him into a wheelchair and got him to the hospital. His CT scan of the brain showed an area of chronic cortical ischemia in the right parietal region. He noticed that after being admitted when he was looking at the television that half of the picture was missing. Since then, symptoms have improved. He has never had anything like this before. They took a blood pressure at home when his symptoms began and his said it was not that significantly lower than his baseline. He was taking aspirin daily prior to admission. PAST MEDICAL HISTORY: As listed above. ALLERGIES: NONE REPORTED. SOCIAL HISTORY: He is and does not abuse alcohol or drugs. FAMILY HISTORY: Noncontributory. MEDICATIONS: Medication list was reviewed. REVIEW OF SYSTEMS: No complaint of nausea, vomiting, chest pain, positive for shortness of breath. No lateralized weakness or numbness. PHYSICAL EXAMINATION: GENERAL: He is an overweight middle-aged man in no distress. VITAL SIGNS: Blood pressure is in the 90s over 40s. Pulses are sinus rhythm. HEENT: Pupils are equal. Conjunctivae clear. Oropharynx clear. NECK: Supple. No lymphadenopathy noted. EXTREMITIES: No cyanosis. NEUROLOGIC: Alert and appropriate. His speech is fluent and clear. Cranial nerves appear to be intact. Motor exam shows equal strength. There is no tremor or dysmetria present. Sensations intact to light touch. Gait was not tested. No abnormal movements were seen. LABORATORY DATA: Imaging was reviewed. SUMMARY: Given the constellation of symptoms, it is fairly concerning for basilar distribution TIA. His carotid ultrasound did not show any extracranial stenosis of concern. Consider advancing his treatment with addition of a statin and possibly Plavix for 6 months. Job ID: [id number]
[2018-04-16] MEDS: Piperacillin/Tazobactam 2.25 GM in Sodium Chloride 0.9% 100 ML IVPB SCH ×2 (03:52→14:31)
[2018-04-16] MEDS: Hydrocortisone Sod Succ/PF 100 mg/2 ml Vial IVP SCH (06:19)
[2018-04-16] MEDS: Budesonide 0.5 MG/2 ML NEB NEB SCH ×2 (07:06→22:18)
[2018-04-16] MEDS: Levothyroxine Sodium 100 MCG TAB PO SCH (09:01)
[2018-04-16] MEDS: Midodrine HCl 5 MG TAB PO SCH ×2 (09:01→21:57)
[2018-04-16] MEDS: Sevelamer Carbonate 800 MG TAB PO SCH ×3 (09:02→17:19)
[2018-04-16] MEDS: Potassium Chloride 10 MEQ TAB PO SCH (09:02)
[2018-04-16] MEDS: Folic Acid 1 MG TAB PO SCH (09:02)
[2018-04-16] MEDS: Heparin 5,000 UNITS/ML VIAL SC SCH ×2 (09:03→21:56)
[2018-04-16] MEDS: Calcitriol 0.25 MCG CAP PO SCH (09:03)
[2018-04-16] MEDS: Saccharomyces boulardii 250 MG CAP PO SCH (09:03)
[2018-04-16] MEDS: Cyanocobalamin (Vitamin B-12) 1,000 MCG TAB PO SCH (09:27)
--- NOTE | 2018-04-16 10:24 | MRI ---
BRAIN MRI WITHOUT CONTRAST: DATE: 04/16/2018. COMPARISON: None. HISTORY: Severe orthostasis, evaluate for acute infarction. Findings concerning for left KITCHEN MECHANIC infarction on 04/13/[address] TECHNIQUE: Multiplanar, multisequence MR imaging of the brain is obtained without contrast. FINDINGS: There is a punctate focus of restricted diffusion consistent with acute infarction within the left ce rebellar hemisphere centrally measuring 5 mm. There is multifocal restricted diffusion within the posterior left parietal and occipital lobe consis tent with extensive KITCHEN MECHANIC infarction on the left. In addition, there are foci of restricted diffusion involving the deep white matter on the right in the frontal lobe, suggesting a right MCA distribution infarction. Review of the gradient echo imaging demonstrates no associated hemorrhage. The T2 and FLAIR imaging demonstrates increased signal intensity in the areas of above-described acute infarction. No midline shift or mass effect. Regional bone marrow signal intensity appears within normal limits. IMPRESSION: Multifocal acute infarction as detailed above suggesting an embolic phenomenon. No associated intrac ranial hemorrhage is seen. POS: [facility]
--- NOTE | 2018-04-16 12:58 | PDOC.PN ---
- Subjective Encounter Start Date: 04/16/18 Encounter Start Time: 08:30 Subjective: is moving all extremities, no dizziness -: amb a bit in the room, sbp around 80's - Objective Resuscitation Status - Order Detail: 04/13/18 16:30 Resuscitation Status Routine Resuscitation Status: FULL: Full Resuscitation Discussed with: Patient and his CHACORTA Reviewed: Yes Vital Signs & Weight: Vital Signs (12 hours) Temp Pulse Pulse Pulse Pulse Resp BP 04/16/18 10:58 97.3 F L 72 18 04/16/18 10:15 94/43 L 04/16/18 09:07 47 L 48 L 58 L 81/31 L 04/16/18 07:46 04/16/18 07:19 97.5 F L 83 16 04/16/18 07:04 64 18 04/16/18 03:38 97.2 F L 70 16 BP BP BP Pulse Ox 04/16/18 10:58 93/47 L 95 04/16/18 10:15 83/54 L 04/16/18 09:07 78/33 L 81/77 L 04/16/18 07:46 97 04/16/18 07:19 90/38 L 04/16/18 07:04 97 04/16/18 03:38 85/43 L 100 Weight Admit Weight 245 lb Weight 242 lb 1.6 oz I&O: 04/15/18 04/16/18 04/17/18 06:59 06:59 06:59 Intake Total 2960 1491 580 Output Total 825 538 Balance 2960 666 42 Result Diagrams: 04/14/18 02:09 04/14/18 02:09 Phys Exam - Physical Examination HEENT: PERRLA, moist MMs Neck: no JVD, supple Respiratory: no wheezing, no rales Cardiovascular: RRR, no significant murmur Gastrointestinal: soft, non-tender, positive bowel sounds PD cath+ Musculoskeletal: no edema, pulses present Neurological: non-focal, moves all 4 limbs Psychiatric: A&O x 3 Dx/Plan (1) Acute CVA (cerebrovascular accident) Code(s): I63.9 - CEREBRAL INFARCTION, UNSPECIFIED Status: Acute (2) Colitis Code(s): K52.9 - NONINFECTIVE GASTROENTERITIS AND COLITIS, UNSPECIFIED Status : Acute Comment: Evidence of Colitis on CT abd. Has loose stools and abd cramping. C diff negative. Continue Zosyn. Improved. (3) ESRD on peritoneal dialysis Code(s): N18.6 - END STAGE RENAL DISEASE; Z99.2 - DEPENDENCE ON RENAL DIALYSIS Status: Chronic Comment: Nephrology consulted. Continue PD. (4) Hypotension Status: Chronic Qualifiers: Hypotension type: hypotension due to hypovolemia Qualified Code(s): I95.89 - Other hypotension; E86.1 - Hypovolemia Comment: (5) Hypothyroidism Code(s): E03.9 - HYPOTHYROIDISM, UNSPECIFIED Status: Chronic Qualifiers: Hypothyroidism type: unspecified Qualified Code(s): E03.9 - Hypothyroidism , unspecified (6) Macrocytic anemia Code(s): D53.9 - NUTRITIONAL ANEMIA, UNSPECIFIED Status: Chronic (7) Obesity (BMI 30-39.9) Code(s): E66.9 - OBESITY, UNSPECIFIED Status: Chronic - Plan will dc steroids and see if he holds up his BP -: continue midodrine -: mri shows ac cva ?embolic -: is on zosyn, cultures so far -ve -: prognosis guarded, may tx to stroke unit * . Review of Systems - Medications/Allergies Allergies/Adverse Reactions: Allergies Allergy/AdvReac Type Severity Reaction Status Date / Time fluconazole Allergy Intermediate Verified 05/06/17 17:42 hydrocodone Allergy Intermediate Verified 05/06/17 17:42 Opioids - Morphine Analogues Allergy Intermediate Verified 05/06/17 17:42 Medications: Current Medications Acetaminophen (Tylenol) 1,000 mg PO Q6H PRN PRN Reason: Mild Pain (1-3) Albuterol/Ipratropium (Duoneb) 3 ml NEB [id number] [facility] Last Admin: 04/16/18 07:04 Dose: 3 ml Aspirin (Aspirin Chewable) 81 mg PO DAILY [facility] Last Admin: 04/16/18 09:02 Dose: 81 mg Benzonatate (Tessalon) 100 mg PO Q6H PRN PRN Reason: Cough Bisacodyl (Dulcolax) 10 mg PO DAILYPRN PRN PRN Reason: Constipation Budesonide (Pulmicort Neb Solution) 0.5 mg NEB BID-RT [facility] Last Admin: 04/16/18 07:06 Dose: 0.5 mg Calcitriol (Rocaltrol) 0.25 mcg PO DAILY [facility] Last Admin: 04/16/18 09:03 Dose: 0.25 mcg Cyanocobalamin (Vitamin B-12) 1,000 mcg PO DAILY [facility] Last Admin: 04/16/18 09:27 Dose: 1,000 mcg Famotidine (Pepcid) 20 mg PO 2100 [facility] Last Admin: 04/15/18 21:32 Dose: 20 mg Folic Acid (Folvite) 1 mg PO DAILY [facility] Last Admin: 04/16/18 09:02 Dose: 1 mg Guaifenesin (Robitussin Sf) 200 mg PO Q4H PRN PRN Reason: Cough Heparin Sodium (Porcine) (Heparin) 5,000 units SC BID [facility] Last Admin: 04/16/18 09:03 Dose: 5,000 units Piperacillin Sod/Tazobactam (Sod 2.25 gm/ Sodium Chloride) 100 mls @ 200 mls/ hr IVPB 0300,1500 [facility] Last Admin: 04/16/18 03:52 Dose: 100 mls Levothyroxine Sodium (Synthroid) 300 mcg PO DAILY-[facility] Last Admin: 04/16/18 09:01 Dose: 300 mcg Midodrine (Proamatine) 10 mg PO BID [facility] Last Admin: 04/16/18 09:01 Dose: 10 mg Ondansetron HCl (Zofran) 4 mg IVP Q6H PRN PRN Reason: Nausea/Vomiting Potassium Chloride (Klor-Con 10) 30 meq PO QAM-[facility] Last Admin: 04/16/18 09:02 Dose: 30 meq Saccharomyces Boulardii (Florastor) 250 mg PO DAILY [facility] Last Admin: 04/16/18 09:03 Dose: 250 mg Senna/Docusate Sodium (Senokot S) 2 tab PO BID PRN PRN Reason: Constipation Sevelamer Carbonate (Renvela) 2,400 mg PO TID-[facility] Last Admin: 04/16/18 11:27 Dose: Not Given Sodium Chloride (Flush - Normal Saline) 10 ml IVF Q12HR [facility] Last Admin: 04/16/18 09:03 Dose: 10 ml Sodium Chloride (Flush - Normal Saline) 10 ml IVF PRN PRN PRN Reason: Saline Flush Last Admin: 04/13/18 22:01 Dose: 10 ml
--- NOTE | 2018-04-16 15:15 | EKG ---
Test Reason : Blood Pressure : / mmHG Vent. Rate : 108 BPM Atrial Rate : 108 BPM P-R Int : 152 ms QRS Dur : 124 ms QT Int : 380 ms P-R-T Axes : 090 102 000 degrees QTc Int : 509 ms Suspect arm lead reversal, interpretation assumes no reversal Sinus tachycardia with occasional Premature ventricular complexes Right bundle branch block T wave abnormality, consider inferior ischemia Abnormal ECG Confirmed by ELI COFFEY DO ([id number]), manuscript editor BRAYDEN WELLER ([id number]) on 04/16/2018 3:15:08 PM Referred By: Confirmed By:ELI COFFEY DO
--- NOTE | 2018-04-16 19:44 | PRG ---
DATE OF SERVICE: 04/16/2018 SUBJECTIVE: The patient was seen and examined. OBJECTIVE: VITAL SIGNS: Noted with the following vital signs; afebrile temperature 97.4, pulse 60, respirations 18, blood pressure 122/53. HEENT: Unremarkable. Moist oral mucosa. No conjunctivae injection or icterus NECK: Supple. CARDIOVASCULAR: First and second heart sounds were heard. RESPIRATORY: Clear to auscultation. DIGESTIVE: Revealed an obese abdomen. EXTREMITIES: No peripheral edema. SKIN: No new gross rash. LYMPHATICS: No peripheral lymphadenopathy. IMPRESSION: 1. End-stage renal disease, on peritoneal dialysis. 2. Labile hemodynamics. This is likely chronic neuropathy. PLAN: 1. The patient to continue with midodrine. 2. The patient to continue with peritoneal dialysis treatment. 3. Further management to be dependent on the clinical course. Job ID: [id number]
[2018-04-16] MEDS: Famotidine 20 MG TAB PO SCH (21:56)
[2018-04-17] MEDS: Piperacillin/Tazobactam 2.25 GM in Sodium Chloride 0.9% 100 ML IVPB SCH ×2 (03:52→17:22)
[2018-04-17] MEDS: Budesonide 0.5 MG/2 ML NEB NEB SCH ×2 (07:38→18:29)
[2018-04-17] MEDS: Levothyroxine Sodium 100 MCG TAB PO SCH (09:28)
[2018-04-17] MEDS: Potassium Chloride 10 MEQ TAB PO SCH (09:29)
[2018-04-17] MEDS: Sevelamer Carbonate 800 MG TAB PO SCH ×3 (09:29→17:51)
[2018-04-17] MEDS: Cyanocobalamin (Vitamin B-12) 1,000 MCG TAB PO SCH (09:30)
[2018-04-17] MEDS: Clopidogrel Bisulfate 75 MG TAB PO SCH (09:30)
[2018-04-17] MEDS: Folic Acid 1 MG TAB PO SCH (09:30)
[2018-04-17] MEDS: Calcitriol 0.25 MCG CAP PO SCH (09:30)
[2018-04-17] MEDS: Midodrine HCl 5 MG TAB PO SCH ×2 (09:31→22:22)
[2018-04-17] MEDS: Heparin 5,000 UNITS/ML VIAL SC SCH ×2 (09:31→22:23)
[2018-04-17] MEDS: Saccharomyces boulardii 250 MG CAP PO SCH (09:31)
[2018-04-17] MEDS ORDERED: LANTHANUM CARBONATE PO SCH (12:00)
[2018-04-17] MEDS ORDERED: FERRIC CITRATE PO SCH (12:00)
[2018-04-17] MEDS: Lanthanum Carbonate 500 mg Tablet PO SCH ×2 (12:09→17:39)
--- NOTE | 2018-04-17 12:37 | PDOC.PN ---
- Subjective Encounter Start Date: 04/17/18 Encounter Start Time: 08:45 Subjective: is sitting in chair, got momentariy dizzy this am when he tried to get up -: no weakness in any extremities, tolerating oral diet - Objective Resuscitation Status - Order Detail: 04/13/18 16:30 Resuscitation Status Routine Resuscitation Status: FULL: Full Resuscitation Discussed with: Patient and his CHACORTA Reviewed: Yes Vital Signs & Weight: Vital Signs (12 hours) Temp Pulse Resp BP Pulse Ox 04/17/18 11:42 97.2 F L 72 12 95/50 L 100 04/17/18 07:38 85 16 100 04/17/18 07:37 97.8 F 67 23 H 88/54 L 100 04/17/18 04:00 97.4 F L 82 20 92/51 L 92 L Weight Admit Weight 245 lb Weight 246 lb 6.4 oz I&O: 04/16/18 04/17/18 04/18/18 06:59 06:59 06:59 Intake Total 1491 920 580 Output Total 825 538 36 Balance 666 382 544 Result Diagrams: 04/14/18 02:09 04/14/18 02:09 Phys Exam - Physical Examination HEENT: PERRLA, moist MMs Neck: no JVD, supple Respiratory: no wheezing, no rales Cardiovascular: RRR, no significant murmur Gastrointestinal: soft, non-tender, positive bowel sounds pd cath+ Musculoskeletal: pulses present, edema present Neurological: non-focal, moves all 4 limbs Psychiatric: normal affect, A&O x 3 Dx/Plan (1) Acute CVA (cerebrovascular accident) Code(s): I63.9 - CEREBRAL INFARCTION, UNSPECIFIED Status: Acute (2) Colitis Code(s): K52.9 - NONINFECTIVE GASTROENTERITIS AND COLITIS, UNSPECIFIED Status : Acute Comment: Evidence of Colitis on CT abd. Has loose stools and abd cramping. C diff negative. Continue Zosyn. Improved. (3) ESRD on peritoneal dialysis Code(s): N18.6 - END STAGE RENAL DISEASE; Z99.2 - DEPENDENCE ON RENAL DIALYSIS Status: Chronic Comment: Nephrology consulted. Continue PD. (4) Hypotension Status: Chronic Qualifiers: Hypotension type: hypotension due to hypovolemia Qualified Code(s): I95.89 - Other hypotension; E86.1 - Hypovolemia Comment: (5) Hypothyroidism Code(s): E03.9 - HYPOTHYROIDISM, UNSPECIFIED Status: Chronic Qualifiers: Hypothyroidism type: unspecified Qualified Code(s): E03.9 - Hypothyroidism , unspecified (6) Macrocytic anemia Code(s): D53.9 - NUTRITIONAL ANEMIA, UNSPECIFIED Status: Chronic (7) Obesity (BMI 30-39.9) Code(s): E66.9 - OBESITY, UNSPECIFIED Status: Chronic - Plan sbp around 80-90's -: to ambulate more as tolerated -: is on zosyn, is off steroids -: continue midodrine -: will need outpt stress test in 2 months * . Review of Systems - Medications/Allergies Allergies/Adverse Reactions: Allergies Allergy/AdvReac Type Severity Reaction Status Date / Time fluconazole Allergy Intermediate Verified 05/06/17 17:42 hydrocodone Allergy Intermediate Verified 05/06/17 17:42 Opioids - Morphine Analogues Allergy Intermediate Verified 05/06/17 17:42 Medications: Current Medications Acetaminophen (Tylenol) 1,000 mg PO Q6H PRN PRN Reason: Mild Pain (1-3) Albuterol/Ipratropium (Duoneb) 3 ml NEB [id number] [facility] Last Admin: 04/17/18 07:40 Dose: 3 ml Aspirin (Aspirin Chewable) 81 mg PO DAILY [facility] Last Admin: 04/17/18 09:30 Dose: 81 mg Atorvastatin Calcium (Lipitor) 40 mg PO HS [facility] Benzonatate (Tessalon) 100 mg PO Q6H PRN PRN Reason: Cough Bisacodyl (Dulcolax) 10 mg PO DAILYPRN PRN PRN Reason: Constipation Budesonide (Pulmicort Neb Solution) 0.5 mg NEB BID-RT [facility] Last Admin: 04/17/18 07:38 Dose: 0.5 mg Calcitriol (Rocaltrol) 0.25 mcg PO DAILY [facility] Last Admin: 04/17/18 09:30 Dose: 0.25 mcg Clopidogrel Bisulfate (Plavix) 75 mg PO DAILY [facility] Last Admin: 04/17/18 09:30 Dose: 75 mg Cyanocobalamin (Vitamin B-12) 1,000 mcg PO DAILY [facility] Last Admin: 04/17/18 09:30 Dose: 1,000 mcg Famotidine (Pepcid) 20 mg PO 2100 [facility] Last Admin: 04/16/18 21:56 Dose: 20 mg Folic Acid (Folvite) 1 mg PO DAILY [facility] Last Admin: 04/17/18 09:30 Dose: 1 mg Guaifenesin (Robitussin Sf) 200 mg PO Q4H PRN PRN Reason: Cough Heparin Sodium (Porcine) (Heparin) 5,000 units SC BID [facility] Last Admin: 04/17/18 09:31 Dose: 5,000 units Piperacillin Sod/Tazobactam (Sod 2.25 gm/ Sodium Chloride) 100 mls @ 200 mls/ hr IVPB 0300,1500 [facility] Last Admin: 04/17/18 03:52 Dose: 100 mls Lanthanum Carbonate (Fosrenol) 1,000 mg PO TID-[facility] Last Admin: 04/17/18 12:09 Dose: Not Given Levothyroxine Sodium (Synthroid) 300 mcg PO DAILY-[facility] Last Admin: 04/17/18 09:28 Dose: 300 mcg Midodrine (Proamatine) 10 mg PO BID [facility] Last Admin: 04/17/18 09:31 Dose: 10 mg Ondansetron HCl (Zofran) 4 mg IVP Q6H PRN PRN Reason: Nausea/Vomiting (Ferric Citrate [ Auryxia] 1 Tab) Hm Med 0 each PO TID-[facility] Potassium Chloride (Klor-Con 10) 30 meq PO QAM-[facility] Last Admin: 04/17/18 09:29 Dose: 30 meq Saccharomyces Boulardii (Florastor) 250 mg PO DAILY [facility] Last Admin: 04/17/18 09:31 Dose: 250 mg Senna/Docusate Sodium (Senokot S) 2 tab PO BID PRN PRN Reason: Constipation Sevelamer Carbonate (Renvela) 2,400 mg PO TID-[facility] Last Admin: 04/17/18 12:09 Dose: Not Given Sodium Chloride (Flush - Normal Saline) 10 ml IVF Q12HR [facility] Last Admin: 04/17/18 09:31 Dose: 10 ml Sodium Chloride (Flush - Normal Saline) 10 ml IVF PRN PRN PRN Reason: Saline Flush Last Admin: 04/13/18 22:01 Dose: 10 ml
[2018-04-17 13:07] VITALS: BMI 38.5
--- NOTE | 2018-04-17 16:11 | PRG ---
DATE OF SERVICE: 04/17/2018 SUBJECTIVE: The patient was seen and examined with no new complaint, noted with the following vital signs. OBJECTIVE: VITAL SIGNS: Afebrile, temperature 97.2, pulse 72, respiratory rate of 12, O2 saturation 100%, and blood pressure 89/57. HEENT: Unremarkable. CARDIOVASCULAR: : First and second heart sounds were heard. RESPIRATORY: Clear to auscultation. DIGESTIVE: Reviewed a benign abdomen. EXTREMITIES: No peripheral edema. SKIN: No new gross rash. LYMPHATICS: No peripheral lymphadenopathy. IMPRESSION: 1. End-stage renal disease, on peritoneal dialysis. We will continue peritoneal dialysis. 2. Labile hemodynamics. This is likely the patient's chronic baseline in the context of autonomic neuropathy. I doubt that this patient has any infectious process; therefore, we will likely recommend discontinuation of antimicrobials in this patient. Job ID: [id number]
[2018-04-17] MEDS: Atorvastatin Calcium 40 MG TAB PO SCH (22:22)
[2018-04-17] MEDS: Famotidine 20 MG TAB PO SCH (22:23)
[2018-04-18] MEDS ORDERED: diphenhydrAMINE 2% CREAM 28.4 GM TUBE TOP PRN (04:48)
[2018-04-18] MEDS: Levothyroxine Sodium 100 MCG TAB PO SCH (09:27)
[2018-04-18] MEDS: Potassium Chloride 10 MEQ TAB PO SCH (09:28)
[2018-04-18] MEDS: Saccharomyces boulardii 250 MG CAP PO SCH (09:28)
[2018-04-18] MEDS: Sevelamer Carbonate 800 MG TAB PO SCH ×3 (09:28→16:43)
[2018-04-18] MEDS: Calcitriol 0.25 MCG CAP PO SCH (09:28)
[2018-04-18] MEDS: Cyanocobalamin (Vitamin B-12) 1,000 MCG TAB PO SCH (09:29)
[2018-04-18] MEDS: Clopidogrel Bisulfate 75 MG TAB PO SCH (09:29)
[2018-04-18] MEDS: Folic Acid 1 MG TAB PO SCH (09:29)
[2018-04-18] MEDS: Heparin 5,000 UNITS/ML VIAL SC SCH ×2 (09:30→21:29)
[2018-04-18] MEDS: Lanthanum Carbonate 500 mg Tablet PO SCH ×3 (09:35→16:37)
[2018-04-18] MEDS: Midodrine HCl 5 MG TAB PO SCH ×2 (09:36→23:32)
[2018-04-18] MEDS: Budesonide 0.5 MG/2 ML NEB NEB SCH ×3 (10:41→19:30)
--- NOTE | 2018-04-18 15:53 | PDOC.PN ---
- Subjective Encounter Start Date: 04/18/18 Encounter Start Time: 10:15 Subjective: says he is ambulating in room -: no trouble swallowing or dizzines or chest pain -: is moving all extremities, no fever or diarrhea now - Objective Resuscitation Status - Order Detail: 04/13/18 16:30 Resuscitation Status Routine Resuscitation Status: FULL: Full Resuscitation Discussed with: Patient and his CHACORTA Reviewed: Yes Vital Signs & Weight: Vital Signs (12 hours) Temp Pulse Pulse Resp BP BP Pulse Ox 04/18/18 13:53 70 82/52 L 04/18/18 12:00 97.4 F L 78 20 97/47 L 94 L 04/18/18 10:59 92 L 04/18/18 10:56 78 12 04/18/18 08:00 97.3 F L 72 18 80/52 L 91 L Weight Admit Weight 245 lb Weight 257 lb 0.944 oz I&O: 04/17/18 04/18/18 04/19/18 06:59 06:59 06:59 Intake Total 920 1080 480 Output Total 538 36 Balance 382 1044 480 Result Diagrams: 04/14/18 02:09 04/14/18 02:09 Phys Exam - Physical Examination HEENT: PERRLA, moist MMs Neck: no JVD, supple Respiratory: no wheezing, no rales Cardiovascular: RRR, no significant murmur Gastrointestinal: soft, non-tender, positive bowel sounds Musculoskeletal: pulses present, edema present Neurological: non-focal, moves all 4 limbs Psychiatric: A&O x 3 Dx/Plan (1) Acute CVA (cerebrovascular accident) Code(s): I63.9 - CEREBRAL INFARCTION, UNSPECIFIED Status: Acute (2) Colitis Code(s): K52.9 - NONINFECTIVE GASTROENTERITIS AND COLITIS, UNSPECIFIED Status : Resolved Comment: Improved. (3) ESRD on peritoneal dialysis Code(s): N18.6 - END STAGE RENAL DISEASE; Z99.2 - DEPENDENCE ON RENAL DIALYSIS Status: Chronic Comment: Continue PD. (4) Hypotension Status: Chronic Qualifiers: Hypotension type: hypotension due to hypovolemia Qualified Code(s): I95.89 - Other hypotension; E86.1 - Hypovolemia Comment: (5) Hypothyroidism Code(s): E03.9 - HYPOTHYROIDISM, UNSPECIFIED Status: Chronic Qualifiers: Hypothyroidism type: unspecified Qualified Code(s): E03.9 - Hypothyroidism , unspecified (6) Macrocytic anemia Code(s): D53.9 - NUTRITIONAL ANEMIA, UNSPECIFIED Status: Chronic (7) Obesity (BMI 30-39.9) Code(s): E66.9 - OBESITY, UNSPECIFIED Status: Chronic - Plan sbp around baseline 80-90's -: continue midodrine, is off steroids and zosyn -: prefers to go home and likely outpt rehab, he will d/w his ex- -: continue asp, plavix and lipitor -: will need outpt stress test in 2 months, dc plan in am * . Review of Systems - Medications/Allergies Allergies/Adverse Reactions: Allergies Allergy/AdvReac Type Severity Reaction Status Date / Time fluconazole Allergy Intermediate Verified 05/06/17 17:42 hydrocodone Allergy Intermediate Verified 05/06/17 17:42 Opioids - Morphine Analogues Allergy Intermediate Verified 05/06/17 17:42 Medications: Current Medications Acetaminophen (Tylenol) 1,000 mg PO Q6H PRN PRN Reason: Mild Pain (1-3) Albuterol/Ipratropium (Duoneb) 3 ml NEB [id number] [facility] Last Admin: 04/18/18 10:56 Dose: 3 ml Aspirin (Aspirin Chewable) 81 mg PO DAILY [facility] Last Admin: 04/18/18 09:28 Dose: 81 mg Atorvastatin Calcium (Lipitor) 40 mg PO HS [facility] Last Admin: 04/17/18 22:22 Dose: 40 mg Benzonatate (Tessalon) 100 mg PO Q6H PRN PRN Reason: Cough Bisacodyl (Dulcolax) 10 mg PO DAILYPRN PRN PRN Reason: Constipation Budesonide (Pulmicort Neb Solution) 0.5 mg NEB BID-RT [facility] Last Admin: 04/18/18 10:56 Dose: 0.5 mg Calcitriol (Rocaltrol) 0.25 mcg PO DAILY [facility] Last Admin: 04/18/18 09:28 Dose: 0.25 mcg Clopidogrel Bisulfate (Plavix) 75 mg PO DAILY [facility] Last Admin: 04/18/18 09:29 Dose: 75 mg Cyanocobalamin (Vitamin B-12) 1,000 mcg PO DAILY [facility] Last Admin: 04/18/18 09:29 Dose: 1,000 mcg Famotidine (Pepcid) 20 mg PO 2100 [facility] Last Admin: 04/17/18 22:23 Dose: 20 mg Folic Acid (Folvite) 1 mg PO DAILY [facility] Last Admin: 04/18/18 09:29 Dose: 1 mg Guaifenesin (Robitussin Sf) 200 mg PO Q4H PRN PRN Reason: Cough Heparin Sodium (Porcine) (Heparin) 5,000 units SC BID [facility] Last Admin: 04/18/18 09:30 Dose: 5,000 units Lanthanum Carbonate (Fosrenol) 1,000 mg PO TID-[facility] Last Admin: 04/18/18 11:17 Dose: Not Given Levothyroxine Sodium (Synthroid) 300 mcg PO DAILY-[facility] Last Admin: 04/18/18 09:27 Dose: 300 mcg Midodrine (Proamatine) 10 mg PO BID [facility] Last Admin: 04/18/18 09:36 Dose: 10 mg Ondansetron HCl (Zofran) 4 mg IVP Q6H PRN PRN Reason: Nausea/Vomiting (Ferric Citrate [ Auryxia] 1 Tab) Hm Med 0 each PO TID-[facility] Potassium Chloride (Klor-Con 10) 30 meq PO QAM-[facility] Last Admin: 04/18/18 09:28 Dose: 30 meq Saccharomyces Boulardii (Florastor) 250 mg PO DAILY [facility] Last Admin: 04/18/18 09:28 Dose: 250 mg Senna/Docusate Sodium (Senokot S) 2 tab PO BID PRN PRN Reason: Constipation Sevelamer Carbonate (Renvela) 2,400 mg PO TID-[facility] Last Admin: 04/18/18 11:50 Dose: 2,400 mg Sodium Chloride (Flush - Normal Saline) 10 ml IVF Q12HR [facility] Last Admin: 04/18/18 09:30 Dose: 10 ml Sodium Chloride (Flush - Normal Saline) 10 ml IVF PRN PRN PRN Reason: Saline Flush Last Admin: 04/13/18 22:01 Dose: 10 ml Zinc Acetate/Diphenhydramine (Benadryl 2% Cream) 0 gm TOP Q12H PRN PRN Reason: .ITCHING
--- NOTE | 2018-04-18 20:34 | PRG ---
DATE OF SERVICE: 04/18/2018 SUBJECTIVE: The patient is seen and examined, still with labile hemodynamics noted with the following vital signs. OBJECTIVE: VITAL SIGNS: Afebrile, temperature 97.4, pulse 78, respiratory rate of 20, O2 saturation of 94% with blood pressure of 82/52 HEENT: Unremarkable. CARDIOVASCULAR: First and second heart sounds were heard. RESPIRATORY: Clear to auscultation. DIGESTIVE SYSTEM: Revealed a benign abdomen. EXTREMITIES: No peripheral edema. SKIN: No new gross rash. LYMPHATICS: No peripheral lymphadenopathy. IMPRESSION: 1. End-stage renal disease, on peritoneal dialysis. 2. Labile hemodynamics, possibly in the context of autonomic neuropathy cardiomyopathy. PLAN: 1. The patient to continue with midodrine, may consider increasing this midodrine to t.i.d. 2. The patient to continue with peritoneal dialysis with lower concentration dialysis. 3. Further management to be dependent on the clinical course. Job ID: [id number]
[2018-04-18] MEDS: Atorvastatin Calcium 40 MG TAB PO SCH (21:29)
[2018-04-18] MEDS: Famotidine 20 MG TAB PO SCH (21:29)
[2018-04-19] MEDS: Budesonide 0.5 MG/2 ML NEB NEB SCH ×2 (07:13→18:50)
[2018-04-19] MEDS: Levothyroxine Sodium 100 MCG TAB PO SCH (09:37)
[2018-04-19] MEDS: Saccharomyces boulardii 250 MG CAP PO SCH (09:37)
[2018-04-19] MEDS: Midodrine HCl 5 MG TAB PO SCH ×3 (09:37→22:07)
[2018-04-19] MEDS: Sevelamer Carbonate 800 MG TAB PO SCH ×3 (09:37→17:20)
[2018-04-19] MEDS: Potassium Chloride 10 MEQ TAB PO SCH (09:38)
[2018-04-19] MEDS: Cyanocobalamin (Vitamin B-12) 1,000 MCG TAB PO SCH (09:38)
[2018-04-19] MEDS: Folic Acid 1 MG TAB PO SCH (09:38)
[2018-04-19] MEDS: Calcitriol 0.25 MCG CAP PO SCH (09:38)
[2018-04-19] MEDS: Clopidogrel Bisulfate 75 MG TAB PO SCH (09:38)
[2018-04-19] MEDS: Heparin 5,000 UNITS/ML VIAL SC SCH (09:39)
[2018-04-19] MEDS: Lanthanum Carbonate 500 mg Tablet PO SCH ×3 (09:40→17:20)
--- NOTE | 2018-04-19 11:15 | PDOC.PN ---
- Subjective Encounter Start Date: 04/19/18 Encounter Start Time: 08:20 Subjective: has ambulated around 200ft yesterday, no dizziness -: is worried his low BP will cause trouble again -: had coughing spells early am, no sob, at bedside - Objective Resuscitation Status - Order Detail: 04/13/18 16:30 Resuscitation Status Routine Resuscitation Status: FULL: Full Resuscitation Discussed with: Patient and his MAR Reviewed: Yes Vital Signs & Weight: Vital Signs (12 hours) Temp Pulse Resp BP Pulse Ox 04/19/18 07:31 97.7 F 63 18 95/62 96 04/19/18 07:15 96 04/19/18 07:13 63 16 04/19/18 04:25 97.8 F 75 20 87/48 L 97 04/19/18 02:09 97.7 F 85 20 103/60 91 L 04/18/18 23:41 94 L Weight Admit Weight 245 lb Weight 257 lb 0.944 oz I&O: 04/18/18 04/19/18 04/20/18 06:59 06:59 06:59 Intake Total 1080 720 Output Total 36 Balance 1044 720 Result Diagrams: 04/14/18 02:09 04/14/18 02:09 Phys Exam - Physical Examination HEENT: PERRLA, moist MMs Neck: no JVD, supple Respiratory: no wheezing, no rales Cardiovascular: RRR, no significant murmur Gastrointestinal: soft, non-tender, positive bowel sounds pd cath+ Musculoskeletal: pulses present right LE edema, thickening of skin which is chronic Neurological: non-focal, moves all 4 limbs Psychiatric: normal affect, A&O x 3 Dx/Plan (1) Acute CVA (cerebrovascular accident) Code(s): I63.9 - CEREBRAL INFARCTION, UNSPECIFIED Status: Acute (2) Colitis Code(s): K52.9 - NONINFECTIVE GASTROENTERITIS AND COLITIS, UNSPECIFIED Status : Resolved Comment: Improved. (3) ESRD on peritoneal dialysis Code(s): N18.6 - END STAGE RENAL DISEASE; Z99.2 - DEPENDENCE ON RENAL DIALYSIS Status: Chronic Comment: Continue PD. (4) Hypotension Status: Chronic Qualifiers: Hypotension type: hypotension due to hypovolemia Qualified Code(s): I95.89 - Other hypotension; E86.1 - Hypovolemia Comment: (5) Hypothyroidism Code(s): E03.9 - HYPOTHYROIDISM, UNSPECIFIED Status: Chronic Qualifiers: Hypothyroidism type: unspecified Qualified Code(s): E03.9 - Hypothyroidism , unspecified (6) Macrocytic anemia Code(s): D53.9 - NUTRITIONAL ANEMIA, UNSPECIFIED Status: Chronic (7) Obesity (BMI 30-39.9) Code(s): E66.9 - OBESITY, UNSPECIFIED Status: Chronic - Plan labs for today, cxr -: will set up outpt stress test in 8 weeks -: he will need to see opthalmologist in 2 weeks for visual field defects -: BP holding up on midodrine 5mg tid -: ef is normal on prior echo, d/w pt and , dc plan in am * . Review of Systems - Medications/Allergies Allergies/Adverse Reactions: Allergies Allergy/AdvReac Type Severity Reaction Status Date / Time fluconazole Allergy Intermediate Verified 05/06/17 17:42 hydrocodone Allergy Intermediate Verified 05/06/17 17:42 Opioids - Morphine Analogues Allergy Intermediate Verified 05/06/17 17:42 Medications: Current Medications Acetaminophen (Tylenol) 1,000 mg PO Q6H PRN PRN Reason: Mild Pain (1-3) Albuterol/Ipratropium (Duoneb) 3 ml NEB [id number] [facility] Last Admin: 04/19/18 07:13 Dose: 3 ml Aspirin (Aspirin Chewable) 81 mg PO DAILY [facility] Last Admin: 04/19/18 09:38 Dose: 81 mg Atorvastatin Calcium (Lipitor) 40 mg PO HS [facility] Last Admin: 04/18/18 21:29 Dose: 40 mg Benzonatate (Tessalon) 100 mg PO Q6H PRN PRN Reason: Cough Bisacodyl (Dulcolax) 10 mg PO DAILYPRN PRN PRN Reason: Constipation Budesonide (Pulmicort Neb Solution) 0.5 mg NEB BID-RT [facility] Last Admin: 04/19/18 07:13 Dose: 0.5 mg Calcitriol (Rocaltrol) 0.25 mcg PO DAILY [facility] Last Admin: 04/19/18 09:38 Dose: 0.25 mcg Clopidogrel Bisulfate (Plavix) 75 mg PO DAILY [facility] Last Admin: 04/19/18 09:38 Dose: 75 mg Cyanocobalamin (Vitamin B-12) 1,000 mcg PO DAILY [facility] Last Admin: 04/19/18 09:38 Dose: 1,000 mcg Famotidine (Pepcid) 20 mg PO 2100 [facility] Last Admin: 04/18/18 21:29 Dose: 20 mg Folic Acid (Folvite) 1 mg PO DAILY [facility] Last Admin: 04/19/18 09:38 Dose: 1 mg Guaifenesin (Robitussin Sf) 200 mg PO Q4H PRN PRN Reason: Cough Heparin Sodium (Porcine) (Heparin) 5,000 units SC BID [facility] Last Admin: 04/19/18 09:39 Dose: 5,000 units Lanthanum Carbonate (Fosrenol) 1,000 mg PO TID-[facility] Last Admin: 04/19/18 09:40 Dose: Not Given Levothyroxine Sodium (Synthroid) 300 mcg PO DAILY-[facility] Last Admin: 04/19/18 09:37 Dose: 300 mcg Midodrine (Proamatine) 5 mg PO TID [facility] Last Admin: 04/19/18 09:37 Dose: 5 mg Ondansetron HCl (Zofran) 4 mg IVP Q6H PRN PRN Reason: Nausea/Vomiting (Ferric Citrate [ Auryxia] 1 Tab) Hm Med 0 each PO TID-[facility] Potassium Chloride (Klor-Con 10) 30 meq PO QAM-[facility] Last Admin: 04/19/18 09:38 Dose: 30 meq Saccharomyces Boulardii (Florastor) 250 mg PO DAILY [facility] Last Admin: 04/19/18 09:37 Dose: 250 mg Senna/Docusate Sodium (Senokot S) 2 tab PO BID PRN PRN Reason: Constipation Sevelamer Carbonate (Renvela) 2,400 mg PO TID-[facility] Last Admin: 04/19/18 09:37 Dose: 2,400 mg Sodium Chloride (Flush - Normal Saline) 10 ml IVF Q12HR [facility] Last Admin: 04/19/18 10:07 Dose: 10 ml Sodium Chloride (Flush - Normal Saline) 10 ml IVF PRN PRN PRN Reason: Saline Flush Last Admin: 04/13/18 22:01 Dose: 10 ml Zinc Acetate/Diphenhydramine (Benadryl 2% Cream) 0 gm TOP Q12H PRN PRN Reason: .ITCHING
[2018-04-19 11:53] LABS: ALT (SGPT) 51 U/L (8-55); AST (SGOT) 45 U/L (5-34); Albumin 2.9 g/dL (3.4-4.8); Alkaline Phosphatase 59 U/L (40-150); Anion Gap 25 mmol/L (10-20); BUN (Urea Nitrogen) 64 mg/dL (8.4-25.7); Bilirubin, Total 0.7 mg/dL (0.2-1.2); Calc. Creatinine Clearance 9 mL/min (70-130); Calcium 7.6 mg/dL (7.8-10.44); Carbon Dioxide 12 mmol/L (23-31); Chloride 107 mmol/L (98-107); Estimated GFR-MDRD 4; Globulin 2.3 g/dL (2.4-3.5); Glucose 107 mg/dL (80-115); Potassium 3.5 mmol/L (3.5-5.1); Protein, Total 5.2 g/dL (5.8-8.1); Sodium 140 mmol/L (136-145)
[2018-04-19 12:44] LABS: Hemoglobin 12.2 g/dL (14.0-18.0); Mean Corpuscular HGB CONC 33.9 g/dL (32.0-36.0); Mean Platelet Volume 7.7 fL (7.4-10.4); Platelet Count 96 thou/uL (130-400); Red Blood Cell (RBC) Count 3.31 mill/uL (4.70-6.10); White Blood Cell (WBC) Count 5.4 thou/uL (4.8-10.8)
[2018-04-19 12:45] LABS: #Eosinphils 0.3 thou/uL (0.0-0.7); #Lymphocytes 1.1 thou/uL (1.20-3.40); #Monocytes 0.6 thou/uL (0.11-0.59); #Neutrophils 3.4 thou/uL (1.40-6.50); %Basophils 0.3 % (0.0-1.0); %Eosinophils 6.4 % (0.0-10.0); %Lymphocytes 20.3 % (21.0-51.0); %Monocytes 10.8 % (0.0-10.0); %Neutrophils 62.2 % (42.0-75.0)
--- NOTE | 2018-04-19 13:00 | RAD ---
SINGLE VIEW CHEST: Date: 04/19/18 COMPARISON: 04/13/18. HISTORY: Shortness of breath and chest pain. FINDINGS: Single view of the chest shows an enlarged but stable cardiomediastinal silhouette. There is no evide nce of consolidation, mass, or pleural effusion. Degenerative changes are seen in the spine. IMPRESSION: No evidence of acute cardiopulmonary disease. POS: [facility]
--- NOTE | 2018-04-19 21:54 | PRG ---
DATE OF SERVICE: 04/19/2018 SUBJECTIVE: The patient is seen and examined and noted with the following vital signs. OBJECTIVE: VITAL SIGNS: Afebrile, temperature 97.7, pulse 84, respiratory rate of 20, O2 sats of 93%, and blood pressure 100/55. HEENT EXAMINATION: Unremarkable. Moist oral mucosa. NECK: Supple. No conjunctival injection or icterus. CARDIOVASCULAR SYSTEM: First and second heart sounds were heard. RESPIRATORY SYSTEM: Clear to auscultation. DIGESTIVE SYSTEM: Revealed a benign abdomen with positive bowel sounds. EXTREMITIES: No peripheral edema. SKIN: No new gross rash. LYMPHATICS: No peripheral lymphadenopathy. IMPRESSION: 1. End-stage renal disease, on peritoneal dialysis. 2. Labile hemodynamics, on midodrine. PLAN: 1. Continue current renal replacement therapy. 2. May consider increasing the dose of midodrine depending on labile hemodynamics. Job ID: [id number]
[2018-04-19] MEDS: Atorvastatin Calcium 40 MG TAB PO SCH (22:07)
[2018-04-19] MEDS: Famotidine 20 MG TAB PO SCH (22:07)
[2018-04-20] MEDS: Heparin 5,000 UNITS/ML VIAL SC SCH ×2 (05:46→08:13)
[2018-04-20] MEDS: Budesonide 0.5 MG/2 ML NEB NEB SCH (08:17)
[2018-04-20] MEDS: Sevelamer Carbonate 800 MG TAB PO SCH ×2 (09:00→13:39)
[2018-04-20] MEDS: Lanthanum Carbonate 500 mg Tablet PO SCH ×2 (09:00→12:41)
[2018-04-20] MEDS: Saccharomyces boulardii 250 MG CAP PO SCH (09:01)
[2018-04-20] MEDS: Potassium Chloride 10 MEQ TAB PO SCH (09:02)
[2018-04-20] MEDS: Midodrine HCl 5 MG TAB PO SCH ×2 (09:03→14:13)
[2018-04-20] MEDS: Calcitriol 0.25 MCG CAP PO SCH (09:03)
[2018-04-20] MEDS: Folic Acid 1 MG TAB PO SCH (09:03)
[2018-04-20] MEDS: Levothyroxine Sodium 100 MCG TAB PO SCH (09:03)
[2018-04-20] MEDS: Cyanocobalamin (Vitamin B-12) 1,000 MCG TAB PO SCH (09:03)
[2018-04-20] MEDS: Clopidogrel Bisulfate 75 MG TAB PO SCH (09:03)
--- NOTE | 2018-04-20 12:47 | PDOC.PN ---
- Subjective Encounter Start Date: 04/20/18 Encounter Start Time: 10:30 Subjective: feels good, no cough now -: is ambulating in room - Objective Resuscitation Status - Order Detail: 04/13/18 16:30 Resuscitation Status Routine Resuscitation Status: FULL: Full Resuscitation Discussed with: Patient and his CHACORTA Reviewed: Yes Vital Signs & Weight: Vital Signs (12 hours) Temp Pulse Resp BP Pulse Ox 04/20/18 11:47 98.6 F 68 16 99/57 L 94 L 04/20/18 08:20 93 L 04/20/18 08:17 91 12 04/20/18 07:35 98.3 F 92 18 96/64 93 L 04/20/18 03:25 97.5 F L 89 20 94/71 92 L Weight Admit Weight 245 lb Weight 256 lb I&O: 04/19/18 04/20/18 04/21/18 06:59 06:59 06:59 Intake Total 720 240 Balance 720 240 Result Diagrams: 04/19/18 12:13 04/19/18 11:10 Phys Exam - Physical Examination HEENT: PERRLA, moist MMs Neck: no JVD, supple Respiratory: no wheezing, no rales Cardiovascular: RRR, no significant murmur Gastrointestinal: soft, non-tender, positive bowel sounds PD cath+ Musculoskeletal: pulses present, edema present chronic right LE edema Neurological: non-focal, moves all 4 limbs Psychiatric: normal affect, A&O x 3 Dx/Plan (1) Acute CVA (cerebrovascular accident) Code(s): I63.9 - CEREBRAL INFARCTION, UNSPECIFIED Status: Acute (2) Colitis Code(s): K52.9 - NONINFECTIVE GASTROENTERITIS AND COLITIS, UNSPECIFIED Status : Resolved (3) ESRD on peritoneal dialysis Code(s): N18.6 - END STAGE RENAL DISEASE; Z99.2 - DEPENDENCE ON RENAL DIALYSIS Status: Chronic Comment: Continue PD. (4) Hypotension Status: Chronic Qualifiers: Hypotension type: hypotension due to hypovolemia Qualified Code(s): I95.89 - Other hypotension; E86.1 - Hypovolemia Comment: (5) Hypothyroidism Code(s): E03.9 - HYPOTHYROIDISM, UNSPECIFIED Status: Chronic Qualifiers: Hypothyroidism type: unspecified Qualified Code(s): E03.9 - Hypothyroidism , unspecified (6) Macrocytic anemia Code(s): D53.9 - NUTRITIONAL ANEMIA, UNSPECIFIED Status: Chronic (7) Obesity (BMI 30-39.9) Code(s): E66.9 - OBESITY, UNSPECIFIED Status: Chronic - Plan hemostable -: to continue midodrine tid, asp, plavix -: will need cbc in 1 week to check for platelet count -: outpt rehab in [place] likely -: dc plan later this evening, will set outpt cardio appt and inform him charo * . Review of Systems - Medications/Allergies Allergies/Adverse Reactions: Allergies Allergy/AdvReac Type Severity Reaction Status Date / Time fluconazole Allergy Intermediate Verified 05/06/17 17:42 hydrocodone Allergy Intermediate Verified 05/06/17 17:42 Opioids - Morphine Analogues Allergy Intermediate Verified 05/06/17 17:42 Medications: Current Medications Acetaminophen (Tylenol) 1,000 mg PO Q6H PRN PRN Reason: Mild Pain (1-3) Last Admin: 04/20/18 09:06 Dose: 1,000 mg Albuterol/Ipratropium (Duoneb) 3 ml NEB [id number] [facility] Last Admin: 04/20/18 08:17 Dose: 3 ml Aspirin (Aspirin Chewable) 81 mg PO DAILY [facility] Last Admin: 04/20/18 09:03 Dose: 81 mg Atorvastatin Calcium (Lipitor) 40 mg PO HS [facility] [place] Last Admin: 04/19/18 22:07 Dose: 40 mg Benzonatate (Tessalon) 100 mg PO Q6H PRN PRN Reason: Cough Bisacodyl (Dulcolax) 10 mg PO DAILYPRN PRN PRN Reason: Constipation Budesonide (Pulmicort Neb Solution) 0.5 mg NEB BID-RT [facility] [place] Last Admin: 04/20/18 08:17 Dose: 0.5 mg Calcitriol (Rocaltrol) 0.25 mcg PO DAILY [facility] [place] Last Admin: 04/20/18 09:03 Dose: 0.25 mcg Clopidogrel Bisulfate (Plavix) 75 mg PO DAILY [facility] [place] Last Admin: 04/20/18 09:03 Dose: 75 mg Cyanocobalamin (Vitamin B-12) 1,000 mcg PO DAILY [facility] [place] Last Admin: 04/20/18 09:03 Dose: 1,000 mcg Famotidine (Pepcid) 20 mg PO 2100 [facility] [place] Last Admin: 04/19/18 22:07 Dose: 20 mg Folic Acid (Folvite) 1 mg PO DAILY [facility] Last Admin: 04/20/18 09:03 Dose: 1 mg Guaifenesin (Robitussin Sf) 200 mg PO Q4H PRN PRN Reason: Cough Lanthanum Carbonate (Fosrenol) 1,000 mg PO TID-[facility] Last Admin: 04/20/18 12:41 Dose: Not Given Levothyroxine Sodium (Synthroid) 300 mcg PO DAILY-[facility] Last Admin: 04/20/18 09:03 Dose: 300 mcg Midodrine (Proamatine) 5 mg PO TID [facility] Last Admin: 04/20/18 09:03 Dose: 5 mg Ondansetron HCl (Zofran) 4 mg IVP Q6H PRN PRN Reason: Nausea/Vomiting (Ferric Citrate [ Auryxia] 1 Tab) Med 0 each PO TID-[facility] Potassium Chlor[facility] ([facility]-Con 10) [facility] Last Admin: 04/20/18 09:02 Dose: 30 meq Saccharomyces Boulardii (Florastor) 250 mg PO DAILY [facility] Last Admin: 04/20/18 09:01 Dose: 250 mg Senna/Docusate Sodium (Senokot S) 2 tab PO BID PRN PRN Reason: Constipation Sevelamer Carbonate (Renvela) 2,400 mg PO TID-[facility] Last Admin: 04/20/18 09:00 Dose: Not Given Sodium Chloride (Flush - Normal Saline) 10 ml IVF Q12HR [facility] Last Admin: 04/20/18 09:04 Dose: 10 ml Sodium Chloride (Flush - Normal Saline) 10 ml IVF PRN PRN PRN Reason: Saline Flush Last Admin: 04/13/18 22:01 Dose: 10 ml Zinc Acetate/Diphenhydramine (Benadryl 2% Cream) 0 gm TOP Q12H PRN PRN Reason: .ITCHING
[2018-04-20 15:40] VITALS: BP 91/57; TEMP 98.3
--- NOTE | 2018-04-20 17:51 | PRG ---
DATE OF SERVICE: 04/20/2018 OBJECTIVE: VITAL SIGNS: Noted with the following vital signs; afebrile, temperature 98.3, pulse 72, respiratory rate of 16, O2 saturation 94%, and blood pressure 91/57. HEENT: Unremarkable. CARDIOVASCULAR SYSTEM: First and second heart sounds were heard. RESPIRATORY SYSTEM: Clear to auscultation. DIGESTIVE SYSTEM: Revealed a benign abdomen. EXTREMITIES: No peripheral edema. SKIN EXAMINATION: No new gross rash. LYMPHATICS: No peripheral lymphadenopathy. IMPRESSION: 1. End-stage renal disease, on peritoneal dialysis. 2. Labile hemodynamics. PLAN: 1. The patient is to continue with current regimen of peritoneal dialysis. 2. The patient to continue midodrine due to labile hemodynamics. Job ID: [id number]
--- NOTE | 2018-04-21 16:25 | DIS ---
DATE OF ADMISSION: 04/13/2018 DATE OF DISCHARGE: 04/20/2018 DISCHARGE DISPOSITION: Home with outpatient rehab. PRIMARY DISCHARGE DIAGNOSES: Acute cerebrovascular accident; hypotension; colitis, resolved; end-stage renal disease, on peritoneal dialysis; hypothyroidism; macrocytic anemia; obesity. PROCEDURES DONE DURING HOSPITALIZATION: MRI brain done on 04/16/2018, showed multifocal acute infarct suggesting an embolic phenomenon. No associated intracranial hemorrhage was seen. CT of the abdomen and pelvis done on the day of admission showed focal fat stranding in the right upper quadrant adjacent to questionable thickening involving the hepatic flexure. This may reflect changes of colitis. CT brain on the day of admission showed findings compatible with recent left HEALTH INFORMATION PROVIDER distribution infarct. No evidence of intracranial hemorrhage. CT cervical spine done on the day of admission showed no fracture or traumatic subluxation. Carotid Doppler, no hemodynamically significant stenosis. Stool for C diff negative. Blood cultures x2 negative. Peritoneal fluid culture showed no WBCs or organisms. No growth in five days. Hemoglobin and hematocrit 12 and 36, platelet count 96, and white count of 5.4. Initial white count was 15. Discharge BUN and creatinine are 64 and 13.9 with serum bicarb of 12. Albumin is 2.9. Lactic acid was 6.0 on the 9th. INPATIENT CONSULTS: Dr. Orourke was covering for Dr. Gipson. DISCHARGE PLAN: The patient to follow up with primary care physician in one week. Dr. Gasca' office will call him for outpatient stress test in 4 weeks. DISCHARGE MEDICATIONS: 1. Aspirin 81 mg p.o. daily. 2. Calcitriol 0.25 mcg p.o. daily. 3. Vitamin D3 2000 units p.o. daily. 4. Lanthanum 1000 mg p.o. three times daily. 5. Levothyroxine 300 mcg p.o. daily. 6. Sevelamer three tabs p.o. three times daily. 7. Pulmicort inhaler twice daily. 8. Plavix 75 mg p.o. daily. 9. Vitamin B12 1000 mcg p.o. daily. 10. Pepcid 20 mg daily. 11. Ferric citrate 210 mg p.o. three times daily. 12. Folic acid 1 mg daily. 13. DuoNebs q.6 hourly p.r.n. 14. Midodrine 5 mg p.o. three times daily. 15. Florastor 250 mg p.o. daily. ALLERGIES: ALLERGIC TO FLUCONAZOLE, HYDROCODONE, OPIOIDS, AND MORPHINE. DISCHARGE PLAN: The patient to follow up with primary care physician in one week. BRIEF COURSE DURING HOSPITALIZATION: The patient initially came to emergency room on the with complaints of abdominal pain and watery diarrhea. He was also found to be hypotensive. The patient normally has systolic blood pressures in the 80s to 90s. The patient had systolic blood pressures in the 60s and was admitted to [facility] initially. He has had blood and stool cultures done, which have been negative. His initial CT scan showed colitis in the right upper quadrant area. The patient also had a CT brain done, which showed acute CVA in the HEALTH INFORMATION PROVIDER territory. MRI done confirmed multiple infarcts, likely watershed infarcts due to severe hypotension. He has not had any motor deficits and is ambulating freely in hallway and room. The patient apparently has had complete workup for his hypotension per Dr. Gipson at [facility] in the past. The patient's medications were optimized. He was initially fluid resuscitated, which has resolved his hypotension. His midodrine was increased to 5 mg 3 times daily. He is back to his baseline levels of systolic blood pressures in the 90s. The patient is given prescription for outpatient rehab which is comfortable for him, and his will drive him up to the rehab. He is hemodynamically stable. He has ambulated well and is eating well prior to discharge. The patient will require outpatient stress test and in view of his acute CVA, this will be arranged via Dr. Gasca' office in 4 weeks and in 4 weeks, their office will call him with the date and time. Please see a [id number] documentation on [email or web address] for the day of discharge. Job ID: [id number] [facility]
== END 2018-04-20 16:41 | disposition home or self-care (01) | DRG 871 ==
LOC: ERS 11:53 → IMCU/EMU 16:38 → 2SE 04-17 19:05
PROVIDERS: ADMIT Internal Medicine; ATTEND Internal Medicine
PROC: 3E1M39Z Irrigation of Peritoneal Cavity using Dialysate, Percutaneous Approach (ICD-10-PCS; principal; 2018-04-13)
DX: A41.9 Sepsis, unspecified organism (principal); N18.6 End stage renal disease; I63.9 Cerebral infarction, unspecified; A09 Infectious gastroenteritis and colitis, unspecified; Z99.2 Dependence on renal dialysis; I95.1 Orthostatic hypotension; E66.01 Morbid (severe) obesity due to excess calories; Z88.5 Allergy status to narcotic agent; Z88.8 Allergy status to other drugs, medicaments and biological substances; Z79.899 Other long term (current) drug therapy; Z79.82 Long term (current) use of aspirin; E87.6 Hypokalemia; E03.9 Hypothyroidism, unspecified; Z68.38 Body mass index [BMI] 38.0-38.9, adult
CPT/HCPCS: 36415; 36416; 70450; 70551; 71045; 72125; 74176; 80048; 80053; 83605; 83735; 83880; 84484; 85025; 87040; 87070; 87205; 87324; 87449; 89051; 90471; 90686; 90945; 93005; 93880; 94640; 96361; 96365; G0008; G0257; G8978-GP-CM; G8979-GP-CK; G8987-GO-CL; G8988-GO-CI; G8996-GN-CI; G8997-GN-CI; J1644; J1720; J2543; J3370; J3480; J7050; J7620; J7626

== ENCOUNTER 2018-04-24 14:25 | Inpatient (IN) | payer MEDICARE, BC ==
[2018-04-24 15:19] LABS: #Basophils 0.1 thou/uL (0.0-0.2); #Eosinphils 0.6 thou/uL (0.0-0.7); #Lymphocytes 2.2 thou/uL (1.20-3.40); %Basophils 0.9 % (0.0-1.0); %Eosinophils 7.7 % (0.0-10.0); %Lymphocytes 27.7 % (21.0-51.0); %Monocytes 12.5 % (0.0-10.0); %Neutrophils 51.3 % (42.0-75.0); Hemoglobin 13.3 g/dL (14.0-18.0); Mean Corpuscular HGB CONC 32.5 g/dL (32.0-36.0); Mean Corpuscular Hemoglobin 35.1 pg (27.0-31.0); Mean Platelet Volume 8.7 fL (7.4-10.4); Platelet Count 150 thou/uL (130-400); RBC Distribution Width 16.2 % (11.5-14.5); Red Blood Cell (RBC) Count 3.78 mill/uL (4.70-6.10); White Blood Cell (WBC) Count 7.8 thou/uL (4.8-10.8)
[2018-04-24 15:48] LABS: ALT (SGPT) 37 U/L (8-55); AST (SGOT) 34 U/L (5-34); Albumin 3.6 g/dL (3.4-4.8); Alkaline Phosphatase 100 U/L (40-150); Anion Gap 26 mmol/L (10-20); BUN (Urea Nitrogen) 50 mg/dL (8.4-25.7); Bilirubin, Total 0.6 mg/dL (0.2-1.2); Calc. Creatinine Clearance 0 mL/min (70-130); Calcium 8.3 mg/dL (7.8-10.44); Carbon Dioxide 19 mmol/L (23-31); Chloride 102 mmol/L (98-107); Estimated GFR-MDRD 4; Glucose 100 mg/dL (80-115); Potassium 3.6 mmol/L (3.5-5.1); Protein, Total 6.6 g/dL (5.8-8.1); Sodium 143 mmol/L (136-145)
--- NOTE | 2018-04-24 16:26 | RAD ---
PORTABLE AP CHEST RADIOGRAPH: Date: 04-24-18 History: Weakness with onset of symptoms this morning. Patient became hypotensive at dialysis. Altere d mental status. Comparison: 04-19-18 FINDINGS: There is mild asymmetric increased interstitial densities within the right hemithorax compared to the left. No obvious pleural effusion is seen. The cardiac silhouette is magnified by projection. Pulmon melody vasculature congestion has improved from the prior exam. No other interval change. IMPRESSION: 1. Mild increased interstitial densities on the right which is overall nonspecific. Findings could be accentuated due to patient rotation, but a component of asymmetric pulmonary edema or possibly infec tious process cannot be entirely excluded. Follow up PA and lateral chest x-ray is recommended. 2. Improvement in pulmonary vascular congestion when compared to the prior exam. POS: [facility]
--- NOTE | 2018-04-24 17:20 | CT ---
CT CHEST WITHOUT CONTRAST: 04/24/18 HISTORY: Cough. COMPARISON: Radiograph same day. FINDINGS: There is scattered ground glass opacities throughout the right lung with a central predominance as we ll as demarcation between normal and abnormal lung by the secondary pulmonary lobule. No focal solid consolidation. No pneumothorax. No effusion. Minimal involvement of the left lower lobe and lingula a nd left upper lobe. No dense consolidation. Asymmetric nodular thickening behind the left nipple. No pericardial effusion. The kidneys are atrophic. There is an abnormal prominence right retroperiton eal paraesophageal lymph node measuring 11 mm in short axis, axial image 29. No thoracic spine compression fracture. No acute displaced rib fracture. IMPRESSION: 1. Lung findings suggesting hypersensitivity pneumonitis. Acute interstitial pneumonia is also a possibility. 2. Single mildly prominent right paraesophageal lymph node measuring 11 mm in short axis, may be reactive. 3. Asymmetric nodular thickening behind the left nipple. POS: [facility]
[2018-04-24] MEDS ORDERED: Piperacillin/Tazobactam 4.5 GM VIAL ONE (17:26)
[2018-04-24] MEDS ORDERED: Sodium Chloride 0.9% 100 ML ONE (17:26)
[2018-04-24] MEDS ORDERED: Vancomycin HCl 1.5 GM in Sodium Chloride 0.9% 250 ML 300 ML IVPB SCH (17:30)
[2018-04-24 18:22] LABS: Troponin I 0.019 ng/mL (< 0.028)
[2018-04-24] MEDS ORDERED: Ondansetron PF 4 MG/2 ML Vial IVP PRN (19:48)
[2018-04-24] MEDS ORDERED: Acetaminophen 500 MG TAB PO PRN (19:48)
[2018-04-24] MEDS ORDERED: Ondansetron ODT 4 MG TAB PO PRN (19:48)
[2018-04-24] MEDS: Famotidine 20 MG TAB PO SCH (20:58)
[2018-04-24] MEDS: Sodium Chloride 1 GM TAB PO SCH (20:59)
[2018-04-24] MEDS: Sodium Chloride 0.9% 1,000 ML IV SCH (21:02)
[2018-04-24 22:06] LABS: Troponin I 0.029 ng/mL (< 0.028)
[2018-04-24 23:50] VITALS: BMI 40.8
--- NOTE | 2018-04-25 02:11 | HP ---
PRIMARY CARE PROVIDER: Dr. Antonio Ca. PRIMARY UNDERCAR SPECIALIST: Dr. Gipson. CHIEF COMPLAINT: Low blood pressure. HISTORY OF PRESENT ILLNESS: This is a 63-year-old male, who presents to [facility] complaining of increased weakness and hypotension, which has become chronic and recurrent. The patient states he is normally hypotensive with blood pressures in the 60s to 80s range at baseline. The patient has noticed decreasing trend in blood pressure and has recently been admitted to [facility] for approximately 8 days in 04/2018, undergoing a multitude of cardiac testing as well as neuroimaging to assess for potential etiology. The patient was ruled out for any specific cardiac etiology after undergoing 2D transthoracic echocardiogram and evaluation by the Cardiology Service. The patient was ultimately placed on midodrine 5 mg t.i.d., which he states he takes consistently. The patient becomes symptomatic when standing upright or sitting up, seeing spots before his eyes or losing vision temporarily in the right eye. The patient's blood pressure remained low during his recent admission and apparently developed ischemic changes with CVA due to watershed ischemia. The patient states he continues to perform peritoneal dialysis nocturnally with recent 3.5 L removed. The patient states he is followed by Dr. Gipson for his Nephrology Services. The patient denies any noted or documented fever, but states he felt like he had one 48 hours prior to this evaluation. The patient denied any recent fall, injury, or unilateral weakness. In the emergency room, the patient underwent general evaluation showing hypotension with blood pressures in the 50 to 90 range systolically. The patient received intravenous normal saline, Zosyn, Levaquin, and vancomycin after questionable concern for possible developing pneumonia. PAST MEDICAL HISTORY: 1. Orthostatic hypotension. 2. Generalized weakness. 3. End-stage renal disease with peritoneal dialysis nocturnally. 4. Hypothyroidism. 5. History of peritonitis. 6. Diastolic dysfunction with preserved ejection fraction of 60% to 65%. 7. Acute CVA secondary to hypotension. 8. Macrocytic anemia, chronic. PAST SURGICAL HISTORY: Status post peritoneal dialysis catheter change q.6 months. CURRENT MEDICATIONS: 1. Aspirin 81 mg p.o. daily. 2. Calcitriol 0.25 mcg p.o. daily. 3. Vitamin D3 2000 units q.weekly. 4. Fosrenol 1000 mg p.o. t.i.d. with meals. 5. Levothyroxine 300 mcg p.o. daily. 6. Midodrine 5 mg p.o. t.i.d. 7. Renvela three tablets t.i.d. with meals. 8. B12 1000 mcg p.o. daily. 9. Sensipar 30 mg p.o. daily. 10. Auryxia three tablets t.i.d. with meals. ALLERGIES: TO CODEINE, FLUCONAZOLE, HYDROCODONE, MORPHINE, AND TRAMADOL. FAMILY HISTORY: No inheritable diseases per the patient's report. SOCIAL HISTORY: The patient is . No alcohol, tobacco, or illicit drug use. 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 REVIEW OF SYSTEMS: CONSTITUTIONAL: Negative for weight loss or gain, ability to conduct usual activities. SKIN: Negative for rash, itching. EYES: Negative for double vision, pain. ENT/MOUTH: Negative for nose bleeding, neck stiffness, pain, tenderness. CARDIOVASCULAR: Negative for palpitations, dyspnea on exertion, orthopnea. RESPIRATORY: Negative for shortness of breath, wheezing, cough, hemoptysis, fever or night sweats. GASTROINTESTINAL: Negative for poor appetite, abdominal pain, heartburn, nausea, vomiting, constipation, or diarrhea. GENITOURINARY: Negative for urgency, frequency, dysuria, nocturia. MUSCULOSKELETAL: Negative for pain, swelling. NEUROLOGIC/PSYCHIATRIC: Negative for anxiety, depression. ALLERGY/IMMUNOLOGIC: Negative for skin rash, bleeding tendency. Otherwise negative except as stated per HPI. PHYSICAL EXAMINATION: VITAL SIGNS: On admission; blood pressure 79/42, pulse 84, respiratory rate 20, temperature 97.5 degrees Fahrenheit, O2 saturation 97% on 2 L/minute by nasal cannula. GENERAL APPEARANCE: This is a 63-year-old male, alert and oriented x3, pleasant, conversant, in no acute distress. HEENT: Pupils are equal, round, and reactive to light and accommodation. Extraocular muscles are intact. No scleral icterus. No conjunctival injection. Nares patent. OP is clear. Teeth in fair repair. NECK: Supple. No cervical adenopathy. No thyromegaly. No carotid bruits. No JVD appreciated. Cervical spine with full active and passive range of motion. No meningeal signs noted. CHEST: Lungs are clear to auscultation bilaterally. CARDIOVASCULAR EXAM: S1 and S2 without noted murmur, rub, or gallop. ABDOMEN: Obese with peritoneal dialysis catheter in place. No rebound or guarding appreciated. No palpable mass. Landmarks are difficult to palpate due to the patient's body habitus. EXTREMITIES: Warm and dry with fair turgor. No clubbing, cyanosis, or asymmetric edema appreciated. Pulses are palpable distally at the dorsalis pedis, posterior tibial, and popliteal arteries bilaterally. Capillary refill less than 2 seconds. NEUROLOGIC: Cranial nerves 2 through 12 are grossly intact. No focal or lateralizing signs appreciated. PERTINENT LAB AND X-RAY FINDINGS: Sodium 143, potassium 3.6, chloride 102, CO2 of 19, BUN 50, creatinine 13.91, estimated GFR 4, lactic acid level 1.5, calcium 8.3. LFTs within normal limits. Troponin I negative x2. BNP 33.1. CBC showed a white blood cell count of 7.8, hemoglobin 13, hematocrit 41, MCV 108, platelet count [address] of the chest dated on 04/24/2018 showed acute interstitial changes in the right lung with central predominance. Single mildly prominent right paraesophageal lymph node. Portable chest x-ray dated on 04/24/2018 showed mild increased interstitial densities in the right, nonspecific. Improvement in pulmonary vascular congestion. EKG dated on 04/24/2018 by my interpretation shows sinus mechanism with heart rates in the 80s. Attenuated R-waves noted in the precordial leads. Low voltage tracing. Right axis deviation. Incomplete right bundle branch block pattern. ASSESSMENT AND PLAN: 1. Hypotension. Appears chronic in nature; however, recurrent. We will consult Nephrology Service for further recommendations. It appears the patient may be dialyzing excessive volume. Trial of sodium chloride 1 g p.o. t.i.d. Avoid all antihypertensive medications. Continue intravenous normal saline at 50 mL/hour. 2. End-stage renal disease with peritoneal dialysis. We will resume peritoneal dialysis after consultation with Nephrology Service. The patient may need less volume removed per session. 3. Hypothyroidism. Continue levothyroxine 300 mcg p.o. daily. Last TSH 1.22 on 01/05/2015. Check TSH and free T4 level in the a.m. 4. Macrocytic anemia, chronic and stable. Continue trending CBC. 5. Prophylaxis. SCDs while in bed. Pepcid 20 mg p.o. b.i.d.. CODE STATUS: Full. Surrogate medical decision maker is the patient's spouse. Job ID: [id number]
--- NOTE | 2018-04-25 03:59 | CON ---
DATE OF CONSULTATION: HISTORY OF PRESENT ILLNESS: Mr. Boyer is a 63-year-old male with ESRD, was admitted for generalized malaise. This was associated with cough and low- grade fever. He was also noted to be on the hypotensive side. We are now being consulted for his maintenance peritoneal dialysis. REVIEW OF SYSTEMS: Positive for generalized malaise. Positive for cough, ? of fever. No nausea. No vomiting. Decreased appetite. Decreased energy level. No hematochezia. No melena. No hematemesis. No abdominal pain. No headache. No syncopal episode. No dysuria. Occasional joint pains. PAST MEDICAL HISTORY: Includes, 1. ESRD-on maintenance peritoneal dialysis. 2. Hypothyroidism. 3. Chronic hypotension. 4. Morbid obesity. 5. Chronic venous stasis. 6. Status post CHF. 7. Status post peritonitis. 8. Chronic lymphedema. 9. History of fatty liver. PAST SURGICAL HISTORY: 1. Status post cuffed hemodialysis catheter placement. 2. Status post PD catheter placement. 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 . No children. No smoking. No alcohol intake. Sedentary lifestyle. No IV drug use. Education; some college courses. Status post blood transfusion. FAMILY HISTORY: No family history of ESRD. ALLERGIES: ? DIFLUCAN. TRAUMA: None. IMMUNIZATION: Up-to-date. HOSPITALIZATION: Please see past medical history. PHYSICAL EXAMINATION: VITAL SIGNS: Blood pressure is noted at 75/42, heart rate 82, respiratory rate 19, and O2 saturation 97% on 2 L. GENERAL: Awake, alert, lethargic, and morbidly obese. SKIN: Adequate turgor. HEENT: Slightly pale conjunctivae. Anicteric sclerae. No neck mass. No carotid bruits. No JVD. CHEST: No deformities. LUNGS: Decreased breath sounds. HEART: Normal sinus rhythm. No murmurs, gallops, or rubs. ABDOMEN: Globular, soft, and nontender. No masses. Positive for PD catheter. EXTREMITIES: Positive for edema. NEUROLOGICAL: Awake and oriented to 3 spheres. Moving all extremities. No tremors. No asterixis. MEDICATIONS: Medications of April 24, 2018: 1. Synthroid 200 mcg daily. 2. Aspirin 81 mg tab daily. 3. Calcitriol 0.25 mcg daily. 4. Budesonide inhaler as directed. 5. DuoNeb as directed. 6. Levaquin 250 mg every other day. 7. Prednisone 20 mg once a day. 8. Renvela 800 mg one tab 3 times a day. 9. Vitamin D3 of 2000 international units daily. 10. Fosrenol 250 mg t.i.d. 11. Pepcid 20 mg tab once a day. 12. Auryxia 210 mg t.i.d. LABORATORY DATA: Laboratories of April 24, 2018: White count 7.8, hemoglobin 13.3. Sodium 143, potassium 3.6, chloride 102, carbon dioxide 19, BUN 50, creatinine 13.91, glucose 100, calcium 8.3, AST 34, ALT 37, Troponin I 0.029. April 24, 2018, CT scan of the chest-suggesting hypersensitivity pneumonitis versus acute interstitial pneumonia. There is incidental finding of asymmetric nodular thickening behind the left nipple. April 24, 2018, chest x-ray shows increased interstitial densities, which is overall nonspecific. ASSESSMENT AND PLAN: 1. ? atypical pneumonia. The patient to be admitted for continuation of IV antibiotics. Continue supportive care. 2. End-stage renal disease-we will continue current CCPD regimen. We will do him from 10 to 11 hours of peritoneal dialysis using 2.8 L of fill volume. Ultrafiltration will be done only as tolerated. Due to the low blood pressure, we will only currently be using a 1.5% PD solution to minimize ultrafiltration. Thank you for the consult. We will continue to follow. Job ID: [id number] MTDD
[2018-04-25 05:13] LABS: ALT (SGPT) 32 U/L (8-55); AST (SGOT) 28 U/L (5-34); Albumin 2.8 g/dL (3.4-4.8); Alkaline Phosphatase 79 U/L (40-150); Anion Gap 19 mmol/L (10-20); BUN (Urea Nitrogen) 49 mg/dL (8.4-25.7); Bilirubin, Total 0.5 mg/dL (0.2-1.2); Calc. Creatinine Clearance 10 mL/min (70-130); Calcium 7.8 mg/dL (7.8-10.44); Carbon Dioxide 21 mmol/L (23-31); Chloride 105 mmol/L (98-107); Estimated GFR-MDRD 4; Globulin 2.8 g/dL (2.4-3.5); Glucose 87 mg/dL (80-115); Protein, Total 5.6 g/dL (5.8-8.1); Sodium 142 mmol/L (136-145)
[2018-04-25 05:20] LABS: Band 11 % (5-11); Eosinophils 5 % (0-10); Hemoglobin 11.1 g/dL (14.0-18.0); Lymphocytes 31 % (21-51); MDiff Complete? YES; Mean Corpuscular HGB CONC 33.4 g/dL (32.0-36.0); Mean Platelet Volume 7.6 fL (7.4-10.4); Monocytes 12 % (0-10); Neutrophil 39 % (42-75); PLT Morphology Comment Appears Decreased; Platelet Count 106 thou/uL (130-400); RBC Distribution Width 16.1 % (11.5-14.5); Reactive Lymphocytes 2 % (0-10); Red Blood Cell (RBC) Count 3.07 mill/uL (4.70-6.10); White Blood Cell (WBC) Count 4.7 thou/uL (4.8-10.8)
[2018-04-25 05:21] LABS: Potassium 2.7 mmol/L (3.5-5.1)
[2018-04-25] MEDS ORDERED: Potassium Chloride 20 MEQ TAB PO SCH (05:30)
[2018-04-25 05:55] LABS: Free T4 (Free Thyroxine) 1.53 ng/dL (0.70-1.48)
--- NOTE | 2018-04-25 08:45 | PRG ---
DATE OF SERVICE: 04/25/2018 SUBJECTIVE: Mr. Boyer is a 63-year-old male with ESRD and admitted for low blood pressure. He has been having chronic hypotension. He is currently receiving IV hydration. He also was diagnosed recently with pneumonia. CT scan of the chest still shows increased interstitial marking with ? of atypical pneumonia. He is currently on p.o. Levaquin prior to admission. We are following up the patient for his maintenance peritoneal dialysis. I used 1.5% PD solution due to his low blood pressure - this will minimize ultrafiltration with his peritoneal dialysis. This morning, he is feeling a little better; however, he does feel still weak. Denies any chest pain or shortness of breath. OBJECTIVE: VITAL SIGNS: Blood pressure is 95/57, heart rate 81, respiratory rate 18, temperature 98.2, and pulse ox 99%. GENERAL: Awake, supine, comfortable, morbidly obese. SKIN: Adequate turgor. HEENT: He has a pinkish conjunctivae. Anicteric sclerae. NECK: No neck mass. No carotid bruits. No JVD. CHEST: No deformities. LUNGS: Decreased breath sounds. HEART: Normal sinus rhythm. No murmurs. No gallops. No rubs. ABDOMEN: Globular, soft, and nontender. No masses. EXTREMITIES: No edema. No deformities. He does have a PD catheter in the belly. MEDICATIONS: Medications of April 25, 2018, were reviewed. LABORATORY DATA: Laboratories of April 25, 2018; sodium 142, potassium 2.7, chloride 105, carbon dioxide 21, BUN 49, creatinine 11.95, calcium 7.8, and albumin 2.8. TSH 0.0884, free T4 of 1.53. ASSESSMENT AND PLAN: 1. Hypotension - IV fluids are being given. In addition, the patient has been started on a salt tablet 1 g t.i.d. He does have decreased p.o. intake recently. 2. Mild hypokalemia. The patient has been given K-Dur 40 mEq now. We will at least maintain him on 40 mEq once a day. 3. End-stage renal disease, stable. We will continue current CCPD regimen, tolerating current peritoneal dialysis. I will probably continue the 1.5% PD solution regimen with this patient. Job ID: [id number]
[2018-04-25] MEDS: Sodium Chloride 1 GM TAB PO SCH ×3 (09:21→21:01)
[2018-04-25] MEDS: Potassium Chloride 20 MEQ TAB PO SCH (09:22)
--- NOTE | 2018-04-25 09:50 | CON ---
DATE OF CONSULTATION: HISTORY OF PRESENT ILLNESS: Merrick Boyer is a 63-year-old gentleman, morbidly obese, who presented with hypotension, malaise, apparently low-grade fever though when asked him this morning. He denies any symptoms of cough, fever, or chills. X-ray showed right-sided haziness. CAT scan showed no obvious infiltrates or masses. His saturations are 100% this morning on 2 L. PAST MEDICAL HISTORY: Pertinent for end-stage renal disease, on peritoneal dialysis. He has an access placed otherwise, hypothyroidism, hypotension, obesity, asthma. ALLERGIES: CODEINE, FLUCONAZOLE, HYDROCODONE, MORPHINE, TRAMADOL. HOME MEDICINES: 1. Synthroid 300. 2. ProAmatine 5 mg three times a day. 3. Potassium. 4. Renvela three tablets. 5. Pepcid 20. 6. Plavix 75. 7. Pulmicort nebulizer 0.5 twice a day. 8. DuoNeb as needed. REVIEW OF SYSTEMS: Otherwise unremarkable. PHYSICAL EXAMINATION: GENERAL: Awake, alert, responsive. VITAL SIGNS: Saturations 100% as noted on 2 L, pulse 80, and blood pressure 110/80. CHEST: Decreased breath sounds. No wheezing. CARDIAC: Normal S1 and S2. No gallops. ABDOMEN: No masses. LABORATORY DATA: White count 4000, H and H 11 and 33, platelet count is 106, low. His BUN and creatinine elevated at 49 and 11.9. Thyroid function is normal. BNP is normal. IMPRESSION: 1. Hypotension, improved. 2. Abnormal CT. X-ray suggestive of probably small pleural effusion. I doubt he has significant pneumonia to speak off. 3. Cough seems to have stabilized. 4. Morbid obesity. 5. Severe deconditioning. Pulmonary oliveira at this stage, I am not going to add any medication to his present regime. Continue dialysis as per Renal. We will follow. TIME SPENT: Consultation note, 70 minutes, 50% with direct patient care. Job ID: [id number]
--- NOTE | 2018-04-25 14:17 | PDOC.PN ---
- Subjective Encounter Start Date: 04/25/18 Encounter Start Time: 14:10 Subjective: f/u for orthostatic hypotension currently tx with IVF's, NaCl tabs and -: Midodrine. Feels a little better. Peritoneal dialysis continuing per -: Nephrology. - Objective Resuscitation Status - Order Detail: 04/24/18 19:32 Resuscitation Status Routine Resuscitation Status: FULL: Full Resuscitation MAR Reviewed: Yes Vital Signs & Weight: Vital Signs (12 hours) Temp Pulse Resp BP Pulse Ox 04/25/18 12:00 97.4 F L 86 18 83/61 L 98 04/25/18 08:57 98 04/25/18 08:00 96.4 F L 78 18 92/48 L 98 04/25/18 03:48 98.3 F 81 18 97/57 L 99 Weight Admit Weight 238 lb 5.115 oz Weight 238 lb 5.115 oz Result Diagrams: 04/25/18 04:31 04/25/18 04:31 Additional Labs: Microbiology 04/24/18 18:05 Nasopharyngeal swab Bordetella species DNA (PCR) - Final Laboratory Tests 04/24/18 04/24/18 04/24/18 15:00 15:00 17:34 Potassium 3.6 Lactic Acid 1.5 B-Natriuretic Peptide 33.1 Free T4 TSH 3rd Generation 04/25/18 04:31 Potassium Lactic Acid B-Natriuretic Peptide Free T4 1.53 H TSH 3rd Generation 0.0884 L EKG Reviewed by me: Yes (Tele - SR) Phys Exam - Physical Examination Constitutional: NAD HEENT: PERRLA, sclera anicteric, oral pharynx no lesions Neck: no nodes, no JVD, supple, full ROM occasional wheeze S1, S2 Cardiovascular: RRR, no significant murmur, no rub, gallop PD catheter in place Gastrointestinal: soft, non-tender, no distention, positive bowel sounds Musculoskeletal: no edema, pulses present Neurological: normal sensation, moves all 4 limbs Psychiatric: A&O x 3 Skin: normal turgor, cap refill <2 seconds Dx/Plan (1) Hypotension Status: Chronic Qualifiers: Hypotension type: hypotension due to hypovolemia Qualified Code(s): I95.89 - Other hypotension; E86.1 - Hypovolemia Comment: Likely iatrogenic, continue NaCl TID, Midodrine 5mg TID, IVF's (2) CAP (community acquired pneumonia) Code(s): J18.9 - PNEUMONIA, UNSPECIFIED ORGANISM Status: Acute Qualifiers: Laterality: unspecified laterality Qualified Code(s): J18.9 - Pneumonia, unspecified organism Comment: Levaquin 500mg q48h, general pulm support, add Mucinex BID (3) Weakness generalized Code(s): R53.1 - WEAKNESS Status: Acute Comment: Multifactorial, OOB as tolerated (4) ESRD on peritoneal dialysis Code(s): N18.6 - END STAGE RENAL DISEASE; Z99.2 - DEPENDENCE ON RENAL DIALYSIS Status: Chronic Comment: Continue PD per Nephrology recommendations (5) Hypothyroidism Code(s): E03.9 - HYPOTHYROIDISM, UNSPECIFIED Status: Chronic Qualifiers: Hypothyroidism type: unspecified Qualified Code(s): E03.9 - Hypothyroidism , unspecified Comment: Continue Levothyroxine 300mcg daily - Plan continue antibiotics, social work assistant, respiratory therapy, out of bed/ambulate , DVT proph w/SCDs Stable currently -: Continue Levaquin 500gm po q48h -: Add Mucinex BID -: Continue NaCl TID, Midodrine 5mg TID -: Continue IVF's another 24h then d/c * AM lab: BMP, CBC * Likely home in 24h
[2018-04-25] MEDS ORDERED: guaiFENesin/DM ER PO SCH (15:00)
[2018-04-25] MEDS: Lanthanum Carbonate 500 mg Tablet PO SCH (16:00)
[2018-04-25] MEDS: Sodium Chloride 0.9% 1,000 ML IV SCH (16:00)
[2018-04-25] MEDS: Midodrine HCl 5 MG TAB PO SCH ×2 (16:00→21:01)
[2018-04-25] MEDS ORDERED: FERRIC CITRATE PO SCH (17:00)
[2018-04-25] MEDS: Sevelamer Carbonate 800 MG TAB PO SCH (17:38)
[2018-04-25] MEDS: Budesonide 0.5 MG/2 ML NEB NEB SCH (18:28)
[2018-04-25] MEDS ORDERED: Atorvastatin Calcium 40 MG TAB PO SCH (21:00)
[2018-04-25] MEDS: Famotidine 20 MG TAB PO SCH (21:01)
[2018-04-25] MEDS: guaiFENesin/DM ER PO SCH (21:02)
[2018-04-26] MEDS: Loperamide HCl 2 MG CAP PO PRN ×2 (00:03→05:41)
[2018-04-26 04:57] LABS: #Eosinphils 0.4 thou/uL (0.0-0.7); #Lymphocytes 1.2 thou/uL (1.20-3.40); #Monocytes 0.5 thou/uL (0.11-0.59); #Neutrophils 2.2 thou/uL (1.40-6.50); %Basophils 0.8 % (0.0-1.0); %Eosinophils 9.1 % (0.0-10.0); %Lymphocytes 28.1 % (21.0-51.0); Mean Corpuscular HGB CONC 33.6 g/dL (32.0-36.0); Mean Corpuscular Hemoglobin 36.2 pg (27.0-31.0); Mean Platelet Volume 7.4 fL (7.4-10.4); Platelet Count 110 thou/uL (130-400); Red Blood Cell (RBC) Count 3.05 mill/uL (4.70-6.10); White Blood Cell (WBC) Count 4.4 thou/uL (4.8-10.8)
[2018-04-26 05:15] LABS: Anion Gap 17 mmol/L (10-20); BUN (Urea Nitrogen) 40 mg/dL (8.4-25.7); Calc. Creatinine Clearance 10 mL/min (70-130); Calcium 7.8 mg/dL (7.8-10.44); Carbon Dioxide 21 mmol/L (23-31); Chloride 107 mmol/L (98-107); Estimated GFR-MDRD 4; Glucose 94 mg/dL (80-115); Sodium 142 mmol/L (136-145)
[2018-04-26] MEDS ORDERED: Levothyroxine 150 MCG TAB PO SCH (06:00)
[2018-04-26] MEDS: Budesonide 0.5 MG/2 ML NEB NEB SCH (06:31)
[2018-04-26] MEDS ORDERED: Cyanocobalamin (Vitamin B-12) 1,000 MCG TAB PO SCH (09:00)
[2018-04-26] MEDS ORDERED: Potassium Chloride 20 MEQ TAB PO SCH (09:00)
[2018-04-26] MEDS ORDERED: Folic Acid 1 MG TAB PO SCH (09:00)
[2018-04-26] MEDS ORDERED: Clopidogrel Bisulfate 75 MG TAB PO SCH (09:00)
[2018-04-26] MEDS ORDERED: Saccharomyces boulardii 250 MG CAP PO SCH (09:00)
[2018-04-26] MEDS ORDERED: Calcitriol 0.25 MCG CAP PO SCH (09:00)
[2018-04-26] MEDS: Lanthanum Carbonate 500 mg Tablet PO SCH ×3 (10:44→14:58)
[2018-04-26] MEDS: Potassium Chloride 20 MEQ TAB PO SCH (10:46)
--- NOTE | 2018-04-26 10:46 | PRG ---
DATE OF SERVICE: 04/26/2018 OBJECTIVE: Mr. Boyer is a 63-year-old male with ESRD - on maintenance peritoneal dialysis. He was admitted for symptomatic hypotension. He was volume repleted with normal saline. In addition, was started on sodium tablets. He was also continued on his midodrine. Over the last 24 hours, blood pressure has improved, and he is less symptomatic from the hypotension. We are currently using 1.5% PD solution to minimize fluid removal. No other complaints today. OBJECTIVE: VITAL SIGNS: Blood pressure is 91/54, heart rate 80, respiratory rate 16, temperature 97.7. GENERAL: Awake, alert, sitting comfortable, morbidly obese. SKIN: Adequate turgor. HEENT: He has a pinkish conjunctivae. Anicteric sclerae. NECK: No neck mass. No carotid bruits. No JVD. CHEST: No deformities. LUNGS: Clear breath sounds. No wheezing. No crackles heard. HEART: Normal sinus rhythm. No murmur, no gallops, or rubs. ABDOMEN: Globular, soft, nontender. No masses. EXTREMITIES: Positive for trace edema. No deformities. Please note, he has a PD catheter. MEDICATIONS: Medications of April 26, 2018, was reviewed. LABORATORY DATA: Laboratories of April 26, 2018, white count 4.4, hemoglobin 11. Sodium 142, potassium 3, chloride 107, carbon dioxide 21, BUN 40, creatinine 11.9, calcium 7.8. ASSESSMENT AND PLAN: 1. Mild hypokalemia, currently on potassium supplementation. Encouraged the patient to increase potassium intake from the diet. 2. Hypotension, clinically improved. Continue sodium tablets and midodrine. Continue 1.5% PD solution. 3. End-stage renal disease - we will continue current CCPD regimen of using 1.5% PD solution. Fluid removal only as tolerated. Job ID: [id number]
[2018-04-26] MEDS: Sevelamer Carbonate 800 MG TAB PO SCH ×2 (10:47→11:07)
[2018-04-26] MEDS: Sodium Chloride 1 GM TAB PO SCH ×2 (10:49→15:06)
[2018-04-26] MEDS: Midodrine HCl 5 MG TAB PO SCH ×2 (10:55→15:05)
[2018-04-26] MEDS: guaiFENesin/DM ER PO SCH (10:55)
[2018-04-26] MEDS: Sodium Chloride 0.9% 1,000 ML IV SCH (10:56)
[2018-04-26 11:42] VITALS: BP 118/72; TEMP 97.9
--- NOTE | 2018-04-26 12:29 | PRG ---
DATE OF SERVICE: 04/26/2018 SUBJECTIVE: This morning, he is awake, alert, and responsive. OBJECTIVE: VITAL SIGNS: His blood pressure is improved 91/54, pulse is 80, temperature 97, respirations 16, and sats are 90% on room air. Denies any difficulty breathing. CHEST: Decreased breath sounds. No wheezing. CARDIAC: Normal S1 and S2. No gallop. LABORATORY DATA: White count 4000, platelet count 111, creatinine is 11. IMPRESSION: 1. [id number] respiratory failure. 2. Diastolic dysfunction. 3. Renal failure. 4. Hypotension, resolved. PLAN: Pulmonary oliveira, he can be discharged home. Follow up with his primary care physician. Job ID: [id number]
--- NOTE | 2018-04-27 03:51 | DIS ---
DATE OF ADMISSION: 04/24/2018 DATE OF DISCHARGE: 04/26/2018 CONDITION AT THE TIME OF DISCHARGE: Stable and improved. DISCHARGE DISPOSITION: Home. PRIMARY CARE PHYSICIAN: Antonio Ca MD DISCHARGE DIAGNOSES: 1. Hypotension due to chronic kidney disease. 2. Mild hypokalemia. 3. End-stage renal disease, on peritoneal dialysis. 4. History of orthostatic hypotension. 5. Hypothyroidism. 6. History of peritonitis. 7. History of chronic diastolic congestive heart failure. 8. History of cerebrovascular accident secondary to . 9. Chronic macrocytic anemia. 10. Community-acquired pneumonia. DISCHARGE MEDICATIONS: Resume home medication as per the H and P. New medications; 1. Sodium chloride 1 g p.o. t.i.d. tablets. 2. Levofloxacin 500 mg p.o. daily for 5 more days. The patient will take this every other day dialysis. 3. Florastor 250 mg p.o. daily for 10 days. IN-HOUSE CONSULTATION: 1. Nephrology, Dr. Gipson. 2. Pulmonary Critical Care Medicine. PROCEDURES DONE IN THE HOSPITAL: Chest x-ray upon presentation and chest CT upon presentation in the emergency room, which shows findings suggestive of hypersensitivity pneumonitis versus acute interstitial pneumonia. HISTORY OF PRESENTING ILLNESS: Mr. Boyer is a 63-year-old male with known historyof end-stage renal disease, on peritoneal dialysis, as well as history of hypothyroidism and hypotensive episodes in the past; presented to the emergency room with once again complains of low blood pressure in the ranges of 60s to 80s systolic. He recently had a thorough workup including cardiac and neurological examination in the hospital about 8 days ago prior to this presentation and was discharged in a stable condition to home. Echo at that admission was unremarkable. He was placed on midodrine and was discharged home. He came back to the ER because he was still having significant symptoms of dizziness and low blood pressure at home. Dr. Gipson was consulted for maintenance hemodialysis. He was initially admitted to [facility] for low blood pressure. His blood pressure at the time of admission was 79/42. He was restarted on midodrine, and sodium chloride tablets were added, and he was started on gentle IV fluid hydration. There was some question of community-acquired pneumonia, so he was started on empiric oral antibiotics namely levofloxacin. Please see admission history and physical for further details. HOSPITAL COURSE: The patient's blood pressure gradually improved. IV fluids were eventually stopped and his blood pressure sustained. His infectious workup was negative from 04/13/2018 and 04/14/2018. Here, he underwent a Bordetella PCR once again, which was negative. He did very well and it was decided that he will be discharged with the addition of sodium tablets and liberal fluid intake. His baseline home blood pressure which is around the systolic 80s is a level where he is asymptomatic. At the time of discharge, his blood pressure is 118/72, temperature 97.9, and heart rate 87. He is in no acute distress. is at bedside. Chest, clear to auscultation bilaterally. Rate and rhythm, regular. He has been cleared by both Pulmonary Medicine and Nephrology for discharge. Medication prescriptions were provided to him and he is instructed to follow up with primary care physician in 7 to 10 days in the outpatient setting. Total time spent at the discharge of this patient 32 minutes. Job ID: [id number]
== END 2018-04-26 15:43 | disposition home or self-care (01) | DRG 314 ==
LOC: ERS 14:25 → IMCU/EMU 17:15
PROVIDERS: ADMIT Family Medicine; ATTEND Family Medicine
PROC: 3E1M39Z Irrigation of Peritoneal Cavity using Dialysate, Percutaneous Approach (ICD-10-PCS; 2018-04-24)
PROC: 3E1M39Z Irrigation of Peritoneal Cavity using Dialysate, Percutaneous Approach (ICD-10-PCS; principal; 2018-04-25)
DX: I95.89 Other hypotension (principal); N18.6 End stage renal disease; J18.9 Pneumonia, unspecified organism; J96.20 Acute and chronic respiratory failure, unspecified whether with hypoxia or hypercapnia; Z68.41 Body mass index [BMI] 40.0-44.9, adult; I50.32 Chronic diastolic (congestive) heart failure; Z99.2 Dependence on renal dialysis; E03.9 Hypothyroidism, unspecified; D53.9 Nutritional anemia, unspecified; E86.1 Hypovolemia; E66.01 Morbid (severe) obesity due to excess calories; E87.6 Hypokalemia; Z79.82 Long term (current) use of aspirin; Z86.73 Personal history of transient ischemic attack (TIA), and cerebral infarction without residual deficits
CPT/HCPCS: 36415; 71045; 71250; 80048; 80053; 83605; 83880; 84439; 84443; 84484; 85007; 85025; 85027; 87798; 93005; 94640; J1956; J2543; J3370; J7050; J7620; J7626

== ENCOUNTER 2018-10-02 12:15 | Inpatient (IN) | payer MEDICARE, BC ==
[2018-10-02 13:05] LABS: #Eosinphils 0.6 thou/uL (0.0-0.7); #Monocytes 0.9 thou/uL (0.11-0.59); #Neutrophils 9.7 thou/uL (1.40-6.50); %Basophils 0.2 % (0.0-1.0); %Eosinophils 4.5 % (0.0-10.0); %Lymphocytes 15.1 % (21.0-51.0); %Monocytes 7.1 % (0.0-10.0); %Neutrophils 73.1 % (42.0-75.0); Hemoglobin 11.6 g/dL (14.0-18.0); Mean Corpuscular HGB CONC 32.5 g/dL (32.0-36.0); Mean Corpuscular Hemoglobin 35.6 pg (27.0-31.0); Mean Platelet Volume 6.8 fL (7.4-10.4); Platelet Count 287 thou/uL (130-400); RBC Distribution Width 15.3 % (11.5-14.5); Red Blood Cell (RBC) Count 3.26 mill/uL (4.70-6.10); White Blood Cell (WBC) Count 13.3 thou/uL (4.8-10.8)
[2018-10-02 13:24] LABS: ALT (SGPT) 14 U/L (8-55); AST (SGOT) 28 U/L (5-34); Alkaline Phosphatase 82 U/L (40-150); Anion Gap 24 mmol/L (10-20); BUN (Urea Nitrogen) 43 mg/dL (8.4-25.7); Bilirubin, Total 0.5 mg/dL (0.2-1.2); Calc. Creatinine Clearance 0 mL/min (70-130); Carbon Dioxide 19 mmol/L (23-31); Chloride 99 mmol/L (98-107); Estimated GFR-MDRD 7; Globulin 4.1 g/dL (2.4-3.5); Glucose 87 mg/dL (80-115); Protein, Total 7.1 g/dL (5.8-8.1); Sodium 139 mmol/L (136-145)
[2018-10-02] MEDS ORDERED: Piperacillin/Tazobactam 4.5 GM VIAL ONE (13:27)
[2018-10-02 13:28] LABS: Potassium 2.7 mmol/L (3.5-5.1)
--- NOTE | 2018-10-02 13:30 | CT ---
CT Abdomen Pelvis WO Con: 10/02/2018 12:48 PM HISTORY: Wound infection in the groin; diarrhea COMPARISON: 04/13/2018 Procedure: Multiple contiguous axial images were obtained and a CT of the abdomen and pelvis without IV contrast . Coronal reformats were performed. FINDINGS: This examination is limited for the evaluation of solid organs and vascular structures due to the lac k of intravenous contrast. Lower Chest: Calcified granuloma in left lung base Abdomen: Liver: within normal limits. Bile Ducts: Normal caliber. Gallbladder: No calcified gallstones. Normal caliber wall. Pancreas: within normal limits. Spleen: within normal limits. Adrenals: within normal limits. Kidneys: Small and atrophic Pelvis: Reproductive Organs: No pelvic masses. Ureters: within normal limits. Bladder: within normal limits. Bowel: Normal caliber. Mesenteric Lymph Nodes: No enlarged mesenteric lymph nodes. Peritoneum: A peritoneal dialysis catheter is seen in the pelvis. A moderate amount of free fluid is seen in the abdomen/pelvis. There is been interval development of hyperdensity along the anterior aspect of the left peritoneum. This hyperdensity appears to be outside of the bowel. Vessels: Atherosclerotic calcifications in the aorta Retroperitoneum: within normal limits. Abdominal Wall: Soft tissue swelling is seen in the bilateral gluteal regions. Bones: Degenerative changes in the spine IMPRESSION: Interval development of hyperdensity in the peritoneal cavity. This is nonspecific and could represen t developing calcifications in the peritoneum. Alternatively, this could represent extravasation of the previously seen enteric contrast into the peritoneal cavity.
[2018-10-02 13:31] LABS: Anisocytosis SLIGHT = 6-15 cells (100X) (0-5/hpf); MDiff Complete? YES; Macrocytosis SLIGHT = 6-15 cells (100X) (0-5/hpf); Platelet Morphology Comment Appears Adequate; Polychromasia SLIGHT = 2-3 cells (100X) (0-2/hpf)
--- NOTE | 2018-10-02 13:51 | RAD ---
XR Tib Fib Lt Leg 2 View: 10/02/2018 12:49 PM CLINICAL INDICATION: Soft tissue infection COMPARISON: None. FINDINGS: Fracture:No fracture. Arthropathy:Moderate degenerative changes are present within the knee and imaged ankle/foot Incidental findings:Extensive soft tissue calcification IMPRESSION: 1. No acute osseous abnormality. 2. Extensive soft tissue calcification. Correlate clinically.
--- NOTE | 2018-10-02 16:46 | RAD ---
ONE VIEW CHEST: 10/02/18 HISTORY: Status post left IJ placement. COMPARISON: 04/24/18. FINDINGS: Atherosclerosis of the aorta. Normal cardiac silhouette. Pulmonary vessels are prominent. Patchy inte rstitial opacities, without consolidation or mass. No pleural effusion. Interval placement of a left sided vascular catheter with the distal tip in the expected region of th e superior vena cava. No pneumothorax. IMPRESSION: 1. Left sided vascular catheter. No pneumothorax. 2. Correlate for possible congestive heart failure. POS: OFF
[2018-10-02] MEDS ORDERED: Lidocaine 1% w/Epinephrine 1:100K 20 ML VIAL ONE (16:51)
[2018-10-02 17:02] LABS: Lactic Acid 1.7 mmol/L (0.5-2.2)
[2018-10-02] MEDS ORDERED: Potassium Chloride 20 MEQ/100 ML PREMIX BAG ONE (17:18)
[2018-10-02] MEDS ORDERED: Acetaminophen 1,000 MG in Premix Bag 1 BAG IVPB SCH (18:30)
[2018-10-02] MEDS ORDERED: Bisacodyl 10 MG SUPP PR PRN (19:30)
[2018-10-02] MEDS ORDERED: Vancomycin HCl 1 GM in Premix Bag 1 BAG IVPB SCH (19:30)
[2018-10-02] MEDS ORDERED: Senokot S 8.6-50 MG TAB PO PRN (19:30)
[2018-10-02] MEDS ORDERED: Guaifenesin DM 100-10/5 ML UDCUP PO PRN (19:30)
[2018-10-02] MEDS ORDERED: Cefepime 1 GM in Sodium Chloride 0.9% 100 ML IVPB SCH (20:00)
[2018-10-02] MEDS: Heparin 5,000 UNITS/ML VIAL SC SCH (20:34)
[2018-10-02] MEDS: Cefepime 1 GM in Sodium Chloride 0.9% 100 ML IVPB SCH (20:34)
[2018-10-02] MEDS: Famotidine 20 MG TAB PO SCH (20:34)
[2018-10-02] MEDS: Sodium Chloride 0.9% 1,000 ML IV SCH (20:34)
[2018-10-02] MEDS: Midodrine HCl 5 MG TAB PO SCH (20:35)
[2018-10-02] MEDS: Atorvastatin Calcium 40 MG TAB PO SCH (20:35)
[2018-10-02] MEDS: Potassium Chloride 20 MEQ in Premix Bag 1 BAG IVPB SCH ×2 (20:46→21:01)
[2018-10-02] MEDS: Vancomycin HCl 25 MG/ML Oral PO SCH (21:02)
--- NOTE | 2018-10-02 21:07 | HP ---
REASON FOR ADMISSION: Multiple calciphylaxis ulcers with excruciating pain and infected ulcers. HISTORY OF PRESENTING ILLNESS: The patient gives history of worsening pain and increased drainage from multiple ulcerations over his body from last 2 to 3 days now. He had gone to see Dr. Saldana in Wound Care and was asked to go to the emergency room. The patient states he was hospitalized for 17 days at [facility] in July and developed left leg and left scapular area ulcers, which he says are pressure ulcers. The patient then went to wound care in [place], but ultimately got admitted to [facility] for 10 days for low blood pressure and also C. diff colitis. He developed further ulcerations while he was at the hospital, per patient. The patient has ulcerations over the left calf, right lateral hip area, right inguinal area, left scapular area, left infraclavicular area. He has been on peritoneal dialysis now for last 10 years or so and sees Dr. Gipson. On arrival, the patient had blood pressures of 58/36 and had a central line placed and was given 1 L bolus. He was also placed on vancomycin and Zosyn in the ER, one dose for suspected sepsis. The patient is known to have low systolic blood pressures in the 80s and is on midodrine for the same. PAST MEDICAL AND SURGICAL HISTORY: History of end-stage renal disease on peritoneal dialysis, chronic hypotension with systolic blood pressures in the 80s to 90s range, hypothyroidism, prior history of peritonitis, history of diastolic dysfunction with preserved ejection fraction, prior history of CVA, chronic macrocytic anemia, peritoneal dialysis catheter, recent C. diff colitis in August, multiple ulcers which likely are calciphylaxis versus decubitus ulcers from last 2 months, multifocal acute infarct in the month of April 2018 suggesting embolic phenomenon on the MRI. CURRENT MEDICATIONS: The patient is on; 1. Levothyroxine 200 mcg p.o. daily. 2. Midodrine 10 mg p.o. three times daily. 3. Sodium chloride 1 g p.o. three times daily. 4. Aspirin 81 mg p.o. daily. 5. Vitamin D3, 4000 units once a week. 6. Oxycodone p.r.n. 7. Renvela one tab three times daily. 8. Pepcid 20 mg daily. 9. Vitamin B12, 1000 mcg p.o. daily. 10. Sensipar 30 mg p.o. daily. 11. Plavix 75 mg p.o. daily. 12. Folic acid 1 mg p.o. daily. ALLERGIES: FLUCONAZOLE, HYDROCODONE, MORPHINE, TRAMADOL, DIFLUCAN. PERSONAL HISTORY: Does not abuse alcohol or drugs. Lives with his . No history of smoking. No history of heart disease or diabetes in the family. REVIEW OF SYSTEMS: CONSTITUTIONAL: Negative for weight loss or gain, ability to conduct usual activities. SKIN: Negative for rash, itching. EYES: Negative for double vision, pain. ENT/MOUTH: Negative for nose bleeding, neck stiffness, pain, tenderness. CARDIOVASCULAR: Negative for palpitations, dyspnea on exertion, orthopnea. RESPIRATORY: Negative for shortness of breath, wheezing, cough, hemoptysis, fever or night sweats. GASTROINTESTINAL: Negative for poor appetite, abdominal pain, heartburn, nausea , vomiting, constipation, or diarrhea. GENITOURINARY: Negative for urgency, frequency, dysuria, nocturia. MUSCULOSKELETAL: Negative for pain, swelling. NEUROLOGIC/PSYCHIATRIC: Negative for anxiety, depression. ALLERGY/IMMUNOLOGIC: Negative for skin rash, bleeding tendency. PHYSICAL EXAMINATION: GENERAL: The patient is a 63-year-old male who is currently in mild distress from severe pain from his ulcerations. VITAL SIGNS: Blood pressure on arrival was 58/36, currently 90/60; pulse 70 per minute; respiratory rate 20 per minute; temperature 98.6 degrees Fahrenheit. NECK: Supple. No elevated JVD. HEENT: Eyes; extraocular muscles intact, pupils reacting to light. Oral cavity ; mucous membranes are moist, no exudates or congestion. CARDIOVASCULAR: S1 and S2 heard, regular rhythm. RESPIRATORY: Air entry 1+ bilateral. No rales or rhonchi. ABDOMEN: Soft. Bowel sounds heard. No tenderness, rigidity or guarding. EXTREMITIES: There are multiple ulcerations seen. The patient has an ulcer over the left calf, which is 3 inches in length and 3 cm in breadth. The proximal calf ulcer narrows down to 1 cm or so. The right lateral hip, 3 x 4 cm ulcer with purulent drainage and eschar. Right inguinal area, 1 x 1 cm ulcer. Left scapular area, 3 x 3 cm ulcer with purulence and eschar. Left infraclavicular area, 1 x 1 cm ulcer. Peripheral pulses are 1+ bilateral. No ischemic gangrene seen in the tips of the toes or fingers. CENTRAL NERVOUS SYSTEM: No gross focal deficits noted. The patient moves all four extremities. In fact, mobilized himself to a bedside commode. PSYCHIATRIC: No hallucinations or delusions. LABORATORY DATA: White count of 13, H and H 11 and 35, platelet count is 287 with 73% neutrophils, MCV is 110. Potassium 2.7, serum bicarb 19, BUN 43, creatinine 8.2, serum glucose 87, lactic acid 4.2. Liver enzymes within normal limits. Albumin is 3.0. DIAGNOSTIC DATA: Chest x-ray one view done shows left-sided vascular catheter in the left internal jugular vein. No pneumothorax seen. CT of the abdomen and pelvis without contrast shows calcifications in the peritoneum. Left leg tibia, fibula two view x-ray done shows no acute osseous abnormality. Extensive soft tissue calcification is seen. 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 He has been on dialysis for more than 10 years, per patient. I have discussed these findings with Dr. Gipson, who agrees. Dr. Douglass has evaluated the patient in the ER, and likely will need debridement. The patient has excruciating pain, likely will need sedation for the same. We will place him on vancomycin, cefepime, and oral vancomycin as well in view of recent history of Clostridium difficile to prevent recurrence. The patient was severely hypotensive in the ER. Currently, his systolic blood pressures are coming back to his baseline in the 80s to 90s. We will keep him on normal saline at 70 mL/ hour and midodrine 10 mg three times daily. His overall prognosis is poor. We will continue him on sevelamer, Florastor, levothyroxine, folic acid, vitamin B12, Plavix, aspirin, Lipitor as before. Likely, the patient needs to be switched over to hemodialysis and Dr. Gipson will communicate with the patient and his in view of severe calciphylaxis to administer sodium thiosulfate with hemodialysis. The patient prefers to be on Tylenol for pain and does not want any narcotics. This was offered to him in the ER. We will continue to closely monitor him on telemetry. We will also involve Palliative Care consultation in view of current calciphylaxis likely due to long-standing end-stage renal disease, chronic hypotension, multiple ulcerations, poor functional status, recurrent hospitalizations. Job ID: [id number] [facility] HOSPITALDebbie
--- NOTE | 2018-10-03 00:36 | HP ---
HISTORY OF PRESENT ILLNESS: Merrick Boyer is a 63-year-old male patient, peritoneal dialysis, followed by Dr. Coffman. The patient has been followed at [facility]. He is a patient of Dr. Gipson. He has never had a fistula. He has been on peritoneal dialysis for more than 6 years. The patient is ambulatory. However, he has developed right hip open wound, right groin open wound, and left leg open wound. Dr. Gipson has talked to him about this possibly being calciphylaxis, although the groin wound and scrotum wound looks more like hidradenitis. I have been asked by the hospitalist to see him regarding his wounds. He normally runs a blood pressure of 80 to 90 and is ambulating without blood pressure. He has been complaining that these are very painful and too painful to drain at the bedside. Plan is to debride and drain these in the operating room under sedation local tomorrow. ALLERGIES: FLUCONAZOLE, HYDROCODONE, OPIOIDS, MORPHINE, ETC. SOCIAL HISTORY: Tobacco, none. Alcohol, none. The patient is , lives at home. HOME MEDICATIONS: 1. Renvela. 2. Florastor. 3. ProAmatine. 4. Levaquin. 5. Fosrenol. 6. DuoNebs. 7. Folvite. 8. Ferric citrate. 9. Pepcid. 10. Vitamin B12. 11. Plavix. 12. Vitamin D3. 13. Pulmicort neb solution. 14. Lipitor. 15. Aspirin. PAST SURGICAL HISTORY: On May 09, 2016, laparoscopic evaluation of his PD catheter. On 05/08/2017, Dr. Smiley, incision and drainage of right leg wound. Laparoscopic peritoneal dialysis catheter placement 6 to 7 years ago. PHYSICAL EXAMINATION: VITAL SIGNS: heart rate 78. HEAD, EARS, EYES, NOSE, AND THROAT: Unremarkable. LUNGS: Clear to auscultation. CARDIAC: Regular rate and rhythm without murmur or gallop. ABDOMEN: Soft. Peritoneal dialysis catheter. Abdomen is obese, open wound complex with necrotic skin and draining purulent material, right buttocks laterally. Right groin open wound, left leg open wound, painful scars, both medial upper thighs indicative of hidradenitis, scrotal induration focal without cellulitis. Chronic venous stasis changes, lower extremities. Old dialysis catheter, left lower quadrant. LABORATORY DATA: White count 13 and hemoglobin 11.6. Sodium 139, potassium 2.7. ASSESSMENT AND PLAN: Chronically draining wounds. We will plan incision, drainage, debridement, culture of these wounds tomorrow under sedation in the operating room. He understands risks and benefits, consents. Job ID: [id number]
[2018-10-03] MEDS ORDERED: HOLD VANCOMYCIN FOR LEVEL >20 FS SCH (01:30)
[2018-10-03 06:26] LABS: Albumin 2.5 g/dL (3.4-4.8); Anion Gap 18 mmol/L (10-20); BUN (Urea Nitrogen) 42 mg/dL (8.4-25.7); BUN/Creatinine Ratio 5.27; Calc. Creatinine Clearance 12 mL/min (70-130); Calcium 8.2 mg/dL (7.8-10.44); Carbon Dioxide 22 mmol/L (23-31); Chloride 103 mmol/L (98-107); Estimated GFR-MDRD 7; Glucose 107 mg/dL (80-115); Phosphorus 5.9 mg/dL (2.3-4.7); Sodium 141 mmol/L (136-145)
[2018-10-03 06:28] LABS: Potassium 2.2 mmol/L (3.5-5.1)
[2018-10-03] MEDS: Levothyroxine Sodium 100 MCG TAB PO SCH (06:39)
[2018-10-03 06:51] LABS: Band 10 % (5-11); Eosinophils 7 % (0-10); Hemoglobin 10.7 g/dL (14.0-18.0); Lymphocytes 23 % (21-51); MDiff Complete? YES; Mean Corpuscular HGB CONC 32.3 g/dL (32.0-36.0); Mean Corpuscular Hemoglobin 35.2 pg (27.0-31.0); Mean Platelet Volume 7.3 fL (7.4-10.4); Monocytes 3 % (0-10); Neutrophil 57 % (42-75); Platelet Count 229 thou/uL (130-400); Platelet Morphology Comment Appears Adequate; Red Blood Cell (RBC) Count 3.03 mill/uL (4.70-6.10); White Blood Cell (WBC) Count 9.7 thou/uL (4.8-10.8)
[2018-10-03] MEDS ORDERED: Potassium Chloride 40 MEQ in Premix Bag 1 BAG IVPB SCH (07:00)
[2018-10-03] MEDS ORDERED: Levothyroxine Sodium 100 MCG TAB PO SCH (07:30)
[2018-10-03] MEDS: Midodrine HCl 5 MG TAB PO SCH ×4 (08:59→20:38)
[2018-10-03] MEDS: Folic Acid 1 MG TAB PO SCH (08:59)
[2018-10-03] MEDS: Cyanocobalamin (Vitamin B-12) 1,000 MCG TAB PO SCH (08:59)
[2018-10-03] MEDS ORDERED: Vancomycin HCl 1.25 GM in Sodium Chloride 0.9% 250 ML 250 ML IVPB SCH (09:00)
[2018-10-03] MEDS: Potassium Chloride 20 MEQ TAB PO SCH ×5 (09:00→20:41)
[2018-10-03] MEDS ORDERED: Vancomycin HCl 500 MG in Sodium Chloride 0.9% 100 ML IVPB SCH (09:00)
[2018-10-03] MEDS ORDERED: Vancomycin HCl 1 GM in Premix Bag 1 BAG IVPB SCH (09:00)
[2018-10-03] MEDS: Saccharomyces boulardii 250 MG CAP PO SCH (09:00)
[2018-10-03] MEDS ORDERED: Vancomycin HCl 750 MG in Sodium Chloride 0.9% 250 ML 250 ML IVPB SCH (09:00)
[2018-10-03] MEDS: Sevelamer Carbonate 800 MG TAB PO SCH ×3 (09:04→17:03)
[2018-10-03] MEDS: Calcitriol 0.25 MCG CAP PO SCH (09:04)
--- NOTE | 2018-10-03 09:07 | HP ---
SUBJECTIVE: Mr. Boyer is a 63-year-old male with ESRD and admitted for nonhealing leg wounds and ulcerations. We are now being consulted for his maintenance peritoneal dialysis. He underwent peritoneal dialysis last night without any difficulty. Due to the low blood pressure, we are currently using a 1.5% PD solution. The patient was admitted at [facility] a few months ago for his hypotension and nonhealing wound. At that time, we had a long discussion about converting him to hemodialysis, so we can give medications, sodium thiosulfate for his calciphylaxis. The patient and were still undecided. No acute events noted last night. Blood pressure is stable. He is on empiric IV antibiotics. He will have a surgical debridement with Dr. Douglass this morning. OBJECTIVE: VITAL SIGNS: Blood pressure is noted at 90/70 with a heart rate of 65, respiratory rate 20, temperature 97.4, and pulse ox 94%. GENERAL: The patient is awake, supine, comfortable, morbidly obese. SKIN: Adequate turgor. HEENT: He has pinkish conjunctivae. Anicteric sclerae. NECK: No neck mass. No carotid bruits. No JVD. CHEST: No deformities. LUNGS: Clear breath sounds. No wheezing. No crackles. HEART: Normal sinus rhythm. No murmur. No gallops. No rubs. ABDOMEN: Globular, soft, and nontender. No masses. Positive for PD catheter. EXTREMITIES: Positive for chronic edema. Positive for left leg wound. NEUROLOGICAL: Awake and oriented to 3 spheres. Moving all extremities. No tremors. No asterixis. MEDICATIONS: Medications of October 03, 2018; 1. Tylenol 650 mg q.4 p.r.n. 2. DuoNeb q.6 p.r.n. 3. Aspirin 81 mg daily. 4. Lipitor 40 mg at bedtime. 5. Pulmicort neb treatment b.i.d. 6. Calcitriol 0.25 mcg tablet daily. 7. Cefepime 1 g q.24 hours. 8. Plavix 75 mg once a day. 9. Vitamin B12 of 1000 mcg daily. 10. Famotidine 20 mg tablet daily. 11. Heparin 5000 units subcu b.i.d. 12. Synthroid 200 mcg daily. 13. Midodrine 5 mg p.o. t.i.d. 14. P.r.n. potassium. 15. Florastor 250 mg daily. 16. Renvela 800 mg 3 tablets t.i.d. with meals. 17. Normal saline 70 mL/h. 18. Vancomycin p.o. 125 mg q.i.d. 19. Vancomycin 1.25 g - p.r.n., currently on vancomycin sliding scale. PAST MEDICAL HISTORY: 1. End-stage renal disease - from chronic lymphedema. 2. Hypothyroidism. 3. Chronic hypotension. 4. Chronic venous stasis. 5. Status post CHF. 6. Status post peritonitis. 7. History of fatty liver. 8. ESRD. PAST SURGICAL HISTORY: Status post PD catheter placement, status post cuffed hemodialysis catheter placement, and status post central line placement. 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 . No children. Lives in [place]. No smoking. No alcohol intake. Sedentary lifestyle. No IV drug abuse. Education, some college courses. Status post blood transfusion. FAMILY HISTORY: No family history of ESRD. ALLERGIES: ? DIFLUCAN. TRAUMA: None. IMMUNIZATIONS: Up-to-date. HOSPITALIZATIONS: Please see past medical history. DIAGNOSTIC DATA: Laboratories of October 03, 2018; white count 9.7, hemoglobin 10.7. Sodium 141, potassium 2.2, chloride 103, carbon dioxide 22, BUN 42, creatinine 7.97, glucose 107, phosphorus 5.9, and albumin 2.5. On October 02, 2018; chest x-ray shows no pneumothorax, patchy interstitial opacities. CT scan of the abdomen and pelvis showed interval development of hyperdensity in the PD, peritoneal cavity - this may represent calcifications in the peritoneum ? ASSESSMENT AND PLAN: 1. Left leg wound - nonhealing. We are suspicious for a calciphylaxis. I had a long discussion with the regarding initiating sodium thiosulfate at 25 g IV 3 times a week for at least 6 months. They would like to think about it. The issue is that compliance with the IV antibiotics may be any issue with the patient. I also offered to convert him to hemodialysis, so we can give the medication during his hemodialysis days. Again, they are hesitant to do this. The other possibility is if we could place a MediPort with this patient and he has to report for IV infusion for the medication, sodium thiosulfate. Again, they are somewhat hesitant to do this. They will like to think about it. 2. End-stage renal disease, stable. We will continue current CCPD regimen. We are using 1.5% PD solution to minimize ultrafiltration due to the low blood pressure. 3. Chronic hypotension/autonomic dysfunction - increase midodrine to 10 mg tablet t.i.d. Overall prognosis remains guarded with this patient. Please note, he will have a surgical debridement with Dr. Douglass regarding the left leg wound. Job ID: [id number]
[2018-10-03] MEDS: Vancomycin HCl 25 MG/ML Oral PO SCH ×4 (09:23→20:40)
[2018-10-03] MEDS: Budesonide 0.5 MG/2 ML NEB NEB SCH ×2 (09:29→18:48)
[2018-10-03] MEDS: Sodium Chloride 0.9% 1,000 ML IV SCH (09:56)
[2018-10-03] MEDS ORDERED: Propofol 500 MG/50 ML VIAL ONE (10:52)
[2018-10-03] MEDS: Clopidogrel Bisulfate 75 MG TAB PO SCH (11:17)
[2018-10-03] MEDS: Heparin 5,000 UNITS/ML VIAL SC SCH ×2 (11:17→20:39)
[2018-10-03] MEDS ORDERED: Ketamine 50 MG/ML (10ML VIAL) ONE (11:26)
[2018-10-03] MEDS ORDERED: Midazolam HCl 2 mg/2 ml Vial ONE (11:27)
[2018-10-03] MEDS ORDERED: Bupivacaine HCl 0.5%/Epinephrine 1:200,000/PF 30 ml Vial ONE (11:46)
[2018-10-03] MEDS ORDERED: Lidocaine 1% w/Epinephrine 1:100K 20 ML VIAL ONE (11:46)
[2018-10-03] MEDS ORDERED: PHENYLEPHRINE-NS 100 MCG/ML 10 ML SYRINGE ONE (12:44)
[2018-10-03] MEDS ORDERED: Glycopyrrolate 0.2 MG/ML 5 ML SYRINGE ONE (12:44)
[2018-10-03] MEDS ORDERED: PROPOFOL 200 MG/20 ML VIAL ONE (12:44)
[2018-10-03] MEDS ORDERED: Phenylephrine HCL 10 MG/ML VIAL ONE (13:15)
[2018-10-03] MEDS: Aspirin Chewable 81 MG TAB PO SCH (13:21)
--- NOTE | 2018-10-03 14:14 | OP ---
DATE OF PROCEDURE: 10/03/2018 PREOPERATIVE DIAGNOSES: 1. End-stage renal disease, peritoneal dialysis status. 2. Wounds; right buttocks, penis, scrotum, right medial thigh, left leg, and left upper back. POSTOPERATIVE DIAGNOSES: 1. End-stage renal disease, peritoneal dialysis status. 2. Wounds; right buttocks, penis, scrotum, right medial thigh, left leg, and left upper back. 3. Extensive wound, purulence, calciphylaxis, right buttock and right hip. PROCEDURES PERFORMED: Debridement of right medial thigh wound, packed open. Extensive debridement of right hip and buttock wound resulting 18 cm x 15 x 5 cm open wound, excising skin, subcutaneous tissue, and fascia over the gluteus muscle. Culture and sensitivity, microbiology, extensive what appears to be calciphylaxis. ANESTHESIA: TIVA, (cardiomyopathy 10 to 15%). DESCRIPTION OF PROCEDURE: The patient was taken to the operating room, where initially in the dorsal lithotomy position, right buttocks, medial thigh, penis, and scrotum were prepared with ChloraPrep, draped in routine fashion. Initially debrided necrotic tissue and skin from the medial thigh back to healthy tissue. Saline wet-to-dry dressings applied. Attention was then turned to the right hip, where necrotic skin was excised and extensive undermining requiring repositioning of the patient in the left lateral decubitus position, excising a very larger involved skin, subcutaneous tissue, and fascia with multifocal loculations of purulent material, necrotized subcutaneous tissue, and involved fascia probably resulting from calciphylaxis. Cultures for microbiology submitted. Skin and subcu tissues were debrided along with fascia leaving the wound 18 x 15 x 5 cm. Wound was packed open. Hemostasis was gained with cautery. Wound Care placed a wound VAC. The patient the procedure well. Job ID: [id number]
[2018-10-03 14:51] LABS: #Eosinphils 0.4 thou/uL (0.0-0.7); #Lymphocytes 1.7 thou/uL (1.20-3.40); #Monocytes 0.7 thou/uL (0.11-0.59); #Neutrophils 8.2 thou/uL (1.40-6.50); %Basophils 0.3 % (0.0-1.0); %Eosinophils 3.5 % (0.0-10.0); %Lymphocytes 15.4 % (21.0-51.0); %Monocytes 6.3 % (0.0-10.0); %Neutrophils 74.5 % (42.0-75.0); Hemoglobin 9.9 g/dL (14.0-18.0); Mean Corpuscular HGB CONC 32.8 g/dL (32.0-36.0); Mean Corpuscular Hemoglobin 35.8 pg (27.0-31.0); Mean Platelet Volume 6.6 fL (7.4-10.4); Platelet Count 234 thou/uL (130-400); RBC Distribution Width 14.8 % (11.5-14.5); Red Blood Cell (RBC) Count 2.76 mill/uL (4.70-6.10)
[2018-10-03] MEDS ORDERED: Norepinephrine 16 MG in Dextrose 5% in Water 234 ML IVPB SCH (15:00)
[2018-10-03 15:12] LABS: Anion Gap 18 mmol/L (10-20); BUN (Urea Nitrogen) 44 mg/dL (8.4-25.7); Calc. Creatinine Clearance 12 mL/min (70-130); Carbon Dioxide 22 mmol/L (23-31); Chloride 106 mmol/L (98-107); Estimated GFR-MDRD 7; Glucose 101 mg/dL (80-115); Sodium 143 mmol/L (136-145)
[2018-10-03 15:19] LABS: Potassium 2.5 mmol/L (3.5-5.1)
[2018-10-03] MEDS ORDERED: Hydrocortisone Sod Succ/PF 100 mg/2 ml Vial IVP SCH (15:30)
[2018-10-03] MEDS ORDERED: Albumin 25% 25 GM/100 ML BOT IVPB ONE (15:33)
--- NOTE | 2018-10-03 15:54 | CON ---
DATE OF CONSULTATION: HISTORY OF PRESENT ILLNESS: Merrick Boyer is a 63-year-old gentleman with end-stage renal disease, placed on dialysis, was a patient of Dr. 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 He is a 1.5% PD solution dialysis. Nonhealing wounds. It is felt this may be secondary to calciphylaxis. PAST MEDICAL HISTORY: Extensive, well outlined for cardiomyopathy 10%, peritonitis, hypothyroidism, chronic hypertension, stasis, fatty liver. HOME MEDICINE: Extensive, well outlined, included 1. Pepcid 20 twice a day. 2. Renvela. 3. Midodrine 10 mg 3 times a day. 4. Synthroid 200 a day. 5. Sodium chloride 1 g three times a day. ALLERGIES: HYDROCODONE, FLUCONAZOLE, TRAMADOL. PAST SURGICAL HISTORY: Otherwise included peritoneal catheter, previous drainage of his wounds. Tobacco none, alcohol none. REVIEW OF SYSTEMS: Ten-point negative. PHYSICAL EXAMINATION: VITAL SIGNS: His sats are 95% on room air, temperature 97, pulse 71, respiratory rate 18. His blood pressure was 80/50. GENERAL: He is awake, alert, and responsive. CHEST: Decreased breath sounds. No wheezing. CARDIAC: Sinus tachycardia. ABDOMEN: Soft. LABORATORY DATA: White count 11,000, H and H 9 and 30, platelet count 234. Creatinine is 7.9, potassium 2.2. Previous x-ray without any obvious acute infiltrates. He has right IJ catheter. His lab shows that his cortisol level was low in phase of hypertension 14 suggestive of relative adrenal insufficiency. Thyroid function is normal. IMPRESSION: 1. Cardiomyopathy, low blood pressure. 2. Renal failure, peritoneal dialysis. 3. Sepsis syndrome, infected decubitus groin wound. 4. Relative adrenal insufficiency. Hydrocortisone been initiated. Continue supportive. Continue home medication. Pulmonary will follow while in the ICU. Aggressive PT, broad-spectrum antibiotics. 70 minutes, 50% direct patient care. Job ID: [id number]
[2018-10-03] MEDS ORDERED: Albumin 25% 25 GM/100 ML BOT IVPB SCH (16:00)
[2018-10-03] MEDS: Hydrocortisone Sod Succ/PF 100 mg/2 ml Vial IVP SCH (18:07)
[2018-10-03] MEDS: Cefepime 1 GM in Sodium Chloride 0.9% 100 ML IVPB SCH (20:37)
[2018-10-03] MEDS: Famotidine 20 MG TAB PO SCH (20:37)
[2018-10-03] MEDS: Atorvastatin Calcium 40 MG TAB PO SCH (20:44)
[2018-10-03] MEDS ORDERED: Famotidine 20 MG TAB PO SCH (21:00)
--- NOTE | 2018-10-03 21:30 | CON ---
DATE OF CONSULTATION: HISTORY OF PRESENT ILLNESS: The patient is a 63-year-old gentleman who presents for evaluation of hypotension. The patient has a previous history of end-stage renal disease and liver disease. The patient has a history of hypertension, is on chronic midodrine. The patient was admitted with multiple wounds and had been under debridement. He has been noted to be progressively hypotensive. The patient denies having any chest pain. The patient reports feeling mildly dizzy. The patient has no known cardiac history. The patient denies having any dyspnea, PND, or orthopnea. PAST MEDICAL HISTORY: Significant for; 1. End-stage renal disease. 2. Chronic hypotension. 3. Hypothyroidism. 4. History of fatty liver. 5. Chronic venous ulcers. PAST SURGICAL HISTORY: He had a peritoneal dialysis catheter. SOCIAL HISTORY: Nonsmoker. FAMILY HISTORY: No strong family history of coronary artery disease. MEDICATIONS: See nursing list. PHYSICAL EXAMINATION: GENERAL: Ill-appearing gentleman. VITAL SIGNS: Blood pressure 96/60. NECK: Showed no jugular venous distention. LUNGS: Clear to auscultation. HEART: Regular rate and rhythm. Normal S1, S2. ABDOMEN: Distended. EXTREMITIES: Show moderate edema. There are multiple debrided ulcers. LABORATORY DATA: His white blood count 9.7, hemoglobin 10.7, hematocrit 33.0, and his platelets are 229. Sodium 141, potassium 2.2, chloride 103, bicarbonate 22, BUN 42, creatinine 7.9. His EKG reveals normal sinus rhythm, right bundle-branch block, left posterior fascicular block. IMPRESSION: 1. Hypotension. 2. Probable sepsis. 3. End-stage renal disease. 4. Mild aortic stenosis. 5. Fatty liver disease. This gentleman presents with severe hypotension. An emergent echocardiogram was obtained. There is no evidence of left ventricular dysfunction. He was found to have mild aortic stenosis. The patient will continue on medical therapy. He is being started on Levophed. We will follow this patient with you through this hospitalization. This is a critical care note and the time is 40 minutes. Job ID: [id number]
--- NOTE | 2018-10-03 22:12 | PDOC.PN ---
- Subjective Encounter Start Date: 10/03/18 Encounter Start Time: 17:00 Subjective: awake, at bedside -: off pressors, oriented well -: moves all extremities - Objective Resuscitation Status - Order Detail: 10/02/18 19:24 Resuscitation Status Routine Resuscitation Status: FULL: Full Resuscitation Discussed with: POA: CHACORTA Reviewed: Yes Vital Signs & Weight: Vital Signs (12 hours) Pulse Resp Pulse Ox 10/03/18 18:48 75 16 98 10/03/18 15:00 100 Weight Admit Weight 199 lb 4.766 oz Weight 201 lb 4.513 oz Most Recent Monitor Data Heart Rate from ECG 72 NIBP 94/61 NIBP BP-Mean 72 Respiration from ECG 28 SpO2 95 I&O: 10/02/18 10/03/18 10/04/18 06:59 06:59 06:59 Intake Total 950 740 Output Total 0 Balance 950 740 Result Diagrams: 10/03/18 14:17 10/03/18 14:17 Phys Exam - Physical Examination HEENT: PERRLA, sclera anicteric Neck: no JVD, supple Respiratory: no wheezing, no rales Cardiovascular: RRR, no significant murmur Gastrointestinal: soft, non-tender, positive bowel sounds pd cath+ Musculoskeletal: pulses present Neurological: non-focal, moves all 4 limbs Psychiatric: normal affect, A&O x 3 -: multiple skin ulcers/calciphylaxis in dressing Dx/Plan (1) multiple ulcers Status: Acute Comment: likely calciphylaxis, s/p debridement 10/03/2018 (2) Hypokalemia Code(s): E87.6 - HYPOKALEMIA Status: Acute (3) ESRD on peritoneal dialysis Code(s): N18.6 - END STAGE RENAL DISEASE; Z99.2 - DEPENDENCE ON RENAL DIALYSIS Status: Chronic Comment: Continue PD per Nephrology recommendations (4) Hypotension Status: Chronic Qualifiers: Comment: Midodrine, chronic, baseline sbp around 80-90 (5) Hypothyroidism Code(s): E03.9 - HYPOTHYROIDISM, UNSPECIFIED Status: Chronic Qualifiers: (6) Macrocytic anemia Code(s): D53.9 - NUTRITIONAL ANEMIA, UNSPECIFIED Status: Chronic (7) Obesity (BMI 30-39.9) Code(s): E66.9 - OBESITY, UNSPECIFIED Status: Chronic - Plan had debridement of multiple skin ulcerations, likely calciphylaxis -: will talk to patient about switching to HD so sodium thiosulfate can -: -be given with it. Has chronic hypotension -: on cefepime, vanc, prelim bld cs are -ve -: continue asp, plavix, midodrine, lipitor, synthroid * . Prognosis guarded. Review of Systems - Medications/Allergies Allergies/Adverse Reactions: Allergies Allergy/AdvReac Type Severity Reaction Status Date / Time fluconazole Allergy Intermediate Verified 04/26/18 02:42 hydrocodone Allergy Intermediate Verified 04/26/18 02:42 Opioids - Morphine Analogues Allergy Intermediate Verified 04/26/18 02:42 codeine Allergy Verified 04/26/18 02:42 tramadol Allergy Verified 04/26/18 02:42 Medications: Current Medications Acetaminophen (Tylenol) 650 mg PO Q4H PRN PRN Reason: Headache/Fever/Mild Pain (1-3) Albumin Human (Albumin 5%) 12.5 gm IVPB ONE PRN PRN Reason: SBP < 70 Stop: 10/04/18 15:49 Albuterol/Ipratropium (Duoneb) 3 ml NEB [id number] PRN PRN Reason: sob Aspirin (Aspirin Chewable) 81 mg PO DAILY [facility] Last Admin: 10/03/18 13:21 Dose: Not Given Atorvastatin Calcium (Lipitor) 40 mg PO HS [facility] Last Admin: 10/03/18 20:44 Dose: Not Given Bisacodyl (Dulcolax) 10 mg UT DAILYPRN PRN PRN Reason: Constipation Budesonide (Pulmicort Neb Solution) 0.5 mg NEB BID-RT [facility] Last Admin: 10/03/18 18:48 Dose: 0.5 mg Calcitriol (Rocaltrol) 0.25 mcg PO DAILY [facility] Last Admin: 10/03/18 09:04 Dose: Not Given Clopidogrel Bisulfate (Plavix) 75 mg PO DAILY [facility] Last Admin: 10/03/18 11:17 Dose: Not Given Cyanocobalamin (Vitamin B-12) 1,000 mcg PO DAILY [facility] Last Admin: 10/03/18 08:59 Dose: 1,000 mcg Famotidine (Pepcid) 20 mg PO 2100 [facility] Last Admin: 10/03/18 20:37 Dose: 20 mg Folic Acid (Folvite) 1 mg PO DAILY [facility] Last Admin: 10/03/18 08:59 Dose: 1 mg Guaifenesin/Dextromethorphan (Robitussin Dm) 15 ml PO Q4H PRN PRN Reason: Cough Heparin Sodium (Porcine) (Heparin) 5,000 units SC BID [facility] Last Admin: 10/03/18 20:39 Dose: 5,000 units Hydrocortisone Sodium Succinate (Solu-Cortef) 50 mg IVP Q6HR [facility] Last Admin: 10/03/18 18:07 Dose: 50 mg Cefepime HCl 1 gm/ Sodium (Chloride) 100 mls @ 200 mls/hr IVPB Q24HR [facility] Last Admin: 10/03/18 20:37 Dose: 100 mls Vancomycin HCl 1.25 gm/ Sodium (Chloride) 250 mls @ 166.667 mls/hr IVPB WILLCALL ASIA Vancomycin HCl 1 gm/ Device 200 mls @ 200 mls/hr IVPB WILLCALL [facility] Vancomycin HCl 750 mg/ Sodium (Chloride) 250 mls @ 250 mls/hr IVPB WILLCALL [facility] Vancomycin HCl 500 mg/ Sodium (Chloride) 100 mls @ 100 mls/hr IVPB WILLCALL ASIA Norepinephrine Bitartrate 16 (mg/ Dextrose/Water) 250 mls @ 0 mls/hr IVPB INF [facility]; Protocol Levothyroxine Sodium (Synthroid) 200 mcg PO 0600 [facility] Last Admin: 10/03/18 06:39 Dose: Not Given Midodrine (Proamatine) 10 mg PO TID [facility] Last Admin: 10/03/18 20:38 Dose: 10 mg Miscellaneous Medication (Pharmacy To Dose) 1 each IVPB PRN PRN PRN Reason: Pharmacy to dose Hold Vancomycin For (Level >20) 0 each FS ASDIR [facility] Potassium Chloride (K-Dur) 40 meq PO QAM-WM [facility] Last Admin: 10/03/18 09:00 Dose: 40 meq Potassium Chloride (K-Dur) 40 meq PO 1400,2000 [facility] Last Admin: 10/03/18 20:41 Dose: Not Given Saccharomyces Boulardii (Florastor) 250 mg PO DAILY [facility] Last Admin: 10/03/18 09:00 Dose: 250 mg Senna/Docusate Sodium (Senokot S) 2 tab PO BID PRN PRN Reason: Constipation Sevelamer Carbonate (Renvela) 2,400 mg PO TID-WM [facility] Last Admin: 10/03/18 17:03 Dose: 2,400 mg Sodium Chloride (Flush - Normal Saline) 10 ml IVF Q12HR [facility] Last Admin: 10/03/18 20:40 Dose: 10 ml Sodium Chloride (Flush - Normal Saline) 10 ml IVF PRN PRN PRN Reason: Saline Flush Vancomycin HCl (First Vancomycin) 125 mg PO QID [facility] Last Admin: 10/03/18 20:40 Dose: 125 mg
[2018-10-04] MEDS: Hydrocortisone Sod Succ/PF 100 mg/2 ml Vial IVP SCH ×4 (00:38→17:18)
[2018-10-04 04:56] LABS: #Monocytes 0.1 thou/uL (0.11-0.59); %Basophils 0.3 % (0.0-1.0); %Eosinophils 0.2 % (0.0-10.0); %Lymphocytes 10.2 % (21.0-51.0); %Monocytes 1.3 % (0.0-10.0); Hemoglobin 9.4 g/dL (14.0-18.0); Mean Corpuscular Hemoglobin 35.3 pg (27.0-31.0); Mean Platelet Volume 6.6 fL (7.4-10.4); Platelet Count 222 thou/uL (130-400); RBC Distribution Width 14.7 % (11.5-14.5); Red Blood Cell (RBC) Count 2.65 mill/uL (4.70-6.10); White Blood Cell (WBC) Count 10.2 thou/uL (4.8-10.8)
[2018-10-04 05:06] LABS: Albumin 2.7 g/dL (3.4-4.8); Anion Gap 19 mmol/L (10-20); BUN (Urea Nitrogen) 40 mg/dL (8.4-25.7); BUN/Creatinine Ratio 5.06; Calc. Creatinine Clearance 12 mL/min (70-130); Calcium 8.4 mg/dL (7.8-10.44); Carbon Dioxide 22 mmol/L (23-31); Chloride 103 mmol/L (98-107); Estimated GFR-MDRD 7; Glucose 166 mg/dL (80-115); Phosphorus 7.1 mg/dL (2.3-4.7); Potassium 2.5 mmol/L (3.5-5.1); Sodium 141 mmol/L (136-145)
[2018-10-04] MEDS: Levothyroxine Sodium 100 MCG TAB PO SCH (05:51)
[2018-10-04] MEDS: Potassium Chloride 20 MEQ TAB PO SCH ×3 (05:51→20:29)
[2018-10-04] MEDS: Sevelamer Carbonate 800 MG TAB PO SCH ×3 (07:46→17:18)
[2018-10-04] MEDS: Heparin 5,000 UNITS/ML VIAL SC SCH ×2 (07:53→20:30)
[2018-10-04] MEDS: Vancomycin HCl 25 MG/ML Oral PO SCH ×4 (07:53→20:31)
[2018-10-04] MEDS: Folic Acid 1 MG TAB PO SCH (07:54)
[2018-10-04] MEDS: Midodrine HCl 5 MG TAB PO SCH ×3 (07:54→20:30)
[2018-10-04] MEDS: Calcitriol 0.25 MCG CAP PO SCH (07:54)
[2018-10-04] MEDS: Acetaminophen 325 MG TAB PO PRN (07:54)
[2018-10-04] MEDS: Aspirin Chewable 81 MG TAB PO SCH (07:55)
[2018-10-04] MEDS: Clopidogrel Bisulfate 75 MG TAB PO SCH (07:55)
[2018-10-04] MEDS: Saccharomyces boulardii 250 MG CAP PO SCH (07:55)
[2018-10-04] MEDS: Budesonide 0.5 MG/2 ML NEB NEB SCH ×2 (08:10→18:41)
[2018-10-04] MEDS: Cyanocobalamin (Vitamin B-12) 1,000 MCG TAB PO SCH (09:07)
--- NOTE | 2018-10-04 09:28 | PRG ---
DATE OF SERVICE: 10/04/2018 SUBJECTIVE: Merrick Boyer this morning is awake, alert, and responsive. OBJECTIVE: VITAL SIGNS: Blood pressure 91/70, much improved; pulse 54, temperature 97, and respiratory rate 18. GENERAL: No distress. He is being dialyzed. CHEST: No wheezing or crackles. CARDIAC: Normal S1 and S2. No gallops. ABDOMEN: No masses. LABORATORY DATA: H and H of 9 and 24. BUN and creatinine are elevated. Potassium 2.5. His wound is growing Klebsiella, Enterobacter, probably not sensitive to the present gram-positive coverage of vancomycin. IMPRESSION: 1. Status post debridement of hip and thigh wound. 2. Hypertension. 3. Chronic renal failure. 4. Relative adrenal insufficiency. PLAN: The patient appears to be stable as blood pressure is at baseline. We will consider transfer him to the telemetry unit. Supportive care, PT. Job ID: [id number]
[2018-10-04] MEDS: Acetaminophen 1,000 MG in Premix Bag 1 BAG IVPB PRN ×3 (10:20→23:07)
[2018-10-04] MEDS ORDERED: Heparin 1,000 UNITS/ML VIAL ONE (11:11)
--- NOTE | 2018-10-04 11:13 | PRG ---
DATE OF SERVICE: 10/04/2018 SUBJECTIVE: Mr. Boyer is a 63-year-old male with ESRD and followed up by the Renal Service for his maintenance peritoneal dialysis. He was seen by Dr. Douglass due to the left wound ulceration-nonhealing wound. He had debridement, extensive area on the right buttock, penis, scrotum, medial thigh, left leg, and left upper back. No new complaints today. I did discuss with the patient regarding initiating sodium thiosulfate. I explained to him what it takes. He is hesitant to proceed with it. We will discuss it again with the family. I did discuss this also with the yesterday and please note this has been discussed several months ago, which they have declined medication and the planned procedure. No other complaints today. OBJECTIVE: VITAL SIGNS: Blood pressure 107/74, heart rate 65, respiratory rate 14, temperature 98, and pulse ox 100%. GENERAL: Awake, alert, supine, comfortable, obese. SKIN: Adequate turgor. HEENT: He has slightly pale conjunctivae. Anicteric sclerae. NECK: No neck mass. No carotid bruits. No JVD. CHEST: No deformities. LUNGS: Clear breath sounds. No wheezing. No crackles. HEART: Normal sinus rhythm. No murmur. No gallops. No rubs. ABDOMEN: Globular, soft, and nontender. No masses. EXTREMITIES: No edema. No deformities. MEDICATIONS: Medications of October 04, 2018, were reviewed. LABORATORY DATA: Laboratories of October 04, 2018; white count 10.2 and hemoglobin 9.4. Sodium 141, potassium 2.5, chloride 103, carbon dioxide 22, BUN 40, creatinine 7.9, glucose 166, phosphorus 7.1, and albumin is 2.7. ASSESSMENT AND PLAN: 1. End-stage renal disease-continue current CCPD regimen. Fluid removal only as tolerated. We would remove about 750 mL of fluid overnight. Continue current CCPD regimen. No changes to be made using 1.5% PD solution. 2. Chronic hypotension, currently on midodrine at 10 mg p.o. t.i.d. 3. Hypokalemia. P.r.n. potassium replacement. 4. Calciphylaxis-I am trying to encourage the patient to consider calciphylaxis and this has to be considered treatment for calciphylaxis, which is sodium thiosulfate. However, this has to be given intravenously and has to be given 3 times a week. I did explain to them that they may need permanent line such as a Mediport in order to give this. This could not be given intraperitoneally. 5. Overall, prognosis remains poor with this patient. 6. Hyperphosphatemia. We will be adjusting his phosphate binders. He is currently on sevelamer at 2400 mg p.o. t.i.d. We will continue renal diet with this patient. Job ID: [id number]
--- NOTE | 2018-10-04 16:11 | PDOC.PN ---
- Subjective Encounter Start Date: 10/04/18 Encounter Start Time: 16:09 Subjective: Admitted for evaluation and treatment of multiple non healing wounds -: S/p surgical debridements. -: Feeling better. Still having pain at wound sites. - Objective Resuscitation Status - Order Detail: 10/02/18 19:24 Resuscitation Status Routine Resuscitation Status: FULL: Full Resuscitation Discussed with: POA: Vital Signs & Weight: Vital Signs (12 hours) Temp Pulse Resp Pulse Ox 10/04/18 12:00 97.9 F 10/04/18 08:13 94 L 10/04/18 08:10 72 18 94 L 10/04/18 08:00 100 10/04/18 07:00 97.6 F Weight Admit Weight 199 lb 4.766 oz Weight 201 lb 15.095 oz Most Recent Monitor Data Heart Rate from ECG 60 NIBP 105/52 NIBP BP-Mean 69 Respiration from ECG 18 SpO2 97 I&O: 10/03/18 10/04/18 10/05/18 06:59 06:59 06:59 Intake Total 950 990 390 Output Total 0 Balance 950 990 390 Result Diagrams: 10/04/18 04:20 10/04/18 04:20 Phys Exam - Physical Examination Constitutional: NAD obese HEENT: moist MMs Neck: no JVD, supple Respiratory: no wheezing, no rhonchi, clear to auscultation bilateral Cardiovascular: RRR soft systolic murmur Gastrointestinal: soft, non-tender, no distention, positive bowel sounds Musculoskeletal: pulses present Pulses present but soft Right hip wound vac and multiple wound dressings noted Neurological: non-focal, moves all 4 limbs Psychiatric: A&O x 3 Dx/Plan (1) Physical deconditioning Code(s): R53.81 - OTHER MALAISE Status: Acute (2) multiple ulcers Status: Acute Comment: likely calciphylaxis, s/p debridement 10/03/2018 (3) Hypokalemia Code(s): E87.6 - HYPOKALEMIA Status: Acute (4) Weakness generalized Code(s): R53.1 - WEAKNESS Status: Acute Comment: Multifactorial, OOB as tolerated (5) ESRD on peritoneal dialysis Code(s): N18.6 - END STAGE RENAL DISEASE; Z99.2 - DEPENDENCE ON RENAL DIALYSIS Status: Chronic Comment: Continue PD per Nephrology recommendations (6) Hypotension Status: Chronic Qualifiers: Comment: Midodrine, chronic, baseline sbp around 80-90 (7) Hypothyroidism Code(s): E03.9 - HYPOTHYROIDISM, UNSPECIFIED Status: Chronic Qualifiers: (8) Obesity (BMI 30-39.9) Code(s): E66.9 - OBESITY, UNSPECIFIED Status: Chronic (9) Calciphylaxis of lower extremity with nonhealing ulcer Code(s): E83.59 - OTHER DISORDERS OF CALCIUM METABOLISM; L97.909 - NON-PRS CHRONIC ULC UNSP PRT OF UNSP LOW LEG W UNSP SEVERITY Status: Acute - Plan Continue current antibiotics. -: Wound care as per surgery. -: Continue PD as Per Booking Clerk. -: Monitor electrolytes and replete as appropriate. * .
[2018-10-04] MEDS: Famotidine 20 MG TAB PO SCH (20:29)
[2018-10-04] MEDS: Atorvastatin Calcium 40 MG TAB PO SCH (20:32)
[2018-10-04] MEDS: Cefepime 1 GM in Sodium Chloride 0.9% 100 ML IVPB SCH (20:42)
[2018-10-05] MEDS: Hydrocortisone Sod Succ/PF 100 mg/2 ml Vial IVP SCH ×4 (00:15→21:45)
[2018-10-05 05:16] LABS: Albumin 2.6 g/dL (3.4-4.8); Anion Gap 16 mmol/L (10-20); BUN (Urea Nitrogen) 41 mg/dL (8.4-25.7); Calc. Creatinine Clearance 13 mL/min (70-130); Calcium 8.5 mg/dL (7.8-10.44); Carbon Dioxide 24 mmol/L (23-31); Chloride 103 mmol/L (98-107); Estimated GFR-MDRD 7; Glucose 168 mg/dL (80-115); Phosphorus 6.9 mg/dL (2.3-4.7); Potassium 3.1 mmol/L (3.5-5.1); Sodium 140 mmol/L (136-145)
[2018-10-05] MEDS: Levothyroxine Sodium 100 MCG TAB PO SCH (06:30)
[2018-10-05] MEDS: Budesonide 0.5 MG/2 ML NEB NEB SCH ×2 (06:47→19:03)
[2018-10-05] MEDS: Sevelamer Carbonate 800 MG TAB PO SCH ×3 (07:50→17:42)
[2018-10-05] MEDS: Potassium Chloride 20 MEQ TAB PO SCH ×3 (07:51→21:44)
--- NOTE | 2018-10-05 09:08 | PRG ---
DATE OF SERVICE: 10/05/2018 SUBJECTIVE: This morning, he is awake, alert, and responsive. Blood pressure has much improved. OBJECTIVE: VITAL SIGNS: Blood pressure 112/47, pulse 55, respirations 18, saturations . GENERAL: No distress. CHEST: Decreased breath sounds. No wheezing. CARDIAC: Normal S1 and S2. No gallop. ABDOMEN: No mass. LABORATORY DATA: Creatinine 7.74. His wound is growing Klebsiella sensitive to ceftriaxone. IMPRESSION: Hypotension, relative adrenal insufficiency, chronic renal failure, severe deconditioning, decubitus. PLAN: To be transferred to Telemetry. Continue antibiotics as prescribed. PT supportive care. Disposition as per primary care physician. Job ID: [id number]
[2018-10-05] MEDS: cefTRIAXone\\ROCEPHIN 1 GM in Sodium Chloride 0.9% 100 ML IVPB SCH (09:30)
[2018-10-05] MEDS: Heparin 5,000 UNITS/ML VIAL SC SCH ×2 (09:31→21:46)
[2018-10-05] MEDS: Vancomycin HCl 25 MG/ML Oral PO SCH ×4 (09:32→21:43)
[2018-10-05] MEDS: Midodrine HCl 5 MG TAB PO SCH ×3 (09:34→21:46)
[2018-10-05] MEDS: Folic Acid 1 MG TAB PO SCH (09:34)
[2018-10-05] MEDS: Aspirin Chewable 81 MG TAB PO SCH (09:34)
[2018-10-05] MEDS: Saccharomyces boulardii 250 MG CAP PO SCH (09:34)
[2018-10-05] MEDS: Clopidogrel Bisulfate 75 MG TAB PO SCH (09:34)
[2018-10-05] MEDS: Calcitriol 0.25 MCG CAP PO SCH (09:34)
[2018-10-05] MEDS: Cyanocobalamin (Vitamin B-12) 1,000 MCG TAB PO SCH (09:39)
[2018-10-05] MEDS: Acetaminophen 1,000 MG in Premix Bag 1 BAG IVPB PRN (10:02)
--- NOTE | 2018-10-05 10:49 | PRG ---
DATE OF SERVICE: 10/05/2018 SUBJECTIVE: Mr. Boyer is a 63-year-old male with ESRD - on peritoneal dialysis, was admitted for left leg nonhealing wound. He was evaluated by Dr. Douglass. He did an extensive debridement of the leg and pelvic area this may be calciphylaxis. Again, I had a long discussion with the patient considering long-term high IV medication for his calciphylaxis, sodium thiosulfate. This will entail MediPort placement and the patient is hesitant to proceed with this. No other complaints. He is feeling better. OBJECTIVE: VITAL SIGNS: Blood pressure is 102/70, heart rate 66, respiratory rate 19, and pulse ox 98% on room air. GENERAL: Awake, alert, comfortable, not in distress, obese. SKIN: Adequate turgor. HEENT: He has a pinkish conjunctivae. Anicteric sclerae. No neck mass. No carotid bruits. No JVD. CHEST: No deformities. LUNGS: Clear breath sounds. HEART: Normal sinus rhythm. No murmurs. No gallops. No rubs. ABDOMEN: Globular, soft, nontender. No masses. Positive for PD catheter in the abdomen. EXTREMITIES: No edema. No deformities. Positive for left leg dressing. MEDICATIONS: Medications of October 05, 2018, was reviewed. LABORATORY DATA: Laboratories of October 04, 2018: White count 10.2, hemoglobin 9.4. On October 05, 2018: Sodium 140, potassium 3.1, chloride 103, carbon dioxide 24, BUN 41, creatinine 7.74, glucose 168, phosphorus is 6.9, and albumin 2.6. Magnesium 1.1. ASSESSMENT AND PLAN: 1. End-stage renal disease, stable. Continue current peritoneal dialysis regimen. Fluid removal only as tolerated using a 1.5% PD solution due to the low blood pressure. 2. Chronic hypotension, stable, on midodrine. 3. Calciphylaxis - recommend sodium thiosulfate 25 g IV 3 times a week. The patient declining to proceed with long-term plan with this. We will discuss again with the tomorrow. 4. Anemia, on weekly Epogen. 5. Hyperphosphatemia one tablet t.i.d. with meals. Job ID: [id number]
[2018-10-05] MEDS: Lanthanum Carbonate 500 mg Tablet PO SCH ×2 (11:27→17:42)
[2018-10-05] MEDS ORDERED: Magnesium Sulfate 3 GM in Sodium Chloride 0.9% 100 ML IVPB SCH (13:00)
--- NOTE | 2018-10-05 13:32 | PDOC.PN ---
- Subjective Encounter Start Date: 10/05/18 Encounter Start Time: 13:31 Subjective: No new problem -: Feeling better. Still having pains. -: No fever - Objective Resuscitation Status - Order Detail: 10/02/18 19:24 Resuscitation Status Routine Resuscitation Status: FULL: Full Resuscitation Discussed with: POA: Vital Signs & Weight: Vital Signs (12 hours) Temp Pulse Resp Pulse Ox 10/05/18 12:00 97.8 F 10/05/18 07:21 97 10/05/18 07:00 97.9 F 10/05/18 06:49 98 10/05/18 06:47 66 19 98 10/05/18 04:00 98.1 F Weight Admit Weight 199 lb 4.766 oz Weight 206 lb 2.115 oz Most Recent Monitor Data Heart Rate from ECG 55 NIBP 59/48 NIBP BP-Mean 51 Respiration from ECG 23 SpO2 95 I&O: 10/04/18 10/05/18 10/06/18 06:59 06:59 06:59 Intake Total 990 1175 450 Balance 990 1175 450 Result Diagrams: 10/04/18 04:20 10/05/18 04:15 Phys Exam - Physical Examination Constitutional: NAD HEENT: moist MMs Neck: no JVD, supple Respiratory: no rales, no rhonchi fair air entry bilaterally Cardiovascular: RRR Gastrointestinal: soft, non-tender, no distention, positive bowel sounds trace ankle edema. Right lateral hip wound vac. Neurological: non-focal, moves all 4 limbs Psychiatric: A&O x 3 Dx/Plan (1) Physical deconditioning Code(s): R53.81 - OTHER MALAISE Status: Acute (2) multiple ulcers Status: Acute Comment: likely calciphylaxis, s/p debridement 10/03/2018 (3) Hypokalemia Code(s): E87.6 - HYPOKALEMIA Status: Acute (4) Weakness generalized Code(s): R53.1 - WEAKNESS Status: Acute Comment: Multifactorial, OOB as tolerated (5) ESRD on peritoneal dialysis Code(s): N18.6 - END STAGE RENAL DISEASE; Z99.2 - DEPENDENCE ON RENAL DIALYSIS Status: Chronic Comment: Continue PD per Nephrology recommendations (6) Hypotension Status: Chronic Qualifiers: Comment: Midodrine, chronic, baseline sbp around 80-90 (7) Hypothyroidism Code(s): E03.9 - HYPOTHYROIDISM, UNSPECIFIED Status: Chronic Qualifiers: (8) Obesity (BMI 30-39.9) Code(s): E66.9 - OBESITY, UNSPECIFIED Status: Chronic (9) Calciphylaxis of lower extremity with nonhealing ulcer Code(s): E83.59 - OTHER DISORDERS OF CALCIUM METABOLISM; L97.909 - NON-PRS CHRONIC ULC UNSP PRT OF UNSP LOW LEG W UNSP SEVERITY Status: Acute (10) Klebsiella infection Code(s): A49.8 - OTHER BACTERIAL INFECTIONS OF UNSPECIFIED SITE Status: Acute Comment: Right lateral hip wound infection (11) Adrenal insufficiency Code(s): E27.40 - UNSPECIFIED ADRENOCORTICAL INSUFFICIENCY Status: Acute (12) Hypomagnesemia Code(s): E83.42 - HYPOMAGNESEMIA Status: Acute - Plan Antibiotic changed to Rocephin in line with susceptibility test. -: Continue wound care and other supportive care. -: Transfer to telemetry -: PD as per Assembler Dc Field Yoke -: Replete serum magnesium and potassium. * .
[2018-10-05] MEDS: Famotidine 20 MG TAB PO SCH (21:44)
[2018-10-05] MEDS: Atorvastatin Calcium 40 MG TAB PO SCH (21:44)
[2018-10-06] MEDS: Acetaminophen 325 MG TAB PO PRN ×2 (03:40→09:33)
[2018-10-06] MEDS: Levothyroxine Sodium 100 MCG TAB PO SCH (05:17)
[2018-10-06 05:52] LABS: #Lymphocytes 1.3 thou/uL (1.20-3.40); #Monocytes 0.4 thou/uL (0.11-0.59); #Neutrophils 9.8 thou/uL (1.40-6.50); %Basophils 0.1 % (0.0-1.0); %Eosinophils 0.1 % (0.0-10.0); %Lymphocytes 11.6 % (21.0-51.0); %Monocytes 3.5 % (0.0-10.0); %Neutrophils 84.8 % (42.0-75.0); Hemoglobin 9.3 g/dL (14.0-18.0); Mean Corpuscular HGB CONC 31.8 g/dL (32.0-36.0); Mean Corpuscular Hemoglobin 35.2 pg (27.0-31.0); Mean Platelet Volume 6.1 fL (7.4-10.4); Platelet Count 225 thou/uL (130-400); RBC Distribution Width 14.8 % (11.5-14.5); Red Blood Cell (RBC) Count 2.63 mill/uL (4.70-6.10); White Blood Cell (WBC) Count 11.5 thou/uL (4.8-10.8)
[2018-10-06 06:14] LABS: Albumin 2.5 g/dL (3.4-4.8); Anion Gap 16 mmol/L (10-20); BUN (Urea Nitrogen) 48 mg/dL (8.4-25.7); BUN/Creatinine Ratio 5.95; Calc. Creatinine Clearance 13 mL/min (70-130); Calcium 8.7 mg/dL (7.8-10.44); Carbon Dioxide 23 mmol/L (23-31); Chloride 106 mmol/L (98-107); Estimated GFR-MDRD 7; Glucose 156 mg/dL (80-115); Magnesium 1.4 mg/dL (1.6-2.6); Phosphorus 5.9 mg/dL (2.3-4.7); Potassium 3.7 mmol/L (3.5-5.1); Sodium 141 mmol/L (136-145)
[2018-10-06] MEDS: Budesonide 0.5 MG/2 ML NEB NEB SCH ×2 (07:15→18:28)
[2018-10-06] MEDS: Lanthanum Carbonate 500 mg Tablet PO SCH ×3 (07:53→17:44)
[2018-10-06] MEDS: Potassium Chloride 20 MEQ TAB PO SCH ×3 (07:53→21:03)
[2018-10-06] MEDS: Sevelamer Carbonate 800 MG TAB PO SCH ×3 (08:01→17:46)
[2018-10-06] MEDS: Aspirin Chewable 81 MG TAB PO SCH (08:05)
[2018-10-06] MEDS: Saccharomyces boulardii 250 MG CAP PO SCH (08:05)
[2018-10-06] MEDS: Cyanocobalamin (Vitamin B-12) 1,000 MCG TAB PO SCH (08:05)
[2018-10-06] MEDS: Folic Acid 1 MG TAB PO SCH (08:05)
[2018-10-06] MEDS: Heparin 5,000 UNITS/ML VIAL SC SCH ×2 (08:06→21:04)
--- NOTE | 2018-10-06 08:06 | PDOC.PN ---
- Subjective Encounter Start Date: 10/06/18 Encounter Start Time: 08:04 Subjective: no new complaints - Objective Resuscitation Status - Order Detail: 10/02/18 19:24 Resuscitation Status Routine Resuscitation Status: FULL: Full Resuscitation Discussed with: POA: CHACORTA Reviewed: Yes Vital Signs & Weight: Vital Signs (12 hours) Temp Pulse Resp BP Pulse Ox 10/06/18 07:49 97.6 F 53 L 16 120/80 98 10/06/18 07:15 60 16 10/06/18 03:40 97.4 F L 48 L 20 110/66 98 10/06/18 00:12 97.4 F L 53 L 23 H 141/93 H 97 10/05/18 20:05 97.5 F L 49 L 20 139/79 95 Weight Admit Weight 199 lb 4.766 oz Weight 209 lb 3.499 oz Most Recent Monitor Data Heart Rate from ECG 55 NIBP 134/37 NIBP BP-Mean 69 Respiration from ECG 20 SpO2 92 I&O: 10/05/18 10/06/18 10/07/18 06:59 06:59 06:59 Intake Total 1175 1325 Output Total 0 Balance 1175 1325 Result Diagrams: 10/06/18 05:20 10/06/18 05:20 Phys Exam - Physical Examination Neck: no JVD Respiratory: clear to auscultation bilateral Cardiovascular: RRR, no significant murmur Gastrointestinal: soft, non-tender, positive bowel sounds PD catheter Musculoskeletal: no edema bandaged lesion L ankle kle Dx/Plan (1) Calciphylaxis of lower extremity with nonhealing ulcer Code(s): E83.59 - OTHER DISORDERS OF CALCIUM METABOLISM; L97.909 - NON-PRS CHRONIC ULC UNSP PRT OF UNSP LOW LEG W UNSP SEVERITY Status: Acute (2) Klebsiella infection Code(s): A49.8 - OTHER BACTERIAL INFECTIONS OF UNSPECIFIED SITE Status: Acute Comment: Right lateral hip wound infection (3) multiple ulcers Status: Acute Comment: likely calciphylaxis, s/p debridement 10/03/2018 (4) Hypokalemia Code(s): E87.6 - HYPOKALEMIA Status: Resolved (5) ESRD on peritoneal dialysis Code(s): N18.6 - END STAGE RENAL DISEASE; Z99.2 - DEPENDENCE ON RENAL DIALYSIS Status: Chronic Comment: Continue PD per Nephrology recommendations (6) Hypotension Status: Resolved Qualifiers: Comment: Midodrine, chronic, baseline sbp around 80-90 (7) Hypothyroidism Code(s): E03.9 - HYPOTHYROIDISM, UNSPECIFIED Status: Chronic Qualifiers: Hypothyroidism type: unspecified - Plan cont PD -: cont lanthanum carbonate, calcitriol -: cont levothyroxine -: diacuss with Lauren Gipson and Apolinar * .
[2018-10-06] MEDS: Midodrine HCl 5 MG TAB PO SCH ×3 (08:07→21:05)
[2018-10-06] MEDS: Hydrocortisone Sod Succ/PF 100 mg/2 ml Vial IVP SCH (08:07)
[2018-10-06] MEDS: Clopidogrel Bisulfate 75 MG TAB PO SCH (08:27)
[2018-10-06] MEDS: Calcitriol 0.25 MCG CAP PO SCH (08:27)
[2018-10-06] MEDS ORDERED: EPOETIN ALFA-EPBX (ESRD) 4,000 UNIT/ML VIAL SC SCH (09:00)
[2018-10-06] MEDS ORDERED: Epoetin (ESRD) 20,000 UNITS/ML SC SCH (09:15)
[2018-10-06] MEDS: cefTRIAXone\\ROCEPHIN 1 GM in Sodium Chloride 0.9% 100 ML IVPB SCH (09:34)
[2018-10-06] MEDS: Vancomycin HCl 25 MG/ML Oral PO SCH ×4 (09:34→21:06)
--- NOTE | 2018-10-06 10:10 | PRG ---
DATE OF SERVICE: 10/06/2018 SUBJECTIVE: Mr. Boyer is a 63-year-old male with ESRD and followed by the Renal Service for his maintenance peritoneal dialysis. He was also admitted for left leg wound. He also was examined by Dr. Douglass and he had several necrotic tissues on his lower extremity. He has undergone an extensive surgical debridement. This was done last week. There was debridement of the right medial thigh wound. In addition, there was extensive debridement of the right hip and buttock, currently has an open wound. The feeling is that this may be a calciphylaxis. No other complaints today. No chest pain or shortness of breath. OBJECTIVE: VITAL SIGNS: Blood pressure 120/80, heart rate 53, respiratory rate 16, temperature 97.6, and pulse ox 98%. GENERAL: Noted to be awake, alert, and comfortable, not in distress. SKIN: Adequate turgor. HEENT: He has a slightly pale conjunctivae. Anicteric sclerae. NECK: No neck mass. No carotid bruits. No JVD. CHEST: No deformities. LUNGS: Clear breath sounds. HEART: Normal sinus rhythm. No murmurs. No gallops. No rubs. ABDOMEN: Globular, soft, and nontender. No masses. EXTREMITIES: No edema. Positive for surgical dressing and wound VAC in left lower extremity. MEDICATIONS: Medications of October 06, 2018, reviewed. LABORATORY DATA: Laboratories of October 06, 2018; white count 11.5, hemoglobin 9.3. Sodium 141, potassium 4.7, chloride 106, carbon dioxide 23, BUN 48, creatinine 8.07, glucose 156, magnesium 1.4, phosphorus is 5.9, and calcium is 8.7. ASSESSMENT AND PLAN: 1. Hyperphosphatemia - Fosrenol has been added to the current Renvela. 2. Secondary hyperparathyroidism. Hold calcitriol. Recheck PTH in a.m. 3. Anemia, continuing. We will resume Epogen 7500 units subcu every week. 4. End-stage renal disease, stable. Continue current peritoneal dialysis. Tolerating said treatment. 5. Chronic hypotension, stable on midodrine 10 mg tablet p.o. t.i.d. 6. Calciphylaxis - I have again a long discussion with the patient and regarding sodium thiosulfate therapy. They are still hesitant about it. They would like to do some research on this. I did tell them that opinion is not from me alone, but that the surgeon and the hospital feels that this may indeed be calciphylaxis. Job ID: [id number]
[2018-10-06] MEDS: Lidocaine 4% Topical Sol 50 ML BOT TOP SCH (11:44)
[2018-10-06] MEDS ORDERED: EPOETIN ALFA-EPBX (ESRD) 10,000 UNIT/ML VIAL SC SCH (12:00)
[2018-10-06] MEDS: Morphine 2 MG/ML SYRINGE SLOW IVP PRN (12:18)
--- NOTE | 2018-10-06 12:21 | PQF ---
CLINICAL DOCUMENTATION IMPROVEMENT CLARIFICATION FORM: ICD-10 Updated PLEASE DO AN ADDENDUM TO THE PROGRESS NOTE WITH ANY DOCUMENTATION UPDATES OR ADDITIONS AND CARRY THROUGH TO DC SUMMARY. THANK YOU. DATE: 10/06/2018 ATTN: Dr. Irby Please exercise your independent, professional judgment in responding to the clarification form. Clinical indicators are provided on the bottom of this form for your review Please check appropriate box(s) to clarify if the following diagnosis has been ruled in or ruled out: SEPSIS [ ] Ruled in diagnosis [ ] Continue to treat [ ] Resolved [ x ] Ruled out diagnosis [ ] Cannot rule out diagnosis [ x ] Other diagnosis acute renal failuremetabolic acidosis [ ] Unable to determine In addition, please specify: Present on Admission (POA): [ ] Yes [ ] No [ ] Unable to determine For continuity of documentation, please document condition throughout progress notes and discharge summary. Thank You. CLINICAL INDICATORS - SIGNS / SYMPTOMS / LABS ER RECORD 10/02: DX: Hypotension. sepsis H&P 10/02: On arrival, the pt had blood pressures of 58/36 and had a central line placed and was given 1L bolus. He was also placed on vancomycin and Zosyn in the ER , one dose for suspected sepsis. Lab: White count of 13 lactic acid 4.2 10/03 (Waldo) Probable sepsis 10/06 (Mahamed) Calciphylaxis of lower extremity with nonhealing ulcer. Klebsiella infection. R lateral hip wound infection RISKS: H&P 10/02: HX of end-stage renal disease on peritoneal dialysis, chronic hypotension recent C. diff colitis in August, multiple ulcers. TREATMENT: MAR: Order 10/02-10/05: IV Maxipime MAR: Order 10/05 IV Rocephin Thank you, Martha (This form is maintained as a part of the permanent medical record) 2014 [employer]. All Rights Reserved Martha Ruiz RN, BSN [email or web address] Office: [phone] [facility]
[2018-10-06 12:52] VITALS: BMI 41.1
--- NOTE | 2018-10-06 16:35 | PDOC.EVN ---
Event Note - Event Note Event Note: pattient insists he doesnt take plavix, have DCed it
--- NOTE | 2018-10-06 17:14 | PDOC.CTH ---
Cardiology Progress Note - Subjective Pt. seen and eval. by me. he denies any cardiac symptoms. The BP is stable. - Objective Vital Signs Temp Pulse Pulse Pulse Resp BP BP 10/06/18 15:42 97.5 F L 55 L 14 10/06/18 14:00 55 L 50 L 107/74 124/75 10/06/18 12:45 97.5 F L 48 L 16 10/06/18 07:49 97.6 F 53 L 16 10/06/18 07:15 60 16 BP Pulse Ox 10/06/18 15:42 121/72 95 10/06/18 14:00 10/06/18 12:45 122/58 L 100 10/06/18 07:49 120/80 98 10/06/18 07:15 Admit Weight 199 lb 4.766 oz Weight 209 lb 3.499 oz 10/05/18 10/06/18 10/07/18 06:59 06:59 06:59 Intake Total 1175 1325 Output Total 0 Balance 1175 1325 - Physical Examination General/Neuro: alert & oriented x3 Neck: carotid US brisk Lungs: CTA Heart: RRR Abdomen: soft, other: (right hip wound vac. multiple areas of wounds/abcesses- wrapped.) - Labs Result Diagrams: 10/06/18 05:20 10/06/18 05:20 - Assessment/Plan 1. ESRD: on hemodialysis. 2. Calciphylaxis: multiple abcesses. 3. Chronic ulcerations/abcesses of the lower extremities. wound care following. 4. Chronic hypotension. : stable. 5. Fatty liver 6. hypothyroid. 7. RBBB,LPFB,. stable. overall cardiac status is stable.
[2018-10-06] MEDS: Atorvastatin Calcium 40 MG TAB PO SCH (21:04)
[2018-10-06] MEDS: Famotidine 20 MG TAB PO SCH (21:04)
[2018-10-07] MEDS: Levothyroxine Sodium 100 MCG TAB PO SCH (05:51)
[2018-10-07 06:04] LABS: #Eosinphils 0.3 thou/uL (0.0-0.7); #Lymphocytes 1.9 thou/uL (1.20-3.40); #Monocytes 0.6 thou/uL (0.11-0.59); %Basophils 0.3 % (0.0-1.0); %Eosinophils 2.4 % (0.0-10.0); %Lymphocytes 17.7 % (21.0-51.0); %Monocytes 5.1 % (0.0-10.0); %Neutrophils 74.5 % (42.0-75.0); Hemoglobin 9.8 g/dL (14.0-18.0); Mean Corpuscular HGB CONC 32.4 g/dL (32.0-36.0); Mean Corpuscular Hemoglobin 35.8 pg (27.0-31.0); Mean Platelet Volume 6.2 fL (7.4-10.4); Platelet Count 220 thou/uL (130-400); RBC Distribution Width 14.5 % (11.5-14.5); Red Blood Cell (RBC) Count 2.73 mill/uL (4.70-6.10); White Blood Cell (WBC) Count 10.8 thou/uL (4.8-10.8)
[2018-10-07 06:19] LABS: Albumin 2.7 g/dL (3.4-4.8); Anion Gap 16 mmol/L (10-20); BUN (Urea Nitrogen) 50 mg/dL (8.4-25.7); BUN/Creatinine Ratio 6.39; Calc. Creatinine Clearance 13 mL/min (70-130); Carbon Dioxide 22 mmol/L (23-31); Chloride 108 mmol/L (98-107); Estimated GFR-MDRD 7; Glucose 104 mg/dL (80-115); Phosphorus 5.4 mg/dL (2.3-4.7); Potassium 4.1 mmol/L (3.5-5.1); Sodium 142 mmol/L (136-145)
[2018-10-07] MEDS: Budesonide 0.5 MG/2 ML NEB NEB SCH ×2 (08:02→19:20)
--- NOTE | 2018-10-07 09:06 | PDOC.PN ---
- Subjective Encounter Start Date: 10/07/18 Encounter Start Time: 09:05 Subjective: weak,unsteady - Objective Resuscitation Status - Order Detail: 10/02/18 19:24 Resuscitation Status Routine Resuscitation Status: FULL: Full Resuscitation Discussed with: POA: CHACORTA Reviewed: Yes Vital Signs & Weight: Vital Signs (12 hours) Temp Pulse Resp BP Pulse Ox 10/07/18 08:02 64 16 98 10/07/18 07:51 97.3 F L 60 18 116/76 100 10/07/18 04:00 97.4 F L 53 L 18 116/75 94 L 10/07/18 00:00 57 L 118/78 Weight Admit Weight 199 lb 4.766 oz Weight 207 lb 8 oz Most Recent Monitor Data Heart Rate from ECG 55 NIBP 134/37 NIBP BP-Mean 69 Respiration from ECG 20 SpO2 92 I&O: 10/06/18 10/07/18 10/08/18 06:59 06:59 06:59 Intake Total 1325 1320 Output Total 0 0 Balance 1325 1320 Result Diagrams: 10/07/18 04:49 10/07/18 04:49 Phys Exam - Physical Examination Neck: no JVD Respiratory: clear to auscultation bilateral Cardiovascular: RRR, no significant murmur Gastrointestinal: soft, positive bowel sounds Musculoskeletal: edema present Dx/Plan (1) Calciphylaxis of lower extremity with nonhealing ulcer Code(s): E83.59 - OTHER DISORDERS OF CALCIUM METABOLISM; L97.909 - NON-PRS CHRONIC ULC UNSP PRT OF UNSP LOW LEG W UNSP SEVERITY Status: Acute (2) Klebsiella infection Code(s): A49.8 - OTHER BACTERIAL INFECTIONS OF UNSPECIFIED SITE Status: Acute Comment: Right lateral hip wound infection (3) multiple ulcers Status: Acute Comment: likely calciphylaxis, s/p debridement 10/03/2018 (4) Hypokalemia Code(s): E87.6 - HYPOKALEMIA Status: Resolved (5) ESRD on peritoneal dialysis Code(s): N18.6 - END STAGE RENAL DISEASE; Z99.2 - DEPENDENCE ON RENAL DIALYSIS Status: Chronic Comment: Continue PD per Nephrology recommendations (6) Hypotension Status: Resolved Qualifiers: Comment: Midodrine, chronic, baseline sbp around 80-90 (7) Hypothyroidism Code(s): E03.9 - HYPOTHYROIDISM, UNSPECIFIED Status: Chronic Qualifiers: Hypothyroidism type: unspecified (8) Calciphylaxis Code(s): E83.59 - OTHER DISORDERS OF CALCIUM METABOLISM Status: Acute - Plan cont HD -: cont wound care -: cont current meds -: PT/OT/REHAB referral * .
[2018-10-07] MEDS: Midodrine HCl 5 MG TAB PO SCH ×3 (09:33→20:30)
[2018-10-07] MEDS: Saccharomyces boulardii 250 MG CAP PO SCH (09:33)
[2018-10-07] MEDS: Aspirin Chewable 81 MG TAB PO SCH (09:34)
[2018-10-07] MEDS: Potassium Chloride 20 MEQ TAB PO SCH ×3 (09:34→20:34)
[2018-10-07] MEDS: Folic Acid 1 MG TAB PO SCH (09:34)
[2018-10-07] MEDS: Sevelamer Carbonate 800 MG TAB PO SCH ×3 (09:34→17:57)
[2018-10-07] MEDS: Cyanocobalamin (Vitamin B-12) 1,000 MCG TAB PO SCH (09:34)
[2018-10-07] MEDS: Lanthanum Carbonate 500 mg Tablet PO SCH ×3 (09:34→17:21)
[2018-10-07] MEDS: Vancomycin HCl 25 MG/ML Oral PO SCH ×4 (09:40→20:30)
[2018-10-07] MEDS: Morphine 2 MG/ML SYRINGE SLOW IVP PRN (09:41)
[2018-10-07] MEDS: Heparin 5,000 UNITS/ML VIAL SC SCH ×2 (09:41→20:31)
[2018-10-07] MEDS: cefTRIAXone\\ROCEPHIN 1 GM in Sodium Chloride 0.9% 100 ML IVPB SCH (09:45)
--- NOTE | 2018-10-07 09:53 | PRG ---
DATE OF SERVICE: 10/07/2018 SUBJECTIVE: This morning, he is doing well. No longer short of breath, coughing, or wheezing. No longer hypotensive. OBJECTIVE: VITAL SIGNS: His blood pressure is 116/76, saturations are 98% on room air, respirations 16, temperature 97, and pulse 64. CHEST: Decreased breath sounds. No wheezing. CARDIAC: Normal S1 and S2. No gallops. ABDOMEN: No masses. LABORATORY DATA: Creatinine 7.8. White count 10,000. ASSESSMENT: 1. Klebsiella wound infection, chronic. Clostridium difficile negative. 2. Diarrhea. 3. Severe deconditioning. 4. Renal failure. PLAN: Pulmonary-oliveira, antibiotic as per Surgery. Pulmonary will follow at a distance. Please call. Job ID: [id number]
--- NOTE | 2018-10-07 10:05 | PRG ---
DATE OF SERVICE: 10/07/2018 SERVICE: Renal Medicine. SUBJECTIVE: Mr. Boyer is a 63-year-old male with ESRD and followed up by the Renal Service for his peritoneal dialysis. He is doing well with the peritoneal dialysis. He has also history of chronic hypotension, which is doing stable at the present time with midodrine. He has also undergone a surgical debridement of his left thigh lesion as well as buttock. The feeling is that he may have underlying calciphylaxis. I have been in discussion with the patient and his regarding starting treatment for calciphylaxis. He is somewhat hesitant. This will entail him having either a PICC line or a MediPort. He is hesitant to proceed with that. He will have another further surgical debridement by the surgeon. No other complaints. No chest pain or shortness of breath. OBJECTIVE: VITAL SIGNS: Blood pressure 116/76, heart rate 60, respiratory rate 18, temperature 97.3, and pulse ox 100%. GENERAL: Awake, alert, supine, comfortable, obese. SKIN: Adequate turgor. HEENT: He has slightly pale conjunctivae. Anicteric sclerae. NECK: No neck mass. No carotid bruits. No JVD. CHEST: No deformities. LUNGS: Clear breath sounds. HEART: Normal sinus rhythm. No murmur. No gallops. No rubs. ABDOMEN: Globular, soft, nontender. No masses. EXTREMITIES: No edema. No deformities. Positive for wound VAC in the lower extremities. MEDICATIONS: Medications of October 07, 2018, were reviewed. LABORATORY DATA: Laboratories of October 07, 2018; white count 10.8 and hemoglobin 9.8. Sodium 142, potassium 4.1, chloride 108, carbon dioxide 22, BUN 50, creatinine 7.83, glucose 104, calcium is 9, phosphorus 5.4. Albumin 2.7, PTH 248.7. ASSESSMENT AND PLAN: 1. Secondary hyperparathyroidism - I will restart his calcitriol at 0.25 mcg tablet daily. 2. Anemia, on weekly Epogen. 3. Calciphylaxis, left leg nonhealing wound - encourage patient to proceed with planned treatment with sodium thiosulfate 25 g IV three times a week. He is still undecided on this. 4. End-stage renal disease, stable. We will continue current CCPD regimen. Tolerating said treatment. 5. Chronic hypotension, stable. Continuing midodrine. Consider rehab placement. Job ID: [id number]
[2018-10-07] MEDS ORDERED: HEPARIN FS SCH (10:15)
--- NOTE | 2018-10-07 10:45 | PDOC.CTH ---
Cardiology Progress Note - Subjective pt. seen and eval. by me. No new cardiac events. No cardiac complaints. - Objective Vital Signs Temp Pulse Resp BP Pulse Ox 10/07/18 08:02 64 16 98 10/07/18 07:51 97.3 F L 60 18 116/76 100 10/07/18 04:00 97.4 F L 53 L 18 116/75 94 L 10/07/18 00:00 57 L 118/78 Admit Weight 199 lb 4.766 oz Weight 207 lb 8 oz 10/06/18 10/07/18 10/08/18 06:59 06:59 06:59 Intake Total 1325 1320 Output Total 0 0 Balance 1325 1320 - Physical Examination General/Neuro: alert & oriented x3 Neck: no JVD present Lungs: CTA Heart: RRR Abdomen: NT/ND, soft Extremities: other: (wound dressings in place. right hip with wound vac.) - Labs Result Diagrams: 10/07/18 04:49 10/07/18 04:49 - Assessment/Plan 1. ESRD: on hemodialysis. 2. Calciphylaxis: multiple abcesses. 3. Chronic ulcerations/abcesses of the lower extremities. wound care following. 4. Chronic hypotension. : stable. 5. Fatty liver 6. hypothyroid. 7. RBBB,LPFB,. stable. overall cardiac status is stable. I will sign off.
[2018-10-07] MEDS: Acetaminophen 325 MG TAB PO PRN (20:29)
[2018-10-07] MEDS: Famotidine 20 MG TAB PO SCH (20:29)
[2018-10-07] MEDS: Atorvastatin Calcium 40 MG TAB PO SCH (20:31)
[2018-10-08] MEDS: Morphine 2 MG/ML SYRINGE SLOW IVP PRN ×3 (03:20→15:09)
[2018-10-08] MEDS: Levothyroxine Sodium 100 MCG TAB PO SCH (06:02)
[2018-10-08 07:10] LABS: Albumin 2.8 g/dL (3.4-4.8); Anion Gap 16 mmol/L (10-20); BUN (Urea Nitrogen) 50 mg/dL (8.4-25.7); BUN/Creatinine Ratio 6.48; Calc. Creatinine Clearance 13 mL/min (70-130); Carbon Dioxide 22 mmol/L (23-31); Chloride 108 mmol/L (98-107); Estimated GFR-MDRD 7; Glucose 86 mg/dL (80-115); Phosphorus 4.5 mg/dL (2.3-4.7); Potassium 5.8 mmol/L (3.5-5.1); Sodium 140 mmol/L (136-145)
[2018-10-08] MEDS: Budesonide 0.5 MG/2 ML NEB NEB SCH ×2 (07:21→19:20)
[2018-10-08] MEDS: Acetaminophen 325 MG TAB PO PRN (08:18)
[2018-10-08] MEDS: Vancomycin HCl 25 MG/ML Oral PO SCH ×4 (08:18→20:25)
[2018-10-08] MEDS: Cyanocobalamin (Vitamin B-12) 1,000 MCG TAB PO SCH (08:18)
[2018-10-08] MEDS: Folic Acid 1 MG TAB PO SCH (08:19)
[2018-10-08] MEDS: Midodrine HCl 5 MG TAB PO SCH ×3 (08:19→20:24)
[2018-10-08] MEDS: Calcitriol 0.25 MCG CAP PO SCH ×3 (08:19→08:34)
[2018-10-08] MEDS: Aspirin Chewable 81 MG TAB PO SCH (08:19)
[2018-10-08] MEDS: Saccharomyces boulardii 250 MG CAP PO SCH (08:19)
[2018-10-08] MEDS: Lanthanum Carbonate 500 mg Tablet PO SCH ×3 (08:19→18:54)
[2018-10-08] MEDS: Potassium Chloride 20 MEQ TAB PO SCH (08:20)
[2018-10-08] MEDS: Sevelamer Carbonate 800 MG TAB PO SCH ×3 (08:20→17:19)
[2018-10-08] MEDS: Heparin 5,000 UNITS/ML VIAL SC SCH ×2 (08:20→20:36)
--- NOTE | 2018-10-08 08:33 | PDOC.PN ---
- Subjective Encounter Start Date: 10/08/18 Encounter Start Time: 08:32 Subjective: pain in sores same - Objective Resuscitation Status - Order Detail: 10/02/18 19:24 Resuscitation Status Routine Resuscitation Status: FULL: Full Resuscitation Discussed with: POA: CHACORTA Reviewed: Yes Vital Signs & Weight: Vital Signs (12 hours) Temp Pulse Resp BP Pulse Ox 10/08/18 07:26 98 10/08/18 07:21 18 98 10/08/18 03:10 97.6 F 64 22 H 105/63 100 Weight Admit Weight 199 lb 4.766 oz Weight 207 lb 14.334 oz Most Recent Monitor Data Heart Rate from ECG 55 NIBP 134/37 NIBP BP-Mean 69 Respiration from ECG 20 SpO2 92 I&O: 10/07/18 10/08/18 10/09/18 06:59 06:59 06:59 Intake Total 1320 1220 Output Total 0 0 Balance 1320 1220 Result Diagrams: 10/07/18 04:49 10/08/18 05:51 Phys Exam - Physical Examination Neck: no JVD Respiratory: clear to auscultation bilateral Cardiovascular: RRR, no significant murmur Gastrointestinal: soft, positive bowel sounds Musculoskeletal: no edema Dx/Plan (1) Calciphylaxis of lower extremity with nonhealing ulcer Code(s): E83.59 - OTHER DISORDERS OF CALCIUM METABOLISM; L97.909 - NON-PRS CHRONIC ULC UNSP PRT OF UNSP LOW LEG W UNSP SEVERITY Status: Acute (2) Klebsiella infection Code(s): A49.8 - OTHER BACTERIAL INFECTIONS OF UNSPECIFIED SITE Status: Acute Comment: Right lateral hip wound infection (3) multiple ulcers Status: Acute Comment: likely calciphylaxis, s/p debridement 10/03/2018 (4) ESRD on peritoneal dialysis Code(s): N18.6 - END STAGE RENAL DISEASE; Z99.2 - DEPENDENCE ON RENAL DIALYSIS Status: Chronic Comment: Continue PD per Nephrology recommendations (5) Hypothyroidism Code(s): E03.9 - HYPOTHYROIDISM, UNSPECIFIED Status: Chronic Qualifiers: Hypothyroidism type: unspecified (6) Calciphylaxis Code(s): E83.59 - OTHER DISORDERS OF CALCIUM METABOLISM Status: Acute - Plan currently stable, awaiting rehab referral -: cont HD , etc * .
--- NOTE | 2018-10-08 09:47 | PRG ---
DATE OF SERVICE: 10/08/2018 SUBJECTIVE: Mr. Boyer is a 63-year-old male with ESRD followed up by the Renal Service for his current maintenance peritoneal dialysis. He was admitted for nonhealing left leg wound. He has undergone surgical, extensive debridement with Dr. Douglass. The feeling is those left thigh lesions as well as lesions at buttock are from calciphylaxis. The is here today. I will discuss it again the need for long-term treatment with sodium thiosulfate for presumed calciphylaxis. Again, they are still undecided. I told him we can have a PICC line placed, and we will attempt to give it at home if that is possible. No other complaints today. OBJECTIVE: VITAL SIGNS: Blood pressure is 105/63, heart rate 64, respiratory rate 22, temperature 97.6, and pulse ox 100%. GENERAL: Awake, alert, obese, comfortable, not in distress. SKIN: Adequate turgor. HEENT: He has pinkish conjunctivae. Anicteric sclerae. NECK: No neck mass. No carotid bruits. No JVD. CHEST: No deformities. LUNGS: Clear breath sounds. HEART: Normal sinus rhythm. No murmurs, no gallops, no rubs. ABDOMEN: Globular, soft, nontender. No masses. Positive for PD catheter. EXTREMITIES: No edema. MEDICATIONS: Medications of October 08, 2018, were reviewed. LABORATORY DATA: Laboratories of October 08, 2018, sodium 140, potassium 5.8, chloride 108, carbon dioxide 22, BUN 50, creatinine 7.72, glucose 86, calcium 9.0, phosphorus 4.5, albumin 2.8. ASSESSMENT AND PLAN: 1. Mild hyperkalemia. Discontinue potassium supplementation. 2. End-stage renal disease. We will continue current CCPD regimen. Tolerating said treatment. Fluid removal only as tolerated using 1.5% PD solution. 3. Nonhealing left lower extremity wound/buttock wound-most likely calciphylaxis. Family still undecided whether to pursue sodium thiosulfate. They will still think about it. If they want to pursue, I suggest at least a PICC line due to the fact that he may need it for at least 6 months. Mylene was also advised, but they are hesitant to have it done. Job ID: [id number] [facility]
[2018-10-08] MEDS: Lidocaine 4% Topical Sol 50 ML BOT TOP SCH (12:01)
[2018-10-08] MEDS: Famotidine 20 MG TAB PO SCH (20:24)
[2018-10-08] MEDS: Atorvastatin Calcium 40 MG TAB PO SCH (20:37)
[2018-10-09] MEDS: Morphine 2 MG/ML SYRINGE SLOW IVP PRN ×2 (04:44→10:16)
[2018-10-09] MEDS: Levothyroxine Sodium 100 MCG TAB PO SCH (04:47)
[2018-10-09 06:21] LABS: Albumin 2.6 g/dL (3.4-4.8); Anion Gap 18 mmol/L (10-20); BUN (Urea Nitrogen) 54 mg/dL (8.4-25.7); BUN/Creatinine Ratio 6.78; Calc. Creatinine Clearance 13 mL/min (70-130); Calcium 8.9 mg/dL (7.8-10.44); Carbon Dioxide 21 mmol/L (23-31); Chloride 107 mmol/L (98-107); Estimated GFR-MDRD 7; Glucose 104 mg/dL (80-115); Phosphorus 5.3 mg/dL (2.3-4.7); Potassium 4.9 mmol/L (3.5-5.1); Sodium 141 mmol/L (136-145)
[2018-10-09] MEDS: Budesonide 0.5 MG/2 ML NEB NEB SCH ×2 (06:40→19:06)
[2018-10-09] MEDS: Lanthanum Carbonate 500 mg Tablet PO SCH ×3 (08:21→15:34)
[2018-10-09] MEDS: Folic Acid 1 MG TAB PO SCH (08:21)
[2018-10-09] MEDS: Calcitriol 0.25 MCG CAP PO SCH (08:21)
[2018-10-09] MEDS: Cyanocobalamin (Vitamin B-12) 1,000 MCG TAB PO SCH (08:21)
[2018-10-09] MEDS: Aspirin Chewable 81 MG TAB PO SCH (08:21)
[2018-10-09] MEDS: Heparin 5,000 UNITS/ML VIAL SC SCH ×2 (08:21→21:05)
[2018-10-09] MEDS: Vancomycin HCl 25 MG/ML Oral PO SCH ×3 (08:21→15:34)
[2018-10-09] MEDS: Midodrine HCl 5 MG TAB PO SCH ×3 (08:21→21:03)
[2018-10-09] MEDS: Saccharomyces boulardii 250 MG CAP PO SCH (08:21)
[2018-10-09] MEDS: Sevelamer Carbonate 800 MG TAB PO SCH ×3 (08:26→15:33)
--- NOTE | 2018-10-09 11:07 | PDOC.PN ---
- Subjective Encounter Start Date: 10/09/18 Encounter Start Time: 11:05 Subjective: cont to complain of pain and difficulty movig - Objective Resuscitation Status - Order Detail: 10/02/18 19:24 Resuscitation Status Routine Resuscitation Status: FULL: Full Resuscitation Discussed with: POA: CHACORTA Reviewed: Yes Vital Signs & Weight: Vital Signs (12 hours) Temp Pulse Resp BP Pulse Ox 10/09/18 07:19 97.4 F L 65 18 105/71 92 L 10/09/18 06:40 74 12 10/09/18 04:00 97.7 F 74 18 115/75 91 L 10/09/18 00:33 97.2 F L 69 18 111/71 95 Weight Admit Weight 199 lb 4.766 oz Weight 207 lb 14.334 oz Most Recent Monitor Data Heart Rate from ECG 55 NIBP 134/37 NIBP BP-Mean 69 Respiration from ECG 20 SpO2 92 I&O: 10/08/18 10/09/18 10/10/18 06:59 06:59 06:59 Intake Total 1220 1100 Output Total 0 0 Balance 1220 1100 Result Diagrams: 10/07/18 04:49 10/09/18 05:57 Phys Exam - Physical Examination Neck: no JVD Respiratory: clear to auscultation bilateral Cardiovascular: RRR, no significant murmur Gastrointestinal: soft, positive bowel sounds Musculoskeletal: no edema Dx/Plan (1) Calciphylaxis of lower extremity with nonhealing ulcer Code(s): E83.59 - OTHER DISORDERS OF CALCIUM METABOLISM; L97.909 - NON-PRS CHRONIC ULC UNSP PRT OF UNSP LOW LEG W UNSP SEVERITY Status: Acute (2) Klebsiella infection Code(s): A49.8 - OTHER BACTERIAL INFECTIONS OF UNSPECIFIED SITE Status: Acute Comment: Right lateral hip wound infection (3) multiple ulcers Status: Acute Comment: likely calciphylaxis, s/p debridement 10/03/2018 (4) ESRD on peritoneal dialysis Code(s): N18.6 - END STAGE RENAL DISEASE; Z99.2 - DEPENDENCE ON RENAL DIALYSIS Status: Chronic Comment: Continue PD per Nephrology recommendations (5) Hypothyroidism Code(s): E03.9 - HYPOTHYROIDISM, UNSPECIFIED Status: Chronic Qualifiers: Hypothyroidism type: unspecified (6) Calciphylaxis Code(s): E83.59 - OTHER DISORDERS OF CALCIUM METABOLISM Status: Acute - Plan discussed transition of care with patient and family. accusation made of -: hospital trying to kick him out to save money. always had reason he could -: not go to rehab or SNF. they are apperently detemined to stay in hospital -: indefinitely * .
--- NOTE | 2018-10-09 11:35 | PRG ---
DATE OF SERVICE: 10/09/2018 SUBJECTIVE: Mr. Boyer is a 63-year-old male with ESRD currently on a maintenance peritoneal dialysis. He was admitted for a left thigh wound. He underwent a surgical debridement, which was extensive and the feeling by Surgery is that he may have calciphylaxis. After a long discussion, we have decided to proceed to give him sodium thiosulfate 25 g IV three times a week. It is unclear if the patient will pursue this as an outpatient. No other complaints today. No chest pain or shortness of breath. OBJECTIVE: VITAL SIGNS: Blood pressure 105/71, heart rate 65, respiratory rate 18, temperature 97.4, and pulse ox 92%. GENERAL: Awake, alert, obese, sitting comfortable, not in distress. SKIN: Adequate turgor. HEENT: He has a pinkish conjunctivae. Anicteric sclerae. NECK: No neck mass. No carotid bruits. No JVD. CHEST: No deformities. LUNGS: Clear breath sounds. HEART: Normal sinus rhythm. No murmur. No gallops. No rubs. ABDOMEN: Globular, soft, and nontender. No masses. EXTREMITIES: No edema. No deformities. MEDICATIONS: Medications of October 09, 2018, reviewed. LABORATORY DATA: Laboratories of October 07, 2018, white count 10.8 and hemoglobin 9.8. October 09, 2018; sodium 141, potassium 4.9, chloride 107, carbon dioxide 21, BUN 54, creatinine 7.96, glucose 104, and phosphorus is 5.3. Albumin 2.6. ASSESSMENT AND PLAN: 1. End-stage renal disease. Continuing continuous cycling peritoneal dialysis regimen. Tolerating said treatment. Fluid removal only as tolerated. Using 1.5% PD solution to minimize ultrafiltration due to the low BP. 2. Chronic hypotension, on midodrine. 3. Calciphylaxis. Start sodium thiosulfate 25 g IV three times a week. We will give it to him while they will allow me to give it at the hospital. As previously mentioned, unclear if they want to proceed this as an outpatient. 4. Anemia on weekly Epogen. 5. Mild hyperphosphatemia - currently on phosphate binders. Overall agree with current management. Job ID: [id number]
[2018-10-09] MEDS: Famotidine 20 MG TAB PO SCH (21:03)
[2018-10-09] MEDS: Atorvastatin Calcium 40 MG TAB PO SCH (21:05)
[2018-10-09] MEDS: Acetaminophen 325 MG TAB PO PRN (21:08)
[2018-10-10] MEDS: Acetaminophen 325 MG TAB PO PRN ×4 (00:49→16:40)
[2018-10-10] MEDS: Levothyroxine Sodium 100 MCG TAB PO SCH (04:47)
[2018-10-10 05:36] LABS: Albumin 2.5 g/dL (3.4-4.8); Anion Gap 14 mmol/L (10-20); BUN (Urea Nitrogen) 55 mg/dL (8.4-25.7); Calc. Creatinine Clearance 13 mL/min (70-130); Calcium 8.8 mg/dL (7.8-10.44); Carbon Dioxide 25 mmol/L (23-31); Chloride 106 mmol/L (98-107); Estimated GFR-MDRD 7; Glucose 90 mg/dL (80-115); Phosphorus 5.5 mg/dL (2.3-4.7); Potassium 4.8 mmol/L (3.5-5.1); Sodium 140 mmol/L (136-145)
[2018-10-10] MEDS: Budesonide 0.5 MG/2 ML NEB NEB SCH ×2 (06:47→18:17)
[2018-10-10] MEDS: Sevelamer Carbonate 800 MG TAB PO SCH ×3 (08:14→16:36)
[2018-10-10] MEDS: Aspirin Chewable 81 MG TAB PO SCH (08:15)
[2018-10-10] MEDS: Lanthanum Carbonate 500 mg Tablet PO SCH ×3 (08:15→16:40)
[2018-10-10] MEDS: Saccharomyces boulardii 250 MG CAP PO SCH (08:15)
[2018-10-10] MEDS: Calcitriol 0.25 MCG CAP PO SCH (08:15)
[2018-10-10] MEDS: Midodrine HCl 5 MG TAB PO SCH ×2 (08:15→14:36)
[2018-10-10] MEDS: Heparin 5,000 UNITS/ML VIAL SC SCH (08:16)
[2018-10-10] MEDS: Folic Acid 1 MG TAB PO SCH (08:16)
[2018-10-10] MEDS: Cyanocobalamin (Vitamin B-12) 1,000 MCG TAB PO SCH (08:16)
[2018-10-10] MEDS: Lidocaine 4% Topical Sol 50 ML BOT TOP SCH (12:58)
--- NOTE | 2018-10-10 14:15 | PDOC.PN ---
- Subjective Encounter Start Date: 10/10/18 Encounter Start Time: 14:13 Mr. Boyer was seen today in follow-p of Calciphylaxis. He does not have any new complaints. He has stable pain at the wound sites. - Objective Resuscitation Status - Order Detail: 10/02/18 19:24 Resuscitation Status Routine Resuscitation Status: FULL: Full Resuscitation Discussed with: POA: CHACORTA Reviewed: Yes Vital Signs & Weight: Vital Signs (12 hours) Temp Pulse Resp BP Pulse Ox 10/10/18 07:20 97.4 F L 55 L 16 129/80 96 10/10/18 06:47 66 16 100 10/10/18 04:00 98.1 F 66 16 111/72 91 L Weight Admit Weight 199 lb 4.766 oz Weight 208 lb 14.4 oz Most Recent Monitor Data Heart Rate from ECG 55 NIBP 134/37 NIBP BP-Mean 69 Respiration from ECG 20 SpO2 92 I&O: 10/09/18 10/10/18 10/11/18 06:59 06:59 06:59 Intake Total 1100 960 Output Total 0 Balance 1100 960 Result Diagrams: 10/07/18 04:49 10/10/18 04:55 Phys Exam - Physical Examination HEENT: PERRLA Respiratory: no wheezing, no rales, no rhonchi, clear to auscultation bilateral Cardiovascular: RRR, no significant murmur, no rub Gastrointestinal: soft, non-tender, no distention, positive bowel sounds Musculoskeletal: no edema + chronic venous stasis changes, wound photos noted Dx/Plan (1) Calciphylaxis Code(s): E83.59 - OTHER DISORDERS OF CALCIUM METABOLISM Status: Acute (2) Physical deconditioning Code(s): R53.81 - OTHER MALAISE Status: Acute (3) ESRD on peritoneal dialysis Code(s): N18.6 - END STAGE RENAL DISEASE; Z99.2 - DEPENDENCE ON RENAL DIALYSIS Status: Chronic Comment: Continue PD per Nephrology recommendations (4) Hypothyroidism Code(s): E03.9 - HYPOTHYROIDISM, UNSPECIFIED Status: Chronic Qualifiers: Hypothyroidism type: unspecified (5) Chronic diastolic CHF (congestive heart failure), NYHA class 2 Code(s): I50.32 - CHRONIC DIASTOLIC (CONGESTIVE) HEART FAILURE Status: Acute - Plan * Calciphylaxis- discussed with Dr. Gipson- he will continue Sodium Thiosulfate as well as local wound care * ESRD- continue PD * Stable for discharge to Rehab
[2018-10-10 16:09] VITALS: BP 115/71; TEMP 97.8
--- NOTE | 2018-10-10 21:59 | PRG ---
DATE OF SERVICE: SUBJECTIVE: Mr. Boyer is a 63-year-old male with ESRD and currently on peritoneal dialysis. Recently, he was diagnosed with calciphylaxis. I had a long discussion with the patient. We have agreed to continue sodium thiosulfate 25 g IV every dialysis. Unclear if the patient will want to pursue this longer than his stay at the rehab. He will be transferred to the rehab today. No other complaints. No chest pain or shortness of breath. OBJECTIVE: VITAL SIGNS: Blood pressure is 129/80, heart rate 55, respiratory rate 16, pulse ox 96%. GENERAL: Noted to be awake, alert, comfortable, obese, not in distress. SKIN: Adequate turgor. HEENT: He has a pinkish conjunctivae. Anicteric sclerae. NECK: No neck mass. No carotid bruits. No JVD. CHEST: No deformities. LUNGS: Clear breath sounds. HEART: Normal sinus rhythm. No murmurs, gallops, or rubs. ABDOMEN: Globular, soft, nontender. No masses. Positive for PD catheter. EXTREMITIES: Trace edema. Positive for left thigh wound and buttock wound. MEDICATIONS: Medications of October 10, 2018 was reviewed. LABORATORY DATA: Laboratories of October 07, 2018; white count 10.3, hemoglobin 9.8. On October 10, 2018, sodium 140, potassium 4.8, chloride 106, carbon dioxide 25, BUN 55, creatinine 7.97, calcium 8.8, phosphorus 5.5, albumin is 2.5. ASSESSMENT AND PLAN: 1. Hyperphosphatemia. Continuing Fosrenol and Renvela. 2. End-stage renal disease. Continue current CCPD regimen. I have scheduled him for 2.5 L fill volume and using 1.5% PD solution tonight. 3. Calciphylaxis. Consider initiating sodium thiosulfate 25 g IV three times a week. Long-term prognosis remains guarded with this patient. Overall, agree with plan and discharge to rehab. Job ID: [id number]
--- NOTE | 2018-10-11 04:07 | DIS ---
DATE OF ADMISSION: 10/02/2018 DATE OF DISCHARGE: 10/10/2018 PRIMARY CARE PHYSICIAN: Antonio Ca MD. DISCHARGE DISPOSITION: Inpatient rehab. DISCHARGE DIAGNOSES: 1. Calciphylaxis of the lower extremities. 2. End-stage renal disease on peritoneal dialysis. 3. Hypothyroidism. 4. Chronic diastolic heart failure. 5. Cerebrovascular accident. 6. Chronic hypotension. DISCHARGE MEDICATIONS: Include; 1. Sodium thiosulfate 25 g IV 3 times a week. 2. Levothyroxine 200 mcg p.o. daily. 3. Lanthanum carbonate 500 mg 3 times a day. 4. Epogen 7500 units every week. 5. Rocaltrol 0.25 mcg p.o. daily. 6. Renvela 3 tabs 3 times a week. 7. Florastor 250 mg daily. 8. Midodrine 10 mg 3 times a day. 9. Famotidine 20 mg twice daily. 10. Vitamin D3 4000 units weekly. 11. Aspirin 81 mg daily. PROCEDURES DONE DURING THE ADMISSION: The patient had a CT scan of the abdomen and pelvis and this showed interval development of hyperdensity in the peritoneal cavity, which was nonspecific, could be a calcification. The patient had debridement of a right medial thigh wound, which was packed open, an extensive debridement of the right hip and buttocks. CODE STATUS: Full code. ALLERGIES: TO FLUCONAZOLE, HYDROCODONE, MORPHINE, CODEINE, AND TRAMADOL. HOSPITAL COURSE: Mr. Boyer is a pleasant 63-year-old gentleman, who presented to the emergency room with severe pain and chronically draining wounds. This had long been suspected to be calciphylaxis. He was admitted and General Surgery was consulted. He underwent I and D of the areas as some of the areas were superinfected. He was started on IV antibiotics. He tolerated this well. He was seen by Dr. Gipson during his hospital stay, who is his usual business objects. He had recommended that he switch to hemodialysis, but the patient stated that due to transportation issues, it was more feasible for him to continue on peritoneal dialysis. He was treated with IV sodium thiosulfate and a central line was placed for this and due to some severe deconditioning, he was ultimately transferred to the inpatient rehabilitation unit and this was done on 10/10/2018. Job ID: [id number]
== END 2018-10-10 19:22 | DRG 570 ==
LOC: ERS 12:15 → 2NO 19:23 → CCU 10-03 14:03 → 2NO 10-05 14:53 → T4-A 10-08 14:49
PROVIDERS: ADMIT Internal Medicine; ATTEND Internal Medicine
PROC: 3E1M39Z Irrigation of Peritoneal Cavity using Dialysate, Percutaneous Approach (ICD-10-PCS; 2018-10-02)
PROC: 0JBL0ZZ Excision of Right Upper Leg Subcutaneous Tissue and Fascia, Open Approach (ICD-10-PCS; principal; 2018-10-03)
PROC: 0JB90ZZ Excision of Buttock Subcutaneous Tissue and Fascia, Open Approach (ICD-10-PCS; 2018-10-03)
PROC: 3E1M39Z Irrigation of Peritoneal Cavity using Dialysate, Percutaneous Approach (ICD-10-PCS; 2018-10-03)
PROC: 3E1M39Z Irrigation of Peritoneal Cavity using Dialysate, Percutaneous Approach (ICD-10-PCS; 2018-10-04)
PROC: 3E1M39Z Irrigation of Peritoneal Cavity using Dialysate, Percutaneous Approach (ICD-10-PCS; 2018-10-05)
PROC: 3E1M39Z Irrigation of Peritoneal Cavity using Dialysate, Percutaneous Approach (ICD-10-PCS; 2018-10-06)
PROC: 3E1M39Z Irrigation of Peritoneal Cavity using Dialysate, Percutaneous Approach (ICD-10-PCS; 2018-10-07)
PROC: 3E1M39Z Irrigation of Peritoneal Cavity using Dialysate, Percutaneous Approach (ICD-10-PCS; 2018-10-08)
PROC: 3E1M39Z Irrigation of Peritoneal Cavity using Dialysate, Percutaneous Approach (ICD-10-PCS; 2018-10-09)
DX: L97.119 Non-pressure chronic ulcer of right thigh with unspecified severity (principal); N18.6 End stage renal disease; N17.9 Acute kidney failure, unspecified; E87.2 Acidosis; Z68.41 Body mass index [BMI] 40.0-44.9, adult; E27.40 Unspecified adrenocortical insufficiency; I50.32 Chronic diastolic (congestive) heart failure; I42.9 Cardiomyopathy, unspecified; L73.2 Hidradenitis suppurativa; E03.9 Hypothyroidism, unspecified; I95.89 Other hypotension; I87.8 Other specified disorders of veins; L97.829 Non-pressure chronic ulcer of other part of left lower leg with unspecified severity; L98.419 Non-pressure chronic ulcer of buttock with unspecified severity; N48.5 Ulcer of penis; N50.89 Other specified disorders of the male genital organs; E87.6 Hypokalemia; D53.9 Nutritional anemia, unspecified; E66.9 Obesity, unspecified; E83.59 Other disorders of calcium metabolism; A49.8 Other bacterial infections of unspecified site; E83.42 Hypomagnesemia; K76.0 Fatty (change of) liver, not elsewhere classified; Z79.82 Long term (current) use of aspirin; Z79.02 Long term (current) use of antithrombotics/antiplatelets
CPT/HCPCS: 36415; 36556; 71045; 74176; 80053; 80069; 80202; 83605; 83735; 83970; 85025; 87040; 87070; 87077; 87186; 87205; 87324; 87449; 88305; 88312; 90945; 93005; 93306; 94640; 96361; 96365; 96367; 96374; 99211; G0257; G0463; J0131; J0670; J0692; J0696; J1644; J1720; J2001; J2250; J2270; J2370; J2543; J2704; J3370; J3475; J3480; J3490; J7050; J7070; J7620; J7626; P9047; Q5105

== ENCOUNTER 2018-11-18 18:14 | Inpatient (IN) | payer MEDICARE, BC ==
[2018-11-18] MEDS ORDERED: Cefepime 2 GM VIAL ONE (19:04)
[2018-11-18] MEDS ORDERED: metroNIDAZOLE 500 MG/100 ML BAG ONE (19:09)
[2018-11-18 19:12] LABS: #Basophils 0.1 thou/uL (0.0-0.2); #Eosinphils 0.2 thou/uL (0.0-0.7); #Lymphocytes 2.3 thou/uL (1.20-3.40); #Monocytes 0.9 thou/uL (0.11-0.59); #Neutrophils 5.6 thou/uL (1.40-6.50); %Basophils 1.1 % (0.0-1.0); %Eosinophils 2.6 % (0.0-10.0); %Lymphocytes 24.8 % (21.0-51.0); %Monocytes 9.4 % (0.0-10.0); Hemoglobin 8.9 g/dL (14.0-18.0); Mean Corpuscular HGB CONC 31.1 g/dL (32.0-36.0); Mean Corpuscular Hemoglobin 33.8 pg (27.0-31.0); Mean Platelet Volume 6.7 fL (7.4-10.4); Platelet Count 189 thou/uL (130-400); RBC Distribution Width 15.5 % (11.5-14.5); Red Blood Cell (RBC) Count 2.62 mill/uL (4.70-6.10); White Blood Cell (WBC) Count 9.1 thou/uL (4.8-10.8)
[2018-11-18] MEDS ORDERED: DAPTOmycin 500 MG in Sodium Chloride 0.9% 100 ML IVPB SCH (19:15)
[2018-11-18 19:29] LABS: Lactic Acid 3.8 mmol/L (0.5-2.2)
[2018-11-18 19:33] LABS: ALT (SGPT) 9 U/L (8-55); AST (SGOT) 16 U/L (5-34); Albumin 2.4 g/dL (3.4-4.8); Alkaline Phosphatase 68 U/L (40-150); Anion Gap 21 mmol/L (10-20); BUN (Urea Nitrogen) 42 mg/dL (8.4-25.7); Bilirubin, Total 0.3 mg/dL (0.2-1.2); CK (CPK) 88 U/L (30-200); Calc. Creatinine Clearance 0 mL/min (70-130); Calcium 8.4 mg/dL (7.8-10.44); Carbon Dioxide 18 mmol/L (23-31); Chloride 107 mmol/L (98-107); Estimated GFR-MDRD 5; Globulin 2.1 g/dL (2.4-3.5); Glucose 74 mg/dL (80-115); Potassium 4.3 mmol/L (3.5-5.1); Protein, Total 4.5 g/dL (5.8-8.1); Sodium 142 mmol/L (136-145)
[2018-11-18] MEDS ORDERED: Norepinephrine 4 MG/4 ML VIAL ONE (20:01)
[2018-11-18] MEDS ORDERED: Norepinephrine 8 MG in Dextrose 5% in Water 242 ML IVPB PRN (20:07)
--- NOTE | 2018-11-18 20:34 | RAD ---
EXAM: Portable chest PROVIDED CLINICAL HISTORY: Weakness COMPARISON: 10/02/2018 FINDINGS: Cardiac silhouette appears prominent, which may be least partially on the basis of portable technique . Right IJ central line is noted, the tip of which terminates overlying the expected location of right atrium. No focal consolidation, pleural fluid or pneumothorax evident. IMPRESSION: No evidence for an acute cardiopulmonary process.
[2018-11-18] MEDS ORDERED: Sodium Chloride 0.9% 1,000 ML IV SCH (22:58)
[2018-11-18] MEDS ORDERED: Acetaminophen 325 MG TAB PO PRN (22:58)
[2018-11-18] MEDS ORDERED: Ondansetron ODT 4 MG TAB SL PRN (22:58)
[2018-11-18] MEDS ORDERED: Ondansetron PF 4 MG/2 ML Vial IVP PRN (22:58)
[2018-11-19] MEDS ORDERED: Acetaminophen 500 MG TAB PO PRN (00:14)
[2018-11-19] MEDS ORDERED: Ondansetron ODT 4 MG TAB PO PRN (00:14)
[2018-11-19] MEDS: Sodium Chloride 0.9% 1,000 ML IV SCH ×2 (00:30→17:26)
--- NOTE | 2018-11-19 02:41 | HP ---
PRIMARY CARE PROVIDER: Antonio Ca MD PRIMARY MARKER MACHINE ATTENDANT: Dr. Gipson. CHIEF COMPLAINT: General weakness and lethargy. HISTORY OF PRESENT ILLNESS: This is a 63-year-old male who was released from [facility] in [place], [place] on 11/18/2018, attempting to return home when he was on his porch becoming severely weak and felt like he was going to pass out. The patient had some chest tightness, but felt overall generally weak after being out all day, running errands, and going out to eat. The patient states he had been doing well at the senior care unit and rehab facility. Ambulating with a rolling walker for short distances. The patient did have recurrent hypotension, treated with midodrine and adjustment to his chronic antihypertensive regimen. The patient states he was in the facility for approximately 3 weeks and released home on 11/18/2018, after a prolonged stay for complex wound care as well as IV antibiotic therapy with daptomycin and cefepime of the buttocks and groin region, status post incision and drainage. The patient was diagnosed with calciphylaxis of the lower extremities in the context of end-stage renal disease on peritoneal dialysis nightly. The patient states his wounds had been regularly managed and was released home for outpatient followup. The patient denied any documented fever, chills, or diarrhea. The patient's last oral intake was in the morning hours of 11/18/2018. In the emergency room, the patient underwent general evaluation with hypotension documented with systolics ranging from the 50s to 90s. The patient received multiple medications including initiation of Levophed infusion for pressor support in addition to antibiotic therapy with Cubicin, metronidazole, and cefepime. The patient also received 2 L of normal saline and was transferred to the Critical Care Unit for further evaluation. PAST MEDICAL HISTORY: 1. Chronic hypotension, treated with midodrine. 2. Calciphylaxis of the lower extremities with open wounds to the buttocks and groin, status post incision and drainage. 3. End-stage renal disease, on peritoneal dialysis. 4. Hypothyroidism. 5. Chronic diastolic heart failure. 6. History of CVA. 7. Deconditioning. 8. Chronic macrocytic anemia. 9. History of C difficile colitis in August 2018. PAST SURGICAL HISTORY: 1. Status post left internal jugular central venous catheter placement. 2. Extensive wound debridement of the right buttocks, penis, scrotum, right medial thigh, and left lower extremity. 3. Status post peritoneal dialysis catheter placement. CURRENT MEDICATIONS: 1. Levothyroxine 200 mcg p.o. daily. 2. Midodrine 10 mg p.o. t.i.d. 3. Aspirin enteric-coated 81 mg p.o. daily. 4. Vitamin D3 4000 units p.o. q.weekly. 5. Oxycodone 5 mg p.o. q.6 hours p.r.n. pain. 6. Renvela one tablet p.o. t.i.d. with meals. 7. Pepcid 20 mg p.o. b.i.d. 8. Vitamin B12 1000 mcg p.o. daily. 9. Sensipar 30 mg p.o. daily. 10. Plavix 75 mg p.o. daily. 11. Folic acid 1 mg p.o. daily. 12. Cefepime. 13. Metronidazole. 14. Daptomycin. ALLERGIES: FLUCONAZOLE, HYDROCODONE, AND OPIATES. FAMILY HISTORY: Positive for hypertension and diabetes mellitus. SOCIAL HISTORY: , resides in [place], [place]. Retired. No current alcohol, tobacco, or illicit drug use. Ambulates with a rolling walker. REVIEW OF SYSTEMS: CONSTITUTIONAL: Negative for weight loss or gain, ability to conduct usual activities. SKIN: Negative for rash, itching. EYES: Negative for double vision, pain. ENT/MOUTH: Negative for nose bleeding, neck stiffness, pain, tenderness. CARDIOVASCULAR: Negative for palpitations, dyspnea on exertion, orthopnea. RESPIRATORY: Negative for shortness of breath, wheezing, cough, hemoptysis, fever or night sweats. GASTROINTESTINAL: Negative for poor appetite, abdominal pain, heartburn, nausea, vomiting, constipation, or diarrhea. GENITOURINARY: Negative for urgency, frequency, dysuria, nocturia. MUSCULOSKELETAL: Negative for pain, swelling. NEUROLOGIC/PSYCHIATRIC: Negative for anxiety, depression. ALLERGY/IMMUNOLOGIC: Negative for skin rash, bleeding tendency. Otherwise, negative except as stated per HPI. PHYSICAL EXAMINATION: VITAL SIGNS: On admission; blood pressure 74/46, pulse 82, respiratory rate 16, temperature 98.2 degrees Fahrenheit, O2 saturation 92% on room air. GENERAL APPEARANCE: This is a 63-year-old male, alert and oriented x3, pleasant, responsive, in no acute distress. HEENT: Pupils are equal, round, and reactive to light and accommodation. Extraocular muscles are intact. No scleral icterus. No conjunctival injection. Nares are patent. Op is clear. Teeth in fair repair. NECK: Supple. No cervical adenopathy. No thyromegaly. No carotid bruits. No JVD appreciated. Cervical spine with full active and passive range of motion. Right internal jugular central venous catheter in place. CHEST: Lungs are clear to auscultation bilaterally. CARDIOVASCULAR: S1 and S2 without noted murmur, rub, or gallop. ABDOMEN: Rounded, soft, nontender, and nondistended. Bowel sounds are positive in all 4 quadrants. There is no hepatosplenomegaly. No abdominal bruits. No rebound or guarding appreciated. Peritoneal dialysis catheter in place. EXTREMITIES: Warm and dry with fair turgor. Hyperpigmentation to bilateral lower extremities with mild pitting edema to the mid shins bilaterally. Pulses are palpable distally at the dorsalis pedis, posterior tibial, and popliteal arteries bilaterally. Capillary refill less than 2 seconds. NEUROLOGIC: Cranial nerves II through XII are grossly intact. No focal or lateralizing signs appreciated. The patient is not observed ambulatory during this exam. SKIN: Shows a large wound to the right gluteal region and posterior left cath. PERTINENT LAB AND X-RAY FINDINGS: Sodium 142, potassium 4.3, chloride 107, CO2 of 18, BUN 42, creatinine 10.21, estimated GFR 5, glucose 74. Lactic acid level 3.8, calcium 8.4. LFTs within normal limits. Albumin 2.4. CBC showed a white blood cell count 9.1, hemoglobin 9, hematocrit 28, MCV 108, platelet count 189 with normal differential. Portable chest x-ray dated 11/18/2018, showed no acute cardiopulmonary process. EKG dated 11/18/2018, by my interpretation shows sinus mechanism with heart rates in the 80s. Low voltage tracing globally. Attenuated R-waves in the precordial leads. Right bundle branch block pattern noted. Right axis deviation. ASSESSMENT AND PLAN: 1. Hypotension, acute on chronic as the patient is on chronic midodrine. Continue levophed infusion to maintain systolics greater than or equal to 100. We will decrease intravenous fluids to 50 mL/h after the patient received fluid resuscitation in the emergency room. 2D echocardiogram performed 10/08/2018, showed ejection fraction of 55% to 60%. We will hold all antihypertensive medications and monitor clinical response. 2. End-stage renal disease with peritoneal dialysis. We will hold peritoneal dialysis given patient's hypotension. We will consult Nephrology Service for timing of next session. No current evidence to suggest acute volume overload. 3. Calciphylaxis with multiple open wounds. We will continue local wound care with turning protocol. We will consult Wound Care Services for evaluation. Continue cefepime 1 g IV q.12 hours with additional daptomycin 500 mg IV q.24 hours. We will confirm outpatient antibiotic regimen. 4. Deconditioning. PT evaluation for functional assessment in the a.m. 5. Chronic macrocytic anemia secondary to chronic kidney disease. No current evidence to suggest acute blood loss. Serial H and H monitoring. 6. Prophylaxis. Hold sequential compression devices. Heparin 5000 units subcutaneously b.i.d. Pepcid 20 mg p.o. b.i.d. CODE STATUS: Full. Surrogate medical decision maker is the patient's spouse. Job ID: [id number]
[2018-11-19 05:36] LABS: Band 1 % (5-11); Eosinophils 2 % (0-10); Hemoglobin 8.8 g/dL (14.0-18.0); Lymphocytes 32 % (21-51); MDiff Complete? YES; Mean Corpuscular HGB CONC 30.7 g/dL (32.0-36.0); Mean Corpuscular Hemoglobin 33.3 pg (27.0-31.0); Mean Platelet Volume 6.4 fL (7.4-10.4); Monocytes 10 % (0-10); Neutrophil 54 % (42-75); Platelet Count 172 thou/uL (130-400); Platelet Morphology Comment Appears Adequate; RBC Distribution Width 15.1 % (11.5-14.5); Red Blood Cell (RBC) Count 2.64 mill/uL (4.70-6.10); White Blood Cell (WBC) Count 7.3 thou/uL (4.8-10.8)
[2018-11-19 05:43] LABS: Anion Gap 17 mmol/L (10-20); BUN (Urea Nitrogen) 43 mg/dL (8.4-25.7); Calc. Creatinine Clearance 10 mL/min (70-130); Calcium 8.6 mg/dL (7.8-10.44); Carbon Dioxide 21 mmol/L (23-31); Chloride 108 mmol/L (98-107); Estimated GFR-MDRD 5; Glucose 89 mg/dL (80-115); Potassium 4.1 mmol/L (3.5-5.1); Sodium 142 mmol/L (136-145)
[2018-11-19] MEDS: Levothyroxine Sodium 100 MCG TAB PO SCH (06:10)
[2018-11-19] MEDS: Cefepime 1 GM in Sodium Chloride 0.9% 100 ML IVPB SCH ×2 (07:56→19:20)
[2018-11-19] MEDS: Sevelamer Carbonate 800 MG TAB PO SCH ×3 (07:56→17:20)
[2018-11-19] MEDS: Lanthanum Carbonate 500 mg Tablet PO SCH ×3 (07:57→17:20)
[2018-11-19] MEDS: Famotidine 20 MG TAB PO SCH (08:19)
[2018-11-19] MEDS: Calcitriol 0.25 MCG CAP PO SCH (08:19)
[2018-11-19] MEDS: Saccharomyces boulardii 250 MG CAP PO SCH (08:19)
[2018-11-19] MEDS: Aspirin Chewable 81 MG TAB PO SCH (08:19)
[2018-11-19] MEDS: Midodrine HCl 5 MG TAB PO SCH ×3 (08:20→19:20)
[2018-11-19] MEDS: Heparin 5,000 UNITS/ML VIAL SC SCH ×2 (08:22→19:20)
[2018-11-19] MEDS ORDERED: Epoetin (ESRD) 20,000 UNITS/ML SC SCH (08:45)
[2018-11-19] MEDS ORDERED: DAPTOmycin 500 MG VIAL SLOW IVP SCH (09:00)
--- NOTE | 2018-11-19 09:35 | PRG ---
DATE OF SERVICE: 11/19/2018 SUBJECTIVE: Mr. Boyer is a 63-year-old male with ESRD, and we were consulted for his maintenance peritoneal dialysis. He was admitted due to symptomatic hypotension. His BP systolic at the ER was noted to be in the 50s. He was given volume repletion as well as started on Levophed. The patient was recently just discharged from the LTAC from [employer]. He was receiving IV antibiotics at that time, which included Cubicin, metronidazole, and cefepime, these are for chronic wound/ulcerations. In addition, he had a diagnosis of calciphylaxis and was receiving IV sodium thiosulfate. However, at the LTAC, according to the patient, this was placed on hold since the patient is not tolerating the said medication. He was having abdominal pain, nausea, and vomiting with this medicine. We did discuss about continuing it, but he declined. This morning, he is feeling better, blood pressure is much improved with pressor support. No complaints of chest pain or shortness of breath. OBJECTIVE: VITAL SIGNS: Blood pressure is 101/70, heart rate 70, respiratory rate 12. GENERAL: Awake, in supine, comfortable, obese, not in distress. SKIN: Adequate turgor. HEENT: The patient has a slightly pale conjunctivae. Anicteric sclerae. NECK: No neck mass. No carotid bruits. No JVD. CHEST: No deformities. LUNGS: Clear breath sounds. HEART: Normal sinus rhythm. No murmurs. No gallops. No rubs. ABDOMEN: Globular, soft, and nontender. No masses. Positive for PD catheter. EXTREMITIES: No edema. No deformities. LABORATORY DATA: Laboratories of November 19, 2018: White count 7.3, hemoglobin 8.8, and hematocrit 28.6. Sodium 142, potassium 4.1, chloride 108, carbon dioxide 21, BUN 43, creatinine 10.1, glucose 89, and calcium 8.6. ASSESSMENT AND PLAN: 1. End-stage renal disease. We will resume back his peritoneal dialysis tonight. We will use a 1.5% PD solution with a 2 L fill volume. Time will be for 10 hours. We will minimize ultrafiltration due to the low blood pressure. 2. Anemia. We will resume back Epogen 10,000 units subcu every week. 3. Chronic ulcerations, currently on IV antibiotics. 4. Calciphylaxis. Declining resumption of the sodium thiosulfate. Agree with current management. Job ID: [id number]
[2018-11-19] MEDS: EPOETIN ALFA-EPBX (ESRD) 4,000 UNIT/ML VIAL SC SCH (12:29)
[2018-11-19] MEDS: oxyCODONE 5 MG TAB PO PRN (19:27)
--- NOTE | 2018-11-20 02:31 | CON ---
DATE OF CONSULTATION: 11/19/2018 HISTORY OF PRESENT ILLNESS: Mr. Boyer is a gentleman, who has a history of hypotension, on midodrine. He recently was in a long-term care facility, was discharged home. He presented with weakness and hypotension. He said he felt like he was going to pass out at home. He had blood pressures above 50 systolic, but was placed on pressors. He is admitted to the critical care unit. He also was volume resuscitated. He is a dialysis patient. PAST MEDICAL HISTORY: Remarkable for, 1. Calciphylaxis of the lower extremities, status post incision and drainage, multiple wounds. 2. End-stage renal disease, on peritoneal dialysis. 3. Hypothyroidism. 4. History of cerebrovascular accident. 5. Diastolic heart failure. 6. History of anemia of chronic disease. 7. History of C difficile in August. 8. Hypothyroidism, on replacement. MEDICATIONS: Reviewed. ALLERGIES: REPORTS FLUCONAZOLE, HYDROCODONE, AND OPIATE ALLERGIES. FAMILY HISTORY: Positive for hypertension and diabetes. SOCIAL HISTORY: He is nonsmoker, nondrinker, and nondrug user. He is retired. REVIEW OF SYSTEMS: Ten points review of systems completed, negative. He says he is feeling much better. PHYSICAL EXAMINATION: VITAL SIGNS: He is afebrile. Heart rate is 63 and blood pressure 107/68 this afternoon, oximetry is 96. HEENT: Pupils are equal. Sclerae anicteric. Extraocular movements are full. NECK: Supple. No lymphadenopathy. LUNGS: Clear. HEART: Regular rhythm. S1 and S2 are normal. ABDOMEN: Soft and nontender. EXTREMITIES: Without asymmetry. NEUROLOGIC: Nonfocal. LABORATORY DATA: Chest radiograph reviewed by me is clear. Microbiology today is remarkable for negative blood cultures. Apparently, when he arrived in the emergency room, it was found that he had an indwelling central line that actually been in place until 47 days. LABORATORY DATA: White count 7.3, hemoglobin 8.8, platelets 172,000. Sodium 142, potassium 4.1, chloride 108, bicarb 21, BUN 43, creatinine 10, albumin is 2.4. IMPRESSION AND PLAN: Hypotension on presentation. He clinically does not appear to be septic. I doubt, the sepsis would have resolved this quickly with simple volume resuscitation and transient period of pressors. In any event, he will be continued to be treated as though he has a hospital-acquired infection. We will wait for final blood cultures. He will remain stable overnight. He can move out of Critical Care Unit. This is a 70 minute consult with greater than 50% of time spent on unit coordinating care. Job ID: [id number] MARY
[2018-11-20 05:04] LABS: #Eosinphils 0.3 thou/uL (0.0-0.7); #Lymphocytes 2.1 thou/uL (1.20-3.40); #Monocytes 0.7 thou/uL (0.11-0.59); %Basophils 0.8 % (0.0-1.0); %Lymphocytes 40.7 % (21.0-51.0); %Neutrophils 40.5 % (42.0-75.0); Hemoglobin 8.5 g/dL (14.0-18.0); Mean Corpuscular HGB CONC 31.4 g/dL (32.0-36.0); Mean Platelet Volume 6.8 fL (7.4-10.4); Platelet Count 172 thou/uL (130-400); RBC Distribution Width 15.2 % (11.5-14.5); Red Blood Cell (RBC) Count 2.49 mill/uL (4.70-6.10); White Blood Cell (WBC) Count 5.1 thou/uL (4.8-10.8)
[2018-11-20 05:20] LABS: Anion Gap 19 mmol/L (10-20); BUN (Urea Nitrogen) 43 mg/dL (8.4-25.7); Calc. Creatinine Clearance 10 mL/min (70-130); Calcium 8.6 mg/dL (7.8-10.44); Carbon Dioxide 18 mmol/L (23-31); Chloride 108 mmol/L (98-107); Estimated GFR-MDRD 5; Glucose 78 mg/dL (80-115); Phosphorus 7.1 mg/dL (2.3-4.7); Sodium 141 mmol/L (136-145)
[2018-11-20] MEDS: Levothyroxine Sodium 100 MCG TAB PO SCH (05:24)
[2018-11-20] MEDS: Cefepime 1 GM in Sodium Chloride 0.9% 100 ML IVPB SCH (08:52)
[2018-11-20] MEDS: Sevelamer Carbonate 800 MG TAB PO SCH ×3 (08:54→17:48)
[2018-11-20] MEDS: Calcitriol 0.25 MCG CAP PO SCH (08:55)
[2018-11-20] MEDS: Aspirin Chewable 81 MG TAB PO SCH (08:55)
[2018-11-20] MEDS: Lanthanum Carbonate 500 mg Tablet PO SCH ×3 (08:55→17:51)
[2018-11-20] MEDS: Saccharomyces boulardii 250 MG CAP PO SCH (08:56)
[2018-11-20] MEDS: Midodrine HCl 5 MG TAB PO SCH ×3 (08:56→21:02)
[2018-11-20] MEDS: Famotidine 20 MG TAB PO SCH (08:57)
[2018-11-20] MEDS: Heparin 5,000 UNITS/ML VIAL SC SCH ×2 (08:57→21:02)
--- NOTE | 2018-11-20 09:51 | PRG ---
DATE OF SERVICE: 11/20/2018 SUBJECTIVE: Mr. Boyer is a 63-year-old male with ESRD and currently on peritoneal dialysis. He was admitted for symptomatic hypotension. Pressor support was given. Normal saline was also started. He is feeling better. Blood pressure is much improved. He continues to receive his IV antibiotics for his chronic wound infection at the back. Wound is quite healed. Adjustment of the IV antibiotics has been done. No other complaints today. OBJECTIVE: VITAL SIGNS: Blood pressure 113/66, heart rate 53, respiratory rate 20, and pulse ox 99% on room air. GENERAL: Awake, alert, supine, comfortable, and obese. SKIN: Adequate turgor. HEENT: He has slightly pale conjunctivae. Anicteric sclerae. NECK: No neck mass. No carotid bruits. No JVD. CHEST: No deformities. LUNGS: Clear breath sounds. HEART: Normal sinus rhythm. No murmurs. No gallops. No rubs. ABDOMEN: Globular, soft, and nontender. Positive for PD catheter. EXTREMITIES: No trace edema. No deformities. MEDICATIONS: Medications of November 20, 2018, reviewed. LABORATORY DATA: Laboratories of November 20, 2018, white count 5.1 and hemoglobin 8.5. Sodium 141, potassium 4, chloride 108, carbon dioxide 18, BUN 43, creatinine 9.89, glucose 78, and phosphorus is 7.1. PTH is 165.3. ASSESSMENT AND PLAN: 1. Chronic hypotension, currently on midodrine. Consider starting the patient sodium chloride 1 g p.o. t.i.d. 2. Hyperphosphatemia - currently on lanthanum at 500 mg p.o. t.i.d. Consider increasing it to 1000 mg p.o. t.i.d. 3. Chronic sacral decubitus - on IV antibiotics. 4. Anemia, currently on weekly Epogen. 5. Chronic hypotension. As previously mentioned, start sodium chloride. Continue midodrine. 6. End-stage renal disease, stable. We will continue current CCPD regimen using 1.5% PD solution to minimize ultrafiltration. Agree to move the patient to the medical floor. Job ID: [id number]
--- NOTE | 2018-11-20 10:37 | CON ---
DATE OF CONSULTATION: 11/19/2018 REASON FOR CONSULTATION: Various wounds in skin with different stages associated with end-stage renal disease and antimicrobial therapy that had been initiated prior to admission to [facility]. HISTORY OF PRESENT ILLNESS: A 63-year-old with history of end-stage renal disease of probably secondary to glomerulonephritis; a diagnosis of calciphylaxis, which is somewhat questionable; and cardiomyopathy with diastolic heart failure, who is currently on peritoneal dialysis and had developed numerous wounds. The worst one is in the right ischial area. He also has other wounds. Those had been diagnosed as calciphylaxis, but there are some elements in the wound appearance that would argue against it. He after being discharged from an LTACH in [place], [place], proceeded to run some errands and developed what he describes as chest tightness , general malaise, and weakness. The patient has chronic hypotension, which is treated with midodrine, and because as he felt unwell, he was evaluated in the emergency room and admitted, when he was found to be hypotensive again, but more than what his usual readings stand. Usually, he is around 80 systolic and he was found to be 50 systolic and he therefore was admitted, given Levophed and IV fluids, and we were asked to evaluate the antimicrobials that he had been receiving, which include Cubicin, metronidazole, and cefepime. Currently, he is awake, appears to be in no distress whatsoever. Denies headaches. He has chronic visual symptoms that are unchanged. No sore throat, odynophagia, or dysphagia. No dyspnea or chest pain. No abdominal pain. The peritoneal dialysis catheter appears normal. He has those wounds that are described below. No neurological symptoms. 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 PAST SURGICAL HISTORY: Left IJ CVC placement, which has been removed and a new one has been placed at the emergency room. Various wounds that had surgical debridements and complex wound care. The peritoneal dialysis catheter placement. MEDICATIONS: 1. Levothyroxine. 2. Midodrine. 3. Aspirin. 4. Vitamin D. 5. Oxycodone. 6. Renvela. 7. Pepcid. 9. Sensipar. 10. Plavix. 11. Folic acid. 12. Cefepime. 13. Metronidazole. 14. Daptomycin. ALLERGIES: FLUCONAZOLE, HYDROCODONE, AND OPIATES. FAMILY HISTORY: Hypertension and diabetes. SOCIAL HISTORY: . Lives in [place], [place]. Retired and disabled. Former smoker. PHYSICAL EXAMINATION: VITAL SIGNS: T-max 98.5, blood pressure 113/77, pulse 60, respirations 15 to 23 , and O2 saturation 99%. GENERAL: He appears in no distress. SKIN: The patient has multiple wounds in various areas; for example, there is one on the medial aspect of the right thigh. There is one in the right anterior thigh and then the dorsal aspect of the penis. They are all clean and without any evidence of necrosis. There is a wide area of what appears more like a pressure ulceration in the lateral ischial area with 100% granulation covering the base. One small wound in the right heel and another one in the back area, which has a fresh red appearance and appears healthy. The patient has a peritoneal dialysis catheter, which appears normal. He also has a right IJ catheter inserted yesterday at the emergency room. LYMPH: There is no lymphadenopathy. HEENT: Ocular movements are conjugate. The oral cavity with numerous missing teeth. No oral cavity lesions otherwise. NECK: Supple with no jugular vein distention. No thyromegaly. LUNGS: Symmetric. Clear breath sounds. HEART: S1 and S2. Regular rate without murmurs. ABDOMEN: Soft without much tenderness. Pulses are 1+ in dorsalis pedis. NEUROLOGIC: He is able to move extremities on command. His cognitive function appears to be intact. LABORATORY DATA: White cell count was 9.1 and now 5.1, hemoglobin 8.9, platelets 189, and 62% neutrophils. Sodium 142 and creatinine 10.31. Liver profile normal. Albumin 2.4. PTH intact at 165, phosphorus was 7.1, and calcium 8.4. Lactic acid 3.8. Microbiology; we have a catheter-tip culture, which has no growth after 12 hours. Clostridium difficile test and stool specimen with negative findings. Three blood culture sets are pending, but still negative. IMAGING STUDIES: Chest x-ray with no evidence of acute cardiopulmonary process. ASSESSMENT AND PLAN: 1. Chronic glomerulonephritis with end-stage renal disease, managed with peritoneal dialysis. 2. Previous diagnosis of calciphylaxis, although the appearance of the wounds would argue against it. Calciphylaxis is usually very hard to manage and I would expect some element of necrosis in the wounds that are present. The one in the right ischial area is most likely a pressure wound, not calciphylaxis. The question regarding the right ischial wound is the stage, if there was previously involvement of bone with osteomyelitis and we will have to obtain records to define that. All the wounds appear healthy without evidence of inflammatory changes, and therefore, I would recommend discontinuation of antimicrobial therapy at this point in time until we are able to review the records and see if it needs to be continued. The only reason to continue antimicrobials would be to if there was evidence to suggest osteomyelitis of the right ischial area; otherwise, those would have to be discontinued. Job ID: [id number] [facility]
--- NOTE | 2018-11-20 14:43 | PQF ---
CLINICAL DOCUMENTATION IMPROVEMENT CLARIFICATION FORM: ICD-10 Updated PLEASE DO AN ADDENDUM TO THE PROGRESS NOTE WITH ANY DOCUMENTATION UPDATES OR ADDITIONS AND CARRY THROUGH TO DC SUMMARY. THANK YOU. DATE: 11/20/18 ATTN: DR. FAGAN Please exercise your independent, professional judgment in responding to the clarification form. Clinical indicators are provided on the bottom of this form for your review Please check appropriate box(s) to clarify if the following diagnosis has been ruled in or ruled out: "SEPSIS" [ ] Ruled in diagnosis [ ] Continue to treat [ ] Resolved [ X ] Ruled out diagnosis [ ] Cannot rule out diagnosis [ ] Other diagnosis [ ] Unable to determine In addition, please specify: Present on Admission (POA): [ ] Yes [ ] No [ ] Unable to determine For continuity of documentation, please document condition throughout progress notes and discharge summary. Thank You. CLINICAL INDICATORS - SIGNS / SYMPTOMS / LABS ER NOTE: "POSSIBLE SEPSIS" BP 60/41 RR 24 LACTIC ACID 3.8 RISKS: MULTIPLE OPEN WOUNDS ESRD TREATMENT: LEVOPHED (ER-11/19) IV CUBICIN (ER) IV FLUIDS (ER-PRESENT) IV CEFEPIME (ER-PRESENT) PROAMATINE (11/19-PRESENT) BLOOD CULTURES CULTURE OF CVC LINE TIP CRITICAL CARE MONITORING (This form is maintained as a part of the permanent medical record) 2014 [employer]. All Rights Reserved [email or web address] Office: [phone] MTDD
[2018-11-20] MEDS: Sodium Chloride 1 GM TAB PO SCH ×2 (15:40→21:03)
--- NOTE | 2018-11-20 16:24 | PRG ---
DATE OF SERVICE: 11/20/2018 SUBJECTIVE: Merrick Boyer is feeling better. OBJECTIVE: VITAL SIGNS: His blood pressures have been normal, it is 127/72. Heart rate is in the 50s to 60s, respiratory rate is in the teens. GENERAL: He is in no distress. LUNGS: Clear. HEART: Regular rhythm. ABDOMEN: Soft and nontender. EXTREMITIES: Without asymmetry or significant edema. NEURO: Nonfocal. LABORATORY DATA: White count 5.1, hemoglobin 8.5, platelets 172. Sodium 141, potassium 4, chloride 108, bicarb 18, BUN 43, creatinine 9.89. IMPRESSION: 1. End-stage renal disease on peritoneal dialysis. 2. History of calciphylaxis with slowly healing ulcers. 3. History of hypothyroidism. 4. Diastolic heart failure. 5. History of Clostridium difficile colitis. His central line could probably be discontinued in 24 to 48 hours since this was placed in the emergency room. He is stable to transfer out of the critical care unit since the reason for admission was hypotension. His cultures were all negative so far. We will sign off. Job ID: [id number]
[2018-11-20] MEDS: Sodium Chloride 0.9% 1,000 ML IV SCH (17:57)
--- NOTE | 2018-11-20 18:03 | PRG ---
DATE OF SERVICE: 11/20/2018 SUBJECTIVE: The patient is undergoing peritoneal dialysis. He denies headaches. He has no dyspnea. No vomiting. No diarrhea. OBJECTIVE: VITAL SIGNS: Essentially normal temperature. Other vital signs are normal. His blood pressure is 130/70 and respiratory rate 22. GENERAL: He is awake, alert, and oriented, chronically ill appearing, in no distress. LUNGS: Clear. HEART: S1 and S2, regular rate. ABDOMEN: Soft. Wounds with nice granulating surface. LABORATORY DATA: White cell count 5.1, hemoglobin 8.5, and platelets are 172, 40% neutrophils. We received cultures from the [facility] and he did have an Enterococcus organism, although resistant to vancomycin, was susceptible to ampicillin. The wounds look good nonetheless and we will switch him to Zosyn, but probably by the time he gets out of here, we will be able to discontinue antimicrobial therapy. Still waiting on the full records from the [facility] evaluations. Job ID: [id number]
--- NOTE | 2018-11-20 18:30 | PDOC.PN ---
- Subjective Encounter Start Date: 11/20/18 Encounter Start Time: 10:40 Pt seen for followup re: hypotension. Feels well. - Objective Resuscitation Status - Order Detail: 11/19/18 00:07 Resuscitation Status Routine Resuscitation Status: FULL: Full Resuscitation MAR Reviewed: Yes Vital Signs & Weight: Vital Signs (12 hours) Temp Pulse Ox 11/20/18 12:00 97.7 F 11/20/18 08:00 97.5 F L 98 Weight Admit Weight 205 lb Weight 205 lb 4.006 oz Most Recent Monitor Data Heart Rate from ECG 60 NIBP 132/71 NIBP BP-Mean 91 Respiration from ECG 22 SpO2 100 I&O: 11/19/18 11/20/18 11/21/18 06:59 06:59 06:59 Intake Total 633.2 1922 630 Output Total 0 0 0 Balance 633.2 1922 630 Result Diagrams: 11/20/18 04:05 11/20/18 04:05 EKG Reviewed by me: Yes (Tele: NSR) Phys Exam - Physical Examination Constitutional: NAD HEENT: moist MMs Neck: supple Respiratory: clear to auscultation bilateral Cardiovascular: RRR Gastrointestinal: soft Neurological: moves all 4 limbs Psychiatric: normal affect Deviation from normal: Wounds as documented Dx/Plan (1) Hypotension Status: Acute Comment: Improved, off of pressors (2) ESRD on peritoneal dialysis Code(s): N18.6 - END STAGE RENAL DISEASE; Z99.2 - DEPENDENCE ON RENAL DIALYSIS Status: Chronic Comment: Continue PD per Nephrology recommendations (3) Hypothyroidism Code(s): E03.9 - HYPOTHYROIDISM, UNSPECIFIED Status: Chronic Qualifiers: Hypothyroidism type: unspecified Comment: continue synthroid - Plan * . Review of Systems - Review of Systems Cardiovascular: negative: chest pain, palpitations, orthopnea, paroxysmal nocturnal dyspnea, edema, light headedness Gastrointestinal: negative: Nausea, Vomiting, Abdominal Pain, Diarrhea, Constipation, Melena, Hematochezia - Medications/Allergies Allergies/Adverse Reactions: Allergies Allergy/AdvReac Type Severity Reaction Status Date / Time fluconazole Allergy Intermediate Verified 04/26/18 02:42 hydrocodone Allergy Intermediate Verified 04/26/18 02:42 Opioids - Morphine Analogues Allergy Intermediate Verified 04/26/18 02:42 codeine Allergy Verified 04/26/18 02:42 tramadol Allergy Verified 04/26/18 02:42 Medications: Current Medications Acetaminophen (Tylenol) 1,000 mg PO Q6H PRN PRN Reason: Mild Pain (1-3) Aspirin (Aspirin Chewable) 81 mg PO DAILY [facility] Last Admin: 11/20/18 08:55 Dose: 81 mg Calcitriol (Rocaltrol) 0.25 mcg PO DAILY [facility] Last Admin: 11/20/18 08:55 Dose: 0.25 mcg Epoetin Jose Alfredo-epbx (Retacrit) 7,500 unit SC Q7D [facility] Last Admin: 11/19/18 12:29 Dose: 7,500 unit Famotidine (Pepcid) 20 mg PO DAILY [facility] Last Admin: 11/20/18 08:57 Dose: 20 mg Heparin Sodium (Porcine) (Heparin) 5,000 units SC BID [facility] Last Admin: 11/20/18 08:57 Dose: 5,000 units Sodium Chloride (Normal Saline 0.9%) 1,000 mls @ 50 mls/hr IV .Q20H [facility] Last Admin: 11/20/18 17:57 Dose: 1,000 mls Heparin Sodium (Porcine) 3,000 units/ Peritoneal Dialysis Solution 6,003 mls @ 0 mls/hr FS ASDIR [facility] Piperacillin Sod/Tazobactam (Sod 2.25 gm/ Sodium Chloride) 100 mls @ 200 mls/ hr IVPB Q8HR [facility] Lanthanum Carbonate (Fosrenol) 1,000 mg PO TID-[facility] Last Admin: 11/20/18 17:51 Dose: 1,000 mg Levothyroxine Sodium (Synthroid) 200 mcg PO 0600 [facility] Last Admin: 11/20/18 05:24 Dose: 200 mcg Midodrine (Proamatine) 10 mg PO TID [facility] Last Admin: 11/20/18 15:40 Dose: 10 mg Ondansetron HCl (Zofran Odt) 4 mg PO Q6H PRN PRN Reason: Nausea/Vomiting Ondansetron HCl (Zofran) 4 mg IVP Q6H PRN PRN Reason: Nausea/Vomiting Oxycodone HCl (Oxycodone Ir) 5 mg PO Q6H PRN PRN Reason: Pain Last Admin: 11/19/18 19:27 Dose: 5 mg Saccharomyces Boulardii (Florastor) 250 mg PO DAILY [facility] Last Admin: 11/20/18 08:56 Dose: 250 mg Sevelamer Carbonate (Renvela) 2,400 mg PO TID-[facility] Last Admin: 11/20/18 17:48 Dose: 800 mg Sodium Chloride (Flush - Normal Saline) 10 ml IVF Q12HR [facility] Last Admin: 11/20/18 08:56 Dose: 10 ml Sodium Chloride (Flush - Normal Saline) 10 ml IVF PRN PRN PRN Reason: Saline Flush Sodium Chloride (Sodium Chloride) 1 gm PO TID [facility] Last Admin: 11/20/18 15:40 Dose: 1 gm
[2018-11-20] MEDS ORDERED: DAPTOmycin 500 MG in Sodium Chloride 0.9% 10 ML SLOW IVP SCH (21:00)
[2018-11-20] MEDS: Piperacillin/Tazobactam 2.25 GM in Sodium Chloride 0.9% 100 ML IVPB SCH (21:01)
[2018-11-20] MEDS: oxyCODONE 5 MG TAB PO PRN (21:12)
[2018-11-21] MEDS: Piperacillin/Tazobactam 2.25 GM in Sodium Chloride 0.9% 100 ML IVPB SCH ×3 (06:11→21:01)
[2018-11-21] MEDS: Levothyroxine Sodium 100 MCG TAB PO SCH (06:11)
[2018-11-21] MEDS: Aspirin Chewable 81 MG TAB PO SCH (08:00)
[2018-11-21] MEDS: Calcitriol 0.25 MCG CAP PO SCH (08:01)
[2018-11-21] MEDS: Saccharomyces boulardii 250 MG CAP PO SCH (08:01)
[2018-11-21] MEDS: Famotidine 20 MG TAB PO SCH (08:03)
[2018-11-21] MEDS: Heparin 5,000 UNITS/ML VIAL SC SCH ×2 (08:04→20:54)
[2018-11-21] MEDS: Midodrine HCl 5 MG TAB PO SCH ×3 (08:04→20:55)
[2018-11-21] MEDS: Sodium Chloride 1 GM TAB PO SCH ×3 (08:05→20:55)
[2018-11-21] MEDS: Sevelamer Carbonate 800 MG TAB PO SCH ×3 (08:05→16:19)
[2018-11-21] MEDS: Lanthanum Carbonate 500 mg Tablet PO SCH ×3 (08:08→16:42)
[2018-11-21] MEDS: Ondansetron PF 4 MG/2 ML Vial IVP PRN (08:24)
--- NOTE | 2018-11-21 09:57 | PRG ---
DATE OF SERVICE: 11/21/2018 SUBJECTIVE: Mr. Boyer is a 63-year-old male with ESRD, followed by the [facility] for his maintenance peritoneal dialysis. He is tolerating the said peritoneal dialysis. Ultrafiltration about 700 mL was done. He was initially admitted for low blood pressure. The blood pressure is now much stable. No complaints of chest pain or shortness of breath. Occasional nausea. OBJECTIVE: VITAL SIGNS: Blood pressure is 127/76, heart rate 57, pulse ox 100%. GENERAL: Awake, alert, supine, comfortable, obese. SKIN: Adequate turgor. HEENT: Pale conjunctivae. Anicteric sclerae. No neck masses. No carotid bruits. No JVD. CHEST: No deformities. LUNGS: Clear breath sounds. HEART: Normal sinus rhythm. No murmur. No gallops. No rubs. ABDOMEN: Globular. Soft. Nontender. No masses. Positive for PD catheter. EXTREMITIES: Positive for edema. MEDICATIONS: Medications of November 21, 2018, were reviewed. LABORATORY DATA: Laboratories of November 20, 2018; white count 5.1, hemoglobin 8.5, sodium 141, potassium 4, chloride 108, carbon dioxide 18, BUN 43, creatinine 9.89, glucose 78, calcium 8.6, phosphorus is 7.1. PTH 165.3. ASSESSMENT AND PLAN: 1. Hyperphosphatemia, continuing increased dose of Fosrenol. 2. End-stage renal disease, stable. Continue current CCPD regimen using 1.5% PD solution to minimize ultrafiltration. 3. Hypotension, much improved. Continue midodrine. Continue sodium chloride tabs. 4. Chronic back decubitus ulcers, healing well. The patient has received a course of IV antibiotics. Currently, cefepime will be discontinued. 5. Anemia, continuing weekly Epogen. 6. Overall agree with current management. Job ID: [id number]
--- NOTE | 2018-11-21 12:22 | PRG ---
DATE OF SERVICE: 11/21/2018 SUBJECTIVE: Merrick Boyer had some vomiting this morning. He denied being nauseated. OBJECTIVE: VITAL SIGNS: His heart rate in the 50s, blood pressure 122/71, respiratory rate 18, and oximetry is 97%. LUNGS: Clear. HEART: Regular rhythm. ABDOMEN: Soft and nontender. EXTREMITIES: Without edema. Catheter tip that was removed on admission is growing a coag-negative staph. This is likely a catheter colonizer since his blood cultures from the same day were all negative. He needs his current central line per Dr. Gipson. PLAN: We will continue with supportive care. He is stable to move out of the Critical Care Unit in my opinion. We will sign off on transfer out of the Critical Care Unit. Job ID: [id number]
[2018-11-21] MEDS: Sodium Chloride 0.9% 1,000 ML IV SCH (15:21)
[2018-11-21] MEDS ORDERED: Polyethylene Glycol 3350 17 GM Packet PO PRN (15:22)
--- NOTE | 2018-11-21 17:45 | PDOC.PN ---
- Subjective Encounter Start Date: 11/21/18 Encounter Start Time: 10:40 Pt seen for followup re: hypotension. No complaints today. - Objective Resuscitation Status - Order Detail: 11/19/18 00:07 Resuscitation Status Routine Resuscitation Status: FULL: Full Resuscitation MAR Reviewed: Yes Vital Signs & Weight: Vital Signs (12 hours) Temp Pulse Resp BP Pulse Ox 11/21/18 15:50 96 11/21/18 15:28 98.0 F 77 20 126/77 96 11/21/18 08:00 97.8 F 11/21/18 07:55 100 Weight Admit Weight 205 lb Weight 205 lb 4.006 oz Most Recent Monitor Data Heart Rate from ECG 59 NIBP 119/77 NIBP BP-Mean 91 Respiration from ECG 20 SpO2 97 I&O: 11/20/18 11/21/18 11/22/18 06:59 06:59 06:59 Intake Total 1923 2381 1032 Output Total 0 0 0 Balance 1923 2381 1032 Result Diagrams: 11/20/18 04:05 11/20/18 04:05 EKG Reviewed by me: Yes (Tele: NSR) Phys Exam - Physical Examination Constitutional: NAD HEENT: moist MMs Neck: supple Respiratory: clear to auscultation bilateral Cardiovascular: RRR Gastrointestinal: soft Neurological: moves all 4 limbs Psychiatric: normal affect Deviation from normal: wounds as documented Dx/Plan (1) Hypotension Status: Acute Comment: Improved, off of pressors, transfer to medical floor (2) ESRD on peritoneal dialysis Code(s): N18.6 - END STAGE RENAL DISEASE; Z99.2 - DEPENDENCE ON RENAL DIALYSIS Status: Chronic Comment: nephrology following (3) Hypothyroidism Code(s): E03.9 - HYPOTHYROIDISM, UNSPECIFIED Status: Chronic Qualifiers: Hypothyroidism type: unspecified Comment: on synthroid (4) Wound infection Code(s): T14.8XXA - OTHER INJURY OF UNSPECIFIED BODY REGION, INITIAL ENCOUNTER; L08.9 - LOCAL INFECTION OF THE SKIN AND SUBCUTANEOUS TISSUE, UNSP Status: Chronic Comment: pt is on IV Zosyn - Plan * . Review of Systems - Review of Systems Cardiovascular: negative: chest pain, palpitations, orthopnea, paroxysmal nocturnal dyspnea, edema, light headedness Gastrointestinal: negative: Nausea, Vomiting, Abdominal Pain, Diarrhea, Constipation, Melena, Hematochezia - Medications/Allergies Allergies/Adverse Reactions: Allergies Allergy/AdvReac Type Severity Reaction Status Date / Time fluconazole Allergy Intermediate Verified 04/26/18 02:42 hydrocodone Allergy Intermediate Verified 04/26/18 02:42 Opioids - Morphine Analogues Allergy Intermediate Verified 04/26/18 02:42 codeine Allergy Verified 04/26/18 02:42 tramadol Allergy Verified 04/26/18 02:42 Medications: Current Medications Acetaminophen (Tylenol) 1,000 mg PO Q6H PRN PRN Reason: Mild Pain (1-3) Last Admin: 11/20/18 21:39 Dose: 1,000 mg Aspirin (Aspirin Chewable) 81 mg PO DAILY [facility] Last Admin: 11/21/18 08:00 Dose: 81 mg Calcitriol (Rocaltrol) 0.25 mcg PO DAILY [facility] Last Admin: 11/21/18 08:01 Dose: 0.25 mcg Epoetin Jose Alfredo-epbx (Retacrit) 7,500 unit SC Q7D [facility] Last Admin: 11/19/18 12:29 Dose: 7,500 unit Famotidine (Pepcid) 20 mg PO DAILY [facility] Last Admin: 11/21/18 08:03 Dose: 20 mg Heparin Sodium (Porcine) (Heparin) 5,000 units SC BID [facility] Last Admin: 11/21/18 08:04 Dose: 5,000 units Sodium Chloride (Normal Saline 0.9%) 1,000 mls @ 50 mls/hr IV .Q20H [facility] Last Admin: 11/21/18 15:21 Dose: 1,000 mls Heparin Sodium (Porcine) 3,000 units/ Peritoneal Dialysis Solution 6,003 mls @ 0 mls/hr FS ASDIR [facility] Piperacillin Sod/Tazobactam (Sod 2.25 gm/ Sodium Chloride) 100 mls @ 200 mls/ hr IVPB Q8HR [facility] Last Admin: 11/21/18 14:30 Dose: 100 mls Lanthanum Carbonate (Fosrenol) 1,000 mg PO TID-WM [facility] Last Admin: 11/21/18 16:42 Dose: 1,000 mg Levothyroxine Sodium (Synthroid) 200 mcg PO 0600 [facility] Last Admin: 11/21/18 06:11 Dose: 200 mcg Midodrine (Proamatine) 10 mg PO TID [facility] Last Admin: 11/21/18 15:11 Dose: 10 mg Ondansetron HCl (Zofran Odt) 4 mg PO Q6H PRN PRN Reason: Nausea/Vomiting Ondansetron HCl (Zofran) 4 mg IVP Q6H PRN PRN Reason: Nausea/Vomiting Last Admin: 11/21/18 08:24 Dose: 4 mg Oxycodone HCl (Oxycodone Ir) 5 mg PO Q6H PRN PRN Reason: Pain Last Admin: 11/20/18 21:12 Dose: 5 mg Polyethylene Glycol (Miralax) 17 gm PO DAILY PRN PRN Reason: Constipation Saccharomyces Boulardii (Florastor) 250 mg PO DAILY [facility] Last Admin: 11/21/18 08:01 Dose: 250 mg Sevelamer Carbonate (Renvela) 2,400 mg PO TID-[facility] Last Admin: 11/21/18 16:19 Dose: Not Given Simethicone (Mylicon Chewable) 80 mg PO Q6H PRN PRN Reason: Gas Pain Sodium Chloride (Flush - Normal Saline) 10 ml IVF Q12HR [facility] Last Admin: 11/21/18 08:05 Dose: 10 ml Sodium Chloride (Flush - Normal Saline) 10 ml IVF PRN PRN PRN Reason: Saline Flush Sodium Chloride (Sodium Chloride) 1 gm PO TID [facility] Last Admin: 11/21/18 16:39 Dose: 1 gm
[2018-11-21] MEDS: Simethicone Chewable 80 MG TAB PO PRN (20:56)
[2018-11-22] MEDS: oxyCODONE 5 MG TAB PO PRN (04:59)
[2018-11-22] MEDS: Simethicone Chewable 80 MG TAB PO PRN (04:59)
[2018-11-22] MEDS: Levothyroxine Sodium 100 MCG TAB PO SCH (05:01)
[2018-11-22] MEDS: Piperacillin/Tazobactam 2.25 GM in Sodium Chloride 0.9% 100 ML IVPB SCH ×3 (05:01→21:48)
[2018-11-22] MEDS: Midodrine HCl 5 MG TAB PO SCH ×3 (08:15→21:47)
[2018-11-22] MEDS: Saccharomyces boulardii 250 MG CAP PO SCH (08:15)
[2018-11-22] MEDS: Aspirin Chewable 81 MG TAB PO SCH (08:16)
[2018-11-22] MEDS: Calcitriol 0.25 MCG CAP PO SCH (08:16)
[2018-11-22] MEDS: Sevelamer Carbonate 800 MG TAB PO SCH ×4 (08:16→17:21)
[2018-11-22] MEDS: Heparin 5,000 UNITS/ML VIAL SC SCH ×2 (08:16→21:48)
[2018-11-22] MEDS: Sodium Chloride 0.9% 1,000 ML IV SCH ×2 (08:16→14:30)
[2018-11-22] MEDS: Famotidine 20 MG TAB PO SCH (08:16)
[2018-11-22] MEDS: Lanthanum Carbonate 500 mg Tablet PO SCH ×3 (08:16→17:18)
[2018-11-22] MEDS: Sodium Chloride 1 GM TAB PO SCH ×3 (08:18→21:47)
[2018-11-22 09:26] LABS: #Basophils 0.1 thou/uL (0.0-0.2); #Eosinphils 0.3 thou/uL (0.0-0.7); #Lymphocytes 2.2 thou/uL (1.20-3.40); #Monocytes 0.7 thou/uL (0.11-0.59); #Neutrophils 2.4 thou/uL (1.40-6.50); %Basophils 1.1 % (0.0-1.0); %Eosinophils 4.9 % (0.0-10.0); %Lymphocytes 39.2 % (21.0-51.0); %Monocytes 12.1 % (0.0-10.0); %Neutrophils 42.6 % (42.0-75.0); Hemoglobin 10.4 g/dL (14.0-18.0); Mean Corpuscular HGB CONC 31.1 g/dL (32.0-36.0); Mean Corpuscular Hemoglobin 33.3 pg (27.0-31.0); Mean Platelet Volume 6.5 fL (7.4-10.4); Platelet Count 182 thou/uL (130-400); RBC Distribution Width 14.7 % (11.5-14.5); Red Blood Cell (RBC) Count 3.11 mill/uL (4.70-6.10); White Blood Cell (WBC) Count 5.6 thou/uL (4.8-10.8)
[2018-11-22 09:49] LABS: Anion Gap 18 mmol/L (10-20); BUN (Urea Nitrogen) 39 mg/dL (8.4-25.7); Calc. Creatinine Clearance 11 mL/min (70-130); Calcium 8.6 mg/dL (7.8-10.44); Carbon Dioxide 20 mmol/L (23-31); Chloride 107 mmol/L (98-107); Estimated GFR-MDRD 6; Glucose 76 mg/dL (80-115); Sodium 141 mmol/L (136-145)
--- NOTE | 2018-11-22 12:20 | PRG ---
DATE OF SERVICE: SUBJECTIVE: Mr. Boyer is a 63-year-old male, being followed up for his ESRD, currently on maintenance peritoneal dialysis. He is tolerating the said PD regimen. Due to the low blood pressure, the patient has been receiving only a 1.5% PD solution. We removed about 800 mL of ultrafiltration with last night's dialysis. Due to this chronic hypotension, the patient is currently on midodrine as well as sodium chloride tablets. No new complaints today. He denied any nausea or vomiting today. He continues to receive his IV antibiotics for the chronic decubitus he has had. He voices no chest pain or any shortness of breath. OBJECTIVE: VITAL SIGNS: Blood pressure is 112/73, heart rate 52, respiratory rate 16, temperature 97.3, pulse ox 92% on room air. GENERAL: Awake, alert, supine, comfortable, not in overt distress. SKIN: Adequate turgor. HEENT: He has pinkish conjunctivae. Anicteric sclerae. No neck mass. No carotid bruits. No JVD. CHEST: No deformities. LUNGS: Clear breath sounds. HEART: Normal sinus rhythm. No murmur. No gallops or rubs. ABDOMEN: Globular, soft, nontender. No masses. EXTREMITIES: Positive for edema. No deformities. MEDICATIONS: Medications of November 22, 2018, reviewed. LABORATORY DATA: Laboratories of November 22, 2018; white count 5.6, hemoglobin 10.4, sodium 141, potassium 4, chloride 107, carbon dioxide 20, BUN 39, creatinine 9.25, calcium 8.6, PTH is 165. ASSESSMENT AND PLAN: 1. Hyperphosphatemia, currently on increased dose of Fosrenol 1 g p.o. t.i.d. 2. Chronic decubitus wound/chronic thigh wound, ID following, so I recommended continue this patient on IV Zosyn. 3. End-stage renal disease, stable. We will continue current CCPD regimen. He is tolerating the peritoneal dialysis. Continue to use with the 1.5% PD solution to minimize ultrafiltration. 4. Anemia, continuing weekly Epogen., p.r.n. blood transfusion. 5. Chronic hypotension, continue midodrine supplementation 10 mg p.o. t.i.d. and continue sodium chloride tablet at 1 g p.o. t.i.d. Overall prognosis remains guarded. Job ID: [id number]
--- NOTE | 2018-11-22 13:26 | EKG ---
Test Reason : Blood Pressure : / mmHG Vent. Rate : 079 BPM Atrial Rate : 079 BPM P-R Int : 180 ms QRS Dur : 130 ms QT Int : 436 ms P-R-T Axes : -02 112 011 degrees QTc Int : 499 ms Normal sinus rhythm Right bundle branch block Possible Lateral infarct , age undetermined Abnormal ECG Rightward axis Confirmed by SHAYY HANDLEY, ALICIA ([id number]), magazine editor IMMANUEL AGUILAR ([id number]) on 11/22/2018 1:25:53 PM Referred By: Confirmed By:ALICIA LUCAS MD
--- NOTE | 2018-11-22 16:31 | PDOC.PN ---
- Subjective Encounter Start Date: 11/22/18 Encounter Start Time: 09:20 Pt seen for followup re; wound infection. Feels well. No complaints. - Objective Resuscitation Status - Order Detail: 11/19/18 00:07 Resuscitation Status Routine Resuscitation Status: FULL: Full Resuscitation MAR Reviewed: Yes Vital Signs & Weight: Vital Signs (12 hours) Temp Pulse Resp BP Pulse Ox 11/22/18 12:35 98.2 F 55 L 14 128/78 99 11/22/18 08:15 92 L 11/22/18 08:00 97.3 F L 52 L 16 112/73 92 L Weight Admit Weight 205 lb Weight 205 lb 4.006 oz Most Recent Monitor Data Heart Rate from ECG 59 NIBP 119/77 NIBP BP-Mean 91 Respiration from ECG 20 SpO2 97 I&O: 11/21/18 11/22/18 11/23/18 06:59 06:59 06:59 Intake Total 2381 2118 Output Total 0 10 Balance 2381 2108 Result Diagrams: 11/23/18 05:30 11/23/18 05:30 Additional Labs: Labs reviewed by me Phys Exam - Physical Examination Obese HEENT: moist MMs Neck: supple Respiratory: clear to auscultation bilateral Cardiovascular: RRR Gastrointestinal: soft Neurological: moves all 4 limbs Psychiatric: normal affect Dx/Plan (1) Wound infection Code(s): T14.8XXA - OTHER INJURY OF UNSPECIFIED BODY REGION, INITIAL ENCOUNTER; L08.9 - LOCAL INFECTION OF THE SKIN AND SUBCUTANEOUS TISSUE, UNSP Status: Chronic Comment: continue IV Zosyn (2) ESRD on peritoneal dialysis Code(s): N18.6 - END STAGE RENAL DISEASE; Z99.2 - DEPENDENCE ON RENAL DIALYSIS Status: Chronic Comment: nephrology following for maintenance peritoneal dialysis (3) Hypothyroidism Code(s): E03.9 - HYPOTHYROIDISM, UNSPECIFIED Status: Chronic Qualifiers: Hypothyroidism type: unspecified Qualified Code(s): E03.9 - Hypothyroidism , unspecified Comment: on synthroid (4) Hypotension Status: Resolved - Plan * . Review of Systems - Review of Systems Cardiovascular: negative: chest pain, palpitations, orthopnea, paroxysmal nocturnal dyspnea, edema, light headedness Gastrointestinal: negative: Nausea, Vomiting, Abdominal Pain, Diarrhea, Constipation, Melena, Hematochezia - Medications/Allergies Allergies/Adverse Reactions: Allergies Allergy/AdvReac Type Severity Reaction Status Date / Time fluconazole Allergy Intermediate Verified 04/26/18 02:42 hydrocodone Allergy Intermediate Verified 04/26/18 02:42 Opioids - Morphine Analogues Allergy Intermediate Verified 04/26/18 02:42 codeine Allergy Verified 04/26/18 02:42 tramadol Allergy Verified 04/26/18 02:42 Medications: Current Medications Acetaminophen (Tylenol) 1,000 mg PO Q6H PRN PRN Reason: Mild Pain (1-3) Last Admin: 11/20/18 21:39 Dose: 1,000 mg Aspirin (Aspirin Chewable) 81 mg PO DAILY [facility] Last Admin: 11/22/18 08:16 Dose: 81 mg Calcitriol (Rocaltrol) 0.25 mcg PO DAILY [facility] Last Admin: 11/22/18 08:16 Dose: 0.25 mcg Epoetin Jose Alfredo-epbx (Retacrit) 7,500 unit SC Q7D [facility] Last Admin: 11/19/18 12:29 Dose: 7,500 unit Famotidine (Pepcid) 20 mg PO DAILY [facility] Last Admin: 11/22/18 08:16 Dose: 20 mg Heparin Sodium (Porcine) (Heparin) 5,000 units SC BID [facility] Last Admin: 11/22/18 08:16 Dose: 5,000 units Sodium Chloride (Normal Saline 0.9%) 1,000 mls @ 50 mls/hr IV .Q20H [facility] Last Admin: 11/22/18 14:30 Dose: 1,000 mls Heparin Sodium (Porcine) 3,000 units/ Peritoneal Dialysis Solution 6,003 mls @ 0 mls/hr FS [facility] Piperacillin Sod/Tazobactam (Sod 2.25 gm/ Sodium Chloride) 100 mls @ 200 mls/ hr IVPB Q8HR [facility] Last Admin: 11/22/18 14:27 Dose: 100 mls Lanthanum Carbonate (Fosrenol) 1,000 mg PO TID-[facility] Last Admin: 11/22/18 12:06 Dose: 1,000 mg Levothyroxine Sodium (Synthroid) 200 mcg PO 0600 [facility] Last Admin: 11/22/18 05:01 Dose: 200 mcg Midodrine (Proamatine) 10 mg PO TID [facility] Last Admin: 11/22/18 14:27 Dose: 10 mg Ondansetron HCl (Zofran Odt) 4 mg PO Q6H PRN PRN Reason: Nausea/Vomiting Ondansetron HCl (Zofran) 4 mg IVP Q6H PRN PRN Reason: Nausea/Vomiting Last Admin: 11/21/18 08:24 Dose: 4 mg Oxycodone HCl (Oxycodone Ir) 5 mg PO Q6H PRN PRN Reason: Pain Last Admin: 11/22/18 04:59 Dose: 5 mg Polyethylene Glycol (Miralax) 17 gm PO DAILY PRN PRN Reason: Constipation Saccharomyces Boulardii (Florastor) 250 mg PO DAILY [facility] Last Admin: 11/22/18 08:15 Dose: 250 mg Sevelamer Carbonate (Renvela) 2,400 mg PO TID-[facility] Last Admin: 11/22/18 12:04 Dose: Not Given Simethicone (Mylicon Chewable) 80 mg PO Q6H PRN PRN Reason: Gas Pain Last Admin: 11/22/18 04:59 Dose: 80 mg Sodium Chloride (Flush - Normal Saline) 10 ml IVF Q12HR [facility] Last Admin: 11/22/18 08:17 Dose: 10 ml Sodium Chloride (Flush - Normal Saline) 10 ml IVF PRN PRN PRN Reason: Saline Flush Sodium Chloride (Sodium Chloride) 1 gm PO TID [facility] Last Admin: 11/22/18 14:27 Dose: 1 gm
[2018-11-23] MEDS: oxyCODONE 5 MG TAB PO PRN (01:44)
[2018-11-23] MEDS: Simethicone Chewable 80 MG TAB PO PRN (01:45)
[2018-11-23] MEDS: Piperacillin/Tazobactam 2.25 GM in Sodium Chloride 0.9% 100 ML IVPB SCH ×3 (05:15→21:57)
[2018-11-23] MEDS: Sodium Chloride 0.9% 1,000 ML IV SCH ×2 (05:16→12:02)
[2018-11-23] MEDS: Levothyroxine Sodium 100 MCG TAB PO SCH (05:17)
[2018-11-23 05:47] LABS: #Basophils 0.1 thou/uL (0.0-0.2); #Eosinphils 0.3 thou/uL (0.0-0.7); #Lymphocytes 1.8 thou/uL (1.20-3.40); #Monocytes 0.7 thou/uL (0.11-0.59); #Neutrophils 2.4 thou/uL (1.40-6.50); %Monocytes 12.9 % (0.0-10.0); %Neutrophils 45.2 % (42.0-75.0); Hemoglobin 9.1 g/dL (14.0-18.0); Mean Corpuscular HGB CONC 30.9 g/dL (32.0-36.0); Mean Corpuscular Hemoglobin 33.1 pg (27.0-31.0); Mean Platelet Volume 6.5 fL (7.4-10.4); Platelet Count 192 thou/uL (130-400); RBC Distribution Width 14.8 % (11.5-14.5); Red Blood Cell (RBC) Count 2.74 mill/uL (4.70-6.10); White Blood Cell (WBC) Count 5.2 thou/uL (4.8-10.8)
[2018-11-23 06:23] LABS: Anion Gap 16 mmol/L (10-20); BUN (Urea Nitrogen) 40 mg/dL (8.4-25.7); Calc. Creatinine Clearance 11 mL/min (70-130); Calcium 8.5 mg/dL (7.8-10.44); Carbon Dioxide 22 mmol/L (23-31); Chloride 108 mmol/L (98-107); Estimated GFR-MDRD 6; Glucose 86 mg/dL (80-115); Potassium 3.6 mmol/L (3.5-5.1); Sodium 142 mmol/L (136-145)
[2018-11-23] MEDS: Sevelamer Carbonate 800 MG TAB PO SCH ×3 (09:01→16:42)
[2018-11-23] MEDS: Lanthanum Carbonate 500 mg Tablet PO SCH ×4 (09:15→16:45)
[2018-11-23] MEDS: Midodrine HCl 5 MG TAB PO SCH ×3 (09:17→21:56)
[2018-11-23] MEDS: Sodium Chloride 1 GM TAB PO SCH ×3 (09:17→21:57)
[2018-11-23] MEDS: Saccharomyces boulardii 250 MG CAP PO SCH (09:17)
[2018-11-23] MEDS: Aspirin Chewable 81 MG TAB PO SCH (09:17)
[2018-11-23] MEDS: Famotidine 20 MG TAB PO SCH (09:17)
[2018-11-23] MEDS: Calcitriol 0.25 MCG CAP PO SCH (09:17)
[2018-11-23] MEDS: Heparin 5,000 UNITS/ML VIAL SC SCH ×2 (09:18→21:57)
--- NOTE | 2018-11-23 10:52 | PRG ---
DATE OF SERVICE: 11/23/2018 SUBJECTIVE: Mr. Boyer is a 63-year-old male with ESRD and followed up by the [facility] for his maintenance peritoneal dialysis. We removed about 600 plus mL of PD fluid last night. He tolerated said treatment. The patient has been low on the BP for the last several months. Minimal fluid removal was done with the PD. Currently, on midodrine support. He is also on sodium chloride tablet. No other complaints today. He continues to be treated for his infection. Dr. Rosenbaum is following. He has chronic leg infection. He has been healing. No complaints of chest pain or shortness of breath. OBJECTIVE: VITAL SIGNS: Blood pressure 118/73, heart rate 65, respiratory rate 15, temperature 98.5, and pulse ox 98%. GENERAL: Awake, alert, and comfortable, not in distress. SKIN: Adequate turgor. HEENT: Slightly pale conjunctivae. Anicteric sclerae. NECK: No neck mass. No carotid bruits. No JVD. CHEST: No deformities. LUNGS: Clear breath sounds. HEART: Normal sinus rhythm. No murmurs. No gallops. No rubs. ABDOMEN: Globular, soft, and nontender. Positive for PD catheter. EXTREMITIES: No edema. MEDICATIONS: Medications of November 23, 2018, reviewed. LABORATORY DATA: Laboratories of November 23, 2018; white count 5.2, hemoglobin 9.1, hematocrit 29.4. Sodium 142, potassium 3.6, chloride 108, carbon dioxide 22, BUN 40, creatinine 9.39, glucose 86, and calcium 8.5. ASSESSMENT AND PLAN: 1. End-stage renal disease, stable. Continue current peritoneal dialysis regimen, using 1.5% PD solution to minimize ultrafiltration. 2. Chronic hypotension, on sodium chloride tablets as well as midodrine, stable. 3. Chronic infection - on IV antibiotics. 4. Anemia, continuing weekly Epogen. 5. Hyperphosphatemia, currently on phosphate binders. Job ID: [id number]
[2018-11-23] MEDS: Ondansetron PF 4 MG/2 ML Vial IVP PRN (12:01)
--- NOTE | 2018-11-23 15:53 | PDOC.PN ---
- Subjective Encounter Start Date: 11/23/18 Encounter Start Time: 09:00 Pt seen for followup re: wound infection. Says he feels well. - Objective Resuscitation Status - Order Detail: 11/19/18 00:07 Resuscitation Status Routine Resuscitation Status: FULL: Full Resuscitation MAR Reviewed: Yes Vital Signs & Weight: Vital Signs (12 hours) Temp Pulse Resp BP Pulse Ox 11/23/18 08:00 98.5 F 65 15 118/73 98 11/23/18 07:32 98.6 F 65 18 118/73 98 Weight Admit Weight 205 lb Weight 204 lb 9.423 oz Most Recent Monitor Data Heart Rate from ECG 59 NIBP 119/77 NIBP BP-Mean 91 Respiration from ECG 20 SpO2 97 I&O: 11/22/18 11/23/18 11/24/18 06:59 06:59 06:59 Intake Total 2118 2345 Output Total 10 975 100 Balance 2108 1370 -100 Result Diagrams: 11/23/18 05:30 11/23/18 05:30 Additional Labs: labs reviewed by me Phys Exam - Physical Examination Constitutional: NAD HEENT: moist MMs Neck: supple Respiratory: clear to auscultation bilateral Cardiovascular: RRR Gastrointestinal: soft Neurological: moves all 4 limbs Psychiatric: normal affect Dx/Plan (1) Wound infection Code(s): T14.8XXA - OTHER INJURY OF UNSPECIFIED BODY REGION, INITIAL ENCOUNTER; L08.9 - LOCAL INFECTION OF THE SKIN AND SUBCUTANEOUS TISSUE, UNSP Status: Chronic Comment: continue IV Zosyn, ID service following (2) ESRD on peritoneal dialysis Code(s): N18.6 - END STAGE RENAL DISEASE; Z99.2 - DEPENDENCE ON RENAL DIALYSIS Status: Chronic Comment: nephrology following (3) Hypothyroidism Code(s): E03.9 - HYPOTHYROIDISM, UNSPECIFIED Status: Chronic Qualifiers: Hypothyroidism type: unspecified Qualified Code(s): E03.9 - Hypothyroidism , unspecified Comment: continue synthroid (4) Hypotension Status: Resolved - Plan continue antibiotics, PT/OT, out of bed/ambulate * . Review of Systems - Review of Systems Cardiovascular: negative: chest pain, palpitations, orthopnea, paroxysmal nocturnal dyspnea, edema, light headedness Gastrointestinal: negative: Nausea, Vomiting, Abdominal Pain, Diarrhea, Constipation, Melena, Hematochezia - Medications/Allergies Allergies/Adverse Reactions: Allergies Allergy/AdvReac Type Severity Reaction Status Date / Time fluconazole Allergy Intermediate Verified 04/26/18 02:42 hydrocodone Allergy Intermediate Verified 04/26/18 02:42 Opioids - Morphine Analogues Allergy Intermediate Verified 04/26/18 02:42 codeine Allergy Verified 04/26/18 02:42 tramadol Allergy Verified 04/26/18 02:42 Medications: Current Medications Acetaminophen (Tylenol) 1,000 mg PO Q6H PRN PRN Reason: Mild Pain (1-3) Last Admin: 11/20/18 21:39 Dose: 1,000 mg Aspirin (Aspirin Chewable) 81 mg PO DAILY [facility] Last Admin: 11/23/18 09:17 Dose: 81 mg Calcitriol (Rocaltrol) 0.25 mcg PO DAILY [facility] Last Admin: 11/23/18 09:17 Dose: 0.25 mcg Epoetin Jose Alfredo-epbx (Retacrit) 7,500 unit SC Q7D [facility] Last Admin: 11/19/18 12:29 Dose: 7,500 unit Famotidine (Pepcid) 20 mg PO DAILY [facility] Last Admin: 11/23/18 09:17 Dose: 20 mg Heparin Sodium (Porcine) (Heparin) 5,000 units SC BID [facility] Last Admin: 11/23/18 09:18 Dose: 5,000 units Sodium Chloride (Normal Saline 0.9%) 1,000 mls @ 50 mls/hr IV .Q20H [facility] Last Admin: 11/23/18 12:02 Dose: 1,000 mls Heparin Sodium (Porcine) 3,000 units/ Peritoneal Dialysis Solution 6,003 mls @ 0 mls/hr FS ASDIR [facility] Piperacillin Sod/Tazobactam (Sod 2.25 gm/ Sodium Chloride) 100 mls @ 200 mls/ hr IVPB Q8HR [facility] Last Admin: 11/23/18 14:52 Dose: 100 mls Lanthanum Carbonate (Fosrenol) 1,000 mg PO TID-[facility] Last Admin: 11/23/18 12:02 Dose: 1,000 mg Levothyroxine Sodium (Synthroid) 200 mcg PO 0600 [facility] Last Admin: 11/23/18 05:17 Dose: 200 mcg Midodrine (Proamatine) 10 mg PO TID [facility] Last Admin: 11/23/18 14:52 Dose: 10 mg Ondansetron HCl (Zofran Odt) 4 mg PO Q6H PRN PRN Reason: Nausea/Vomiting Ondansetron HCl (Zofran) 4 mg IVP Q6H PRN PRN Reason: Nausea/Vomiting Last Admin: 11/23/18 12:01 Dose: 4 mg Oxycodone HCl (Oxycodone Ir) 5 mg PO Q6H PRN PRN Reason: Pain Last Admin: 11/23/18 01:44 Dose: 5 mg Polyethylene Glycol (Miralax) 17 gm PO DAILY PRN PRN Reason: Constipation Saccharomyces Boulardii (Florastor) 250 mg PO DAILY [facility] Last Admin: 11/23/18 09:17 Dose: 250 mg Sevelamer Carbonate (Renvela) 2,400 mg PO TID-[facility] Last Admin: 11/23/18 11:16 Dose: Not Given Simethicone (Mylicon Chewable) 80 mg PO Q6H PRN PRN Reason: Gas Pain Last Admin: 11/23/18 01:45 Dose: 80 mg Sodium Chloride (Flush - Normal Saline) 10 ml IVF Q12HR [facility] Last Admin: 11/23/18 09:18 Dose: 10 ml Sodium Chloride (Flush - Normal Saline) 10 ml IVF PRN PRN PRN Reason: Saline Flush Sodium Chloride (Sodium Chloride) 1 gm PO TID [facility] Last Admin: 11/23/18 15:37 Dose: 1 gm
[2018-11-24] MEDS: Levothyroxine Sodium 100 MCG TAB PO SCH (06:14)
[2018-11-24] MEDS: Piperacillin/Tazobactam 2.25 GM in Sodium Chloride 0.9% 100 ML IVPB SCH ×3 (06:15→21:35)
[2018-11-24] MEDS: Sodium Chloride 0.9% 1,000 ML IV SCH (06:15)
[2018-11-24 06:22] LABS: #Eosinphils 0.3 thou/uL (0.0-0.7); #Lymphocytes 2.2 thou/uL (1.20-3.40); #Monocytes 0.7 thou/uL (0.11-0.59); %Basophils 0.8 % (0.0-1.0); %Eosinophils 5.6 % (0.0-10.0); %Lymphocytes 41.3 % (21.0-51.0); %Monocytes 13.2 % (0.0-10.0); %Neutrophils 39.1 % (42.0-75.0); Mean Corpuscular HGB CONC 30.7 g/dL (32.0-36.0); Platelet Count 191 thou/uL (130-400); RBC Distribution Width 14.7 % (11.5-14.5); Red Blood Cell (RBC) Count 2.72 mill/uL (4.70-6.10); White Blood Cell (WBC) Count 5.2 thou/uL (4.8-10.8)
[2018-11-24 06:42] LABS: Anion Gap 15 mmol/L (10-20); BUN (Urea Nitrogen) 40 mg/dL (8.4-25.7); Calc. Creatinine Clearance 10 mL/min (70-130); Calcium 8.5 mg/dL (7.8-10.44); Carbon Dioxide 22 mmol/L (23-31); Chloride 110 mmol/L (98-107); Estimated GFR-MDRD 6; Glucose 82 mg/dL (80-115); Potassium 3.7 mmol/L (3.5-5.1); Sodium 143 mmol/L (136-145)
[2018-11-24] MEDS: Calcitriol 0.25 MCG CAP PO SCH (08:30)
[2018-11-24] MEDS: Sodium Chloride 1 GM TAB PO SCH ×3 (08:30→21:35)
[2018-11-24] MEDS: Sevelamer Carbonate 800 MG TAB PO SCH ×3 (08:30→15:19)
[2018-11-24] MEDS: Heparin 5,000 UNITS/ML VIAL SC SCH ×2 (08:31→21:35)
[2018-11-24] MEDS: Saccharomyces boulardii 250 MG CAP PO SCH (08:31)
[2018-11-24] MEDS: Midodrine HCl 5 MG TAB PO SCH ×3 (08:31→21:35)
[2018-11-24] MEDS: Aspirin Chewable 81 MG TAB PO SCH (08:31)
[2018-11-24] MEDS: Famotidine 20 MG TAB PO SCH (08:31)
[2018-11-24] MEDS: Lanthanum Carbonate 500 mg Tablet PO SCH ×3 (08:32→17:55)
--- NOTE | 2018-11-24 10:17 | PRG ---
DATE OF SERVICE: 11/24/2018 SUBJECTIVE: Mr. Boyer is a 63-year-old male with ESRD and followed up by the Renal Service for his maintenance peritoneal dialysis. He is tolerating the current peritoneal dialysis. We are using 1.5% PD solution to minimize ultrafiltration. Blood pressure is much improved. He is also being treated for the chronic thigh infection. He has a wound VAC. No complaints of chest pain or shortness of breath. OBJECTIVE: VITAL SIGNS: Blood pressure 137/81, heart rate 52, respiratory rate 18, temperature 98.1, and pulse ox 95%. GENERAL: Noted to be awake, alert, supine, comfortable, obese, not in distress. SKIN: Adequate turgor. HEENT: Slightly pale conjunctivae. Anicteric sclerae. NECK: No neck mass. No carotid bruits. No JVD. CHEST: No deformities. LUNGS: Clear breath sounds. HEART: Normal sinus rhythm. No murmur. No gallops. No rubs. ABDOMEN: Globular, soft, nontender. No masses. EXTREMITIES: Trace edema. Positive for right thigh wound with a wound VAC. MEDICATIONS: Medications of November 24, 2018, reviewed. LABORATORY DATA: Laboratories of November 24, 2018; white count 5.2, hemoglobin is 9. Sodium 143, potassium 3.7, chloride 110, carbon dioxide 22, BUN 40, creatinine 9.49, glucose 82, and calcium 8.5. ASSESSMENT AND PLAN: 1. Chronic right thigh wound infection, currently on IV antibiotics. ID is following. 2. End-stage renal disease, stable. We will continue current peritoneal dialysis. No changes to be made. Continue the 1.5% PD solution. 3. Chronic hypotension, much improved. Continuing midodrine and sodium chloride tablets. Continue supportive care. Job ID: [id number]
--- NOTE | 2018-11-24 14:17 | PDOC.PN ---
- Subjective Encounter Start Date: 11/24/18 Encounter Start Time: 10:15 Subjective: pt up in bed no complains - Objective Resuscitation Status - Order Detail: 11/19/18 00:07 Resuscitation Status Routine Resuscitation Status: FULL: Full Resuscitation Vital Signs & Weight: Vital Signs (12 hours) Temp Pulse Resp BP Pulse Ox 11/24/18 08:00 98 11/24/18 07:06 98.1 F 52 L 18 137/81 95 Weight Admit Weight 205 lb Weight 215 lb Most Recent Monitor Data Heart Rate from ECG 59 NIBP 119/77 NIBP BP-Mean 91 Respiration from ECG 20 SpO2 97 I&O: 11/23/18 11/24/18 11/25/18 06:59 06:59 06:59 Intake Total 2345 1370 Output Total 975 837 Balance 1370 533 Result Diagrams: 11/24/18 06:05 11/24/18 06:05 Phys Exam - Physical Examination Neck: no nodes, no JVD, supple, full ROM Respiratory: no wheezing, no rales, no rhonchi, wheezing present, clear to auscultation bilateral Cardiovascular: RRR, no significant murmur, no rub, gallop, irregular Gastrointestinal: soft, non-tender, no distention, positive bowel sounds Dx/Plan (1) Wound infection Code(s): T14.8XXA - OTHER INJURY OF UNSPECIFIED BODY REGION, INITIAL ENCOUNTER; L08.9 - LOCAL INFECTION OF THE SKIN AND SUBCUTANEOUS TISSUE, UNSP Status: Chronic Comment: continue IV Zosyn, ID service following (2) Hypotension Status: Resolved (3) ESRD on peritoneal dialysis Code(s): N18.6 - END STAGE RENAL DISEASE; Z99.2 - DEPENDENCE ON RENAL DIALYSIS Status: Chronic Comment: nephrology following (4) Hypothyroidism Code(s): E03.9 - HYPOTHYROIDISM, UNSPECIFIED Status: Chronic Qualifiers: Hypothyroidism type: unspecified Qualified Code(s): E03.9 - Hypothyroidism , unspecified Comment: continue synthroid - Plan will stop iv fluids for now -: will continue iv abx, awaiting ID's final recommendation -: bp stable * . Review of Systems - Review of Systems Respiratory: negative: Cough, Dry, Shortness of Breath, Hemoptysis, SOB with Excertion, Pleuritic Pain, Sputum, Wheezing Cardiovascular: negative: chest pain, palpitations, orthopnea, paroxysmal nocturnal dyspnea, edema, light headedness, other Gastrointestinal: negative: Nausea, Vomiting, Abdominal Pain, Diarrhea, Constipation, Melena, Hematochezia, Other - Medications/Allergies Allergies/Adverse Reactions: Allergies Allergy/AdvReac Type Severity Reaction Status Date / Time fluconazole Allergy Intermediate Verified 04/26/18 02:42 hydrocodone Allergy Intermediate Verified 04/26/18 02:42 Opioids - Morphine Analogues Allergy Intermediate Verified 04/26/18 02:42 codeine Allergy Verified 04/26/18 02:42 tramadol Allergy Verified 04/26/18 02:42 Medications: Current Medications Acetaminophen (Tylenol) 1,000 mg PO Q6H PRN PRN Reason: Mild Pain (1-3) Last Admin: 11/20/18 21:39 Dose: 1,000 mg Aspirin (Aspirin Chewable) 81 mg PO DAILY [facility] Last Admin: 11/24/18 08:31 Dose: 81 mg Calcitriol (Rocaltrol) 0.25 mcg PO DAILY [facility] Last Admin: 11/24/18 08:30 Dose: 0.25 mcg Epoetin Jose Alfredo-epbx (Retacrit) 7,500 unit SC Q7D [facility] Last Admin: 11/19/18 12:29 Dose: 7,500 unit Famotidine (Pepcid) 20 mg PO DAILY [facility] Last Admin: 11/24/18 08:31 Dose: 20 mg Heparin Sodium (Porcine) (Heparin) 5,000 units SC BID [facility] Last Admin: 11/24/18 08:31 Dose: 5,000 units Heparin Sodium (Porcine) 3,000 units/ Peritoneal Dialysis Solution 6,003 mls @ 0 mls/hr FS ASDIR [facility] Piperacillin Sod/Tazobactam (Sod 2.25 gm/ Sodium Chloride) 100 mls @ 200 mls/ hr IVPB Q8HR [facility] Last Admin: 11/24/18 06:15 Dose: 100 mls Lanthanum Carbonate (Fosrenol) 1,000 mg PO TID-[facility] Last Admin: 11/24/18 12:45 Dose: 1,000 mg Levothyroxine Sodium (Synthroid) 200 mcg PO 0600 [facility] Last Admin: 11/24/18 06:14 Dose: 200 mcg Midodrine (Proamatine) 10 mg PO TID [facility] Last Admin: 11/24/18 08:31 Dose: 10 mg Ondansetron HCl (Zofran Odt) 4 mg PO Q6H PRN PRN Reason: Nausea/Vomiting Ondansetron HCl (Zofran) 4 mg IVP Q6H PRN PRN Reason: Nausea/Vomiting Last Admin: 11/23/18 12:01 Dose: 4 mg Oxycodone HCl (Oxycodone Ir) 5 mg PO Q6H PRN PRN Reason: Pain Last Admin: 11/23/18 01:44 Dose: 5 mg Polyethylene Glycol (Miralax) 17 gm PO DAILY PRN PRN Reason: Constipation Saccharomyces Boulardii (Florastor) 250 mg PO DAILY [facility] Last Admin: 11/24/18 08:31 Dose: 250 mg Sevelamer Carbonate (Renvela) 2,400 mg PO TID-[facility] Last Admin: 11/24/18 12:46 Dose: Not Given Simethicone (Mylicon Chewable) 80 mg PO Q6H PRN PRN Reason: Gas Pain Last Admin: 11/23/18 01:45 Dose: 80 mg Sodium Chloride (Flush - Normal Saline) 10 ml IVF Q12HR [facility] Last Admin: 11/24/18 08:32 Dose: 10 ml Sodium Chloride (Flush - Normal Saline) 10 ml IVF PRN PRN PRN Reason: Saline Flush Sodium Chloride (Sodium Chloride) 1 gm PO TID [facility] Last Admin: 11/24/18 08:30 Dose: 1 gm
[2018-11-24] MEDS: Simethicone Chewable 80 MG TAB PO PRN (15:48)
--- NOTE | 2018-11-24 18:02 | PRG ---
DATE OF SERVICE: 11/24/2018 SUBJECTIVE: Mr. Boyer is transferred to the floor. He appears in no distress. A little bit of pain in some wounds. He has negative pressure dressing in the right ischial wound. He denies any headaches. No shortness of breath or abdominal pain. No diarrhea. OBJECTIVE: VITAL SIGNS: Showed normal temperature throughout. Other vital signs are normal. O2 saturation 95. GENERAL: Chronically ill appearing, but in no distress. HEENT: Ocular movements are conjugate. Sclerae are white. Oral cavity moist. LUNGS: Symmetric air entry without crackles or wheezing. HEART: S1 and S2, regular rate. ABDOMEN: Soft. Not distended. Peritoneal dialysis in place. Right ischial negative pressure dressing. No erythema surrounding it. The other wounds are small and covered, but they are progressing well. ASSESSMENT AND DISCUSSION: Chronic glomerulonephritis with end-stage renal disease, managed with peritoneal dialysis. Previous diagnosis of calciphylaxis, although the wound appearance will argue against it. Chronic IV antimicrobial therapy, which has been prescribed for probably the ischial area since the other ones are very superficial. I have not yet received any records from documents including notes from physicians from the referring hospital such as consult notes and discharge summaries and so on, so I can ascertain the indication for the long-term antimicrobial therapy. The organisms retrieved would allow treatment with oral amoxicillin and my intention is to discontinue IV antimicrobial therapy once we receive the records or after discussion of the wound progress with Wound Care Management. Job ID: [id number]
[2018-11-25] MEDS: Levothyroxine Sodium 100 MCG TAB PO SCH (06:14)
[2018-11-25] MEDS: Piperacillin/Tazobactam 2.25 GM in Sodium Chloride 0.9% 100 ML IVPB SCH ×3 (06:18→21:14)
[2018-11-25] MEDS: Lanthanum Carbonate 500 mg Tablet PO SCH ×3 (07:56→18:43)
[2018-11-25] MEDS: Calcitriol 0.25 MCG CAP PO SCH (07:57)
[2018-11-25] MEDS: Sevelamer Carbonate 800 MG TAB PO SCH ×3 (07:57→18:44)
[2018-11-25] MEDS: Midodrine HCl 5 MG TAB PO SCH ×3 (07:57→21:14)
[2018-11-25] MEDS: Aspirin Chewable 81 MG TAB PO SCH (07:58)
[2018-11-25] MEDS: Heparin 5,000 UNITS/ML VIAL SC SCH ×2 (07:58→21:14)
[2018-11-25] MEDS: Famotidine 20 MG TAB PO SCH (07:58)
[2018-11-25] MEDS: Saccharomyces boulardii 250 MG CAP PO SCH (07:58)
[2018-11-25] MEDS: Sodium Chloride 1 GM TAB PO SCH ×3 (08:00→21:14)
[2018-11-25] MEDS: Ondansetron PF 4 MG/2 ML Vial IVP PRN (09:06)
--- NOTE | 2018-11-25 10:27 | PRG ---
DATE OF SERVICE: 11/25/2018 SUBJECTIVE: Mr. Boyer is a 63-year-old male with known history of ESRD, followed up by the Renal Service for his maintenance peritoneal dialysis. He underwent peritoneal dialysis last night. Fluid removal was done. We did an ultrafiltration of less than a liter. We were using 1.5% PD solution to minimize ultrafiltration. No other complaints today. He continues to receive his IV antibiotics for the chronic right thigh infection. He has a wound VAC. No complaints of chest pain or shortness of breath. Appetite is fair. OBJECTIVE: VITAL SIGNS: Blood pressure 143/73, heart rate 59, respiratory rate 18, temperature 97.4, and pulse ox 99%. GENERAL: Noted to be awake, alert, and comfortable, not in distress. SKIN: Adequate turgor. HEENT: He has a slightly pale conjunctivae. Anicteric sclerae. NECK: No neck mass. No carotid bruits. No JVD. CHEST: No deformities. LUNGS: Clear breath sounds. HEART: Normal sinus rhythm. No murmur. No gallops. No rubs. ABDOMEN: Globular, soft, and nontender. No masses. Positive for PD catheter. EXTREMITIES: Trace edema. No deformities. MEDICATIONS: Medications of November 25, 2018. LABORATORY DATA: Laboratories of November 24, 2018, white count is 5.2 and hemoglobin is 9. Sodium 143, potassium 3.7, chloride 110, carbon dioxide 22, BUN 40, creatinine 9.49, and calcium 8.5. ASSESSMENT AND PLAN: 1. End-stage renal disease, stable. Continue current CCPD regimen. No changes to be made. Continue the 1.5% PD solution to minimize ultrafiltration. 2. Chronic hypotension, much improved. Continuing current dose of midodrine. 3. Chronic right thigh infection on IV antibiotics. ID following. Agree with current management. Job ID: [id number]
--- NOTE | 2018-11-25 17:04 | PDOC.HOSPP ---
- Subjective Subjective: pt up in bed no complains - Objective Vital Signs & Weight: Vital Signs (12 hours) Temp Pulse Resp BP Pulse Ox 11/25/18 08:39 97.4 F L 59 L 18 143/73 H 99 11/25/18 08:00 99 Weight Admit Weight 205 lb Weight 205 lb 1 oz Most Recent Monitor Data Heart Rate from ECG 59 NIBP 119/77 NIBP BP-Mean 91 Respiration from ECG 20 SpO2 97 I&O: 11/24/18 11/25/18 11/26/18 06:59 06:59 06:59 Intake Total 1370 850 600 Output Total 837 1480 Balance 533 -630 600 Result Diagrams: 11/24/18 06:05 11/24/18 06:05 ROS - Review of Systems All systems: All other ROS were reviewed and found negative. ENT: reports: ear pain, ear discharge, nose pain, nose discharge, nose congestion, mouth pain, mouth swelling, throat pain, throat swelling, other Respiratory: reports: cough, dry, shortness of breath, hemoptysis, SOB with excertion, pleuritic pain, sputum, wheezing, other Cardiovascular: reports: chest pain, palpitations, orthopnea, paroxysmal noc. dyspnea, edema, light headedness, other - Medication Medications: Active Medications Generic Name Dose Route Start Last Admin Trade Name Freq PRN Reason Stop Dose Admin Acetaminophen 1,000 mg 11/19/18 00:14 11/20/18 21:39 Tylenol PO 1,000 mg Q6H PRN Administration Mild Pain (1-3) Aspirin 81 mg 11/19/18 09:00 11/25/18 07:58 Aspirin Chewable PO 81 mg DAILY [facility] Administration Calcitriol 0.25 mcg 11/19/18 09:00 11/25/18 07:57 Rocaltrol PO 0.25 mcg DAILY [facility] Administration Epoetin Jose Alfredo-epbx 7,500 unit 11/19/18 12:00 11/19/18 12:29 Retacrit SC 7,500 unit Q7D [facility] Administration Famotidine 20 mg 11/19/18 09:00 11/25/18 07:58 Pepcid PO 20 mg DAILY [facility] Administration Heparin Sodium (Porcine) 5,000 units 11/19/18 09:00 11/25/18 07:58 Heparin SC 5,000 units BID [facility] Administration Piperacillin Sod/Tazobactam 100 mls @ 200 mls/hr 11/20/18 22:00 11/25/18 14: 16 Sod 2.25 gm/ Sodium Chloride IVPB 100 mls Q8HR [facility] Administration Lanthanum Carbonate 1,000 mg 11/20/18 09:36 11/25/18 12:25 Fosrenol PO 1,000 mg TID-[facility] Administration Levothyroxine Sodium 200 mcg 11/19/18 06:00 11/25/18 06:14 Synthroid PO 200 mcg 0600 [facility] Administration Midodrine 10 mg 11/19/18 09:00 11/25/18 15:03 Proamatine PO 10 mg TID [facility] Administration Ondansetron HCl 4 mg 11/19/18 00:14 11/25/18 09:06 Zofran IVP 4 mg Q6H PRN Administration Nausea/Vomiting Oxycodone HCl 5 mg 11/19/18 00:19 11/23/18 01:44 Oxycodone Ir PO 5 mg Q6H PRN Administration Pain Saccharomyces Boulardii 250 mg 11/19/18 09:00 11/25/18 07:58 Florastor PO 250 mg DAILY [facility] Administration Sevelamer Carbonate 2,400 mg 11/19/18 08:00 11/25/18 12:22 Renvela PO Not Given TID-[facility] Simethicone 80 mg 11/21/18 15:23 11/24/18 15:48 Mylicon Chewable PO 80 mg Q6H PRN Administration Gas Pain Sodium Chloride 10 ml 11/19/18 21:00 11/25/18 07:59 Flush - Normal Saline IVF 10 ml Q12HR [facility] Administration Sodium Chloride 1 gm 11/20/18 15:00 11/25/18 15:05 Sodium Chloride PO 1 gm TID [facility] Administration - Exam Heart: RRR, no murmur, no gallops, no rubs, normal peripheral pulses, irregular , diminshed peripheral pulses, murmur present, II/IV, III/IV Respiratory: CTAB, no wheezes, no rales, no ronchi, normal chest expansion, no tachypnea, normal percussion, rales, rhonchi, tachypneic, wheezes Gastrointestinal: soft, non-tender, non-distended, normal bowel sounds, no palpable masses, no hepatomegaly, no splenomegaly, no bruit, tender to palpation , distended, diminished bowl sounds, voluntary guarding Hosp A/P (1) Wound infection Code(s): T14.8XXA - OTHER INJURY OF UNSPECIFIED BODY REGION, INITIAL ENCOUNTER; L08.9 - LOCAL INFECTION OF THE SKIN AND SUBCUTANEOUS TISSUE, UNSP Status: Chronic (2) Hypotension Status: Resolved (3) ESRD on peritoneal dialysis Code(s): N18.6 - END STAGE RENAL DISEASE; Z99.2 - DEPENDENCE ON RENAL DIALYSIS Status: Chronic (4) Hypothyroidism Code(s): E03.9 - HYPOTHYROIDISM, UNSPECIFIED Status: Chronic Qualifiers: Hypothyroidism type: unspecified Qualified Code(s): E03.9 - Hypothyroidism , unspecified - Plan will continue current abx for now. Talked to dental secretary about getting cultures/ ID notes and OR notes from [facility]. Pt doing well with PT. BP is well maintained.
[2018-11-25] MEDS: Simethicone Chewable 80 MG TAB PO PRN (21:18)
[2018-11-26] MEDS: Levothyroxine Sodium 100 MCG TAB PO SCH (05:25)
[2018-11-26] MEDS: Piperacillin/Tazobactam 2.25 GM in Sodium Chloride 0.9% 100 ML IVPB SCH ×3 (05:25→21:03)
[2018-11-26] MEDS: Midodrine HCl 5 MG TAB PO SCH ×3 (08:41→20:37)
[2018-11-26] MEDS: Calcitriol 0.25 MCG CAP PO SCH (08:41)
[2018-11-26] MEDS: Sodium Chloride 1 GM TAB PO SCH ×3 (08:41→20:37)
[2018-11-26] MEDS: Saccharomyces boulardii 250 MG CAP PO SCH (08:42)
[2018-11-26] MEDS: Famotidine 20 MG TAB PO SCH (08:42)
[2018-11-26] MEDS: Aspirin Chewable 81 MG TAB PO SCH (08:42)
[2018-11-26] MEDS: Lanthanum Carbonate 500 mg Tablet PO SCH ×3 (08:42→16:34)
[2018-11-26] MEDS: Heparin 5,000 UNITS/ML VIAL SC SCH ×2 (08:43→20:37)
[2018-11-26] MEDS: Sevelamer Carbonate 800 MG TAB PO SCH ×4 (08:51→16:33)
--- NOTE | 2018-11-26 09:15 | PRG ---
DATE OF SERVICE: 11/26/2018 SUBJECTIVE: Mr. Boyer is a 63-year-old male with ESRD and followed up by the Renal Service for his maintenance peritoneal dialysis. He continues to have an infected wound right thigh, currently on wound VAC to the antibiotics. He tolerated the said peritoneal dialysis. We are using 1.5% PD solution to minimize ultrafiltration. No other complaints today. No chest pain or shortness of breath. OBJECTIVE: VITAL SIGNS: Blood pressure 135/84, heart rate 52, respiratory rate 16, temperature 97, and pulse ox 98%. GENERAL: Noted to be awake, alert, supine, comfortable, obese, not in distress. SKIN: Adequate turgor. HEENT: Pinkish conjunctivae. Anicteric sclerae. NECK: No neck mass. No carotid bruits. No JVD. CHEST: No deformities. LUNGS: Clear breath sounds. No wheezing. No crackles. HEART: Normal sinus rhythm. No murmurs. No gallops. No rubs. ABDOMEN: Globular, soft, and nontender. No masses. Positive for PD catheter. EXTREMITIES: No edema. No deformities. MEDICATIONS: Medications of November 26, 2018, reviewed. LABORATORY DATA: Laboratories of November 24, 2018; potassium 3.7, BUN 40, and creatinine 9.49. ASSESSMENT AND PLAN: 1. End-stage renal disease, stable. We will continue current CCPD regimen using 1.5% PD solution to minimize ultrafiltration. 2. Chronic hypotension, much improved. Continue midodrine and sodium chloride tablets. 3. Chronic right thigh wound infection on antibiotics and wound VAC. Agree with current management. Job ID: [id number]
[2018-11-26] MEDS: EPOETIN ALFA-EPBX (ESRD) 4,000 UNIT/ML VIAL SC SCH (12:28)
[2018-11-26] MEDS: oxyCODONE 5 MG TAB PO PRN (20:47)
[2018-11-26] MEDS: Simethicone Chewable 80 MG TAB PO PRN (21:04)
[2018-11-27] MEDS: Ondansetron PF 4 MG/2 ML Vial IVP PRN (05:28)
[2018-11-27] MEDS: Levothyroxine Sodium 100 MCG TAB PO SCH (05:30)
[2018-11-27] MEDS: Piperacillin/Tazobactam 2.25 GM in Sodium Chloride 0.9% 100 ML IVPB SCH ×3 (05:30→21:29)
[2018-11-27] MEDS: Lanthanum Carbonate 500 mg Tablet PO SCH ×3 (08:40→17:35)
[2018-11-27] MEDS: Midodrine HCl 5 MG TAB PO SCH ×3 (08:40→21:28)
[2018-11-27] MEDS: Aspirin Chewable 81 MG TAB PO SCH (08:40)
[2018-11-27] MEDS: Saccharomyces boulardii 250 MG CAP PO SCH (08:40)
[2018-11-27] MEDS: Calcitriol 0.25 MCG CAP PO SCH (08:40)
[2018-11-27] MEDS: Famotidine 20 MG TAB PO SCH (08:40)
[2018-11-27] MEDS: Heparin 5,000 UNITS/ML VIAL SC SCH ×2 (08:40→21:28)
[2018-11-27] MEDS: Sodium Chloride 1 GM TAB PO SCH ×3 (08:43→21:28)
[2018-11-27] MEDS: Sevelamer Carbonate 800 MG TAB PO SCH ×3 (08:43→17:36)
--- NOTE | 2018-11-27 09:47 | PRG ---
DATE OF SERVICE: 11/27/2018 SERVICE: Renal Medicine. SUBJECTIVE: Mr. Boyer is a 63-year-old male with ESRD followed by the Renal Service for his maintenance peritoneal dialysis. He has been receiving nocturnal peritoneal dialysis and tolerating said treatment. Due to the previous low BP, we are using a 1.5% PD solution to minimize ultrafiltration. No other complaints today. He continues to receive antibiotics for his chronic thigh and right hip joint area skin ulceration. He has a wound VAC. No other complaints today. No chest pain or shortness of breath. OBJECTIVE: VITAL SIGNS: Blood pressure 118/77, heart rate 52, respiratory rate 16, temperature 97.1, and pulse ox is 95%. GENERAL: Noted to be awake, supine, comfortable, not in distress. SKIN: Adequate turgor. HEENT: He has slightly pale conjunctivae. Anicteric sclerae. NECK: No neck mass. No carotid bruits. No JVD. CHEST: No deformities. LUNGS: Clear breath sounds. No wheezing. No crackles. HEART: Normal sinus rhythm. No murmur. No gallops. No rubs. ABDOMEN: Globular, soft, nontender. No masses. Positive for PD catheter. EXTREMITIES: No edema. He has a wound VAC on the right thigh, right side of the buttock - positive for wound VAC. MEDICATIONS: Medications of November 27, 2018, reviewed. LABORATORY DATA: Laboratories of November 24, 2018; white count 5.2 and hemoglobin 9. Sodium 143, potassium 3.7, chloride 110, carbon dioxide 22, BUN 40, creatinine 9.49, glucose 82, and calcium 8.5. ASSESSMENT AND PLAN: 1. End-stage renal disease, stable. We will continue current CCPD regimen. No changes will be made with the current peritoneal dialysis regimen. Continue 1.5% PD solution, gentle ultrafiltration. 2. Chronic right thigh and buttock area infection - on IV Zosyn, on wound VAC. 3. Chronic anemia. Continuing Epogen regimen. 4. Agree with current management. Recheck basic metabolic profile and CBC in a.m. Job ID: [id number]
--- NOTE | 2018-11-27 10:12 | PDOC.HOSPP ---
- Subjective Subjective: pt up in bed no complains - Objective Vital Signs & Weight: Vital Signs (12 hours) Temp Pulse Resp BP Pulse Ox 11/27/18 08:00 97.1 F L 52 L 16 118/77 95 Weight Admit Weight 205 lb Weight 212 lb 14.4 oz Most Recent Monitor Data Heart Rate from ECG 59 NIBP 119/77 NIBP BP-Mean 91 Respiration from ECG 20 SpO2 97 I&O: 11/26/18 11/27/18 11/28/18 06:59 06:59 06:59 Intake Total 950 580 Balance 950 580 Result Diagrams: 11/24/18 06:05 11/24/18 06:05 ROS - Review of Systems All systems: All other ROS were reviewed and found negative. ENT: denies: ear pain, ear discharge, nose pain, nose discharge, nose congestion , mouth pain, mouth swelling, throat pain, throat swelling, other Respiratory: denies: cough, dry, shortness of breath, hemoptysis, SOB with excertion, pleuritic pain, sputum, wheezing, other Cardiovascular: denies: chest pain, palpitations, orthopnea, paroxysmal noc. dyspnea, edema, light headedness, other - Medication Medications: Active Medications Generic Name Dose Route Start Last Admin Trade Name Freq PRN Reason Stop Dose Admin Acetaminophen 1,000 mg 11/19/18 00:14 11/20/18 21:39 Tylenol PO 1,000 mg Q6H PRN Administration Mild Pain (1-3) Aspirin 81 mg 11/19/18 09:00 11/27/18 08:40 Aspirin Chewable PO 81 mg DAILY ASIA Administration Calcitriol 0.25 mcg 11/19/18 09:00 11/27/18 08:40 Rocaltrol PO 0.25 mcg DAILY ASIA Administration Epoetin Jose Alfredo-epbx 7,500 unit 11/19/18 12:00 11/26/18 12:28 Retacrit SC 7,500 unit Q7D ASIA Administration Famotidine 20 mg 11/19/18 09:00 11/27/18 08:40 Pepcid PO 20 mg DAILY ASIA Administration Heparin Sodium (Porcine) 5,000 units 11/19/18 09:00 11/27/18 08:40 Heparin SC 5,000 units BID ASIA Administration Piperacillin Sod/Tazobactam 100 mls @ 200 mls/hr 11/20/18 22:00 11/27/18 05: 30 Sod 2.25 gm/ Sodium Chloride IVPB 100 mls Q8HR ASIA Administration Lanthanum Carbonate 1,000 mg 11/20/18 09:36 11/27/18 08:40 Fosrenol PO 1,000 mg TID-WM ASIA Administration Levothyroxine Sodium 200 mcg 11/19/18 06:00 11/27/18 05:30 Synthroid PO 200 mcg 0600 ASIA Administration Midodrine 10 mg 11/19/18 09:00 11/27/18 08:40 Proamatine PO 10 mg TID ASIA Administration Ondansetron HCl 4 mg 11/19/18 00:14 11/27/18 05:28 Zofran IVP 4 mg Q6H PRN Administration Nausea/Vomiting Oxycodone HCl 5 mg 11/19/18 00:19 11/26/18 20:47 Oxycodone Ir PO 5 mg Q6H PRN Administration Pain Saccharomyces Boulardii 250 mg 11/19/18 09:00 11/27/18 08:40 Florastor PO 250 mg DAILY ASIA Administration Sevelamer Carbonate 2,400 mg 11/19/18 08:00 11/27/18 08:43 Renvela PO Not Given TID- ASIA Simethicone 80 mg 11/21/18 15:23 11/26/18 21:04 Mylicon Chewable PO 80 mg Q6H PRN Administration Gas Pain Sodium Chloride 10 ml 11/19/18 21:00 11/27/18 08:43 Flush - Normal Saline IVF 10 ml Q12HR ASIA Administration Sodium Chloride 1 gm 11/20/18 15:00 11/27/18 08:43 Sodium Chloride PO 1 gm TID ASIA Administration - Exam Neck: negative: supple, symmetric, no JVD, no Thyromegaly, no lymphadenopathy, no carotid bruit, JVD Heart: negative: RRR, no murmur, no gallops, no rubs, normal peripheral pulses, irregular, diminshed peripheral pulses, murmur present, II/IV, III/IV Respiratory: negative: CTAB, no wheezes, no rales, no ronchi, normal chest expansion, no tachypnea, normal percussion, rales, rhonchi, tachypneic, wheezes Hosp A/P (1) Wound infection Code(s): T14.8XXA - OTHER INJURY OF UNSPECIFIED BODY REGION, INITIAL ENCOUNTER; L08.9 - LOCAL INFECTION OF THE SKIN AND SUBCUTANEOUS TISSUE, UNSP Status: Chronic (2) Hypotension Status: Resolved (3) ESRD on peritoneal dialysis Code(s): N18.6 - END STAGE RENAL DISEASE; Z99.2 - DEPENDENCE ON RENAL DIALYSIS Status: Chronic (4) Hypothyroidism Code(s): E03.9 - HYPOTHYROIDISM, UNSPECIFIED Status: Chronic Qualifiers: Hypothyroidism type: unspecified Qualified Code(s): E03.9 - Hypothyroidism , unspecified - Plan spoke with ID, will need progress notes and discharge summary from [facility]. 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 Pt refused to go to inpatient rehab.
[2018-11-27] MEDS: oxyCODONE 5 MG TAB PO PRN (12:48)
--- NOTE | 2018-11-27 14:55 | PDOC.HOSPP ---
- Subjective Subjective: pt up in bed no complains - Objective Vital Signs & Weight: Vital Signs (12 hours) Temp Pulse Resp BP Pulse Ox 11/27/18 08:00 97.1 F L 52 L 16 118/77 95 Weight Admit Weight 205 lb Weight 212 lb 14.4 oz Most Recent Monitor Data Heart Rate from ECG 59 NIBP 119/77 NIBP BP-Mean 91 Respiration from ECG 20 SpO2 97 I&O: 11/26/18 11/27/18 11/28/18 06:59 06:59 06:59 Intake Total 950 580 Balance 950 580 Result Diagrams: 11/24/18 06:05 11/24/18 06:05 ROS - Review of Systems All systems: All other ROS were reviewed and found negative. ENT: denies: ear pain, ear discharge, nose pain, nose discharge, nose congestion , mouth pain, mouth swelling, throat pain, throat swelling, other Respiratory: denies: cough, dry, shortness of breath, hemoptysis, SOB with excertion, pleuritic pain, sputum, wheezing, other Cardiovascular: denies: chest pain, palpitations, orthopnea, paroxysmal noc. dyspnea, edema, light headedness, other - Medication Medications: Active Medications Generic Name Dose Route Start Last Admin Trade Name Freq PRN Reason Stop Dose Admin Acetaminophen 1,000 mg 11/19/18 00:14 11/20/18 21:39 Tylenol PO 1,000 mg Q6H PRN Administration Mild Pain (1-3) Aspirin 81 mg 11/19/18 09:00 11/27/18 08:40 Aspirin Chewable PO 81 mg DAILY ASIA Administration Calcitriol 0.25 mcg 11/19/18 09:00 11/27/18 08:40 Rocaltrol PO 0.25 mcg DAILY ASIA Administration Epoetin Jose Alfredo-epbx 7,500 unit 11/19/18 12:00 11/26/18 12:28 Retacrit SC 7,500 unit Q7D ASIA Administration Famotidine 20 mg 11/19/18 09:00 11/27/18 08:40 Pepcid PO 20 mg DAILY ASIA Administration Heparin Sodium (Porcine) 5,000 units 11/19/18 09:00 11/27/18 08:40 Heparin SC 5,000 units BID ASIA Administration Piperacillin Sod/Tazobactam 100 mls @ 200 mls/hr 11/20/18 22:00 11/27/18 14: 36 Sod 2.25 gm/ Sodium Chloride IVPB 100 mls Q8HR ASIA Administration Lanthanum Carbonate 1,000 mg 11/20/18 09:36 11/27/18 12:48 Fosrenol PO 1,000 mg TID-WM ASIA Administration Levothyroxine Sodium 200 mcg 11/19/18 06:00 11/27/18 05:30 Synthroid PO 200 mcg 0600 ASIA Administration Midodrine 10 mg 11/19/18 09:00 11/27/18 14:36 Proamatine PO 10 mg TID ASIA Administration Ondansetron HCl 4 mg 11/19/18 00:14 11/27/18 05:28 Zofran IVP 4 mg Q6H PRN Administration Nausea/Vomiting Oxycodone HCl 5 mg 11/19/18 00:19 11/27/18 12:48 Oxycodone Ir PO 5 mg Q6H PRN Administration Pain Saccharomyces Boulardii 250 mg 11/19/18 09:00 11/27/18 08:40 Florastor PO 250 mg DAILY ASIA Administration Sevelamer Carbonate 2,400 mg 11/19/18 08:00 11/27/18 13:01 Renvela PO Not Given TID- ASIA Simethicone 80 mg 11/21/18 15:23 11/26/18 21:04 Mylicon Chewable PO 80 mg Q6H PRN Administration Gas Pain Sodium Chloride 10 ml 11/19/18 21:00 11/27/18 08:43 Flush - Normal Saline IVF 10 ml Q12HR ASIA Administration Sodium Chloride 1 gm 11/20/18 15:00 11/27/18 14:36 Sodium Chloride PO 1 gm TID ASIA Administration - Exam Neck: negative: supple, symmetric, no JVD, no Thyromegaly, no lymphadenopathy, no carotid bruit, JVD Heart: negative: RRR, no murmur, no gallops, no rubs, normal peripheral pulses, irregular, diminshed peripheral pulses, murmur present, II/IV, III/IV Respiratory: negative: CTAB, no wheezes, no rales, no ronchi, normal chest expansion, no tachypnea, normal percussion, rales, rhonchi, tachypneic, wheezes Gastrointestinal: negative: soft, non-tender, non-distended, normal bowel sounds , no palpable masses, no hepatomegaly, no splenomegaly, no bruit, tender to palpation, distended, diminished bowl sounds, voluntary guarding Hosp A/P (1) Wound infection Code(s): T14.8XXA - OTHER INJURY OF UNSPECIFIED BODY REGION, INITIAL ENCOUNTER; L08.9 - LOCAL INFECTION OF THE SKIN AND SUBCUTANEOUS TISSUE, UNSP Status: Chronic (2) Hypotension Status: Resolved (3) ESRD on peritoneal dialysis Code(s): N18.6 - END STAGE RENAL DISEASE; Z99.2 - DEPENDENCE ON RENAL DIALYSIS Status: Chronic (4) Hypothyroidism Code(s): E03.9 - HYPOTHYROIDISM, UNSPECIFIED Status: Chronic Qualifiers: Hypothyroidism type: unspecified Qualified Code(s): E03.9 - Hypothyroidism , unspecified - Plan waiting for records, will continue iv abx. pt has refused rehab
[2018-11-28] MEDS: Levothyroxine Sodium 100 MCG TAB PO SCH (05:17)
[2018-11-28] MEDS: Piperacillin/Tazobactam 2.25 GM in Sodium Chloride 0.9% 100 ML IVPB SCH ×3 (05:17→20:32)
[2018-11-28 06:30] LABS: #Basophils 0.1 thou/uL (0.0-0.2); #Eosinphils 0.3 thou/uL (0.0-0.7); #Lymphocytes 2.2 thou/uL (1.20-3.40); #Monocytes 0.5 thou/uL (0.11-0.59); #Neutrophils 1.9 thou/uL (1.40-6.50); %Basophils 1.2 % (0.0-1.0); %Eosinophils 5.9 % (0.0-10.0); %Lymphocytes 44.6 % (21.0-51.0); %Monocytes 10.4 % (0.0-10.0); Hemoglobin 9.7 g/dL (14.0-18.0); Mean Corpuscular HGB CONC 32.8 g/dL (32.0-36.0); Mean Corpuscular Hemoglobin 34.5 pg (27.0-31.0); Mean Platelet Volume 6.2 fL (7.4-10.4); Platelet Count 181 thou/uL (130-400); RBC Distribution Width 14.4 % (11.5-14.5); Red Blood Cell (RBC) Count 2.81 mill/uL (4.70-6.10)
[2018-11-28 06:51] LABS: Anion Gap 16 mmol/L (10-20); BUN (Urea Nitrogen) 41 mg/dL (8.4-25.7); Calc. Creatinine Clearance 10 mL/min (70-130); Calcium 8.4 mg/dL (7.8-10.44); Carbon Dioxide 23 mmol/L (23-31); Chloride 108 mmol/L (98-107); Estimated GFR-MDRD 5; Glucose 93 mg/dL (80-115); Potassium 3.3 mmol/L (3.5-5.1); Sodium 144 mmol/L (136-145)
[2018-11-28] MEDS: Sevelamer Carbonate 800 MG TAB PO SCH ×3 (07:21→15:28)
[2018-11-28] MEDS: Lanthanum Carbonate 500 mg Tablet PO SCH ×3 (09:05→15:18)
[2018-11-28] MEDS: Famotidine 20 MG TAB PO SCH (09:06)
[2018-11-28] MEDS: Saccharomyces boulardii 250 MG CAP PO SCH (09:06)
[2018-11-28] MEDS: Calcitriol 0.25 MCG CAP PO SCH (09:06)
[2018-11-28] MEDS: Aspirin Chewable 81 MG TAB PO SCH (09:07)
[2018-11-28] MEDS: Sodium Chloride 1 GM TAB PO SCH ×3 (09:07→20:32)
[2018-11-28] MEDS: Heparin 5,000 UNITS/ML VIAL SC SCH ×2 (09:07→20:32)
[2018-11-28] MEDS: Midodrine HCl 5 MG TAB PO SCH ×4 (09:08→20:31)
--- NOTE | 2018-11-28 13:24 | PRG ---
DATE OF SERVICE: 11/28/2018 SUBJECTIVE: Mr. Boyer is feeling well. His wounds are healing. The ischial/hip wound is 100% covered with granulation. No evidence of inflammatory change. No necrosis and no bone exposure. OBJECTIVE: VITAL SIGNS: Normal except for some elevation of systolic blood pressure. GENERAL: Awake, alert, oriented, pleasant, and in no distress. Speech is normal. LUNGS: Clear. HEART: S1 and S2. Regular rate. ABDOMEN: Soft. All the wounds are healing well. LABORATORY DATA: White cell count 5.0, hemoglobin 9.7, platelets 181. Sodium 144. ASSESSMENT AND DISCUSSION: I received the reports from the other hospital and it does not appear that they did any imaging study to confirm osteomyelitis of the pelvis. It is unlikely that the patient has calciphylaxis in view of the benign progress of the wounds and absence of necrosis, which is typical of calciphylaxis. At this point, we will recommend continuation of Zosyn for another 2 weeks and then discontinuation of all antimicrobial therapy. This can be pursued at the rehab where he is going to be transferred to. Job ID: [id number]
[2018-11-28] MEDS ORDERED: Potassium Chloride 20 MEQ TAB PO SCH (17:45)
--- NOTE | 2018-11-28 17:49 | PRG ---
DATE OF SERVICE: 11/28/2018 SERVICE: Renal Medicine. SUBJECTIVE: Mr. Boyer is a 63-year-old male with ESRD and followed by the Renal Service for his maintenance peritoneal dialysis. He underwent peritoneal dialysis last night without difficulty. Again, ultrafiltration is less than a liter. We are using the 1.5% PD solution to minimize ultrafiltration due to the chronic hypotension. No other complaints. He continues to be treated for his right-sided buttock abscess. He has a wound VAC and is on IV antibiotics. No other complaints today. No chest pain or shortness of breath. He did have an occasional nausea. OBJECTIVE: VITAL SIGNS: Blood pressure 159/83, heart rate 56, respiratory rate 20, temperature 97.6, and pulse ox 97%. GENERAL: Noted to be awake, alert, comfortable, not in overt distress. SKIN: Adequate turgor. HEENT: He has a pinkish conjunctivae. Anicteric sclerae. NECK: No neck mass. No carotid bruits. No JVD. CHEST: No deformities. LUNGS: Clear breath sounds. HEART: Normal sinus rhythm. No murmur. No gallops. No rubs. ABDOMEN: Globular, soft, and nontender. No masses. Positive for PD catheter. EXTREMITIES: Trace edema. MEDICATIONS: Medications of November 28, 2018, reviewed. LABORATORY DATA: Laboratories of November 28, 2018; white count 5, hemoglobin 9.7. Sodium 144, potassium 3.3, chloride 108, carbon dioxide 23, BUN 41, creatinine 10.13, glucose 93, and calcium 8.4. ASSESSMENT AND PLAN: 1. End-stage renal disease, stable. We will continue current CCPD regimen using 1.5% PD solution. Dialysis time will remain unchanged. Continue same fill volume. 2. Anemia. Continuing weekly Epogen. 3. Mild hypokalemia. P.r.n. potassium replacement. 4. Chronic right buttock abscess wound - on wound VAC and IV antibiotics. Overall, agree with current management. Recheck basic metabolic profile in a.m. Job ID: [id number]
[2018-11-29] MEDS: Levothyroxine Sodium 100 MCG TAB PO SCH (05:54)
[2018-11-29] MEDS: Piperacillin/Tazobactam 2.25 GM in Sodium Chloride 0.9% 100 ML IVPB SCH ×3 (05:54→20:15)
[2018-11-29 07:03] LABS: Anion Gap 14 mmol/L (10-20); BUN (Urea Nitrogen) 36 mg/dL (8.4-25.7); Calc. Creatinine Clearance 12 mL/min (70-130); Calcium 7.6 mg/dL (7.8-10.44); Carbon Dioxide 21 mmol/L (23-31); Chloride 113 mmol/L (98-107); Estimated GFR-MDRD 6; Glucose 72 mg/dL (80-115); Potassium 3.3 mmol/L (3.5-5.1); Sodium 145 mmol/L (136-145)
[2018-11-29] MEDS ORDERED: Potassium Chloride 20 MEQ TAB PO SCH (09:30)
[2018-11-29] MEDS: Sevelamer Carbonate 800 MG TAB PO SCH ×3 (10:06→18:22)
[2018-11-29] MEDS: Midodrine HCl 5 MG TAB PO SCH ×3 (10:06→20:15)
[2018-11-29] MEDS: Famotidine 20 MG TAB PO SCH (10:06)
[2018-11-29] MEDS: Saccharomyces boulardii 250 MG CAP PO SCH (10:06)
[2018-11-29] MEDS: Calcitriol 0.25 MCG CAP PO SCH (10:06)
[2018-11-29] MEDS: Sodium Chloride 1 GM TAB PO SCH ×3 (10:07→20:15)
[2018-11-29] MEDS: Lanthanum Carbonate 500 mg Tablet PO SCH ×3 (10:07→18:21)
[2018-11-29] MEDS: Heparin 5,000 UNITS/ML VIAL SC SCH ×2 (10:07→20:15)
[2018-11-29] MEDS: Aspirin Chewable 81 MG TAB PO SCH (10:07)
--- NOTE | 2018-11-29 12:17 | PRG ---
DATE OF SERVICE: 11/29/2018 SUBJECTIVE: Mr. Boyer is a 63-year-old male being followed up by the Renal Service for his maintenance peritoneal dialysis. He underwent peritoneal dialysis last night without any difficulty. He is tolerating the said PD regimen. He is also being followed up by Dr. Rosenbaum regarding to the ischial hip/buttock wound. It is now covered 100% with granulation. He continues to receive IV antibiotics. He denies any chest pain or shortness of breath. OBJECTIVE: VITAL SIGNS: Blood pressure is 103/72, heart rate 75, respiratory rate 18, temperature 98.2, pulse ox 100%. GENERAL: Noted to be awake, alert, comfortable, not in distress. SKIN: Adequate turgor. HEENT: He has slightly pale conjunctivae. Anicteric sclerae. NECK: No neck mass. No carotid bruits. No JVD. CHEST: No deformities. LUNGS: Clear breath sounds. No wheezing. No crackles. HEART: Normal sinus rhythm. No murmur. No gallops. No rubs. ABDOMEN: Globular, soft, nontender. No masses. Positive for PD catheter. EXTREMITIES: No edema. No deformities. BACK: He has granulating woulnd - right ischial/buttock wound-healing well. MEDICATIONS: Medications of November 29, 2018, was reviewed. LABORATORY DATA: Laboratories of November 28, 2018; white count 5, hemoglobin 9.7. Sodium 145, potassium 3.3, chloride 113, carbon dioxide 21, BUN 36, creatinine 8.79, glucose 72, and calcium 7.6. ASSESSMENT AND PLAN: 1. End-stage renal disease, stable. We will continue current CCPD regimen. No changes to be made with the peritoneal dialysis. He is tolerating said treatment. Ultrafiltration is being tolerated. 2. Chronic hypotension on midodrine and sodium chloride tablets. 3. Chronic right hip wound infection-granulating well. ID following on IV antibiotics. 4. Anemia continuing weekly Epogen. 5. Mild hypokalemia. P.r.n. potassium replacement. 6. Recheck basic metabolic profile in a.m. Job ID: [id number] [facility]
--- NOTE | 2018-11-29 13:55 | PDOC.HOSPP ---
- Subjective Subjective: Pt seen for followup re: wound infection. Says he feels well. - Objective Vital Signs & Weight: Vital Signs (12 hours) Temp Pulse Resp BP Pulse Ox 11/29/18 08:00 100 11/29/18 07:36 98.2 F 75 18 103/72 100 Weight Admit Weight 205 lb Weight 210 lb 14.307 oz Most Recent Monitor Data Heart Rate from ECG 59 NIBP 119/77 NIBP BP-Mean 91 Respiration from ECG 20 SpO2 97 I&O: 11/28/18 11/29/18 11/30/18 06:59 06:59 06:59 Intake Total 900 1304 240 Output Total 300 Balance 900 1004 240 Result Diagrams: 11/28/18 06:02 11/30/18 09:04 Additional Labs: MARs and Labs reviewed by me ROS - Review of Systems All systems: All other ROS were reviewed and found negative. - Medication Medications: Active Medications Generic Name Dose Route Start Last Admin Trade Name Freq PRN Reason Stop Dose Admin Acetaminophen 1,000 mg 11/19/18 00:14 11/20/18 21:39 Tylenol PO 1,000 mg Q6H PRN Administration Mild Pain (1-3) Aspirin 81 mg 11/19/18 09:00 11/29/18 10:07 Aspirin Chewable PO 81 mg DAILY ASIA Administration Calcitriol 0.25 mcg 11/19/18 09:00 11/29/18 10:06 Rocaltrol PO 0.25 mcg DAILY ASIA Administration Epoetin Jose Alfredo-epbx 7,500 unit 11/19/18 12:00 11/26/18 12:28 Retacrit SC 7,500 unit Q7D ASIA Administration Famotidine 20 mg 11/19/18 09:00 11/29/18 10:06 Pepcid PO 20 mg DAILY ASIA Administration Heparin Sodium (Porcine) 5,000 units 11/19/18 09:00 11/29/18 10:07 Heparin SC 5,000 units BID ASIA Administration Piperacillin Sod/Tazobactam 100 mls @ 200 mls/hr 11/20/18 22:00 11/29/18 05: 54 Sod 2.25 gm/ Sodium Chloride IVPB 100 mls Q8HR ASIA Administration Lanthanum Carbonate 1,000 mg 11/20/18 09:36 11/29/18 13:27 Fosrenol PO 1,000 mg TID-WM ASIA Administration Levothyroxine Sodium 200 mcg 11/19/18 06:00 11/29/18 05:54 Synthroid PO 200 mcg 0600 ASIA Administration Midodrine 10 mg 11/19/18 09:00 11/29/18 10:06 Proamatine PO 10 mg TID ASIA Administration Ondansetron HCl 4 mg 11/19/18 00:14 11/27/18 05:28 Zofran IVP 4 mg Q6H PRN Administration Nausea/Vomiting Saccharomyces Boulardii 250 mg 11/19/18 09:00 11/29/18 10:06 Florastor PO 250 mg DAILY ASIA Administration Sevelamer Carbonate 2,400 mg 11/19/18 08:00 11/29/18 13:27 Renvela PO Not Given TID-WM ASIA Simethicone 80 mg 11/21/18 15:23 11/26/18 21:04 Mylicon Chewable PO 80 mg Q6H PRN Administration Gas Pain Sodium Chloride 10 ml 11/19/18 21:00 11/29/18 10:07 Flush - Normal Saline IVF 10 ml Q12HR ASIA Administration Sodium Chloride 1 gm 11/20/18 15:00 11/29/18 10:07 Sodium Chloride PO 1 gm TID ASIA Administration - Exam NAD Eye: PERRL Neck: supple Heart: RRR Respiratory: CTAB Gastrointestinal: soft Psychiatric: normal affect, normal behavior Hosp A/P (1) Wound infection Code(s): T14.8XXA - OTHER INJURY OF UNSPECIFIED BODY REGION, INITIAL ENCOUNTER; L08.9 - LOCAL INFECTION OF THE SKIN AND SUBCUTANEOUS TISSUE, UNSP Status: Chronic (2) ESRD on peritoneal dialysis Code(s): N18.6 - END STAGE RENAL DISEASE; Z99.2 - DEPENDENCE ON RENAL DIALYSIS Status: Chronic (3) Hypothyroidism Code(s): E03.9 - HYPOTHYROIDISM, UNSPECIFIED Status: Chronic Qualifiers: Hypothyroidism type: unspecified Qualified Code(s): E03.9 - Hypothyroidism , unspecified (4) Hypotension Status: Resolved - Plan continue antibiotics, PT/OT, out of bed/ambulate Pt to continue Zosyn for two weeks. Awaiting Inpt Rehab eval. Peritoneal dialysis per nephrology service. BP controlled. Review of Systems - Review of Systems Cardiovascular: negative: chest pain, palpitations, orthopnea, paroxysmal nocturnal dyspnea, edema, light headedness Gastrointestinal: Other. negative: Nausea, Vomiting, Abdominal Pain, Diarrhea, Constipation, Melena, Hematochezia - Medications/Allergies Allergies/Adverse Reactions: Allergies Allergy/AdvReac Type Severity Reaction Status Date / Time fluconazole Allergy Intermediate Verified 04/26/18 02:42 hydrocodone Allergy Intermediate Verified 04/26/18 02:42 Opioids - Morphine Analogues Allergy Intermediate Verified 04/26/18 02:42 codeine Allergy Verified 04/26/18 02:42 tramadol Allergy Verified 04/26/18 02:42 Medications: Current Medications Acetaminophen (Tylenol) 1,000 mg PO Q6H PRN PRN Reason: Mild Pain (1-3) Last Admin: 11/20/18 21:39 Dose: 1,000 mg Aspirin (Aspirin Chewable) 81 mg PO DAILY [facility] Last Admin: 11/29/18 10:07 Dose: 81 mg Calcitriol (Rocaltrol) 0.25 mcg PO DAILY [facility] Last Admin: 11/29/18 10:06 Dose: 0.25 mcg Epoetin Jose Alfredo-epbx (Retacrit) 7,500 unit SC Q7D [facility] Last Admin: 11/26/18 12:28 Dose: 7,500 unit Famotidine (Pepcid) 20 mg PO DAILY [facility] Last Admin: 11/29/18 10:06 Dose: 20 mg Heparin Sodium (Porcine) (Heparin) 5,000 units SC BID [facility] Last Admin: 11/29/18 10:07 Dose: 5,000 units Heparin Sodium (Porcine) 3,000 units/ Peritoneal Dialysis Solution 6,003 mls @ 0 mls/hr FS ASDIR [facility] Piperacillin Sod/Tazobactam (Sod 2.25 gm/ Sodium Chloride) 100 mls @ 200 mls/ hr IVPB Q8HR [facility] Last Admin: 11/29/18 05:54 Dose: 100 mls Lanthanum Carbonate (Fosrenol) 1,000 mg PO TID-[facility] Last Admin: 11/29/18 13:27 Dose: 1,000 mg Levothyroxine Sodium (Synthroid) 200 mcg PO 0600 [facility] Last Admin: 11/29/18 05:54 Dose: 200 mcg Midodrine (Proamatine) 10 mg PO TID [facility] Last Admin: 11/29/18 10:06 Dose: 10 mg Ondansetron HCl (Zofran Odt) 4 mg PO Q6H PRN PRN Reason: Nausea/Vomiting Ondansetron HCl (Zofran) 4 mg IVP Q6H PRN PRN Reason: Nausea/Vomiting Last Admin: 11/27/18 05:28 Dose: 4 mg Polyethylene Glycol (Miralax) 17 gm PO DAILY PRN PRN Reason: Constipation Saccharomyces Boulardii (Florastor) 250 mg PO DAILY [facility] Last Admin: 11/29/18 10:06 Dose: 250 mg Sevelamer Carbonate (Renvela) 2,400 mg PO TID-[facility] Last Admin: 11/29/18 13:27 Dose: Not Given Simethicone (Mylicon Chewable) 80 mg PO Q6H PRN PRN Reason: Gas Pain Last Admin: 11/26/18 21:04 Dose: 80 mg Sodium Chloride (Flush - Normal Saline) 10 ml IVF Q12HR [facility] Last Admin: 11/29/18 10:07 Dose: 10 ml Sodium Chloride (Flush - Normal Saline) 10 ml IVF PRN PRN PRN Reason: Saline Flush Sodium Chloride (Sodium Chloride) 1 gm PO TID [facility] Last Admin: 11/29/18 10:07 Dose: 1 gm
[2018-11-29] MEDS: Simethicone Chewable 80 MG TAB PO PRN (20:14)
--- NOTE | 2018-11-29 22:59 | PDOC.HOSPP ---
- Subjective Subjective: pt up in bed, updated that we have his records and will wait for ID's recommendation - Objective Vital Signs & Weight: Vital Signs (12 hours) Temp Pulse Resp BP Pulse Ox 11/29/18 20:00 98.0 F 59 L 16 158/90 H 98 Weight Admit Weight 205 lb Weight 210 lb 14.307 oz Most Recent Monitor Data Heart Rate from ECG 59 NIBP 119/77 NIBP BP-Mean 91 Respiration from ECG 20 SpO2 97 I&O: 11/28/18 11/29/18 11/30/18 06:59 06:59 06:59 Intake Total 900 1304 600 Output Total 300 Balance 900 1004 600 Result Diagrams: 11/28/18 06:02 11/29/18 03:30 ROS - Review of Systems All systems: All other ROS were reviewed and found negative. ENT: denies: ear pain, ear discharge, nose pain, nose discharge, nose congestion , mouth pain, mouth swelling, throat pain, throat swelling, other Respiratory: denies: cough, dry, shortness of breath, hemoptysis, SOB with excertion, pleuritic pain, sputum, wheezing, other Cardiovascular: denies: chest pain, palpitations, orthopnea, paroxysmal noc. dyspnea, edema, light headedness, other - Medication Medications: Active Medications Generic Name Dose Route Start Last Admin Trade Name Freq PRN Reason Stop Dose Admin Acetaminophen 1,000 mg 11/19/18 00:14 11/20/18 21:39 Tylenol PO 1,000 mg Q6H PRN Administration Mild Pain (1-3) Aspirin 81 mg 11/19/18 09:00 11/29/18 10:07 Aspirin Chewable PO 81 mg DAILY ASIA Administration Calcitriol 0.25 mcg 11/19/18 09:00 11/29/18 10:06 Rocaltrol PO 0.25 mcg DAILY ASIA Administration Epoetin Jose Alfredo-epbx 7,500 unit 11/19/18 12:00 11/26/18 12:28 Retacrit SC 7,500 unit Q7D ASIA Administration Famotidine 20 mg 11/19/18 09:00 11/29/18 10:06 Pepcid PO 20 mg DAILY ASIA Administration Heparin Sodium (Porcine) 5,000 units 11/19/18 09:00 11/29/18 20:15 Heparin SC 5,000 units BID ASIA Administration Piperacillin Sod/Tazobactam 100 mls @ 200 mls/hr 11/20/18 22:00 11/29/18 20: 15 Sod 2.25 gm/ Sodium Chloride IVPB 100 mls Q8HR [facility]IA Administration Lanthanum Carbonate 1,000 mg 11/20/18 09:36 11/29/18 18:21 Fosrenol PO 1,000 mg TID-WM ASIA Administration Levothyroxine Sodium 200 mcg 11/19/18 06:00 11/29/18 05:54 Synthroid PO 200 mcg 0600 ASIA Administration Midodrine 10 mg 11/19/18 09:00 11/29/18 20:15 Proamatine PO Not Given TID ASIA Ondansetron HCl 4 mg 11/19/18 00:14 11/27/18 05:28 Zofran IVP 4 mg Q6H PRN Administration Nausea/Vomiting Saccharomyces Boulardii 250 mg 11/19/18 09:00 11/29/18 10:06 Florastor PO 250 mg DAILY [facility]IA Administration Sevelamer Carbonate 2,400 mg 11/19/18 08:00 11/29/18 18:22 Renvela PO Not Given TID-WM ASIA Simethicone 80 mg 11/21/18 15:23 11/29/18 20:14 Mylicon Chewable PO 80 mg Q6H PRN Administration Gas Pain Sodium Chloride 10 ml 11/19/18 21:00 11/29/18 20:16 Flush - Normal Saline IVF 10 ml Q12HR ASIA Administration Sodium Chloride 1 gm 11/20/18 15:00 11/29/18 20:15 Sodium Chloride PO 1 gm TID ASIA Administration - Exam Neck: negative: supple, symmetric, no JVD, no Thyromegaly, no lymphadenopathy, no carotid bruit, JVD Heart: negative: RRR, no murmur, no gallops, no rubs, normal peripheral pulses, irregular, diminshed peripheral pulses, murmur present, II/IV, III/IV Respiratory: negative: CTAB, no wheezes, no rales, no ronchi, normal chest expansion, no tachypnea, normal percussion, rales, rhonchi, tachypneic, wheezes Hosp A/P (1) Wound infection Code(s): T14.8XXA - OTHER INJURY OF UNSPECIFIED BODY REGION, INITIAL ENCOUNTER; L08.9 - LOCAL INFECTION OF THE SKIN AND SUBCUTANEOUS TISSUE, UNSP Status: Chronic (2) Hypotension Status: Resolved (3) ESRD on peritoneal dialysis Code(s): N18.6 - END STAGE RENAL DISEASE; Z99.2 - DEPENDENCE ON RENAL DIALYSIS Status: Chronic (4) Hypothyroidism Code(s): E03.9 - HYPOTHYROIDISM, UNSPECIFIED Status: Chronic Qualifiers: Hypothyroidism type: unspecified Qualified Code(s): E03.9 - Hypothyroidism , unspecified - Plan will ask ID to review records for abx course. will make sure if pt ok to be discharged home since he change his mind and now wants to go to rehab.
[2018-11-30] MEDS: Levothyroxine Sodium 100 MCG TAB PO SCH (05:23)
[2018-11-30] MEDS: Piperacillin/Tazobactam 2.25 GM in Sodium Chloride 0.9% 100 ML IVPB SCH ×3 (05:24→20:14)
[2018-11-30] MEDS: Sevelamer Carbonate 800 MG TAB PO SCH ×3 (08:40→17:41)
[2018-11-30] MEDS: Lanthanum Carbonate 500 mg Tablet PO SCH ×3 (08:56→17:41)
[2018-11-30] MEDS: Famotidine 20 MG TAB PO SCH (08:56)
[2018-11-30] MEDS: Sodium Chloride 1 GM TAB PO SCH ×3 (08:56→20:14)
[2018-11-30] MEDS: Aspirin Chewable 81 MG TAB PO SCH (08:56)
[2018-11-30] MEDS: Calcitriol 0.25 MCG CAP PO SCH (08:56)
[2018-11-30] MEDS: Heparin 5,000 UNITS/ML VIAL SC SCH ×2 (08:56→20:15)
[2018-11-30] MEDS: Saccharomyces boulardii 250 MG CAP PO SCH (08:56)
[2018-11-30] MEDS: Midodrine HCl 5 MG TAB PO SCH ×3 (08:56→20:15)
[2018-11-30 09:36] LABS: Anion Gap 15 mmol/L (10-20); BUN (Urea Nitrogen) 40 mg/dL (8.4-25.7); Calc. Creatinine Clearance 10 mL/min (70-130); Calcium 8.8 mg/dL (7.8-10.44); Carbon Dioxide 23 mmol/L (23-31); Chloride 109 mmol/L (98-107); Estimated GFR-MDRD 5; Glucose 91 mg/dL (80-115); Potassium 3.9 mmol/L (3.5-5.1); Sodium 143 mmol/L (136-145)
[2018-11-30] MEDS ORDERED: Potassium Chloride 20 MEQ TAB PO SCH (12:00)
--- NOTE | 2018-11-30 12:06 | PDOC.HOSPP ---
- Subjective Subjective: Pt seen for followup re: wound infection. Feels well, no complaints. - Objective Vital Signs & Weight: Vital Signs (12 hours) Temp Pulse Resp BP Pulse Ox 11/30/18 07:38 97.6 F 52 L 18 145/82 H 92 L Weight Admit Weight 205 lb Weight 210 lb 14.307 oz Most Recent Monitor Data Heart Rate from ECG 59 NIBP 119/77 NIBP BP-Mean 91 Respiration from ECG 20 SpO2 97 I&O: 11/29/18 11/30/18 12/01/18 06:59 06:59 06:59 Intake Total 1304 600 240 Output Total 300 Balance 1004 600 240 Result Diagrams: 11/28/18 06:02 11/30/18 09:04 ROS - Review of Systems All systems: All other ROS were reviewed and found negative. Cardiovascular: denies: chest pain, palpitations, orthopnea, paroxysmal noc. dyspnea, edema, light headedness Gastrointestinal: denies: nausea, vomitting, abdominal pain, diarrhea, constipation, melena, hematochezia - Medication Medications: Active Medications Generic Name Dose Route Start Last Admin Trade Name Freq PRN Reason Stop Dose Admin Acetaminophen 1,000 mg 11/19/18 00:14 11/20/18 21:39 Tylenol PO 1,000 mg Q6H PRN Administration Mild Pain (1-3) Aspirin 81 mg 11/19/18 09:00 11/30/18 08:56 Aspirin Chewable PO 81 mg DAILY ASIA Administration Calcitriol 0.25 mcg 11/19/18 09:00 11/30/18 08:56 Rocaltrol PO 0.25 mcg DAILY ASIA Administration Epoetin Jose Alfredo-epbx 7,500 unit 11/19/18 12:00 11/26/18 12:28 Retacrit SC 7,500 unit Q7D ASIA Administration Famotidine 20 mg 11/19/18 09:00 11/30/18 08:56 Pepcid PO 20 mg DAILY ASIA Administration Heparin Sodium (Porcine) 5,000 units 11/19/18 09:00 11/30/18 08:56 Heparin SC 5,000 units BID ASIA Administration Piperacillin Sod/Tazobactam 100 mls @ 200 mls/hr 11/20/18 22:00 11/30/18 05: 24 Sod 2.25 gm/ Sodium Chloride IVPB 100 mls Q8HR ASIA Administration Lanthanum Carbonate 1,000 mg 11/20/18 09:36 11/30/18 08:56 Fosrenol PO Not Given TID-WM ASIA Levothyroxine Sodium 200 mcg 11/19/18 06:00 11/30/18 05:23 Synthroid PO 200 mcg 0600 ASIA Administration Midodrine 10 mg 11/19/18 09:00 11/30/18 08:56 Proamatine PO Not Given TID ASIA Ondansetron HCl 4 mg 11/19/18 00:14 11/27/18 05:28 Zofran IVP 4 mg Q6H PRN Administration Nausea/Vomiting Saccharomyces Boulardii 250 mg 11/19/18 09:00 11/30/18 08:56 Florastor PO 250 mg DAILY ASIA Administration Sevelamer Carbonate 2,400 mg 11/19/18 08:00 11/30/18 08:40 Renvela PO Not Given TID-WM ASIA Simethicone 80 mg 11/21/18 15:23 11/29/18 20:14 Mylicon Chewable PO 80 mg Q6H PRN Administration Gas Pain Sodium Chloride 10 ml 11/19/18 21:00 11/30/18 08:57 Flush - Normal Saline IVF 10 ml Q12HR ASIA Administration Sodium Chloride 10 ml 11/19/18 12:43 11/30/18 08:57 Flush - Normal Saline IVF 10 ml PRN PRN Administration Saline Flush Sodium Chloride 1 gm 11/20/18 15:00 11/30/18 08:56 Sodium Chloride PO 1 gm TID ASIA Administration - Exam NAD Eye: PERRL ENT: normocephalic atraumatic Neck: supple Heart: RRR Respiratory: CTAB Skin: normal turgor (wounds as documented) Psychiatric: normal affect Hosp A/P (1) Wound infection Code(s): T14.8XXA - OTHER INJURY OF UNSPECIFIED BODY REGION, INITIAL ENCOUNTER; L08.9 - LOCAL INFECTION OF THE SKIN AND SUBCUTANEOUS TISSUE, UNSP Status: Chronic (2) ESRD on peritoneal dialysis Code(s): N18.6 - END STAGE RENAL DISEASE; Z99.2 - DEPENDENCE ON RENAL DIALYSIS Status: Chronic (3) Hypothyroidism Code(s): E03.9 - HYPOTHYROIDISM, UNSPECIFIED Status: Chronic Qualifiers: Hypothyroidism type: unspecified Qualified Code(s): E03.9 - Hypothyroidism , unspecified (4) Hypotension Status: Resolved - Plan continue antibiotics, PT/OT, out of bed/ambulate, DVT proph w/SCDs continue IV Zosyn. Pt is awaiting Rehab bed. PD per nephrology service.
--- NOTE | 2018-11-30 12:41 | PRG ---
DATE OF SERVICE: 11/30/2018 SERVICE: Renal Medicine. SUBJECTIVE: Mr. Boyer is a 63-year-old male with ESRD followed by the Renal Service for his maintenance peritoneal dialysis. He tolerated the dialysis last night. So far, we are not making any changes with his PD regimen. We are still using a 1.5% PD solution to minimize ultrafiltration due to his history of chronic hypotension. He continues to be treated for his chronic right buttock infection. He is on IV antibiotics. ID is following. No other complaints. No chest pain or shortness of breath. He still has occasional nausea. OBJECTIVE: VITAL SIGNS: Blood pressure 145/82, heart rate 52, respiratory rate 18, temperature 97.6, pulse ox 92%. GENERAL: He is awake, alert, supine, comfortable, not in distress. SKIN: Adequate turgor. HEENT: Slightly pale conjunctivae. Anicteric sclerae. NECK: No neck mass. No carotid bruits. No JVD. CHEST: No deformities. LUNGS: Clear breath sounds. No wheezing. No crackles. HEART: Normal sinus rhythm. No murmur. No gallops. No rubs. ABDOMEN: Globular, soft, nontender. No masses. Positive for PD catheter. EXTREMITIES: Trace edema. He has right hip joint wound infection - positive for granulation. MEDICATIONS: Medications of November 30, 2018. LABORATORY DATA: Laboratories of November 28, 2018; white count 5 and hemoglobin 9.7. On November 30, 2018; sodium 143, potassium 3.9, chloride 109, carbon dioxide 23, BUN 40, creatinine 10.29, calcium is 8.8. ASSESSMENT AND PLAN: 1. End-stage renal disease, stable. We will continue current CCPD regimen. Tolerating ultrafiltration. No changes to be made. Continue the same 1.5% PD solution. 2. Chronic hypotension, resolved. Currently, on midodrine and sodium chloride tablets support. 3. Anemia, continuing weekly Epogen with the patient. 4. Mild hypokalemia, much improved. My bias is to give him one more dose of KCl. Job ID: [id number]
[2018-11-30] MEDS: Simethicone Chewable 80 MG TAB PO PRN (20:13)
[2018-12-01] MEDS: Levothyroxine Sodium 100 MCG TAB PO SCH (04:49)
[2018-12-01] MEDS: Piperacillin/Tazobactam 2.25 GM in Sodium Chloride 0.9% 100 ML IVPB SCH ×3 (04:50→20:36)
[2018-12-01 05:04] LABS: #Basophils 0.1 thou/uL (0.0-0.2); #Eosinphils 0.3 thou/uL (0.0-0.7); #Lymphocytes 2.3 thou/uL (1.20-3.40); #Monocytes 0.4 thou/uL (0.11-0.59); %Basophils 1.1 % (0.0-1.0); %Eosinophils 5.1 % (0.0-10.0); %Lymphocytes 44.8 % (21.0-51.0); %Monocytes 8.6 % (0.0-10.0); %Neutrophils 40.5 % (42.0-75.0); Hemoglobin 9.4 g/dL (14.0-18.0); Mean Corpuscular Hemoglobin 34.6 pg (27.0-31.0); Mean Platelet Volume 6.1 fL (7.4-10.4); Platelet Count 152 thou/uL (130-400); RBC Distribution Width 14.1 % (11.5-14.5); Red Blood Cell (RBC) Count 2.73 mill/uL (4.70-6.10); White Blood Cell (WBC) Count 5.1 thou/uL (4.8-10.8)
[2018-12-01 05:25] LABS: Anion Gap 16 mmol/L (10-20); BUN (Urea Nitrogen) 38 mg/dL (8.4-25.7); Calc. Creatinine Clearance 11 mL/min (70-130); Calcium 8.3 mg/dL (7.8-10.44); Carbon Dioxide 21 mmol/L (23-31); Chloride 112 mmol/L (98-107); Estimated GFR-MDRD 5; Glucose 82 mg/dL (80-115); Potassium 4.1 mmol/L (3.5-5.1); Sodium 145 mmol/L (136-145)
[2018-12-01] MEDS: Sevelamer Carbonate 800 MG TAB PO SCH ×3 (08:36→17:40)
[2018-12-01] MEDS: Saccharomyces boulardii 250 MG CAP PO SCH (08:36)
[2018-12-01] MEDS: Calcitriol 0.25 MCG CAP PO SCH (08:36)
[2018-12-01] MEDS: Aspirin Chewable 81 MG TAB PO SCH (08:39)
[2018-12-01] MEDS: Lanthanum Carbonate 500 mg Tablet PO SCH ×3 (08:39→17:39)
[2018-12-01] MEDS: Famotidine 20 MG TAB PO SCH (08:39)
[2018-12-01] MEDS: Sodium Chloride 1 GM TAB PO SCH ×3 (08:39→20:34)
[2018-12-01] MEDS: Heparin 5,000 UNITS/ML VIAL SC SCH ×2 (08:40→20:36)
[2018-12-01] MEDS: Midodrine HCl 5 MG TAB PO SCH ×2 (08:42→16:13)
--- NOTE | 2018-12-01 09:30 | PRG ---
DATE OF SERVICE: 12/01/2018 SUBJECTIVE: Mr. Boyer is a 63-year-old male with ESRD followed up by the Renal Service for his peritoneal dialysis. He did undergo peritoneal dialysis last night without any difficulty, tolerated said treatment. However, we noted that the blood pressure with this patient has been acceptable. For that reason, I have decided to decrease midodrine to 10 mg tablet t.i.d. to a twice a day dosing. We will still continue the same CCPD regimen of 1.5% PD solution. No complaints of chest pain or shortness of breath. OBJECTIVE: VITAL SIGNS: Blood pressure 130/83, heart rate 64, respiratory rate 18, temperature 97.6, and pulse ox 99%. GENERAL: Noted to be awake, alert, supine, comfortable, not in distress. SKIN: Adequate turgor. HEENT: Slightly pale conjunctivae. Anicteric sclerae. NECK: No neck mass. No carotid bruits. No JVD. CHEST: No deformities. LUNGS: Clear breath sounds. HEART: Normal sinus rhythm. No murmur. No gallops. No rubs. ABDOMEN: Globular, soft, and nontender. No masses. Positive for PD catheter. EXTREMITIES: No edema. Positive for right-sided ischial/buttock wound. MEDICATIONS: Medications of December 01, 2018, was reviewed. LABORATORY DATA: Laboratories of December 01, 2018, white count 5.1 and hemoglobin 9.4. Sodium 145, potassium 4.1, chloride 112, carbon dioxide 21, BUN 38, creatinine 9.69, glucose 82, and calcium 8.3. ASSESSMENT AND PLAN: 1. Chronic hypertension, improving BP. For that reason, decrease midodrine from 10 mg t.i.d. to a b.i.d. dosing. 2. Anemia. Continuing weekly Epogen. 3. End-stage renal disease, stable, tolerating current CCPD regimen. No changes to be made. Continue the 1.5% PD solution. 4. Chronic wound - right ischial area - granulating well. ID following. Job ID: [id number]
--- NOTE | 2018-12-01 15:40 | PDOC.HOSPP ---
- Subjective Subjective: Pt seen for followup re; wound infection. - Objective Vital Signs & Weight: Vital Signs (12 hours) Temp Pulse Resp BP Pulse Ox 12/01/18 08:56 99 12/01/18 08:00 97.6 F 64 18 130/83 99 Weight Admit Weight 205 lb Weight 210 lb 14.307 oz Most Recent Monitor Data Heart Rate from ECG 59 NIBP 119/77 NIBP BP-Mean 91 Respiration from ECG 20 SpO2 97 I&O: 11/30/18 12/01/18 12/02/18 06:59 06:59 06:59 Intake Total 600 460 Balance 600 460 Result Diagrams: 12/01/18 04:25 12/01/18 04:25 Additional Labs: labs and MARs reviewed by me ROS - Review of Systems All systems: All other ROS were reviewed and found negative. Constitutional: denies: fever, chills, sweats, weakness, malaise Cardiovascular: denies: chest pain, palpitations, orthopnea, paroxysmal noc. dyspnea, edema, light headedness - Medication Medications: Active Medications Generic Name Dose Route Start Last Admin Trade Name Freq PRN Reason Stop Dose Admin Acetaminophen 1,000 mg 11/19/18 00:14 11/20/18 21:39 Tylenol PO 1,000 mg Q6H PRN Administration Mild Pain (1-3) Aspirin 81 mg 11/19/18 09:00 12/01/18 08:39 Aspirin Chewable PO 81 mg DAILY ASIA Administration Calcitriol 0.25 mcg 11/19/18 09:00 12/01/18 08:36 Rocaltrol PO 0.25 mcg DAILY ASIA Administration Epoetin Jose Alfredo-epbx 7,500 unit 11/19/18 12:00 11/26/18 12:28 Retacrit SC 7,500 unit Q7D ASIA Administration Famotidine 20 mg 11/19/18 09:00 12/01/18 08:39 Pepcid PO 20 mg DAILY ASIA Administration Heparin Sodium (Porcine) 5,000 units 11/19/18 09:00 12/01/18 08:40 Heparin SC 5,000 units BID ASIA Administration Piperacillin Sod/Tazobactam 100 mls @ 200 mls/hr 12/01/18 14:00 12/01/18 13: 07 Sod 2.25 gm/ Sodium Chloride IVPB 100 mls Q8HR ASIA Administration Lanthanum Carbonate 1,000 mg 11/20/18 09:36 12/01/18 13:06 Fosrenol PO 1,000 mg TID-WM ASIA Administration Levothyroxine Sodium 200 mcg 11/19/18 06:00 12/01/18 04:49 Synthroid PO 200 mcg 0600 ASIA Administration Ondansetron HCl 4 mg 11/19/18 00:14 11/27/18 05:28 Zofran IVP 4 mg Q6H PRN Administration Nausea/Vomiting Saccharomyces Boulardii 250 mg 11/19/18 09:00 12/01/18 08:36 Florastor PO 250 mg DAILY ASIA Administration Sevelamer Carbonate 2,400 mg 11/19/18 08:00 12/01/18 13:07 Renvela PO Not Given TID-WM ASIA Simethicone 80 mg 11/21/18 15:23 11/30/18 20:13 Mylicon Chewable PO 80 mg Q6H PRN Administration Gas Pain Sodium Chloride 10 ml 11/19/18 21:00 12/01/18 08:42 Flush - Normal Saline IVF 10 ml Q12HR ASIA Administration Sodium Chloride 10 ml 11/19/18 12:43 12/01/18 13:07 Flush - Normal Saline IVF 10 ml PRN PRN Administration Saline Flush Sodium Chloride 1 gm 11/20/18 15:00 12/01/18 08:39 Sodium Chloride PO 1 gm TID ASIA Administration - Exam NAD Eye: anicteric sclera ENT: normocephalic atraumatic Neck: supple Heart: RRR Respiratory: CTAB Gastrointestinal: soft Psychiatric: normal affect Hosp A/P (1) Wound infection Code(s): T14.8XXA - OTHER INJURY OF UNSPECIFIED BODY REGION, INITIAL ENCOUNTER; L08.9 - LOCAL INFECTION OF THE SKIN AND SUBCUTANEOUS TISSUE, UNSP Status: Chronic (2) ESRD on peritoneal dialysis Code(s): N18.6 - END STAGE RENAL DISEASE; Z99.2 - DEPENDENCE ON RENAL DIALYSIS Status: Chronic (3) Hypothyroidism Code(s): E03.9 - HYPOTHYROIDISM, UNSPECIFIED Status: Chronic Qualifiers: Hypothyroidism type: unspecified Qualified Code(s): E03.9 - Hypothyroidism , unspecified (4) Hypotension Status: Resolved - Plan continue antibiotics, out of bed/ambulate continue IV Zosyn. Pt awaiting Inpt Rehab Dialysis per nephrology service.
[2018-12-02] MEDS: Levothyroxine Sodium 100 MCG TAB PO SCH (05:57)
[2018-12-02] MEDS: Piperacillin/Tazobactam 2.25 GM in Sodium Chloride 0.9% 100 ML IVPB SCH ×3 (05:58→21:17)
[2018-12-02] MEDS: Ondansetron PF 4 MG/2 ML Vial IVP PRN (09:02)
[2018-12-02] MEDS: Heparin 5,000 UNITS/ML VIAL SC SCH ×2 (09:05→21:17)
[2018-12-02] MEDS: Midodrine HCl 5 MG TAB PO SCH ×2 (09:06→14:47)
[2018-12-02] MEDS: Calcitriol 0.25 MCG CAP PO SCH (09:06)
[2018-12-02] MEDS: Aspirin Chewable 81 MG TAB PO SCH (09:06)
[2018-12-02] MEDS: Famotidine 20 MG TAB PO SCH (09:06)
[2018-12-02] MEDS: Lanthanum Carbonate 500 mg Tablet PO SCH ×3 (09:07→17:15)
[2018-12-02] MEDS: Saccharomyces boulardii 250 MG CAP PO SCH (09:08)
[2018-12-02] MEDS: Sodium Chloride 1 GM TAB PO SCH ×3 (09:12→21:17)
[2018-12-02] MEDS: Sevelamer Carbonate 800 MG TAB PO SCH ×3 (09:18→17:49)
--- NOTE | 2018-12-02 10:00 | PRG ---
DATE OF SERVICE: 12/02/2018 SUBJECTIVE: Mr. Boyer is a 63-year-old white male with ESRD and followed up by the Renal Service for his maintenance peritoneal dialysis. Again, he tolerated the said peritoneal dialysis last night. We are minimizing fluid removal and using 1.5% PD solution due to the chronic hypotension. BP is much improved. Yesterday, I also decreased midodrine from 10 mg tablet t.i.d. to twice a day. He continues to be receiving antibiotics as per recommendation by his Infectious Disease doctor. He denies any chest pain or shortness of breath. He does have some occasional headache. OBJECTIVE: VITAL SIGNS: Blood pressure 152/85, heart rate 58, respiratory rate 20, temperature 97.3, and pulse ox 98%. GENERAL: Awake, alert, supine, comfortable, obese, not in distress. SKIN: Adequate turgor. HEENT: He has a slightly pale conjunctivae. Anicteric sclerae. NECK: No neck mass. No carotid bruits. No JVD. CHEST: No deformities. LUNGS: Clear breath sounds. HEART: Normal sinus rhythm. No murmur. No gallops. No rubs. ABDOMEN: Globular, soft, and nontender. No masses. Positive for PD catheter. BUTTOCKS: Positive for granulating wound on the right ischial area. EXTREMITIES: Trace edema. MEDICATIONS: Medications of December 02, 2018, reviewed. LABORATORY DATA: Laboratories of December 01, 2018, white count 5.1 and hemoglobin 9.4. Sodium 145, potassium 4.1, chloride 112, carbon dioxide 21, BUN 38, creatinine 9.69, and calcium 8.3. ASSESSMENT AND PLAN: 1. End-stage renal disease. Continue current CCPD regimen. Minimal ultrafiltration being done. Continue the 1.5% PD solution. 2. Chronic anemia. Continue weekly Epogen. P.R.N. blood transfusion. 3. Chronic right hip wound/buttocks infection on IV antibiotics. As per recommendation by ID, two more weeks of IV antibiotics. Overall agree with current management. Job ID: [id number]
[2018-12-02 13:43] VITALS: BMI 37.3
--- NOTE | 2018-12-02 14:49 | PDOC.HOSPP ---
- Subjective Subjective: Pt seen for followup re: wound infection. No complaints. - Objective Vital Signs & Weight: Vital Signs (12 hours) Temp Pulse Resp BP Pulse Ox 12/02/18 08:00 98 12/02/18 07:54 97.3 F L 58 L 20 152/85 H 98 Weight Admit Weight 205 lb Weight 210 lb 14.307 oz Most Recent Monitor Data Heart Rate from ECG 59 NIBP 119/77 NIBP BP-Mean 91 Respiration from ECG 20 SpO2 97 I&O: 12/01/18 12/02/18 12/03/18 06:59 06:59 06:59 Intake Total 460 1010 Output Total 700 Balance 460 310 Result Diagrams: 12/01/18 04:25 12/01/18 04:25 Additional Labs: Labs and MARs reviewed by me ROS - Review of Systems All systems: All other ROS were reviewed and found negative. Constitutional: denies: fever, chills, sweats, weakness, malaise Cardiovascular: denies: chest pain, palpitations, orthopnea, paroxysmal noc. dyspnea, edema, light headedness - Medication Medications: Active Medications Generic Name Dose Route Start Last Admin Trade Name Freq PRN Reason Stop Dose Admin Acetaminophen 1,000 mg 11/19/18 00:14 11/20/18 21:39 Tylenol PO 1,000 mg Q6H PRN Administration Mild Pain (1-3) Aspirin 81 mg 11/19/18 09:00 12/02/18 09:06 Aspirin Chewable PO 81 mg DAILY ASIA Administration Calcitriol 0.25 mcg 11/19/18 09:00 12/02/18 09:06 Rocaltrol PO 0.25 mcg DAILY ASIA Administration Epoetin Jose Alfredo-epbx 7,500 unit 11/19/18 12:00 11/26/18 12:28 Retacrit SC 7,500 unit Q7D ASIA Administration Famotidine 20 mg 11/19/18 09:00 12/02/18 09:06 Pepcid PO 20 mg DAILY ASIA Administration Heparin Sodium (Porcine) 5,000 units 11/19/18 09:00 12/02/18 09:05 Heparin SC 5,000 units BID ASIA Administration Piperacillin Sod/Tazobactam 100 mls @ 200 mls/hr 12/01/18 14:00 12/02/18 05: 58 Sod 2.25 gm/ Sodium Chloride IVPB 100 mls Q8HR ASIA Administration Lanthanum Carbonate 1,000 mg 11/20/18 09:36 12/02/18 09:07 Fosrenol PO 1,000 mg TID-WM ASIA Administration Levothyroxine Sodium 200 mcg 11/19/18 06:00 12/02/18 05:57 Synthroid PO 200 mcg 0600 ASIA Administration Midodrine 10 mg 12/01/18 15:00 12/02/18 09:06 Proamatine PO Not Given 0900,1500 ASIA Ondansetron HCl 4 mg 11/19/18 00:14 12/02/18 09:02 Zofran IVP 4 mg Q6H PRN Administration Nausea/Vomiting Saccharomyces Boulardii 250 mg 11/19/18 09:00 12/02/18 09:08 Florastor PO 250 mg DAILY ASIA Administration Sevelamer Carbonate 2,400 mg 11/19/18 08:00 12/02/18 09:18 Renvela PO Not Given TID-WM ASIA Simethicone 80 mg 11/21/18 15:23 11/30/18 20:13 Mylicon Chewable PO 80 mg Q6H PRN Administration Gas Pain Sodium Chloride 10 ml 11/19/18 21:00 12/02/18 09:08 Flush - Normal Saline IVF 10 ml Q12HR ASIA Administration Sodium Chloride 10 ml 11/19/18 12:43 12/01/18 13:07 Flush - Normal Saline IVF 10 ml PRN PRN Administration Saline Flush Sodium Chloride 1 gm 11/20/18 15:00 12/02/18 09:12 Sodium Chloride PO 1 gm TID ASIA Administration - Exam NAD Eye: PERRL ENT: moist mucosa Neck: supple Heart: RRR, no rubs Respiratory: CTAB Gastrointestinal: soft Neurological: no focal deficits Psychiatric: normal affect Hosp A/P (1) Wound infection Code(s): T14.8XXA - OTHER INJURY OF UNSPECIFIED BODY REGION, INITIAL ENCOUNTER; L08.9 - LOCAL INFECTION OF THE SKIN AND SUBCUTANEOUS TISSUE, UNSP Status: Chronic (2) ESRD on peritoneal dialysis Code(s): N18.6 - END STAGE RENAL DISEASE; Z99.2 - DEPENDENCE ON RENAL DIALYSIS Status: Chronic (3) Hypothyroidism Code(s): E03.9 - HYPOTHYROIDISM, UNSPECIFIED Status: Chronic Qualifiers: Hypothyroidism type: unspecified Qualified Code(s): E03.9 - Hypothyroidism , unspecified (4) Hypotension Status: Resolved - Plan continue IV Zosyn. Pt denied for Rehab. Looking at other options for IV antibiotics in the community. PD per nephrology service.
[2018-12-03] MEDS: Simethicone Chewable 80 MG TAB PO PRN (00:22)
[2018-12-03] MEDS: Piperacillin/Tazobactam 2.25 GM in Sodium Chloride 0.9% 100 ML IVPB SCH ×3 (05:32→21:41)
[2018-12-03] MEDS: Levothyroxine Sodium 100 MCG TAB PO SCH (05:32)
[2018-12-03] MEDS: Calcitriol 0.25 MCG CAP PO SCH (08:51)
[2018-12-03] MEDS: Famotidine 20 MG TAB PO SCH (08:51)
[2018-12-03] MEDS: Heparin 5,000 UNITS/ML VIAL SC SCH ×2 (08:51→21:42)
[2018-12-03] MEDS: Aspirin Chewable 81 MG TAB PO SCH (08:51)
[2018-12-03] MEDS: Sevelamer Carbonate 800 MG TAB PO SCH ×3 (08:52→17:25)
[2018-12-03] MEDS: Saccharomyces boulardii 250 MG CAP PO SCH (08:52)
[2018-12-03] MEDS: Midodrine HCl 5 MG TAB PO SCH ×2 (08:52→16:26)
[2018-12-03] MEDS: Lanthanum Carbonate 500 mg Tablet PO SCH ×3 (08:54→17:47)
[2018-12-03] MEDS: Sodium Chloride 1 GM TAB PO SCH ×3 (08:54→21:41)
--- NOTE | 2018-12-03 09:51 | PRG ---
DATE OF SERVICE: 12/03/2018 SUBJECTIVE: Mr. Boyer is a 63-year-old male with ESRD followed by the Renal Service for his maintenance peritoneal dialysis. He is doing well with his peritoneal dialysis. He is tolerating said treatment. This morning denies any chest pain or shortness of breath. Midodrine has been decreased to twice a day due to the much improved blood pressure. He continues to receive his IV antibiotics for his chronic right ischial/buttock wound. OBJECTIVE: VITAL SIGNS: Blood pressure 165/84, heart rate 55, respiratory rate 20, temperature 97.5, pulse ox 99%. GENERAL: Noted to be awake, alert, comfortable, not in distress. SKIN: Adequate turgor. HEENT: He has pinkish conjunctivae. Anicteric sclerae. NECK: No neck mass. No carotid bruits. No JVD. CHEST: No deformities. LUNGS: Clear breath sounds. No wheezing. No crackles. HEART: Normal sinus rhythm. No murmur. No gallops. No rubs. ABDOMEN: Globular, soft, nontender. No masses. Positive for PD catheter. EXTREMITIES: No edema. No deformities. He has a right wound on the right ischial/buttock area. MEDICATIONS: Medications of December 03, 2018, were reviewed. LABORATORY DATA: Laboratories of December 01, 2018; white count 5.1, hemoglobin 9.4. Sodium 145, potassium 4.1, chloride 112, carbon dioxide 21, BUN 38, creatinine 9.69, glucose 82, and calcium 8.3. ASSESSMENT AND PLAN: 1. End-stage renal disease, stable, tolerating current peritoneal dialysis. Fluid removal only as tolerated. Currently, we are still using the 1.5 PD solution to minimize fluid removal. 2. Chronic hypertension, improving over time. We will continue to re-evaluate this patient as an outpatient. We will continue to decrease midodrine if the patient will tolerate this. He will continue with the sodium chloride supplementation for the moment. 3. Chronic right buttock/ischial area wound-on IV antibiotics. ID is following. 4. Anemia. Continuing weekly Epogen. Job ID: [id number]
[2018-12-03] MEDS: EPOETIN ALFA-EPBX (ESRD) 4,000 UNIT/ML VIAL SC SCH (16:21)
--- NOTE | 2018-12-03 17:35 | PDOC.HOSPP ---
- Subjective Subjective: Pt seen for followup re: wound infection. feels well, no complaints today. - Objective Vital Signs & Weight: Vital Signs (12 hours) Temp Pulse Resp BP Pulse Ox 12/03/18 08:00 97 12/03/18 07:51 97.5 F L 55 L 20 165/84 H 99 Weight Admit Weight 205 lb Weight 210 lb 14.307 oz Most Recent Monitor Data Heart Rate from ECG 59 NIBP 119/77 NIBP BP-Mean 91 Respiration from ECG 20 SpO2 97 I&O: 12/02/18 12/03/18 12/04/18 06:59 06:59 06:59 Intake Total 1010 1530 480 Output Total 700 Balance 310 1530 480 Result Diagrams: 12/01/18 04:25 12/01/18 04:25 Additional Labs: Labs and MARs reviewed by me ROS - Review of Systems All systems: All other ROS were reviewed and found negative. Cardiovascular: denies: chest pain, palpitations, orthopnea, paroxysmal noc. dyspnea, edema, light headedness Gastrointestinal: denies: nausea, vomitting, abdominal pain, diarrhea, constipation, melena, hematochezia - Medication Medications: Active Medications Generic Name Dose Route Start Last Admin Trade Name Freq PRN Reason Stop Dose Admin Acetaminophen 1,000 mg 11/19/18 00:14 11/20/18 21:39 Tylenol PO 1,000 mg Q6H PRN Administration Mild Pain (1-3) Aspirin 81 mg 11/19/18 09:00 12/03/18 08:51 Aspirin Chewable PO 81 mg DAILY ASIA Administration Calcitriol 0.25 mcg 11/19/18 09:00 12/03/18 08:51 Rocaltrol PO 0.25 mcg DAILY ASIA Administration Epoetin Jose Alfredo-epbx 7,500 unit 11/19/18 12:00 12/03/18 16:21 Retacrit SC 7,500 unit Q7D ASIA Administration Famotidine 20 mg 11/19/18 09:00 12/03/18 08:51 Pepcid PO 20 mg DAILY ASIA Administration Heparin Sodium (Porcine) 5,000 units 11/19/18 09:00 12/03/18 08:51 Heparin SC 5,000 units BID ASIA Administration Piperacillin Sod/Tazobactam 100 mls @ 200 mls/hr 12/01/18 14:00 12/03/18 13: 43 Sod 2.25 gm/ Sodium Chloride IVPB 100 mls Q8HR ASIA Administration Lanthanum Carbonate 1,000 mg 11/20/18 09:36 12/03/18 13:34 Fosrenol PO 1,000 mg TID-WM ASAI Administration Levothyroxine Sodium 200 mcg 11/19/18 06:00 12/03/18 05:32 Synthroid PO 200 mcg 0600 ASIA Administration Midodrine 10 mg 12/01/18 15:00 12/03/18 16:26 Proamatine PO Not Given 0900,1500 ASIA Ondansetron HCl 4 mg 11/19/18 00:14 12/02/18 09:02 Zofran IVP 4 mg Q6H PRN Administration Nausea/Vomiting Saccharomyces Boulardii 250 mg 11/19/18 09:00 12/03/18 08:52 Florastor PO 250 mg DAILY ASIA Administration Sevelamer Carbonate 2,400 mg 11/19/18 08:00 12/03/18 13:34 Renvela PO Not Given TID-WM ASIA Simethicone 80 mg 11/21/18 15:23 12/03/18 00:22 Mylicon Chewable PO 80 mg Q6H PRN Administration Gas Pain Sodium Chloride 10 ml 11/19/18 21:00 12/03/18 09:05 Flush - Normal Saline IVF 10 ml Q12HR ASIA Administration Sodium Chloride 10 ml 11/19/18 12:43 12/01/18 13:07 Flush - Normal Saline IVF 10 ml PRN PRN Administration Saline Flush Sodium Chloride 1 gm 11/20/18 15:00 12/03/18 16:26 Sodium Chloride PO 1 gm TID ASIA Administration - Exam NAD Eye: anicteric sclera ENT: moist mucosa Neck: no lymphadenopathy Heart: RRR Respiratory: CTAB Gastrointestinal: soft Musculoskeletal: normal tone Psychiatric: normal affect Hosp A/P (1) Wound infection Code(s): T14.8XXA - OTHER INJURY OF UNSPECIFIED BODY REGION, INITIAL ENCOUNTER; L08.9 - LOCAL INFECTION OF THE SKIN AND SUBCUTANEOUS TISSUE, UNSP Status: Chronic (2) ESRD on peritoneal dialysis Code(s): N18.6 - END STAGE RENAL DISEASE; Z99.2 - DEPENDENCE ON RENAL DIALYSIS Status: Chronic (3) Hypothyroidism Code(s): E03.9 - HYPOTHYROIDISM, UNSPECIFIED Status: Chronic Qualifiers: Hypothyroidism type: unspecified Qualified Code(s): E03.9 - Hypothyroidism , unspecified (4) Hypotension Status: Resolved - Plan continue antibiotics Pt to go home with antibiotics through HH. Need clarification re; alternative antibiotics that are once daily or BID dosing.
[2018-12-04] MEDS: Piperacillin/Tazobactam 2.25 GM in Sodium Chloride 0.9% 100 ML IVPB SCH ×3 (05:40→21:19)
[2018-12-04] MEDS: Levothyroxine Sodium 100 MCG TAB PO SCH (05:41)
[2018-12-04] MEDS: Midodrine HCl 5 MG TAB PO SCH ×2 (09:21→14:30)
[2018-12-04] MEDS: Sevelamer Carbonate 800 MG TAB PO SCH ×3 (09:22→16:48)
[2018-12-04] MEDS: Lanthanum Carbonate 500 mg Tablet PO SCH ×3 (09:22→17:26)
[2018-12-04] MEDS: Heparin 5,000 UNITS/ML VIAL SC SCH ×2 (09:23→21:21)
[2018-12-04] MEDS: Aspirin Chewable 81 MG TAB PO SCH (09:23)
[2018-12-04] MEDS: Saccharomyces boulardii 250 MG CAP PO SCH (09:23)
[2018-12-04] MEDS: Famotidine 20 MG TAB PO SCH (09:23)
[2018-12-04] MEDS: Calcitriol 0.25 MCG CAP PO SCH (09:24)
[2018-12-04] MEDS: Sodium Chloride 1 GM TAB PO SCH ×3 (09:24→21:18)
--- NOTE | 2018-12-04 09:32 | PRG ---
DATE OF SERVICE: 12/04/2018 SUBJECTIVE: Mr. Boyer is a 63-year-old male with ESRD, followed up by the Renal Service for his peritoneal dialysis. He is doing well. In addition, blood pressure is much improved. For that reason, I have decreased his midodrine from 10 mg t.i.d. to 10 mg b.i.d. No other complaints today. He continues to receives his IV antibiotics. No complaints of chest pain or shortness of breath. OBJECTIVE: VITAL SIGNS: Blood pressure 144/82, heart rate 103, respiratory rate 22, temperature 97.2, and pulse ox 94%. GENERAL: The patient is awake, alert, comfortable, not in distress. SKIN: Adequate turgor. HEENT: Pinkish conjunctivae. Anicteric sclerae. NECK: No neck mass. No carotid bruits. No JVD. CHEST: No deformities. LUNGS: Clear breath sounds. HEART: Normal sinus rhythm. No murmurs. No gallops. No rubs. ABDOMEN: Globular, soft, and nontender. No masses. Positive for PD catheter. The patient has also right wound on the right ischial/buttock area. EXTREMITIES: No edema. MEDICATIONS: Medications of December 04, 2018, reviewed. LABORATORY DATA: Laboratories of December 01, 2018; white count 5.1, hemoglobin 9.4. Sodium 145, potassium 4.1, chloride 21, BUN 38, creatinine 9.69, and calcium 8.3. ASSESSMENT AND PLAN: 1. Chronic hypotension. Continue midodrine at 10 mg b.i.d. and sodium chloride tablet at 1 g t.i.d. 2. End-stage renal disease, stable, tolerating current peritoneal dialysis. I have told the when the patient gets discharged to resume her regular home peritoneal dialysis regimen. She will try to comply with this. 3. Anemia, on weekly Epogen. 4. Chronic right buttock/ischial area infection - granulating wound on IV antibiotics. Job ID: [id number]
--- NOTE | 2018-12-04 11:23 | PDOC.HOSPP ---
- Subjective Subjective: 63 y/o male with ESRD on PD, chronic hypotension, hypothyroidism. chronic diastolic heart failure and chronic lower extremity wounds concerning for calciphylaxis admitted due to worsening weakness and near syncope. Found to be severely hypotensive and was started on pressors, antibiotics and wound care with improvement. Reports feeling better. No fever, chest pain. - Objective Vital Signs & Weight: Vital Signs (12 hours) Temp Pulse Resp BP Pulse Ox 12/04/18 08:00 94 L 12/04/18 07:30 97.2 F L 103 H 22 H 144/82 H 94 L Weight Admit Weight 205 lb Weight 210 lb 14.307 oz Most Recent Monitor Data Heart Rate from ECG 59 NIBP 119/77 NIBP BP-Mean 91 Respiration from ECG 20 SpO2 97 I&O: 12/03/18 12/04/18 12/05/18 06:59 06:59 06:59 Intake Total 1530 1560 300 Balance 1530 1560 300 Result Diagrams: 12/01/18 04:25 12/01/18 04:25 ROS - Review of Systems All systems: All other ROS were reviewed and found negative. - Medication Medications: Active Medications Generic Name Dose Route Start Last Admin Trade Name Freq PRN Reason Stop Dose Admin Acetaminophen 1,000 mg 11/19/18 00:14 11/20/18 21:39 Tylenol PO 1,000 mg Q6H PRN Administration Mild Pain (1-3) Aspirin 81 mg 11/19/18 09:00 12/04/18 09:23 Aspirin Chewable PO 81 mg DAILY ASIA Administration Calcitriol 0.25 mcg 11/19/18 09:00 12/04/18 09:24 Rocaltrol PO 0.25 mcg DAILY ASIA Administration Epoetin Jose Alfredo-epbx 7,500 unit 11/19/18 12:00 12/03/18 16:21 Retacrit SC 7,500 unit Q7D ASIA Administration Famotidine 20 mg 11/19/18 09:00 12/04/18 09:23 Pepcid PO 20 mg DAILY ASIA Administration Heparin Sodium (Porcine) 5,000 units 11/19/18 09:00 12/04/18 09:23 Heparin SC 5,000 units BID ASIA Administration Piperacillin Sod/Tazobactam 100 mls @ 200 mls/hr 12/01/18 14:00 12/04/18 05: 40 Sod 2.25 gm/ Sodium Chloride IVPB 100 mls Q8HR ASIA Administration Lanthanum Carbonate 1,000 mg 11/20/18 09:36 12/04/18 09:22 Fosrenol PO 1,000 mg TID-WM ASIA Administration Levothyroxine Sodium 200 mcg 11/19/18 06:00 12/04/18 05:41 Synthroid PO 200 mcg 0600 ASIA Administration Midodrine 10 mg 12/01/18 15:00 12/04/18 09:21 Proamatine PO 10 mg 0900,1500 ASIA Administration Ondansetron HCl 4 mg 11/19/18 00:14 12/02/18 09:02 Zofran IVP 4 mg Q6H PRN Administration Nausea/Vomiting Saccharomyces Boulardii 250 mg 11/19/18 09:00 12/04/18 09:23 Florastor PO 250 mg DAILY ASIA Administration Sevelamer Carbonate 2,400 mg 11/19/18 08:00 12/04/18 09:22 Renvela PO 2,400 mg TID-WM ASIA Administration Simethicone 80 mg 11/21/18 15:23 12/03/18 00:22 Mylicon Chewable PO 80 mg Q6H PRN Administration Gas Pain Sodium Chloride 10 ml 11/19/18 21:00 12/04/18 09:24 Flush - Normal Saline IVF 10 ml Q12HR ASIA Administration Sodium Chloride 10 ml 11/19/18 12:43 12/01/18 13:07 Flush - Normal Saline IVF 10 ml PRN PRN Administration Saline Flush Sodium Chloride 1 gm 11/20/18 15:00 12/04/18 09:24 Sodium Chloride PO 1 gm TID ASIA Administration - Exam awake alert Eye: anicteric sclera ENT: normocephalic atraumatic Neck: supple, no JVD Heart: RRR Respiratory: no wheezes, no rales, no ronchi Gastrointestinal: soft, non-tender, non-distended, normal bowel sounds (obese) Extremities: no cyanosis (trace edema noted more on the right. chronic vacular insufficiency changes noted. Healing ulcers of both lower extremities noted. No erythema) Neurological: CN's grossly intact, no focal deficits (Moving all limbs but weakly) Hosp A/P (1) Wound infection Code(s): T14.8XXA - OTHER INJURY OF UNSPECIFIED BODY REGION, INITIAL ENCOUNTER; L08.9 - LOCAL INFECTION OF THE SKIN AND SUBCUTANEOUS TISSUE, UNSP Status: Chronic (2) Hypotension Status: Resolved (3) Adrenal insufficiency Code(s): E27.40 - UNSPECIFIED ADRENOCORTICAL INSUFFICIENCY Status: Acute (4) Calciphylaxis of lower extremity with nonhealing ulcer Code(s): E83.59 - OTHER DISORDERS OF CALCIUM METABOLISM; L97.909 - NON-PRS CHRONIC ULC UNSP PRT OF UNSP LOW LEG W UNSP SEVERITY Status: Acute (5) Physical deconditioning Code(s): R53.81 - OTHER MALAISE Status: Acute (6) Weakness generalized Code(s): R53.1 - WEAKNESS Status: Acute (7) multiple ulcers Status: Acute (8) ESRD on peritoneal dialysis Code(s): N18.6 - END STAGE RENAL DISEASE; Z99.2 - DEPENDENCE ON RENAL DIALYSIS Status: Chronic (9) Hypothyroidism Code(s): E03.9 - HYPOTHYROIDISM, UNSPECIFIED Status: Chronic Qualifiers: Hypothyroidism type: unspecified Qualified Code(s): E03.9 - Hypothyroidism , unspecified (10) Obesity (BMI 30-39.9) Code(s): E66.9 - OBESITY, UNSPECIFIED Status: Chronic - Plan Continue current antibiotics and supportive care. PD as per Nephrology. Will contact ID to determine home antibiotic regimen. Possible discharge home tomorrow.
[2018-12-05] MEDS: Piperacillin/Tazobactam 2.25 GM in Sodium Chloride 0.9% 100 ML IVPB SCH (06:40)
[2018-12-05] MEDS: Levothyroxine Sodium 100 MCG TAB PO SCH (06:41)
[2018-12-05 08:05] VITALS: BP 127/82; TEMP 98.2
[2018-12-05] MEDS: Lanthanum Carbonate 500 mg Tablet PO SCH (08:50)
[2018-12-05] MEDS: Sodium Chloride 1 GM TAB PO SCH (08:51)
[2018-12-05] MEDS: Midodrine HCl 5 MG TAB PO SCH (08:51)
[2018-12-05] MEDS: Aspirin Chewable 81 MG TAB PO SCH (08:51)
[2018-12-05] MEDS: Saccharomyces boulardii 250 MG CAP PO SCH (08:51)
[2018-12-05] MEDS: Calcitriol 0.25 MCG CAP PO SCH (08:51)
[2018-12-05] MEDS: Sevelamer Carbonate 800 MG TAB PO SCH (08:51)
[2018-12-05] MEDS: Heparin 5,000 UNITS/ML VIAL SC SCH (08:51)
[2018-12-05] MEDS: Famotidine 20 MG TAB PO SCH (08:51)
--- NOTE | 2018-12-05 09:42 | PRG ---
DATE OF SERVICE: 12/05/2018 SERVICE: Renal Medicine. SUBJECTIVE: Mr. Boyer is a 63-year-old male with ESRD and followed up by the Renal Service for his maintenance peritoneal dialysis. He continues to do well with his peritoneal dialysis. He tolerated said treatment. We were able to remove ultrafiltration of about a less than a liter. No new complaints. His appetite has improved. No chest pain. No shortness of breath. OBJECTIVE: VITAL SIGNS: Blood pressure is noted at 125/70 with a heart rate of 58, respiratory rate 20, temperature 98.2, and pulse ox 96%. GENERAL: Awake, alert, and comfortable. SKIN: Adequate turgor. HEENT: Slightly pale conjunctivae. Anicteric sclerae. NECK: No neck mass. No carotid bruits. No JVD. CHEST: No deformities. LUNGS: Clear breath sounds. No wheezing. No crackles. HEART: Normal sinus rhythm. No murmur. No gallops. No rubs. ABDOMEN: Globular, soft, nontender. Positive for PD catheter. EXTREMITIES: Trace edema. SKIN: Buttocks/right ischial area-well granulating wound. MEDICATIONS: Medications of December 05, 2018, were reviewed. LABORATORY DATA: Laboratories of December 01, 2018, showed a white count of 5.1, hemoglobin 9.4. Sodium 145, potassium 4.1, chloride 112, carbon dioxide 21, BUN 38, creatinine 9.69, glucose 82, and calcium 8.3. ASSESSMENT AND PLAN: 1. End-stage renal disease, stable. Continuing current peritoneal dialysis. Tolerating said treatment. No changes to be made with the current PD regimen. 2. Chronic hypertension, much improved. As a matter of fact, midodrine has been decreased from 10 mg t.i.d. to b.i.d. dosing. Continue sodium chloride tablets. 3. Chronic anemia, on weekly Epogen. 4. Chronic right buttock wound-on IV antibiotics. The patient to continue outpatient antibiotics per recommendation by ID. Job ID: [id number]
--- NOTE | 2018-12-05 10:10 | DIS ---
DATE OF ADMISSION: 11/18/2018 DATE OF DISCHARGE: 12/05/2018 PRIMARY CARE PHYSICIAN: Antonio Ca MD DISCHARGE DIAGNOSES: 1. Hypotension. 2. Near syncope. 3. Right hip wound infection. 4. Multiple ulcers. 5. End-stage renal disease, on peritoneal dialysis. 6. Physical deconditioning. 7. Hypothyroidism. 8. Obesity. 9. Presumed calciphylaxis of lower extremity with nonhealing ulcers. 10. Unspecified adrenocortical insufficiency. 11. Sepsis. CONSULTS: 1. Critical Care. 2. Infectious Disease. 3. Wound care. HOSPITAL COURSE: A 63-year-old male with known history of end-stage renal disease, on peritoneal dialysis; chronic hypotension, on midodrine; hypothyroidism and chronic diastolic heart failure and multiple chronic lower extremity wounds concerning for calciphylaxis, who was admitted due to worsening weakness and near syncope. The patient was found to be severely hypotensive with systolic blood pressure in 60s. He was treated with IV fluid and started on pressors as well as antibiotics. Physical Care consult and Infectious Disease consults were obtained. The patient received wound care as well as broad-spectrum antibiotics with improvement. Nephrology consult also was obtained, and peritoneal dialysis was continued. Of note, there was no fever. The patient improved and intravenous pressors were discontinued. Midodrine, however, was continued with improvement in blood pressure. Wound VAC was applied to the right hip wound and the patient received physical therapy and occupational therapy with improvement. He remained stable and was subsequently discharged home to continue rehabilitation and wound care. Of note, however, the patient was felt to be in need of home health with physical and occupational therapy. This was offered to the patient and spouse, but spouse outrightly declined it preferring to take care of the patient and herself. She was taught how to do the wound care by the wound care staff and she was deemed comfortable as she has done that previously. She, however, was instructed to follow up at the Wound Care in [place], which is close to her home. The patient also was advised to follow up at outpatient physical and occupational therapy for further restorative therapy. PHYSICAL EXAMINATION: VITAL SIGNS: Temperature 98.2, pulse 58, respiratory rate 20, SpO2 of 96% on room air, and blood pressure is 127/82. GENERAL: Obese male, in no obvious distress. Afebrile. Anicteric. Acyanotic. HEENT: Normocephalic, atraumatic. Oral mucosa is moist. CARDIOVASCULAR: Regular rhythm and rate with normal heart sounds 1 and 2. RESPIRATORY: Good air entry bilaterally with no obvious crackle or rhonchi or use of accessory muscles. GASTROINTESTINAL: Abdomen is obese, but nontender with normal bowel sounds. PD catheter is noted. EXTREMITIES: Right lateral hip wound with wound VAC in place. Chronic vascular insufficiency changes of both lower extremities with hyperpigmentation noted. There is no obvious edema appreciated. NEUROLOGIC: Conscious and alert and oriented x3 with appropriate mental status. The patient is ambulant with a walker. DISCHARGE DISPOSITION: Home. DISCHARGE CONDITION: Improved. DISCHARGE MEDICATIONS: See discharge home medications. The patient was continued on usual home medications. The only new prescription was amoxicillin 250 mg p.o. b.i.d. for 10 days. However, the patient's fluconazole, ciprofloxacin, and daptomycin were discontinued as recommended by the Infectious Diseases specialist. FOLLOWUP: The patient is to follow with the PCP in 1 week. He is also to follow up at the [facility]ound [facility] in [place] for continuation of wound care. The patient also was advised to get outpatient physical and occupational therapy since he declined home therapies. TIME SPENT: This discharge took more than 38 minutes. Job ID: [id number]
--- NOTE | 2018-12-08 07:24 | PQF ---
[facility] Services Coordinator [employer] YURIY Lewis JAMIE MTZ MD [id number] CLINICAL DOCUMENTATION CLARIFICATION FORM: POST DISCHARGE Addendum to original discharge summary date: ____ Late entry note date: __ DATE: 12/08/2018 ATTN: JAMIE PRITCHETT MD Please exercise your independent, professional judgment in responding to the clarification form. Clinical indicators are provided on the bottom of this form for your review Please check appropriate box(s): Conflicting documentation was noted in the Medical Record, please clarify if patient is being treated/monitored for: [ ] Sepsis [ ] Sepsis Ruled out Diagnosis [ x] Other diagnosis _please send it to the correct provider, thanks [ ] Unable to determine In addition, please specify: For continuity of documentation, please document condition throughout progress notes and discharge summary. Thank You. CLINICAL INDICATORS - SIGNS / SYMPTOMS/ LABS BP - 54/35 Documented in ED physician record pg#5 on 11/18/18 by DO Guzmán Matthew Respiration rate-24 Documented in ED physician record pg#5 on 11/18/18 by DO Guzmán Matthew Possible sepsis - Documented in ED physician record pg#13 on 11/18/18 by DO Guzmán Matthew Sepsis ruled out diagnsosis - Documented in Physician Documentation on 11/20/18 Johnie Alvarez MD Sepsis - Documented in Discharge summary on 12/05/18 by Rose Mary Liz MD Right hip wound infaction - Documented in Discharge summary on 12/05/18 by Rose Mary Liz MD RISK FACTORS ESRD - Documented in H&P on 11/20/18 by Wilbert Smith DO Calciphylaxis with multiple open wound - Documented in H&P on 11/20/18 by Wilbert Smith DO Multiple ulcers - Documented in Discharge summary on 12/05/18 by Rose Mary Liz MD TREATMENT Continue cefepime 1g IV q.12 hrs with additional daptomycin 500mg IV q.24 hrs - Documented in H&P on 11/20/18 by Wilbert Smith DO Patient receive wound care as well as broad-spectrum antibiotics with improvement - Documented in Discharge summary on 12/05/18 by Rose Mary Liz MD [facility] Coordinator [employer] (This form is maintained as a part of the permanent medical record) 2014 [employer]. All Rights Reserved [email or web address] [not provided] MTDD
--- NOTE | 2018-12-09 08:15 | PQF ---
[facility] [employer] YURIY Lewis CESAR MENDEZ [id number] CLINICAL DOCUMENTATION CLARIFICATION FORM: POST DISCHARGE Addendum to original discharge summary date: ____ Late entry note date: __ DATE: 12/09/2018 ATTN: CESAR MENDEZ Please exercise your independent, professional judgment in responding to the clarification form. Clinical indicators are provided on the bottom of this form for your review Please check appropriate box(s): Conflicting documentation was noted in the Medical Record, please clarify if patient is being treated/monitored for: [ ] SEPSIS [ ) SEPSIS ruled out diagnosis [ ] Other diagnosis [ ] Unable to determine For continuity of documentation, please document condition throughout progress notes and discharge summary. Thank You. CLINICAL INDICATORS - SIGNS / SYMPTOMS/ LABS BP- 54/35 - Documented in ED physician record pg#5 on 11/18/18 by DO Guzmán Mathew Respiration rate 24 - Documented in ED physician record pg#5 on 11/18/18 by DO Guzmán Mathew Possible sepsis - Documented in ED physician record pg#13 on 11/18/18 by DO Guzmán Mathew Sepsis ruled out diagnosis - Documented in Physician documentation on 11/20/18 by Tan Alvarez MD Sepsis - Documented in Discharge summary on 12/05/18 by CESAR MENDEZ MD Right hip wound infection - Documented in Discharge summary on 12/05/18 by CESAR MENDEZ MD RISK FACTORS ESRD - Documented in H&P on 11/20/18 by Wilbert cat MD calciphylaxis with multiple open wound - Documented in H&P on 11/20/18 by Wilbert cat MD Multiple ulcers - Documented in Discharge summary on 12/05/18 by CESAR MENDEZ MD TREATMENT Continue cefepime ig IV q.12hrs with additional daptomycin 500mg IV q.24hrs - Documented in H&P on 11/20/18 by Wilbert cat MD Patient receive wound care as well as broad-spectrum antibiotics with improvement - Documented in Discharge summary on 12/05/18 by CESAR MENDEZ MD [facility] [employer] (This form is maintained as a part of the permanent medical record) 2014 [email or web address]. All Rights Reserved [email or web address] [not provided] MTDD
== END 2018-12-05 11:32 | disposition home or self-care (01) | DRG 314 ==
LOC: ERS 18:14 → CCU 22:49 → T4-A 11-21 15:30
PROVIDERS: ADMIT Internal Medicine; ATTEND Internal Medicine
PROC: 5A1D70Z Performance of Urinary Filtration, Intermittent, Less than 6 Hours Per Day (ICD-10-PCS; principal; 2018-11-20)
DX: I95.89 Other hypotension (principal); N18.6 End stage renal disease; I13.2 Hypertensive heart and chronic kidney disease with heart failure and with stage 5 chronic kidney disease, or end stage renal disease; N03.9 Chronic nephritic syndrome with unspecified morphologic changes; E27.40 Unspecified adrenocortical insufficiency; E03.9 Hypothyroidism, unspecified; I50.9 Heart failure, unspecified; D53.9 Nutritional anemia, unspecified; L89.109 Pressure ulcer of unspecified part of back, unspecified stage; L89.899 Pressure ulcer of other site, unspecified stage; M61.9 Calcification and ossification of muscle, unspecified; E83.59 Other disorders of calcium metabolism; E66.9 Obesity, unspecified; Z99.2 Dependence on renal dialysis; Z86.73 Personal history of transient ischemic attack (TIA), and cerebral infarction without residual deficits; Z98.890 Other specified postprocedural states; Z79.82 Long term (current) use of aspirin; Z79.02 Long term (current) use of antithrombotics/antiplatelets; Z88.5 Allergy status to narcotic agent; Z88.8 Allergy status to other drugs, medicaments and biological substances
CPT/HCPCS: 36415; 36556; 71045; 80048; 80053; 82550; 83605; 83970; 84100; 84484; 85007; 85025; 85027; 87040; 87071; 87324; 87449; 90945; 93005; 96361; 96365; 96366; 96367; G0257; J0692; J0878; J1644; J2405; J2543; J3490; J7070; Q5105

== ENCOUNTER 2018-12-09 15:47 | Outpatient (CLI) | payer MEDICARE, BC | END 2018-12-09 15:48 | disposition home or self-care (01) | LOC: WCC 15:47 | PROVIDERS: ATTEND Family Medicine | DX: L89.219 Pressure ulcer of right hip, unspecified stage (principal) | CPT/HCPCS: 97605 ==

== ENCOUNTER 2018-12-12 11:07 | Outpatient (CLI) | payer MEDICARE, BC ==
[2018-12-12] MEDS ORDERED: Sodium Chloride 0.9% 15 ML NEB ONE (15:00)
== END 2018-12-12 11:08 | disposition home or self-care (01) ==
LOC: WCC 11:07
PROVIDERS: ATTEND Family Medicine
DX: S71.00 Unspecified open wound of hip (principal)
CPT/HCPCS: A4218

== ENCOUNTER 2018-12-16 09:31 | Outpatient (CLI) | payer MEDICARE, BC ==
[2018-12-16] MEDS ORDERED: Sodium Chloride 0.9% 15 ML NEB ONE ×2 (18:00→21:32)
== END 2018-12-16 09:32 | disposition home or self-care (01) ==
LOC: WCC 09:31
PROVIDERS: ATTEND Family Medicine
DX: L89.219 Pressure ulcer of right hip, unspecified stage (principal)
CPT/HCPCS: 97606; A4218

== ENCOUNTER 2018-12-19 09:18 | Outpatient (CLI) | payer MEDICARE, BC ==
[2018-12-19] MEDS ORDERED: Sodium Chloride 0.9% 15 ML NEB ONE (11:11)
== END 2018-12-19 09:19 | disposition home or self-care (01) ==
LOC: WCC 09:18
PROVIDERS: ATTEND Family Medicine
DX: L89.219 Pressure ulcer of right hip, unspecified stage (principal)
CPT/HCPCS: 97605; A4218

== ENCOUNTER 2018-12-23 10:16 | Outpatient (CLI) | payer MEDICARE, BC ==
[2018-12-23] MEDS ORDERED: Sodium Chloride 0.9% 15 ML NEB ONE (15:00)
== END 2018-12-23 10:17 | disposition home or self-care (01) ==
LOC: WCC 10:16
PROVIDERS: ATTEND Family Medicine
DX: L89.219 Pressure ulcer of right hip, unspecified stage (principal)
CPT/HCPCS: A4218

== ENCOUNTER 2018-12-26 09:29 | Outpatient (CLI) | payer MEDICARE, BC ==
[2018-12-26] MEDS ORDERED: Sodium Chloride 0.9% 15 ML NEB ONE (10:00)
== END 2018-12-26 09:30 | disposition home or self-care (01) ==
LOC: WCC 09:29
PROVIDERS: ATTEND Family Medicine
DX: L89.219 Pressure ulcer of right hip, unspecified stage (principal)
CPT/HCPCS: 97605; A4218

== ENCOUNTER 2019-01-01 10:03 | Outpatient (CLI) | payer MEDICARE, BC ==
[~2019-01-01 10:03] MED LIST: Sodium Chloride 0.9% 15 ML NEB ONE
== END 2019-01-01 10:04 | disposition home or self-care (01) ==
LOC: WCC 10:03
PROVIDERS: ATTEND Family Medicine
DX: S71.00 Unspecified open wound of hip (principal)
CPT/HCPCS: 97605; A4218

== ENCOUNTER 2019-01-08 10:25 | Outpatient (CLI) | payer MEDICARE, BC | END 2019-01-08 10:26 | disposition home or self-care (01) | LOC: WCC 10:25 | PROVIDERS: ATTEND Family Medicine | DX: L89.219 Pressure ulcer of right hip, unspecified stage (principal) | CPT/HCPCS: 97605; A4218 ==

== ENCOUNTER 2019-01-13 09:40 | Outpatient (CLI) | payer MEDICARE, BC | END 2019-01-13 09:41 | disposition home or self-care (01) | LOC: WCC 09:40 | PROVIDERS: ATTEND Family Medicine | DX: L89.219 Pressure ulcer of right hip, unspecified stage (principal) | CPT/HCPCS: A4218 ==

== ENCOUNTER 2019-01-16 10:25 | Outpatient (CLI) | payer MEDICARE, BC | END 2019-01-16 10:26 | disposition home or self-care (01) | LOC: WCC 10:25 | PROVIDERS: ATTEND Family Medicine | DX: L89.219 Pressure ulcer of right hip, unspecified stage (principal) | CPT/HCPCS: 97605; A4218 ==

== ENCOUNTER 2019-01-20 14:56 | Outpatient (CLI) | payer MEDICARE, BC ==
[2019-01-20] MEDS ORDERED: Sodium Chloride 0.9% 15 ML NEB ONE (15:00)
== END 2019-01-20 14:57 | disposition home or self-care (01) ==
LOC: WCC 14:56
PROVIDERS: ATTEND Family Medicine
DX: L89.219 Pressure ulcer of right hip, unspecified stage (principal)
CPT/HCPCS: A4218

== ENCOUNTER 2019-01-23 10:28 | Outpatient (CLI) | payer MEDICARE, BC ==
[2019-01-23] MEDS ORDERED: Sodium Chloride 0.9% 15 ML NEB ONE (17:52)
== END 2019-01-23 10:29 | disposition home or self-care (01) ==
LOC: WCC 10:28
PROVIDERS: ATTEND Family Medicine
DX: L89.219 Pressure ulcer of right hip, unspecified stage (principal)
CPT/HCPCS: 87070; 87077; 87147; 87186; 87205; 97605; A4218

== ENCOUNTER 2019-01-26 09:29 | Outpatient (CLI) | payer MEDICARE, BC ==
--- NOTE | 2019-01-26 12:35 | PRG ---
DATE OF SERVICE: 01/26/2019 SUBJECTIVE: Mr. Boyer is seen in wound care today. He has a right hip decubitus, that I have previously debrided in the hospital. He is undergoing wound care. He has a small inferior tract, it was draining with wound care, and is being packed now. A culture of this and Staphylococcus sensitive to almost everything is grown. I have prescribed Cipro 500 b.i.d. for 7 days. I will continue to pack the wound. There is no evidence of cellulitis. No evidence of infection. There is some undermining superiorly, but this is granulating and overall healing. He is on peritoneal dialysis. I am told that they do not think he has calciphylaxis. He does have lumpy fatty tissue beneath his pannus abdomen suggestive of calciphylaxis, but no ongoing abdominal problems at this time. At this time, I will follow up him in Wound Care and see him periodically. Job ID: [id number]
[2019-01-26] MEDS ORDERED: Sodium Chloride 0.9% 15 ML NEB ONE (17:05)
== END 2019-01-26 09:30 | disposition home or self-care (01) ==
LOC: WCC 09:29
PROVIDERS: ATTEND Family Medicine
DX: L89.219 Pressure ulcer of right hip, unspecified stage (principal)
CPT/HCPCS: 97605; A4218

== ENCOUNTER 2019-01-29 11:30 | Outpatient (CLI) | payer MEDICARE, BC ==
--- NOTE | 2019-01-29 22:42 | HP ---
HISTORY OF PRESENT ILLNESS: Mr. Merrick Boyer is a very pleasant 63-year-old gentleman, who presents to the Wound Center for evaluation of a large wound of the right hip subsequent to intraoperative debridement on 10/03/[address] Oleg Douglass. Negative pressure therapy was initiated subsequent to surgery and upon discharge from [facility], the patient was referred to inpatient rehabilitation. Presently the patient is receiving dressing changes of the wound VAC here in the [facility] [place]. The patient states that in the past he has been treated for calciphylaxis by Nephrology with IV sodium thiosulfate. He states that he was however unable to tolerate treatment with IV sodium thiosulfate. PAST MEDICAL HISTORY: 1. End-stage renal disease. 2. History of obstructive sleep apnea. 3. Chronic lymphedema. 4. History of hypertension. 5. Hypothyroidism. 6. Fatty liver. 7. History of congestive heart failure. 8. Anemia. 9. History of secondary hyperparathyroidism. 10. Peripheral vascular disease. 11. CVA. 12. History of calciphylaxis. PAST SURGICAL HISTORY: 1. Dialysis access procedures. 2. Incision and drainage of right leg abscess 05/08/2017. 3. Intraoperative debridement as per HPI of right medial thigh wound on 10/03/[address] Oleg Douglass. MEDICATIONS: The patient does not have a list of his medications with him today. ALLERGIES: MORPHINE, CODEINE, HYDROCODONE, FLUCONAZOLE, TRAMADOL. SOCIAL HISTORY: Negative for tobacco or EtOH use. FAMILY HISTORY: Family history significant for diabetes mellitus. The patient states that he has multiple relatives on the maternal side of his family who were diagnosed with diabetes mellitus. Family history is also significant for coronary artery disease. The patient's father and a paternal uncle were diagnosed with coronary artery disease. PHYSICAL EXAMINATION: VITAL SIGNS: Temperature 98.5, pulse blood 69, pressure 100/49. GENERAL: A 63-year-old gentleman, lying on stretcher in examination room, in no acute distress. HEENT: Normocephalic, atraumatic. NECK: No nuchal rigidity. CHEST: Clear to auscultation. CV: Regular rate and rhythm. ABDOMEN: Soft. EXTREMITIES: A large wound of the right hip is present, which measures approximately 10.4 x 3.4 cm. A tunnel is associated with the wound which is approximately 4.9 cm in length. Undermining from 9'o clock to 2'o clock is present and is approximately 8 cm in length. Granulation tissue is present within the wound margins. No purulent drainage is associated with the wound. No erythema of the skin surrounding the wound is present. No maceration of the skin of the periwound is noted. ASSESSMENT AND PLAN: 1. Large wound of right hip. Negative pressure therapy will be continued with dressing changes of the wound VAC here in the Wound Center. I will see Mr. Boyer again in 2 weeks. I will also discuss the treatment plan with Dr. Oleg Douglass. 2. End-stage renal disease. 3. History of obstructive sleep apnea. 4. Chronic lymphedema. 5. History of hypertension. 6. Hypothyroidism. 7. Fatty liver. 8. History of congestive heart failure. 9. Anemia. 10. Secondary hyperparathyroidism. 11. Peripheral vascular disease. 12. Cerebrovascular accident. 13. Calciphylaxis. Job ID: [id number]
== END 2019-01-29 11:31 | disposition home or self-care (01) ==
LOC: WCC 11:30
PROVIDERS: ATTEND Family Medicine
DX: S71.001D Unspecified open wound, right hip, subsequent encounter (principal); N18.6 End stage renal disease; E03.9 Hypothyroidism, unspecified; K76.0 Fatty (change of) liver, not elsewhere classified; E83.59 Other disorders of calcium metabolism; I73.9 Peripheral vascular disease, unspecified; I63.9 Cerebral infarction, unspecified; N25.81 Secondary hyperparathyroidism of renal origin; D64.9 Anemia, unspecified; I89.0 Lymphedema, not elsewhere classified; G47.33 Obstructive sleep apnea (adult) (pediatric); Z86.79 Personal history of other diseases of the circulatory system
CPT/HCPCS: A4218

== ENCOUNTER 2019-02-03 09:56 | Outpatient (CLI) | payer MEDICARE, BC ==
[2019-02-03] MEDS ORDERED: Lidocaine 4% Topical Sol 50 ML BOT ONE (15:00)
[2019-02-03] MEDS ORDERED: Sodium Chloride 0.9% 15 ML NEB ONE (15:00)
== END 2019-02-03 09:57 | disposition home or self-care (01) ==
LOC: WCC 09:56
PROVIDERS: ATTEND Family Medicine
DX: L89.219 Pressure ulcer of right hip, unspecified stage (principal)
CPT/HCPCS: 97605; A4218

== ENCOUNTER 2019-02-06 13:50 | Outpatient (CLI) | payer MEDICARE, BC ==
[2019-02-06] MEDS ORDERED: Sodium Chloride 0.9% 15 ML NEB ONE (15:00)
== END 2019-02-06 13:51 | disposition home or self-care (01) ==
LOC: WCC 13:50
PROVIDERS: ATTEND Family Medicine
DX: L89.219 Pressure ulcer of right hip, unspecified stage (principal)
CPT/HCPCS: A4218

== ENCOUNTER 2019-02-10 09:54 | Emergency (ER) | payer MEDICARE, BC ==
--- NOTE | 2019-02-10 10:31 | RAD ---
XR Chest 1 View Portable HISTORY: Hypotension. Wound on right hip. COMPARISON: 11/18/2018 study FINDINGS: Heart size is within normal limits with atherosclerotic changes of the aorta. The lungs are clear of infiltrative process. IMPRESSION: No active intrathoracic disease.
[2019-02-10 10:32] LABS: #Basophils 0.1 thou/uL (0.0-0.2); #Eosinphils 1.5 thou/uL (0.0-0.7); #Lymphocytes 2.4 thou/uL (1.20-3.40); #Monocytes 0.5 thou/uL (0.11-0.59); %Basophils 0.9 % (0.0-1.0); %Eosinophils 12.2 % (0.0-10.0); %Lymphocytes 19.2 % (21.0-51.0); %Monocytes 3.6 % (0.0-10.0); %Neutrophils 64.1 % (42.0-75.0); Hemoglobin 16.4 g/dL (14.0-18.0); Mean Corpuscular HGB CONC 31.2 g/dL (32.0-36.0); Mean Corpuscular Hemoglobin 31.8 pg (27.0-31.0); Mean Platelet Volume 9.7 fL (7.4-10.4); Platelet Count 143 thou/uL (130-400); RBC Distribution Width 15.9 % (11.5-14.5); Red Blood Cell (RBC) Count 5.15 mill/uL (4.70-6.10); White Blood Cell (WBC) Count 12.4 thou/uL (4.8-10.8)
[2019-02-10 11:19] LABS: Actual Bicarbonate (HCO3a) 23.1 mEq/L (22-28); Analyzer IN Cardio ER; Base Excess (BEa) -4.1 mEq/L (-2.0 to +3.0); CO2 Tension 50.5 mmHg (35.0-45.0); Calcium, Ionized 1.11 mmol/L (1.12-1.30); Carboxyhemoglobin (COHb) 1.7 gm% (0.0-3.0); Hemoglobin (Hb) 14.6 g/dL (14.0-18.0); Potassium - ABG Lab 4.28 mmol/L (3.70-5.30); pH, Arterial 7.28 (7.35-7.45)
[2019-02-10 11:20] LABS: O2 Tension (PaO2) 56.4 mmHg (> 80.0); Puncture Site RBA
[2019-02-10 11:21] LABS: ALV-art Gradient 137.155 (0-20)
[2019-02-10 12:04] LABS: Albumin 2.6 g/dL (3.4-4.8)
[2019-02-10 12:05] LABS: Chloride 103 mmol/L (98-107); Potassium 5.6 mmol/L (3.5-5.1); Sodium 137 mmol/L (136-145)
[2019-02-10 12:06] LABS: Calcium 7.8 mg/dL (7.8-10.44); Globulin 4.3 g/dL (2.4-3.5); Glucose 83 mg/dL (80-115); Protein, Total 6.9 g/dL (5.8-8.1)
[2019-02-10 12:08] LABS: Anion Gap 22 mmol/L (10-20); Bilirubin, Total 0.2 mg/dL (0.2-1.2); Carbon Dioxide 18 mmol/L (23-31)
[2019-02-10 12:09] LABS: Alkaline Phosphatase 81 U/L (40-110)
[2019-02-10 12:10] LABS: BUN (Urea Nitrogen) 39 mg/dL (8.4-25.7); Calc. Creatinine Clearance 0 mL/min (70-130); Estimated GFR-MDRD 7
[2019-02-10 12:11] LABS: AST (SGOT) 24 U/L (5-34)
[2019-02-10 12:12] LABS: ALT (SGPT) 14 U/L (8-55)
[2019-02-10] MEDS ORDERED: Bacitracin 1 PK ONE (12:48)
[2019-02-10 14:31] LABS: Lactic Acid 2.9 mmol/L (0.5-2.2)
== END 2019-02-10 14:45 | disposition home or self-care (01) ==
LOC: ERS 09:54
DX: I95.89 Other hypotension (principal); I50.9 Heart failure, unspecified; E03.9 Hypothyroidism, unspecified; E66.9 Obesity, unspecified; N18.6 End stage renal disease
CPT/HCPCS: 36415; 71045; 80053; 82805; 83605; 84484; 85025; 93005; 93010; 96360

== ENCOUNTER 2019-02-10 15:00 | Outpatient (CLI) | payer MEDICARE, BC ==
[2019-02-10] MEDS ORDERED: Sodium Chloride 0.9% 15 ML NEB ONE (15:47)
== END 2019-02-10 15:01 | disposition home or self-care (01) ==
LOC: WCC 15:00
PROVIDERS: ATTEND Family Medicine
DX: L89.219 Pressure ulcer of right hip, unspecified stage (principal)
CPT/HCPCS: A4218

== ENCOUNTER 2019-02-13 10:45 | Outpatient (CLI) | payer MEDICARE, BC ==
[2019-02-13] MEDS ORDERED: Sodium Chloride 0.9% 15 ML NEB ONE (18:00)
== END 2019-02-13 10:46 | disposition home or self-care (01) ==
LOC: WCC 10:45
PROVIDERS: ATTEND Family Medicine
DX: L89.219 Pressure ulcer of right hip, unspecified stage (principal)
CPT/HCPCS: 97605; A4218

== ENCOUNTER 2019-02-18 09:52 | Outpatient (CLI) | payer MEDICARE, BC ==
[~2019-02-18 09:52] MED LIST changes: +Lidocaine 4% Topical Sol 50 ML BOT ONE
--- NOTE | 2019-02-18 10:56 | PRG ---
DATE OF SERVICE: 02/18/2019 HISTORY: Mr. Merrick Boyer is a very pleasant 63-year-old gentleman, accompanied by his , who presents to the wound center for evaluation of a large wound of the right hip subsequent to intraoperative debridement on 10/03/[address] Oleg Douglass. Negative pressure therapy was initiated subsequent to surgery, and upon discharge from [facility], the patient was referred to inpatient rehabilitation. Currently, the patient is receiving dressing changes of the wound VAC here in the wound center. The patient previously stated that in the past, he had been treated for calciphylaxis by Nephrology with IV sodium thiosulfate. He stated that he was, however, unable to tolerate treatment with IV sodium thiosulfate. PHYSICAL EXAMINATION: VITAL SIGNS: Temperature 97.4, pulse is 155, respirations 30, blood pressure . EXTREMITIES: A large wound of the right hip is present, which measures approximately 10.0 x 3.3 cm. A tunnel is associated with the wound which is approximately 4.2 cm in length. Granulation tissue is present within the wound margins. No purulent drainage is associated with the wound. No erythema of the skin surrounding the wound is present. No maceration of the skin of the periwound is noted. ASSESSMENT AND PLAN: 1. Large wound of right hip. Negative pressure therapy will be continued with dressing changes of the wound VAC here in the wound center. Arrangements will also be made for imaging of the right hip to look for findings suggestive of osteomyelitis. The patient will be seen by Dr. Douglass at the time of one of his visits for dressing changes of the wound VAC. At this time, I will also discuss the treatment plan with Dr. Douglass. I will see Mr. Boyer again; at the same time, he is being seen by Dr. Douglass. 2. End-stage renal disease. 3. History of obstructive sleep apnea. 4. Chronic lymphedema. 5. History of hypertension. 6. Hypothyroidism. 7. Fatty liver. 8. History of congestive heart failure. 9. Anemia. 10. Secondary hyperparathyroidism. 11. Peripheral vascular disease. 12. Cerebrovascular accident. 13. Calciphylaxis. Job ID: [id number]
== END 2019-02-18 09:53 | disposition home or self-care (01) ==
LOC: WCC 09:52
PROVIDERS: ATTEND Family Medicine
DX: T81.89XD Other complications of procedures, not elsewhere classified, subsequent encounter (principal); I13.2 Hypertensive heart and chronic kidney disease with heart failure and with stage 5 chronic kidney disease, or end stage renal disease; N18.6 End stage renal disease; D64.9 Anemia, unspecified; K76.0 Fatty (change of) liver, not elsewhere classified; I50.9 Heart failure, unspecified; E03.9 Hypothyroidism, unspecified; N25.81 Secondary hyperparathyroidism of renal origin; I73.9 Peripheral vascular disease, unspecified; I63.9 Cerebral infarction, unspecified
CPT/HCPCS: 97602